=== PATIENT | female | born 1970 | race Two or more races ===

== ENCOUNTER 2019-09-18 21:30 | Inpatient (IN) | payer MEDICAID ==
[~2019-09-18] VITALS: Ht 157.5 cm; Wt 70.3 kg
[2019-09-18] MEDS ORDERED: Acetaminophen 500mg (ES) tab ORAL ONE (21:45)
[2019-09-18 22:00] VITALS: BP 106/62
--- NOTE | 2019-09-18 22:07 | Emergency Room Report ---
History of Present Illness General Chief Complaint: Dyspnea/Respdistress Source: Patient Present Illness HPI This is a 49-year-old Albanian-speaking female with no past medical history patient presents with chief complaint of shortness of breath. She had fever chills and shortness of breath has been ongoing for about a week. 3 days ago she was at [facility] and was tested positive for COVID-19. She was discharged home with symptomatic treatment. She called 911 because symptoms worsen today. She said she does not feel well. Feel very short of breath. Worse with exertion. Better with rest. Still with fever and chills. No nausea no vomiting or diarrhea. [place] weak and tired. Per EMS, oxygenation was around 85% on room air. Allergies: Coded Allergies: No Known Allergies (Unverified , 09/18/19) COVID-19 Screening Contact w/high risk pt: Yes Recent Travel to affected area: No Experienced COVID-19 symptoms?: Yes COVID-19 symptoms experienced: Shortness of Breath, Cough Patient History Past Medical History: see triage record, old chart reviewed Past Surgical History: none Pertinent Family History: none Social History: Denies: smoking Now: No Immunizations: other Reviewed Nursing Documentation: PMH: Agreed; PSxH: Agreed Nursing Documentation-PMH Past Medical History: No Stated History Review of Systems Constitutional: Reports: chills, fever, malaise, weakness Eye: Denies: eye pain, blurred vision ENT: Denies: ear pain, nose congestion, throat swelling Respiratory: Reports: cough, shortness of breath Cardiovascular: Denies: chest pain, palpitations Gastrointestinal: Denies: abdominal pain, diarrhea, nausea, vomiting Musculoskeletal: Denies: back pain, joint pain Skin: Denies: rash Neurological: Denies: headache, numbness Endocrine: Denies: increased thirst, increased urine Hematologic/Lymphatic: Denies: easy bruising All Other Systems: negative except mentioned in HPI Physical Exam Vital Signs Date Time Temp Pulse Resp B/P (MAP) Pulse Ox O2 Delivery O2 Flow Rate FiO2 09/18/19 21:32 99.5 92 22 106/62 (77) 87 Nasal Cannula 2.0 Vitals with hypoxia Sp02 EP Interpretation: reviewed, abnormal General Appearance: alert, other - Ill appearing Head: normocephalic, atraumatic Eyes: bilateral eye PERRL, bilateral eye EOMI ENT: hearing grossly normal, normal pharynx Neck: full range of motion, supple, no meningismus Respiratory: chest non-tender, lungs clear, normal breath sounds Cardiovascular #1: regular rate, rhythm, no murmur Gastrointestinal: normal bowel sounds, non tender, no mass, no organomegaly, no bruit, non-distended Musculoskeletal: back normal, normal range of motion, gait/station normal Psychiatric: mood/affect normal Procedures Critical Care Time Critical Care Time Critical care is mandated in this patient who presented with respiratory distress secondary to pneumonia from COVID. Patient require my urgent intervention to attenuate the risks of metabolic collapse which may lead to cardiovascular collapse and . Critical care time is 35 minutes excluding any reportable procedure. Critical care time included evaluation, multiple reevaluation, looking at old charts, interpreting laboratory and diagnostic data , discussing case with patient and family and consultants, and charting. Medical Decision Making Diagnostic Impression: Primary Impression: Pneumonia due to COVID-19 virus Additional Impression: Respiratory failure with hypoxia Qualified Codes: J96.01 - Acute respiratory failure with hypoxia ER Course Presents with respiratory distress and hypoxia. She is positive for COVID from [facility] 3 days ago. Antibiotic started. Because of worsening symptoms and hypoxia, will admit for monitoring and further work-up. This patient was evaluated in the context of the global COVID-19 pandemic, which necessitated consideration that the patient might be at risk for infection with the [id number] virus that causes COVID-19. Institutional protocols and algorithms that pertain to the evaluation of patients at risk for COVID-19 and the state of rapid change based on information released by multiple regulatory bodies including the CDC and federal and state organizations. These policies and algorithms were followed during the patient' s care in the ED. EKG Diagnostic Results Rate: normal Rhythm: NSR ST Segments: no acute changes ASA given to the pt in ED: No Rhythm Strip Diag. Results EP Interpretation: yes Rate: 80 Rhythm: NSR, no PVC's Chest X-Ray Diagnostic Results Chest X-Ray Diagnostic Results : Chest X-Ray Ordered: Yes # of Views/Limited/Complete: 1 View Indication: Shortness of Breath EP Interpretation: Yes Interpretation: no effusion, no pneumothorax, other - Multi lobar infiltrates Impression: Other - multi-lobar infiltrates Last Vital Signs Date Time Temp Pulse Resp B/P (MAP) Pulse Ox O2 Delivery O2 Flow Rate FiO2 09/18/19 21:32 99.5 92 22 106/62 (77) 87 Nasal Cannula 2.0 Status: improved Disposition: ADMITTED INPATIENT Condition: Serious Darrian Correa MD Sep 18, 2019 22:07
[2019-09-18] MEDS ORDERED: cefTRIAXone 1 GM in NS 55 ML IVPB ONE (22:15)
[2019-09-18] MEDS ORDERED: Enoxaparin 80mg Inj SUBQ ONE (22:15)
[2019-09-18] MEDS ORDERED: Hydroxychloroquine Fact Sheet MISC ONE (22:15)
[2019-09-18] MEDS ORDERED: Azithromycin 500 MG in NS 275 ML IV ONE (22:15)
[2019-09-18] MEDS ORDERED: Dexamethasone 4mg/ml vial IVP ONE (22:15)
[2019-09-18 22:43] LABS: HEMATOCRIT 39.2 % (37.0-47.0); HEMOGLOBIN 12.7 G/DL (12.0-16.0); MEAN CORPUSCULAR VOLUME 94 FL (80-99); PLATELET COUNT 238 K/UL (150-450); RED BLOOD COUNT 4.17 M/UL (4.20-5.40); RED CELL DISTRIBUTION WIDTH 12.2 % (11.6-14.8)
[2019-09-18 22:53] VITALS: BP 124/69
[2019-09-18 23:07] LABS: ANION GAP 13 mmol/L (5-15); BLOOD UREA NITROGEN 7 mg/dL (7-18); CALCIUM 8.7 MG/DL (8.5-10.1); CARBON DIOXIDE 24 MMOL/L (21-32); CHLORIDE 101 MMOL/L (98-107); CREATININE 0.7 MG/DL (0.55-1.30); POTASSIUM 3.7 MMOL/L (3.5-5.1); SODIUM 137 MMOL/L (136-145)
[2019-09-18] MEDS ORDERED: Miralax 17gm pkt ORAL PRN (23:15)
[2019-09-18 23:23] LABS: ALANINE AMINOTRANSFERASE 72 U/L (12-78); ALBUMIN 2.8 G/DL (3.4-5.0); ALBUMIN/GLOBULIN RATIO 0.5 (1.0-2.7); ALKALINE PHOSPHATASE 109 U/L (46-116); ASPARTATE AMINO TRANSFERASE 70 U/L (15-37); BILIRUBIN,TOTAL 0.4 MG/DL (0.2-1.0); FERRITIN 598 NG/ML (8-388)
[2019-09-19] VITALS (14 sets, daily range): BP systolic 93–114; BP diastolic 48–84
[2019-09-19] MEDS: cefTRIAXone 1 GM in D5W 50 ML IVPB SCH ×2
[2019-09-19] MEDS: Enoxaparin 40mg Inj SUBQ SCH ×2 (00:15→22:32)
[2019-09-19 05:15] LABS: ALANINE AMINOTRANSFERASE 61 U/L (12-78); ALBUMIN 2.4 G/DL (3.4-5.0); ALBUMIN/GLOBULIN RATIO 0.5 (1.0-2.7); ALKALINE PHOSPHATASE 102 U/L (46-116); ANION GAP 11 mmol/L (5-15); ASPARTATE AMINO TRANSFERASE 60 U/L (15-37); BILIRUBIN,TOTAL 0.3 MG/DL (0.2-1.0); BLOOD UREA NITROGEN 6 mg/dL (7-18); CARBON DIOXIDE 23 MMOL/L (21-32); CHLORIDE 105 MMOL/L (98-107); CREATININE 0.9 MG/DL (0.55-1.30); POTASSIUM 4.1 MMOL/L (3.5-5.1); SODIUM 139 MMOL/L (136-145)
[2019-09-19] MEDS ORDERED: ACETAMINOPHEN120 MG PO (05:51)
[2019-09-19 06:28] LABS: HEMOGLOBIN 12.5 G/DL (12.0-16.0); MEAN CORPUSCULAR VOLUME 90 FL (80-99); PLATELET COUNT 234 K/UL (150-450); RED BLOOD COUNT 4.01 M/UL (4.20-5.40); RED CELL DISTRIBUTION WIDTH 11.1 % (11.6-14.8); WHITE BLOOD COUNT 10.1 K/UL (4.8-10.8)
[2019-09-19 07:11] LABS: APPEARANCE,URINE CLEAR; BILIRUBIN, URINE NEGATIVE (NEGATIVE); COLOR,URINE PALE YELLOW; GLUCOSE, URINE (UA) NEGATIVE (NEGATIVE); KETONES,URINE NEGATIVE (NEGATIVE); LEUKOCYTE ESTERASE ,URINE NEGATIVE (NEGATIVE); NITRITE,URINE NEGATIVE (NEGATIVE); PH,URINE 6.5 (4.5-8.0); PROTEIN,URINE 1+ (NEGATIVE); UROBILINOGEN,URINE NORMAL MG/DL (0.0-1.0)
--- NOTE | 2019-09-19 08:51 | Diagnostic Imaging Report ---
Indication: Cough Technique: One view of the chest Comparison: none Findings: Groundglass infiltrates are seen in the periphery of the right lung and left mid and lower lung. Some interstitial opacities are seen in the left suprahilar region. No definite effusions. Normal heart size Impression: Bilateral right greater than left infiltrates, likely pneumonia
--- NOTE | 2019-09-19 11:42 | Infectious Diseases Prog Note ---
Assessment/Plan Assessment/Plan Full consult to follow: A) 1) pna 2) rule out covid-19 infection 3) ? CAP P) 1) ceftriaxone and doxycycline 2) hydroxychloroquine 3) will f/u 4) thank you Subjective Allergies: Coded Allergies: No Known Allergies (Unverified , 09/18/19) Objective Vital Signs Last 24 Hour Vital Signs Date Time Temp Pulse Resp B/P (MAP) Pulse Ox O2 Delivery O2 Flow Rate FiO2 09/19/19 07:31 63 20 97/53 96 Non-Rebreather 15.0 09/19/19 06:15 98.7 67 21 101/57 96 Non-Rebreather 15.0 09/19/19 04:00 98.7 68 29 99/62 97 Non-Rebreather 15.0 09/19/19 02:00 98.7 70 22 99/61 96 Non-Rebreather 15.0 09/19/19 00:00 99.5 78 25 110/71 95 Non-Rebreather 4.0 09/18/19 22:53 99.5 88 33 124/69 95 Nasal Cannula 4.0 09/18/19 22:44 99.5 09/18/19 22:00 99.5 78 22 106/62 95 Nasal Cannula 4.0 09/18/19 22:00 78 22 Nasal Cannula 4.0 09/18/19 21:32 99.5 92 22 106/62 (77) 87 Nasal Cannula 2.0 Height (Feet): 5 Height (Inches): 2.00 Weight (Pounds): 180 Laboratory Tests Test 09/18/19 22:05 09/19/19 04:30 09/19/19 10:43 White Blood Count 9.0 K/UL (4.8-10.8) 10.1 K/UL (4.8-10.8) Red Blood Count 4.17 M/UL (4.20-5.40) L 4.01 M/UL (4.20-5.40) L Hemoglobin 12.7 G/DL (12.0-16.0) 12.5 G/DL (12.0-16.0) Hematocrit 39.2 % (37.0-47.0) 36.0 % (37.0-47.0) L Mean Corpuscular Volume 94 FL (80-99) 90 FL (80-99) Mean Corpuscular Hemoglobin 30.4 PG (27.0-31.0) 31.2 PG (27.0-31.0) H Mean Corpuscular Hemoglobin Concent 32.3 G/DL (32.0-36.0) 34.8 G/DL (32.0-36.0) Red Cell Distribution Width 12.2 % (11.6-14.8) 11.1 % (11.6-14.8) L Platelet Count 238 K/UL (150-450) 234 K/UL (150-450) Mean Platelet Volume 7.2 FL (6.5-10.1) 6.7 FL (6.5-10.1) Neutrophils (%) (Auto) % (45.0-75.0) % (45.0-75.0) Lymphocytes (%) (Auto) % (20.0-45.0) % (20.0-45.0) Monocytes (%) (Auto) % (1.0-10.0) % (1.0-10.0) Eosinophils (%) (Auto) % (0.0-3.0) % (0.0-3.0) Basophils (%) (Auto) % (0.0-2.0) % (0.0-2.0) Differential Total Cells Counted 100 100 Neutrophils % (Manual) 83 % (45-75) H 95 % (45-75) H Lymphocytes % (Manual) 11 % (20-45) L 2 % (20-45) L Monocytes % (Manual) 4 % (1-10) 3 % (1-10) Eosinophils % (Manual) 0 % (0-3) 0 % (0-3) Basophils % (Manual) 0 % (0-2) 0 % (0-2) Band Neutrophils 2 % (0-8) 0 % (0-8) Platelet Estimate Adequate Adequate Platelet Morphology Normal Normal Red Blood Cell Morphology Normal Normal Erythrocyte Sedimentation Rate 80 MM/HR (0-20) H D-Dimer 0.61 mg/L FEU (0.00-0.49) H Sodium Level 137 MMOL/L (136-145) 139 MMOL/L (136-145) Potassium Level 3.7 MMOL/L (3.5-5.1) 4.1 MMOL/L (3.5-5.1) Chloride Level 101 MMOL/L (98-107) 105 MMOL/L (98-107) Carbon Dioxide Level 24 MMOL/L (21-32) 23 MMOL/L (21-32) Anion Gap 13 mmol/L (5-15) 11 mmol/L (5-15) Blood Urea Nitrogen 7 mg/dL (7-18) 6 mg/dL (7-18) L Creatinine 0.7 MG/DL (0.55-1.30) 0.9 MG/DL (0.55-1.30) Estimat Glomerular Filtration Rate > 60 mL/min (>60) > 60 mL/min (>60) Glucose Level 128 MG/DL (74-106) H 158 MG/DL (74-106) H Calcium Level 8.7 MG/DL (8.5-10.1) 8.0 MG/DL (8.5-10.1) L Ferritin 598 NG/ML (8-388) H Total Bilirubin 0.4 MG/DL (0.2-1.0) 0.3 MG/DL (0.2-1.0) Aspartate Amino Transf (AST/SGOT) 70 U/L (15-37) H 60 U/L (15-37) H Alanine Aminotransferase (ALT/SGPT) 72 U/L (12-78) 61 U/L (12-78) Alkaline Phosphatase 109 U/L (46-116) 102 U/L (46-116) Lactate Dehydrogenase 419 U/L (81-234) H C-Reactive Protein, Quantitative 26.6 mg/dL (0.00-0.90) H Total Protein 7.9 G/DL (6.4-8.2) 7.3 G/DL (6.4-8.2) Albumin 2.8 G/DL (3.4-5.0) L 2.4 G/DL (3.4-5.0) L Globulin 5.1 g/dL 4.9 g/dL Albumin/Globulin Ratio 0.5 (1.0-2.7) L 0.5 (1.0-2.7) L Thyroid Stimulating Hormone (TSH) 0.978 uiU/mL (0.358-3.740) Arterial Blood pH 7.433 (7.350-7.450) Arterial Blood Partial Pressure CO2 35.6 mmHg (35.0-45.0) Arterial Blood Partial Pressure O2 63.0 mmHg (75.0-100.0) L Arterial Blood HCO3 23.3 mmol/L (22.0-26.0) Arterial Blood Oxygen Saturation 92.8 % (95-100) L Arterial Blood Base Excess -0.5 (-2-2) Luis Test Positive Current Medications Medications (Trade) Dose Ordered Sig/Sam Route PRN Reason Start Time Stop Time Status Last Admin Dose Admin Acetaminophen (Tylenol) 650 mg Q4H PRN ORAL Mild Pain (Pain Scale 1-3) 09/18/19 23:15 10/18/19 23:14 Acetaminophen (Tylenol) 650 mg Q4H PRN ORAL Temp >100.5 09/18/19 23:15 10/18/19 23:14 Ceftriaxone Sodium 1 gm/ Dextrose 50 ml @ 100 mls/hr Q24H IVPB 09/19/19 00:00 09/26/19 00:00 Dextrose (Dextrose 50%) 25 ml Q30M PRN IV Hypoglycemia 09/18/19 23:15 12/17/19 23:14 Dextrose (Dextrose 50%) 50 ml Q30M PRN IV Hypoglycemia 09/18/19 23:15 12/17/19 23:14 Enoxaparin Sodium (Lovenox) 40 mg QHS SUBQ 09/19/19 00:15 12/18/19 00:14 Ondansetron HCl (Zofran) 4 mg Q6H PRN IVP Nausea & Vomiting 09/18/19 23:15 10/18/19 23:14 09/19/19 08:24 Polyethylene Glycol (Miralax) 17 gm HSPRN PRN ORAL Constipation 09/18/19 23:15 10/18/19 23:14 Sodium Chloride 1,000 ml @ 50 mls/hr Q20H IV 09/19/19 00:01 10/19/19 00:00 09/19/19 00:34 Enedina Ceja MD Sep 19, 2019 11:42
[2019-09-19] MEDS ORDERED: Hydroxychloroquine 400mg tab ORAL SCH (12:00)
[2019-09-19] MEDS ORDERED: Hydroxychloroquine Fact Sheet MISC SCH (12:00)
--- NOTE | 2019-09-19 15:08 | Consultation ---
Neena Lees COMMERCIAL LOAN ADMINISTRATOR 09/19/19 1508: History of Present Illness General Date patient seen: Sep 19, 2019 Time patient seen: 11:00 Chief Complaint: Dyspnea/Respdistress Referring physician: Dr Zuniga Reason for Consultation: Multilobar PNA Present Illness HPI 49 years old female with no significant past medical history, was recently tested positive for COVID-[address] [facility]. Patient was discharged home with recommendations of symptomatic treatment. Patient reported progressively worsening shortness of breath , ongoing for about a week. Patient reports predominantly a dry cough with minimal white color sputum production. She denied fever and chills. Patient reported weakness and tiredness , lack of energy. No chest pain. She called paramedics due to worsening symptoms. Per paramedics, pulse oximetry was 85% on room air. Upon presentation patient had a low-grade fever, was tachypneic and hypoxic; pulse oximetry was 87% on 2 L of oxygen via nasal cannula. Patient was placed on 100% nonrebreathing mask. Chest x-ray demonstrated bilateral, right greater than left infiltrates. Pulmonary consult was requested to assist with management of this patient. Laboratory work-up revealed no leukocytosis , stable hemoglobin ,hematocrit and lymphopenia. ESR 80. CRP 26.6. LDH 419. Ferritin 598. AST 70 ,ALT 72. Stable electrolytes and renal parameters. Urinalysis revealed no evidence of urinary tract infection. Patient was re-tested for CoVID 19 infection. Patient pancultured , started on empiric antibiotics and admitted for further management. Allergies: Coded Allergies: No Known Allergies (Unverified , 09/18/19) Medication History Scheduled Acetaminophen* (Tylenol*), 200 MG PO Q4H, (Reported) Patient History History Provided By: Patient, Medical Record Healthcare decision maker Resuscitation status Advanced Directive on File Review of Systems Constitutional: Reports: chills, malaise, weakness, other - poor appetite Eye: Reports: no symptoms ENT: Reports: no symptoms Respiratory: Reports: see HPI Cardiovascular: Reports: no symptoms Gastrointestinal: Reports: other - epigastric discomfort Genitourinary: Reports: no symptoms Musculoskeletal: Reports: no symptoms Skin: Reports: no symptoms Psychiatric: Reports: no symptoms Neurological: Reports: no symptoms Endocrine: Reports: no symptoms Hematologic/Lymphatic: Reports: no symptoms Physical Exam General Appearance: alert oriented x3 - predominantly Citizen Of [place] speaking female , other - mild resp distress Lines, tubes and drains: peripheral HEENT: normocephalic, atraumatic, anicteric, mucous membranes moist, PERRL, EOMI, supple, no JVD, other - 100 % NRM on Neck: supple Respiratory/Chest: no accessory muscle use, rhonchi - bilaterally Cardiovascular/Chest: normal rate, regular rhythm Abdomen: normal bowel sounds, non tender, soft Extremities: normal range of motion, no edema Skin Exam: warm/dry Neurologic: fashion photographer II-XII grossly normal, no motor/sensory deficits, alert, oriented x 3, responsive Musculoskeletal: normal muscle bulk, no effusion Last 24 Hour Vital Signs Date Time Temp Pulse Resp B/P (MAP) Pulse Ox O2 Delivery O2 Flow Rate FiO2 09/19/19 12:44 97.5 63 19 108/84 96 Non-Rebreather 15.0 09/19/19 07:31 63 20 97/53 96 Non-Rebreather 15.0 09/19/19 06:15 98.7 67 21 101/57 96 Non-Rebreather 15.0 09/19/19 04:00 98.7 68 29 99/62 97 Non-Rebreather 15.0 09/19/19 02:00 98.7 70 22 99/61 96 Non-Rebreather 15.0 09/19/19 00:00 99.5 78 25 110/71 95 Non-Rebreather 4.0 09/18/19 22:53 99.5 88 33 124/69 95 Nasal Cannula 4.0 09/18/19 22:44 99.5 09/18/19 22:00 99.5 78 22 106/62 95 Nasal Cannula 4.0 09/18/19 22:00 78 22 Nasal Cannula 4.0 09/18/19 21:32 99.5 92 22 106/62 (77) 87 Nasal Cannula 2.0 Intake and Output 09/18/19 09/19/19 19:00 07:00 Intake Total 1380 ml Balance 1380 ml IV Total 1380 ml Laboratory Tests Test 09/18/19 22:05 09/19/19 04:30 09/19/19 10:43 White Blood Count 9.0 K/UL (4.8-10.8) 10.1 K/UL (4.8-10.8) Red Blood Count 4.17 M/UL (4.20-5.40) L 4.01 M/UL (4.20-5.40) L Hemoglobin 12.7 G/DL (12.0-16.0) 12.5 G/DL (12.0-16.0) Hematocrit 39.2 % (37.0-47.0) 36.0 % (37.0-47.0) L Mean Corpuscular Volume 94 FL (80-99) 90 FL (80-99) Mean Corpuscular Hemoglobin 30.4 PG (27.0-31.0) 31.2 PG (27.0-31.0) H Mean Corpuscular Hemoglobin Concent 32.3 G/DL (32.0-36.0) 34.8 G/DL (32.0-36.0) Red Cell Distribution Width 12.2 % (11.6-14.8) 11.1 % (11.6-14.8) L Platelet Count 238 K/UL (150-450) 234 K/UL (150-450) Mean Platelet Volume 7.2 FL (6.5-10.1) 6.7 FL (6.5-10.1) Neutrophils (%) (Auto) % (45.0-75.0) % (45.0-75.0) Lymphocytes (%) (Auto) % (20.0-45.0) % (20.0-45.0) Monocytes (%) (Auto) % (1.0-10.0) % (1.0-10.0) Eosinophils (%) (Auto) % (0.0-3.0) % (0.0-3.0) Basophils (%) (Auto) % (0.0-2.0) % (0.0-2.0) Differential Total Cells Counted 100 100 Neutrophils % (Manual) 83 % (45-75) H 95 % (45-75) H Lymphocytes % (Manual) 11 % (20-45) L 2 % (20-45) L Monocytes % (Manual) 4 % (1-10) 3 % (1-10) Eosinophils % (Manual) 0 % (0-3) 0 % (0-3) Basophils % (Manual) 0 % (0-2) 0 % (0-2) Band Neutrophils 2 % (0-8) 0 % (0-8) Platelet Estimate Adequate Adequate Platelet Morphology Normal Normal Red Blood Cell Morphology Normal Normal Erythrocyte Sedimentation Rate 80 MM/HR (0-20) H D-Dimer 0.61 mg/L FEU (0.00-0.49) H Sodium Level 137 MMOL/L (136-145) 139 MMOL/L (136-145) Potassium Level 3.7 MMOL/L (3.5-5.1) 4.1 MMOL/L (3.5-5.1) Chloride Level 101 MMOL/L (98-107) 105 MMOL/L (98-107) Carbon Dioxide Level 24 MMOL/L (21-32) 23 MMOL/L (21-32) Anion Gap 13 mmol/L (5-15) 11 mmol/L (5-15) Blood Urea Nitrogen 7 mg/dL (7-18) 6 mg/dL (7-18) L Creatinine 0.7 MG/DL (0.55-1.30) 0.9 MG/DL (0.55-1.30) Estimat Glomerular Filtration Rate > 60 mL/min (>60) > 60 mL/min (>60) Glucose Level 128 MG/DL (74-106) H 158 MG/DL (74-106) H Calcium Level 8.7 MG/DL (8.5-10.1) 8.0 MG/DL (8.5-10.1) L Ferritin 598 NG/ML (8-388) H Total Bilirubin 0.4 MG/DL (0.2-1.0) 0.3 MG/DL (0.2-1.0) Aspartate Amino Transf (AST/SGOT) 70 U/L (15-37) H 60 U/L (15-37) H Alanine Aminotransferase (ALT/SGPT) 72 U/L (12-78) 61 U/L (12-78) Alkaline Phosphatase 109 U/L (46-116) 102 U/L (46-116) Lactate Dehydrogenase 419 U/L (81-234) H C-Reactive Protein, Quantitative 26.6 mg/dL (0.00-0.90) H Total Protein 7.9 G/DL (6.4-8.2) 7.3 G/DL (6.4-8.2) Albumin 2.8 G/DL (3.4-5.0) L 2.4 G/DL (3.4-5.0) L Globulin 5.1 g/dL 4.9 g/dL Albumin/Globulin Ratio 0.5 (1.0-2.7) L 0.5 (1.0-2.7) L Thyroid Stimulating Hormone (TSH) 0.978 uiU/mL (0.358-3.740) Arterial Blood pH 7.433 (7.350-7.450) Arterial Blood Partial Pressure CO2 35.6 mmHg (35.0-45.0) Arterial Blood Partial Pressure O2 63.0 mmHg (75.0-100.0) L Arterial Blood HCO3 23.3 mmol/L (22.0-26.0) Arterial Blood Oxygen Saturation 92.8 % (95-100) L Arterial Blood Base Excess -0.5 (-2-2) Luis Test Positive Height (Feet): 5 Height (Inches): 2.00 Weight (Pounds): 180 Medications Current Medications Medications (Trade) Dose Ordered Sig/Sam Route PRN Reason Start Time Stop Time Status Last Admin Dose Admin Acetaminophen (Tylenol) 650 mg Q4H PRN ORAL Mild Pain (Pain Scale 1-3) 09/18/19 23:15 10/18/19 23:14 09/19/19 12:36 Acetaminophen (Tylenol) 650 mg Q4H PRN ORAL Temp >100.5 09/18/19 23:15 10/18/19 23:14 Ceftriaxone Sodium 1 gm/ Dextrose 50 ml @ 100 mls/hr Q24H IVPB 09/19/19 00:00 09/26/19 00:00 Dextrose (Dextrose 50%) 25 ml Q30M PRN IV Hypoglycemia 09/18/19 23:15 12/17/19 23:14 Dextrose (Dextrose 50%) 50 ml Q30M PRN IV Hypoglycemia 09/18/19 23:15 12/17/19 23:14 Doxycycline Hyclate 100 mg/ Dextrose 100 ml @ 100 mls/hr Q12HR IVPB 09/19/19 21:00 09/26/19 20:59 UNV Enoxaparin Sodium (Lovenox) 40 mg QHS SUBQ 09/19/19 00:15 12/18/19 00:14 Hydroxychloroquine Sulfate (Plaquenil) 200 mg Q12HR ORAL 09/19/19 21:00 09/23/19 09:01 Miscellaneous Medication (Plaquenil Fact Sheet) 1 ea ONCE MISC 09/19/19 12:00 09/19/19 15:00 09/19/19 12:24 Ondansetron HCl (Zofran) 4 mg Q6H PRN IVP Nausea & Vomiting 09/18/19 23:15 10/18/19 23:14 09/19/19 08:24 Polyethylene Glycol (Miralax) 17 gm HSPRN PRN ORAL Constipation 09/18/19 23:15 10/18/19 23:14 Sodium Chloride 1,000 ml @ 50 mls/hr Q20H IV 09/19/19 00:01 10/19/19 00:00 09/19/19 00:34 Assessment/Plan Assessment/Plan: ASSESSMENT Acute hypoxemic respiratory failure ( requiring NRM in admission) Multilobar PNA due to COVID 19 infection ( confirmed prior) Transaminitis PLAN OF CARE ALBERTO O2 titrate to keep sat above 90% MDI with spacer prn fup with CoVID result ( swabbed ub ED 09/18) start Solumedrol 40 mg IV bid with fast tapering daily CRP, LDH, ferritin fup with ABG in am fup with CXR abx as per ID-ceftriaxone and Doxycycline ID also started on Plaquenil, monitor QT interval - no clearly documented benefits, will monitor closely isolation DVT prophylaxis with Lovenox gentle IV hydration trend LFT Time Spent (Minutes): 45 Notes Reviewed: ED physician, ID Discussed with: nurse case discussed and evaluated by supervising physician Raghav De MD 09/20/19 1632: History of Present Illness General Chief Complaint: Dyspnea/Respdistress Present Illness Allergies: Coded Allergies: No Known Allergies (Unverified , 09/18/19) Medication History Scheduled Acetaminophen* (Tylenol*), 200 MG PO Q4H, (Reported) Assessment/Plan Assessment/Plan: Patient seen and examined with COMMERCIAL LOAN ADMINISTRATOR. Agree with plan as outlined abouve which reflects our joint formulations. Neena Lees COMMERCIAL LOAN ADMINISTRATOR Sep 19, 2019 15:08 Raghav De MD Sep 20, 2019 16:32
[2019-09-19] MEDS ORDERED: Albuterol 90mcg Inhaler 8gm INH PRN (15:15)
--- NOTE | 2019-09-19 16:45 | History and Physical Report ---
DATE OF ADMISSION: 09/18/2019 CHIEF COMPLAINT/REASON FOR HOSPITALIZATION: The patient is a 49-year-old lady admitted with pneumonia, COVID-19 positive. HISTORY OF PRESENT ILLNESS: The patient apparently had positive COVID test at [facility] and was released. She presents now with increasing shortness of breath and hypoxemia. The patient is unable to give a good history but apparently she has been in good health prior to this. PAST SURGICAL HISTORY: None. HABITS: She is a nonsmoker and nondrinker. MEDICATIONS: At home, she has not been taking regular medicines except for Tylenol. SYSTEM REVIEW: Completely negative except for shortness of breath. PHYSICAL EXAMINATION: GENERAL: The patient is wearing oxygen mask, appears moderately dyspneic. VITAL SIGNS: Temperature 98.7, pulse 67, respirations 20, blood pressure 101/57. HEAD, EYES, EARS, NOSE, AND THROAT: Sclerae are nonicteric. Ocular motions intact in all directions. Oral mucosa moist. NECK: No adenopathy. LUNGS: She is tachypneic. I hear no rales or rhonchi. HEART: Regular rhythm. No murmur. ABDOMEN: Soft. EXTREMITIES: No edema. NEUROLOGIC: She is alert. No focal findings. LABORATORY DATA: Laboratories are reviewed. IMPRESSION: 1. Pneumonia with COVID-19 positive reported. 2. Hypoxemic acute respiratory failure. PLAN: The patient will be watched closely. We will get appropriate consultation. She has moderate rapid decline and will be watched closely. Hung Zuniga M.D. DR: Isaac JOB#: [id number] CC: GERARD
[2019-09-19] MEDS: Solu-MEDROL 40mg Inj IVP SCH (22:30)
[2019-09-20] VITALS (45 sets, daily range): BP systolic 58–263; BP diastolic 26–123
[2019-09-20] MEDS: cefTRIAXone 1 GM in D5W 50 ML IVPB SCH (00:02)
[2019-09-20 04:26] LABS: HEMOGLOBIN 13.1 G/DL (12.0-16.0); MEAN CORPUSCULAR VOLUME 88 FL (80-99); PLATELET COUNT 308 K/UL (150-450); RED BLOOD COUNT 4.18 M/UL (4.20-5.40); WHITE BLOOD COUNT 12.6 K/UL (4.8-10.8)
[2019-09-20 04:56] LABS: ALANINE AMINOTRANSFERASE 64 U/L (12-78); ALBUMIN 2.2 G/DL (3.4-5.0); ALBUMIN/GLOBULIN RATIO 0.4 (1.0-2.7); ALKALINE PHOSPHATASE 98 U/L (46-116); ANION GAP 12 mmol/L (5-15); ASPARTATE AMINO TRANSFERASE 58 U/L (15-37); BILIRUBIN,TOTAL 0.3 MG/DL (0.2-1.0); BLOOD UREA NITROGEN 14 mg/dL (7-18); CARBON DIOXIDE 25 MMOL/L (21-32); CHLORIDE 108 MMOL/L (98-107); CREATININE 0.8 MG/DL (0.55-1.30); FERRITIN 582 NG/ML (8-388); POTASSIUM 3.9 MMOL/L (3.5-5.1); SODIUM 145 MMOL/L (136-145)
[2019-09-20] MEDS: Solu-MEDROL 40mg Inj IVP SCH ×2 (09:41→21:00)
--- NOTE | 2019-09-20 09:54 | Pulmonology Progress Note ---
Neena Lees BATH MIXER 09/20/19 0954: Assessment/Plan Assessment/Plan ASSESSMENT Acute hypoxemic respiratory failure ( requiring NRM in admission) Multilobar PNA due to COVID 19 infection ( confirmed prior) Transaminitis PLAN OF CARE ALBERTO O2 titrate to keep sat above 90% MDI with spacer prn fup with CoVID result ( swabbed ub ED 09/18) on Solumedrol 40 mg IV bid with fast tapering mild leukocytosis this am daily CRP, LDH, ferritin: LDH 486, CRP 16.8, ferritin 582, IL 6 pending ABG this am on 100% NRM O2 sat 87.5 transfer to ICU for probable intubation CXR STAT abx as per ID-ceftriaxone and Doxycycline BCX NGTD ID also started on Plaquenil, monitor QT interval - no clearly documented benefits, will monitor closely isolation DVT prophylaxis with Lovenox gentle IV hydration trend LFT transfer to ICU case discussed and evaluated by supervising physician Time Spent (Minutes): 45 Notes Reviewed: ED physician, ID Discussed with: nurse Subjective Allergies: Coded Allergies: No Known Allergies (Unverified , 09/18/19) Subjective on tele in isolation on 100 % NRM points to chest and states its hurt with breathing RT just drawing ABG mild leuk this am, no fevers ( started on Steroids 09/18) Objective Last 24 Hour Vital Signs Date Time Temp Pulse Resp B/P (MAP) Pulse Ox O2 Delivery O2 Flow Rate FiO2 09/20/19 08:00 89 09/20/19 08:00 96.6 74 20 123/67 (85) 98 09/20/19 04:00 15.0 09/20/19 04:00 98.6 78 17 103/61 (75) 96 09/20/19 04:00 77 09/20/19 02:10 97.6 09/20/19 00:00 104 09/20/19 00:00 15.0 09/20/19 00:00 97.6 68 16 99/64 (76) 98 09/19/19 22:56 Non-Rebreather 15.0 09/19/19 22:15 99.3 65 26 99/57 98 Non-Rebreather 15.0 09/19/19 21:55 99.3 63 26 99/57 98 Non-Rebreather 15.0 09/19/19 19:16 99.1 67 27 97/55 99 Non-Rebreather 15.0 09/19/19 18:43 65 28 95/48 99 Non-Rebreather 15.0 09/19/19 17:40 99.7 67 28 103/61 96 Non-Rebreather 15.0 09/19/19 16:00 66 27 103/52 95 Non-Rebreather 15.0 09/19/19 14:30 71 27 106/77 94 Non-Rebreather 15.0 09/19/19 14:00 63 27 93/58 94 Non-Rebreather 15.0 09/19/19 12:44 97.5 63 19 108/84 96 Non-Rebreather 15.0 09/19/19 11:30 65 24 114/68 96 Non-Rebreather 15.0 Intake and Output 09/19/19 09/20/19 19:00 07:00 Intake Total 240 ml 957.4 ml Balance 240 ml 957.4 ml Intake Oral 240 ml 480 ml IV Total 477.4 ml # Voids 1 4 # Bowel Movements 1 Objective General Appearance: alert oriented x3; predominantly Turkmen speaking female , in mild resp distress Lines, tubes and drains: peripheral HEENT: normocephalic, atraumatic, anicteric, mucous membranes moist, PERRL, EOMI, supple, no JVD, on 100 % NRM on Neck: supple Respiratory/Chest: no accessory muscle use, rhonchi bilaterally Cardiovascular/Chest: normal rate, regular rhythm Abdomen: normal bowel sounds, non tender, soft Extremities: normal range of motion, no edema Skin Exam: warm/dry 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, no motor/sensory deficits, alert, oriented x 3, responsive Musculoskeletal: normal muscle bulk, no effusion HEENT: normocephalic, atraumatic, anicteric, mucous membranes moist Microbiology Date/Time Source Procedure Growth Status 09/18/19 22:05 Blood Blood Culture - Preliminary NO GROWTH AFTER 24 HOURS Resulted 09/18/19 21:40 Blood Blood Culture - Preliminary NO GROWTH AFTER 24 HOURS Resulted Laboratory Tests 09/19/19 10:43: Arterial Blood pH 7.433, Arterial Blood Partial Pressure CO2 35.6, Arterial Blood Partial Pressure O2 63.0L, Arterial Blood HCO3 23.3, Arterial Blood Oxygen Saturation 92.8L, Arterial Blood Base Excess -0.5, Luis Test Positive 09/20/19 03:45: Interleukin 6 (IL-6) [Pending] 09/20/19 04:00: White Blood Count 12.6H, Red Blood Count 4.18L, Hemoglobin 13.1, Hematocrit 37.0 , Mean Corpuscular Volume 88, Mean Corpuscular Hemoglobin 31.3H, Mean Corpuscular Hemoglobin Concent 35.4, Red Cell Distribution Width 11.0L, Platelet Count 308, Mean Platelet Volume 6.8, Neutrophils (%) (Auto) , Lymphocytes (%) (Auto) , Monocytes (%) (Auto) , Eosinophils (%) (Auto) , Basophils (%) (Auto) , Differential Total Cells Counted 100, Neutrophils % ( Manual) 94H, Lymphocytes % (Manual) 5L, Monocytes % (Manual) 1, Eosinophils % ( Manual) 0, Basophils % (Manual) 0, Band Neutrophils 0, Platelet Estimate Adequate, Platelet Morphology Normal, Red Blood Cell Morphology Normal, Sodium Level 145, Potassium Level 3.9, Chloride Level 108H, Carbon Dioxide Level 25, Anion Gap 12, Blood Urea Nitrogen 14, Creatinine 0.8, Estimat Glomerular Filtration Rate > 60, Glucose Level 134H, Calcium Level 8.0L, Ferritin 582H, Total Bilirubin 0.3, Aspartate Amino Transf (AST/SGOT) 58H, Alanine Aminotransferase (ALT/SGPT) 64, Alkaline Phosphatase 98, Lactate Dehydrogenase 486H, C-Reactive Protein, Quantitative 16.8H, Total Protein 7.3, Albumin 2.2L, Globulin 5.1, Albumin/Globulin Ratio 0.4L 09/20/19 08:25: Arterial Blood pH 7.417, Arterial Blood Partial Pressure CO2 34.5L, Arterial Blood Partial Pressure O2 53.7L, Arterial Blood HCO3 21.7L, Arterial Blood Oxygen Saturation 87.5*L, Arterial Blood Base Excess -2.1L, Luis Test Positive Current Medications Medications (Trade) Dose Ordered Sig/Sam Route PRN Reason Start Time Stop Time Status Last Admin Dose Admin Acetaminophen (Tylenol) 650 mg Q4H PRN ORAL Mild Pain (Pain Scale 1-3) 09/18/19 23:15 10/18/19 23:14 09/20/19 01:40 Acetaminophen (Tylenol) 650 mg Q4H PRN ORAL Temp >100.5 09/18/19 23:15 10/18/19 23:14 Albuterol Sulfate (Proventil MDI) 2 puff Q4H PRN INH Shortness of Breath 09/19/19 15:15 12/18/19 15:14 09/20/19 00:13 Ceftriaxone Sodium 1 gm/ Dextrose 50 ml @ 100 mls/hr Q24H IVPB 09/19/19 00:00 09/26/19 00:00 09/20/19 00:02 Dextrose (Dextrose 50%) 25 ml Q30M PRN IV Hypoglycemia 09/18/19 23:15 12/17/19 23:14 Dextrose (Dextrose 50%) 50 ml Q30M PRN IV Hypoglycemia 09/18/19 23:15 12/17/19 23:14 Doxycycline Hyclate 100 mg/ Dextrose 100 ml @ 100 mls/hr Q12HR IV 09/19/19 21:00 09/26/19 20:59 09/20/19 09:41 Enoxaparin Sodium (Lovenox) 40 mg QHS SUBQ 09/19/19 00:15 12/18/19 00:14 09/19/19 22:32 Hydroxychloroquine Sulfate (Plaquenil) 200 mg Q12HR ORAL 09/19/19 21:00 09/23/19 09:01 09/20/19 09:41 Methylprednisolone Sodium Succinate (Solu-MEDROL) 40 mg Q12HR IVP 09/19/19 21:00 12/18/19 20:59 09/20/19 09:41 Ondansetron HCl (Zofran) 4 mg Q6H PRN IVP Nausea & Vomiting 09/18/19 23:15 10/18/19 23:14 09/20/19 01:00 Polyethylene Glycol (Miralax) 17 gm HSPRN PRN ORAL Constipation 09/18/19 23:15 10/18/19 23:14 Sodium Chloride 1,000 ml @ 50 mls/hr Q20H IV 09/19/19 00:01 10/19/19 00:00 09/19/19 22:30 Raghav De MD 09/20/19 1631: Assessment/Plan Assessment/Plan Agree with above BATH MIXER A&P. Patient deteriorated throughout the day with progressive hypoxemia. I transferred her to the ICU, intubated now and stable on vent. Will start Fent gtt for sedation titrate to RASS -2 LPV Titrate O2, inc PEEP Abx per ID Plaquenil D2 F/U IL^ SM 40 IV BID and taper LMWH Place NGT Consider proning Monitor volumes and renal function mIVF CCT 60 Subjective Allergies: Coded Allergies: No Known Allergies (Unverified , 09/18/19) Neena Lees NP Sep 20, 2019 09:54 Raghav De MD Sep 20, 2019 16:31
--- NOTE | 2019-09-20 11:11 | Consultation ---
Consult Note Consult Note HISTORY OF PRESENT ILLNESS: The patient apparently had positive COVID test at [facility] and was released. She presents now with increasing shortness of breath and hypoxemia. The patient is unable to give a good history but apparently she has been in good health prior to this. Currently, it is noted that she has decompensated and will transfer to ICU PAST SURGICAL HISTORY: None. HABITS: She is a nonsmoker and nondrinker. MEDICATIONS: At home, she has not been taking regular medicines except for Tylenol. SYSTEM REVIEW: Completely negative except for shortness of breath. PHYSICAL EXAMINATION: GENERAL: The patient is wearing oxygen mask, appears moderately dyspneic. VITAL SIGNS: Temperature 98.7, pulse 67, respirations 24, blood pressure 101/57. HEAD, EYES, EARS, NOSE, AND THROAT: Sclerae are nonicteric. Ocular motions intact in all directions. Oral mucosa moist. NECK: No adenopathy. LUNGS: She is tachypneic. I hear no rales or rhonchi. HEART: Regular rhythm. No murmur. ABDOMEN: Soft. EXTREMITIES: No edema. NEUROLOGIC: She is alert. No focal findings. LABORATORY DATA: Laboratories are reviewed. IMPRESSION: 1. Pneumonia with COVID-19 positive reported. 2. Hypoxemic acute respiratory failure. PLAN: The patient will be watched closely in ICU. May require intubation. Discussed with Drs. Zuniga and Santino. Trupti Shanks Omar Syed MD Sep 20, 2019 11:10
--- NOTE | 2019-09-20 12:21 | Diagnostic Imaging Report ---
Indication: Shortness of breath Technique: One view of the chest Comparison: 09/18/2019 Findings: Interim marked increase in parenchymal consolidation bilaterally, particularly on the right, which is now diffuse throughout the lung. Disease on the left is predominantly in the mid and lower lung. The heart borders are obscured. No definite effusions. Impression: Over 2 days, interim marked worsening of bilateral infiltrates, right greater than left
[2019-09-20] MEDS ORDERED: Tubing IV Secondary IV ONE (14:46)
[2019-09-20] MEDS ORDERED: 1/2 NS 1000ml IV ONE (14:46)
--- NOTE | 2019-09-20 16:17 | General Progress Note ---
Assessment/Plan Problem List: (1) Glucose intolerance ICD Codes: E74.39 - Other disorders of intestinal carbohydrate absorption SNOMED: 35833116 (2) Respiratory failure with hypoxia ICD Codes: J96.91 - Respiratory failure, unspecified with hypoxia SNOMED: 64285528326974667, 365376212 Qualifiers: Qualified Codes: J96.01 - Acute respiratory failure with hypoxia (3) Pneumonia due to COVID-19 virus ICD Codes: U07.1 - COVID-19; J12.89 - Other viral pneumonia SNOMED: 668443014, [id number] Assessment/Plan: transferring to icu, on antibiotics, plaquenil ordered by pulm, worsening resp failure, intubating, SS insulin, steroids started Subjective ROS Limited/Unobtainable: Yes Allergies: Coded Allergies: No Known Allergies (Unverified , 09/18/19) Objective Last 24 Hour Vital Signs Date Time Temp Pulse Resp B/P (MAP) Pulse Ox O2 Delivery O2 Flow Rate FiO2 09/20/19 15:55 134 16 100 09/20/19 15:15 70 29 160/68 (98) 83 09/20/19 15:09 70 44 96 100 09/20/19 15:00 71 31 162/63 (96) 83 09/20/19 14:45 82 34 159/66 (97) 97 09/20/19 14:30 72 49 154/67 (96) 96 09/20/19 14:15 73 27 160/67 (98) 97 09/20/19 14:00 69 38 166/71 (102) 97 09/20/19 13:45 Bi-pap Bi-pap 09/20/19 13:45 73 38 158/63 (94) 95 09/20/19 13:30 98.5 77 34 172/62 (98) 83 09/20/19 12:46 88 38 98 100 09/20/19 12:00 67 09/20/19 12:00 15.0 09/20/19 12:00 97.7 74 20 129/52 (77) 97 09/20/19 09:58 90 35 97 100 09/20/19 09:00 Non-Rebreather 15.0 09/20/19 08:00 89 09/20/19 08:00 96.6 74 20 123/67 (85) 98 09/20/19 08:00 15.0 09/20/19 04:00 15.0 09/20/19 04:00 98.6 78 17 103/61 (75) 96 09/20/19 04:00 77 09/20/19 02:10 97.6 09/20/19 00:00 104 09/20/19 00:00 15.0 09/20/19 00:00 97.6 68 16 99/64 (76) 98 09/19/19 22:56 Non-Rebreather 15.0 09/19/19 22:15 99.3 65 26 99/57 98 Non-Rebreather 15.0 09/19/19 21:55 99.3 63 26 99/57 98 Non-Rebreather 15.0 09/19/19 19:16 99.1 67 27 97/55 99 Non-Rebreather 15.0 09/19/19 18:43 65 28 95/48 99 Non-Rebreather 15.0 09/19/19 17:40 99.7 67 28 103/61 96 Non-Rebreather 15.0 Intake and Output 09/19/19 09/20/19 19:00 07:00 Intake Total 240 ml 957.4 ml Balance 240 ml 957.4 ml Intake Oral 240 ml 480 ml IV Total 477.4 ml # Voids 1 4 # Bowel Movements 1 Laboratory Tests 09/20/19 03:45: Interleukin 6 (IL-6) [Pending] 09/20/19 04:00: White Blood Count 12.6H, Red Blood Count 4.18L, Hemoglobin 13.1, Hematocrit 37.0 , Mean Corpuscular Volume 88, Mean Corpuscular Hemoglobin 31.3H, Mean Corpuscular Hemoglobin Concent 35.4, Red Cell Distribution Width 11.0L, Platelet Count 308, Mean Platelet Volume 6.8, Neutrophils (%) (Auto) , Lymphocytes (%) (Auto) , Monocytes (%) (Auto) , Eosinophils (%) (Auto) , Basophils (%) (Auto) , Differential Total Cells Counted 100, Neutrophils % ( Manual) 94H, Lymphocytes % (Manual) 5L, Monocytes % (Manual) 1, Eosinophils % ( Manual) 0, Basophils % (Manual) 0, Band Neutrophils 0, Platelet Estimate Adequate, Platelet Morphology Normal, Red Blood Cell Morphology Normal, Sodium Level 145, Potassium Level 3.9, Chloride Level 108H, Carbon Dioxide Level 25, Anion Gap 12, Blood Urea Nitrogen 14, Creatinine 0.8, Estimat Glomerular Filtration Rate > 60, Glucose Level 134H, Calcium Level 8.0L, Ferritin 582H, Total Bilirubin 0.3, Aspartate Amino Transf (AST/SGOT) 58H, Alanine Aminotransferase (ALT/SGPT) 64, Alkaline Phosphatase 98, Lactate Dehydrogenase 486H, C-Reactive Protein, Quantitative 16.8H, Total Protein 7.3, Albumin 2.2L, Globulin 5.1, Albumin/Globulin Ratio 0.4L 09/20/19 08:25: Arterial Blood pH 7.417, Arterial Blood Partial Pressure CO2 34.5L, Arterial Blood Partial Pressure O2 53.7L, Arterial Blood HCO3 21.7L, Arterial Blood Oxygen Saturation 87.5*L, Arterial Blood Base Excess -2.1L, Luis Test Positive Height (Feet): 5 Height (Inches): 2.00 Weight (Pounds): 155 General Appearance: moderate distress EENT: normal ENT inspection Neck: normal alignment Cardiovascular: normal rate Respiratory/Chest: rhonchi - bilaterally Abdomen: no organomegaly Edema: no edema noted Arm (L), no edema noted Arm (R), no edema noted Leg (L), no edema noted Leg (R), no edema noted Pedal (L), no edema noted Pedal (R), no edema noted Generalized Hung Zuniga MD Sep 20, 2019 16:17
[2019-09-20] MEDS ORDERED: fentaNYL Citrate 2,500 MCG in NS 200 ML IV SCH (16:20)
[2019-09-20] MEDS ORDERED: Albuterol 90mcg Inhaler 8gm INH PRN (16:28)
[2019-09-20] MEDS ORDERED: Miralax 17gm pkt ORAL PRN (16:29)
[2019-09-20] MEDS ORDERED: NovoLOG Insulin Flexpen SUBQ SCH (16:30)
--- NOTE | 2019-09-20 16:53 | Emergency Room Report ---
History of Present Illness General Chief Complaint: Dyspnea/Respdistress Source: Patient Present Illness Allergies: Coded Allergies: No Known Allergies (Unverified , 09/18/19) COVID-19 Screening Contact w/high risk pt: Yes Recent Travel to affected area: No Experienced COVID-19 symptoms?: Yes COVID-19 symptoms experienced: Shortness of Breath, Cough Patient History Now: No Nursing Documentation-[facility] Past Medical History: No Stated History Physical Exam Vital Signs Date Time Temp Pulse Resp B/P (MAP) Pulse Ox O2 Delivery O2 Flow Rate FiO2 09/18/19 21:32 99.5 92 22 106/62 (77) 87 Nasal Cannula 2.0 09/20/19 09:58 100 Procedures Critical Care Time Critical Care Time i. I feel this is a highly complex case requiring extensive working including EKG/Rhythm strip, Xray/CT/US, Blood/urine lab work, repeat exams while in ED, and administration of strong opiates/narcotics for pain control, admission to hospital or close patient follow up. Total time: 30 min bedside evaluation and treatment excludes procedures (EKG). Reason for critical care: respiratory distress Possible complications: hypotension, hypertension, HI, shock, arrhythmias, metabolic acidosis, end organ damage, respiratory failure. Interventions: intubation Course: Patient presenting with worsening respiratory distress. COVID positive. Hypoxic. I wore full PAPR. I intubated patient using glide scope. Equal breath sounds bilaterally. O2 sats improved. Consultations: nursing staff, EMS, family Performed by: Dr Olivia Tolerated well condition = critical j. because of unstable vital signs this patient had a condition that could potentially threaten life or limb. I feel this is a critical patient who required my full attention while patient was considered critical. Total Critical Care Time excluding procedures was greater than 35 minutes Intubation Intubation : Consent: Emergent Intubation Method: orotracheal Tube Size (cm): 7.0 Medications: Etomidate, Rocuronium Breath Sounds after Intubation: equal Intubation Complications: no complications Post Intubation Xray: Yes Attempts: One Patient Tolerated: Well Complications: None Medical Decision Making Diagnostic Impression: Primary Impression: Pneumonia due to COVID-19 virus Additional Impression: Respiratory failure with hypoxia Qualified Codes: J96.01 - Acute respiratory failure with hypoxia ER Course PAPRI was called to the ICU to evaluate this patient. Moved from telemetry with increasing respiratory distress. Confirmed COVID positive. Patient in isolation room. I wore full PAPR. Patient intubated using glide scope. O2 sats improved. Care resumed by admitting physician Last Vital Signs Date Time Temp Pulse Resp B/P (MAP) Pulse Ox O2 Delivery O2 Flow Rate FiO2 09/20/19 16:47 155 18 100 09/20/19 15:15 160/68 (98) 83 09/20/19 13:45 Bi-pap Bi-pap 09/20/19 13:30 98.5 09/20/19 12:00 15.0 Status: improved Disposition: ADMITTED INPATIENT Condition: Critical Referrals: NOT CHOSEN IPA/,REFERRING (PCP) Bruno Olivia MD Sep 20, 2019 16:53
[2019-09-20] MEDS: NovoLOG Insulin Flexpen SUBQ SCH ×2 (17:21→21:00)
[2019-09-20] MEDS: fentaNYL Citrate 2,500 MCG in NS 200 ML IV SCH (17:22)
--- NOTE | 2019-09-20 17:40 | Diagnostic Imaging Report ---
Indication: Status post orogastric tube placement, status post intubation Technique: One view of the chest Comparison: 7 hours earlier Findings: Interim endotracheal intubation, endotracheal tube tip projecting approximately 3 cm above the guicho. Interim orogastric tube placement, tip projecting beyond the edge of the image, presumably well within the gastric body. Bilateral diffuse dense consolidation is unchanged. Impression: Satisfactory endotracheal and nasogastric intubation
[2019-09-20] MEDS: LORazepam Inj 2mg/ml 1ml IV PRN (18:08)
[2019-09-20] MEDS ORDERED: Enoxaparin 40mg Inj SUBQ SCH (21:00)
[2019-09-20] MEDS ORDERED: Etomidate 40mg/20ml Inj IV ONE (21:28)
[2019-09-20] MEDS ORDERED: Rocuronium Bromide 50mg/5ml Inj IV ONE (21:28)
--- NOTE | 2019-09-20 21:35 | Infectious Diseases Prog Note ---
Assessment/Plan Assessment/Plan Full consult dictated: A) 1) covid-19 virus infection/pna 2) respiratory failure, vent 3) ? CAP P) 1) ceftriaxone and doxycycline 2) hydroxychloroquine 3) will f/u 4) critical Subjective Allergies: Coded Allergies: No Known Allergies (Unverified , 09/18/19) Objective Vital Signs Last 24 Hour Vital Signs Date Time Temp Pulse Resp B/P (MAP) Pulse Ox O2 Delivery O2 Flow Rate FiO2 09/20/19 19:30 97 22 90/40 (57) 93 09/20/19 19:15 95 23 94/40 (58) 93 09/20/19 19:10 95 33 100 09/20/19 19:00 94 27 111/46 (67) 96 09/20/19 18:45 94 27 160/52 (88) 97 09/20/19 18:30 101 34 123/68 (86) 95 09/20/19 18:15 120 35 112/96 (101) 95 09/20/19 18:00 123 36 112/65 (81) 93 09/20/19 17:45 133 35 124/61 (82) 94 09/20/19 17:30 149 41 150/123 (132) 94 09/20/19 17:22 16 Mechanical Ventilator 40 09/20/19 17:15 149 40 158/100 (119) 95 09/20/19 17:00 152 28 164/98 (120) 94 09/20/19 16:47 155 18 100 09/20/19 16:45 160 24 175/100 (125) 95 09/20/19 16:30 156 18 183/122 (142) 96 09/20/19 16:15 156 16 195/111 (139) 96 09/20/19 16:00 100 09/20/19 16:00 146 09/20/19 16:00 99.2 145 16 219/115 (149) 96 09/20/19 15:55 134 16 100 09/20/19 15:45 141 16 263/123 (169) 95 09/20/19 15:30 89 37 159/65 (96) 91 09/20/19 15:15 70 29 160/68 (98) 83 09/20/19 15:09 70 44 96 100 09/20/19 15:00 71 31 162/63 (96) 83 09/20/19 14:45 82 34 159/66 (97) 97 09/20/19 14:30 72 49 154/67 (96) 96 09/20/19 14:15 73 27 160/67 (98) 97 09/20/19 14:00 69 38 166/71 (102) 97 09/20/19 13:45 Bi-pap Bi-pap 09/20/19 13:45 73 38 158/63 (94) 95 09/20/19 13:30 98.5 77 34 172/62 (98) 83 09/20/19 13:30 83 09/20/19 12:46 88 38 98 100 09/20/19 12:00 67 09/20/19 12:00 15.0 09/20/19 12:00 97.7 74 20 129/52 (77) 97 09/20/19 09:58 90 35 97 100 09/20/19 09:00 Non-Rebreather 15.0 09/20/19 08:00 89 09/20/19 08:00 96.6 74 20 123/67 (85) 98 09/20/19 08:00 15.0 09/20/19 04:00 15.0 09/20/19 04:00 98.6 78 17 103/61 (75) 96 09/20/19 04:00 77 09/20/19 02:10 97.6 09/20/19 00:00 104 09/20/19 00:00 15.0 09/20/19 00:00 97.6 68 16 99/64 (76) 98 09/19/19 22:56 Non-Rebreather 15.0 09/19/19 22:15 99.3 65 26 99/57 98 Non-Rebreather 15.0 09/19/19 21:55 99.3 63 26 99/57 98 Non-Rebreather 15.0 Height (Feet): 5 Height (Inches): 2.00 Weight (Pounds): 155 Microbiology Date/Time Source Procedure Growth Status 09/18/19 22:05 Blood Blood Culture - Preliminary NO GROWTH AFTER 24 HOURS Resulted 09/18/19 21:40 Blood Blood Culture - Preliminary NO GROWTH AFTER 24 HOURS Resulted Laboratory Tests Test 09/20/19 03:45 09/20/19 04:00 4/24/20 08:25 09/20/19 16:59 Interleukin 6 (IL-6) Pending White Blood Count 12.6 K/UL (4.8-10.8) H Red Blood Count 4.18 M/UL (4.20-5.40) L Hemoglobin 13.1 G/DL (12.0-16.0) Hematocrit 37.0 % (37.0-47.0) Mean Corpuscular Volume 88 FL (80-99) Mean Corpuscular Hemoglobin 31.3 PG (27.0-31.0) H Mean Corpuscular Hemoglobin Concent 35.4 G/DL (32.0-36.0) Red Cell Distribution Width 11.0 % (11.6-14.8) L Platelet Count 308 K/UL (150-450) Mean Platelet Volume 6.8 FL (6.5-10.1) Neutrophils (%) (Auto) % (45.0-75.0) Lymphocytes (%) (Auto) % (20.0-45.0) Monocytes (%) (Auto) % (1.0-10.0) Eosinophils (%) (Auto) % (0.0-3.0) Basophils (%) (Auto) % (0.0-2.0) Differential Total Cells Counted 100 Neutrophils % (Manual) 94 % (45-75) H Lymphocytes % (Manual) 5 % (20-45) L Monocytes % (Manual) 1 % (1-10) Eosinophils % (Manual) 0 % (0-3) Basophils % (Manual) 0 % (0-2) Band Neutrophils 0 % (0-8) Platelet Estimate Adequate Platelet Morphology Normal Red Blood Cell Morphology Normal Sodium Level 145 MMOL/L (136-145) Potassium Level 3.9 MMOL/L (3.5-5.1) Chloride Level 108 MMOL/L (98-107) H Carbon Dioxide Level 25 MMOL/L (21-32) Anion Gap 12 mmol/L (5-15) Blood Urea Nitrogen 14 mg/dL (7-18) Creatinine 0.8 MG/DL (0.55-1.30) Estimat Glomerular Filtration Rate > 60 mL/min (>60) Glucose Level 134 MG/DL (74-106) H Calcium Level 8.0 MG/DL (8.5-10.1) L Ferritin 582 NG/ML (8-388) H Total Bilirubin 0.3 MG/DL (0.2-1.0) Aspartate Amino Transf (AST/SGOT) 58 U/L (15-37) H Alanine Aminotransferase (ALT/SGPT) 64 U/L (12-78) Alkaline Phosphatase 98 U/L (46-116) Lactate Dehydrogenase 486 U/L (81-234) H C-Reactive Protein, Quantitative 16.8 mg/dL (0.00-0.90) H Total Protein 7.3 G/DL (6.4-8.2) Albumin 2.2 G/DL (3.4-5.0) L Globulin 5.1 g/dL Albumin/Globulin Ratio 0.4 (1.0-2.7) L Arterial Blood pH 7.417 (7.350-7.450) 7.187 (7.350-7.450) Arterial Blood Partial Pressure CO2 34.5 mmHg (35.0-45.0) L 51.1 mmHg (35.0-45.0) H Arterial Blood Partial Pressure O2 53.7 mmHg (75.0-100.0) L 77.9 mmHg (75.0-100.0) Arterial Blood HCO3 21.7 mmol/L (22.0-26.0) L 18.9 mmol/L (22.0-26.0) L Arterial Blood Oxygen Saturation 87.5 % (95-100) *L 91.7 % (95-100) L Arterial Blood Base Excess -2.1 (-2-2) L -9.5 (-2-2) *L Luis Test Positive Positive Test 09/20/19 18:03 Arterial Blood pH 7.293 (7.350-7.450) Arterial Blood Partial Pressure CO2 46.8 mmHg (35.0-45.0) H Arterial Blood Partial Pressure O2 68.0 mmHg (75.0-100.0) L Arterial Blood HCO3 22.2 mmol/L (22.0-26.0) Arterial Blood Oxygen Saturation 91.0 % (95-100) L Arterial Blood Base Excess -4.5 (-2-2) L Luis Test Positive Current Medications Medications (Trade) Dose Ordered Sig/Sam Route PRN Reason Start Time Stop Time Status Last Admin Dose Admin Acetaminophen (Tylenol) 650 mg Q4H PRN ORAL Mild Pain (Pain Scale 1-3) 09/20/19 16:28 10/20/19 16:27 Acetaminophen (Tylenol) 650 mg Q4H PRN ORAL Temp >100.5 09/20/19 16:28 10/20/19 16:27 Albuterol Sulfate (Proventil MDI) 2 puff Q4H PRN INH Shortness of Breath 09/20/19 16:28 12/19/19 16:27 Ceftriaxone Sodium 1 gm/ Dextrose 50 ml @ 100 mls/hr Q24H IVPB 09/21/19 00:00 09/26/19 00:00 Dextrose (Dextrose 50%) 25 ml Q30M PRN IV Hypoglycemia 09/20/19 16:45 12/19/19 16:14 Dextrose (Dextrose 50%) 50 ml Q30M PRN IV Hypoglycemia 09/20/19 16:45 12/19/19 16:14 Doxycycline Hyclate 100 mg/ Dextrose 100 ml @ 100 mls/hr Q12HR IV 09/20/19 21:00 09/26/19 20:59 Enoxaparin Sodium (Lovenox) 40 mg QHS SUBQ 09/20/19 21:00 12/18/19 00:14 Fentanyl Citrate 2500 mcg/Sodium Chloride 250 ml @ 0 mls/hr Q24H IV 09/20/19 16:30 09/27/19 16:19 09/20/19 17:22 Hydroxychloroquine Sulfate (Plaquenil) 200 mg Q12HR ORAL 09/20/19 21:00 09/23/19 09:01 Insulin Aspart (NovoLOG) BEFORE MEALS AND HS SUBQ 09/20/19 16:30 12/19/19 16:29 09/20/19 17:21 Lorazepam (Ativan 2mg/ml 1ml) 2 mg Q4H PRN IV For Anxiety 09/20/19 18:00 09/27/19 17:59 09/20/19 18:08 Methylprednisolone Sodium Succinate (Solu-MEDROL) 40 mg Q12HR IVP 09/20/19 21:00 12/18/19 20:59 Ondansetron HCl (Zofran) 4 mg Q6H PRN IVP Nausea & Vomiting 09/20/19 16:29 10/20/19 16:28 Polyethylene Glycol (Miralax) 17 gm HSPRN PRN ORAL Constipation 09/20/19 16:29 10/20/19 16:28 Sodium Chloride 1,000 ml @ 50 mls/hr Q20H IV 09/20/19 16:27 10/20/19 16:26 09/20/19 17:22 Enedina Ceja MD Sep 20, 2019 21:35
[2019-09-21] VITALS (46 sets, daily range): BP systolic 81–155; BP diastolic 38–66
[2019-09-21] MEDS: cefTRIAXone 1 GM in D5W 50 ML IVPB SCH ×2 (01:07→23:50)
[2019-09-21] MEDS: fentaNYL Citrate 2,500 MCG in NS 200 ML IV SCH ×3 (03:52→23:51)
[2019-09-21 06:00] LABS: HEMOGLOBIN 12.2 G/DL (12.0-16.0); MEAN CORPUSCULAR VOLUME 90 FL (80-99); PLATELET COUNT 269 K/UL (150-450); RED CELL DISTRIBUTION WIDTH 11.1 % (11.6-14.8); WHITE BLOOD COUNT 14.3 K/UL (4.8-10.8)
[2019-09-21 06:20] LABS: ANION GAP 13 mmol/L (5-15); BLOOD UREA NITROGEN 38 mg/dL (7-18); CALCIUM 7.9 MG/DL (8.5-10.1); CARBON DIOXIDE 23 MMOL/L (21-32); CHLORIDE 110 MMOL/L (98-107); CREATININE 1.6 MG/DL (0.55-1.30); POTASSIUM 4.3 MMOL/L (3.5-5.1); SODIUM 146 MMOL/L (136-145)
--- NOTE | 2019-09-21 06:29 | Consultation ---
DATE OF CONSULTATION: 09/20/2019 INFECTIOUS DISEASE CONSULTATION CONSULTING PHYSICIAN: Enedina Ceja M.D. ATTENDING PHYSICIAN: Benjamín Dominique M.D. REFERRING PHYSICIAN: Benjamín Dominique M.D. and Hung Zuniga M.D. REASON FOR CONSULTATION: COVID-19 virus infection, pneumonia, community-acquired pneumonia, sepsis, fevers, leukocytosis. CHIEF COMPLAINT: Patient's chief complaint coming in to the hospital is COVID pneumonia. HISTORY OF PRESENT ILLNESS: This is a 49-year-old female who per the records had a positive COVID test at [facility] and was released. Patient comes in now with hypoxia and shortness of breath. Currently patient is intubated on a vent. Infectious Disease consultation is requested for antibiotic management. Patient with COVID-19 virus infection and pneumonia, possible community-acquired pneumonia, sepsis, fevers, , leukocytosis. Patient currently is on doxycycline, Rocephin, and hydroxychloroquine. She is currently on a vent. No pressors. REVIEW OF SYSTEMS: Main issue is the respiratory failure. She also had fevers. She is currently not on pressors. On a vent. No seizure or rash. No nausea, vomiting, or diarrhea. She has no Us. Review of systems is limited. Otherwise, she is sedated on a vent. PAST MEDICAL HISTORY: The patient's past medical history includes the following. Patient has a past medical history of COVID testing being positive. Otherwise, no other past medical history. ALLERGIES: No known drug allergies. SOCIAL HISTORY: Per the records, there is no mention of smoking, alcohol, or drug abuse. FAMILY HISTORY: Noncontributory. MEDICATIONS: Upon reviewing the MAR, she is on following medications. She is on Rocephin, doxycycline, hydroxychloroquine, methylprednisolone, lorazepam, fentanyl, insulin, Zofran, polyethylene glycol, Zofran, acetaminophen. Outside medications noted and reconciliated. PHYSICAL EXAMINATION: VITAL SIGNS: Currently most recent temperature is 99.2, T-max is 99.7, pulse rate 97, respiratory rate 22, blood pressure 90/40, saturation 92%, FiO2 50%. GENERAL: Sedated, lethargic. HEAD AND NECK: Orally intubated. Eye exam, no icterus. Normocephalic. HEART: Regular. No gallop or murmur. ABDOMEN: Soft. Positive bowel sounds. LUNGS: Bilateral rhonchi and rales. SKIN: No rash. MUSCULOSKELETAL: No effusion. Legs are without cellulitis. PERIPHERAL VASCULAR: No cyanosis or gangrene. GENITOURINARY: She has no Us. LINE SITES: Without phlebitis. NEUROLOGIC: Sedated. LABORATORY DATA: White count 12.6, hemoglobin 13.1. Creatinine is 0.8. LFTs were noted. Urine was negative. Chest x-ray shows diffuse consolidations bilaterally. Blood cultures are negative. UA negative. COVID-19 virus testing is pending, I believe here however was positive per the records at [facility]. ASSESSMENT AND PLAN: 1. Patient has bilateral pneumonia, likely COVID-19 virus infection with pneumonia, rule out community-acquired pneumonia. She has fevers, sepsis, leukocytosis. At this time, I agree with Rocephin and doxycycline to cover community-acquired pneumonia. Continue hydroxychloroquine to cover COVID-19 virus infection and pneumonia. Continue vent care at this time. Continue ICU care. Prognosis is guarded and critical. Continue Rocephin, doxycycline, and hydroxychloroquine for pneumonia, COVID-19 virus infection, community-acquired pneumonia, sepsis, fevers, leukocytosis. 2. No other significant past medical history. 3. No known allergies. 4. Social history negative. 5. Family history noncontributory. 6. MAR was noted. 7. Case discussed with RN. 8. Continue treatment per primary consultants. Enedina Ceja M.D. DR: YELITZA JOB#: [id number] CC:
[2019-09-21] MEDS: NovoLOG Insulin Flexpen SUBQ SCH ×4 (06:30→21:00)
--- NOTE | 2019-09-21 06:45 | Consultation ---
DATE OF CONSULTATION: 09/20/2019 ADDENDUM Patient is also on steroids per Pulmonary Medicine. Enedina Ceja M.D. DR: YELITZA JOB#: [id number] CC:
[2019-09-21] MEDS: Solu-MEDROL 40mg Inj IVP SCH ×2 (08:56→20:28)
--- NOTE | 2019-09-21 10:15 | Pulmonolgy Critical Care Note ---
Neena Lees REGISTERED NURSE NURSERY 09/21/19 1015: Critical Care - Asmt/Plan Assessment/Plan: ASSESSMENT Acute hypoxemic respiratory failure requiring intubation Multilobar PNA likely due to COVID 19 infection ( confirmed prior) Mild transaminitis PLAN OF CARE ICU s/p intubation 09/19 ABG this am with hypoxia O2 sat 82%, AC rate increased to 28 and PEEP to 10, CXR with bilateral patchy PNA f/up with ABG and CXR in am sedation with Fentanyl gtt MDI with spacer in line SARS -CoV -2 by PCR came back non detected however clinical picture and prior detection of CoVID highly suspicious of COVID 19, will keep in isolation started on abx Ceftriaxone and Doxy as per ID specialist , also Plaquenil BCX NGTD on Solumedrol 40 mg IV bid with fast tapering, start tapering in am leukocytosis may be partially reactive due to steroids as well daily CRP, LDH, ferritin: LDH 486, CRP 16.8, ferritin 582, [place] 6 pending DVT prophylaxis with Lovenox gentle IV hydration trend LFT case discussed and evaluated by supervising physician Critical Care - Objective Last 24 Hour Vital Signs Date Time Temp Pulse Resp B/P (MAP) Pulse Ox O2 Delivery O2 Flow Rate FiO2 09/21/19 07:15 71 24 100 09/21/19 07:00 64 22 113/54 (73) 99 09/21/19 06:30 68 23 107/47 (67) 95 09/21/19 06:00 69 22 105/55 (72) 95 09/21/19 05:30 79 23 106/47 (66) 93 09/21/19 05:00 76 24 103/48 (66) 92 09/21/19 04:45 74 24 106/43 (64) 92 09/21/19 04:30 82 24 104/49 (67) 88 09/21/19 04:15 65 24 98/51 (67) 100 09/21/19 04:00 72 09/21/19 04:00 100.5 66 24 99/48 (65) 99 09/21/19 04:00 100 09/21/19 03:52 24 Endotracheal Tube 15.0 100 09/21/19 03:30 67 24 96/47 (63) 99 09/21/19 03:00 70 24 90/46 (61) 98 09/21/19 02:40 76 24 100 09/21/19 02:30 75 24 93/48 (63) 98 09/21/19 02:00 71 24 89/38 (55) 100 09/21/19 01:30 77 24 92/42 (59) 97 09/21/19 01:00 76 24 89/42 (58) 99 09/21/19 00:30 77 24 81/39 (53) 99 09/21/19 00:17 100.1 09/21/19 00:00 93 09/21/19 00:00 100 09/21/19 00:00 Bi-pap Bi-pap 09/21/19 00:00 100.1 89 24 85/39 (54) 93 09/20/19 23:45 90 24 92/41 (58) 93 09/20/19 23:15 93 24 106/51 (69) 93 09/20/19 23:00 101 24 119/55 (76) 89 09/20/19 22:47 98 28 100 09/20/19 22:45 105 26 107/53 (71) 88 09/20/19 22:30 103 21 102/78 (86) 91 09/20/19 22:26 100 37 75/50 (58) 91 09/20/19 22:15 83 24 82/37 (52) 100 09/20/19 22:00 84 24 75/37 (50) 100 09/20/19 21:46 86 23 76/34 (48) 100 09/20/19 21:30 87 24 73/34 (47) 100 09/20/19 21:00 89 24 58/27 (37) 98 09/20/19 20:45 84 24 61/26 (38) 100 09/20/19 20:30 74 22 63/31 (42) 100 09/20/19 20:15 101 24 91/47 (62) 97 09/20/19 20:00 100 09/20/19 20:00 100.6 102 22 91/48 (62) 96 09/20/19 20:00 101 09/20/19 20:00 Bi-pap Bi-pap 09/20/19 19:45 97 19 91/40 (57) 93 09/20/19 19:30 97 22 90/40 (57) 93 09/20/19 19:15 95 23 94/40 (58) 93 09/20/19 19:10 95 33 100 09/20/19 19:00 94 27 111/46 (67) 96 09/20/19 18:45 94 27 160/52 (88) 97 09/20/19 18:30 101 34 123/68 (86) 95 09/20/19 18:15 120 35 112/96 (101) 95 09/20/19 18:00 123 36 112/65 (81) 93 09/20/19 17:45 133 35 124/61 (82) 94 09/20/19 17:30 149 41 150/123 (132) 94 09/20/19 17:22 16 Mechanical Ventilator 40 09/20/19 17:15 149 40 158/100 (119) 95 09/20/19 17:00 152 28 164/98 (120) 94 09/20/19 16:47 155 18 100 09/20/19 16:45 160 24 175/100 (125) 95 09/20/19 16:30 156 18 183/122 (142) 96 09/20/19 16:15 156 16 195/111 (139) 96 09/20/19 16:00 100 09/20/19 16:00 146 09/20/19 16:00 99.2 145 16 219/115 (149) 96 09/20/19 15:55 134 16 100 09/20/19 15:45 141 16 263/123 (169) 95 09/20/19 15:30 89 37 159/65 (96) 91 09/20/19 15:15 70 29 160/68 (98) 83 09/20/19 15:09 70 44 96 100 09/20/19 15:00 71 31 162/63 (96) 83 09/20/19 14:45 82 34 159/66 (97) 97 09/20/19 14:30 72 49 154/67 (96) 96 09/20/19 14:15 73 27 160/67 (98) 97 09/20/19 14:00 69 38 166/71 (102) 97 09/20/19 13:45 Bi-pap Bi-pap 09/20/19 13:45 73 38 158/63 (94) 95 09/20/19 13:30 98.5 77 34 172/62 (98) 83 09/20/19 13:30 83 09/20/19 12:46 88 38 98 100 09/20/19 12:00 67 09/20/19 12:00 15.0 09/20/19 12:00 97.7 74 20 129/52 (77) 97 Status: sedated Condition: critical HEENT: atraumatic, normocephalic, other - OP with ET in place, intact Heart: HR/BP stable Abdomen: soft, non-tender, active bowel sounds Extremities: other - no edema Micro: Microbiology Date/Time Source Procedure Growth Status 09/18/19 22:05 Blood Blood Culture - Preliminary NO GROWTH AFTER 48 HOURS Resulted 09/18/19 21:40 Blood Blood Culture - Preliminary NO GROWTH AFTER 48 HOURS Resulted 09/18/19 21:30 Nasopharynx Coronavirus COVID-19 PCR ([facility]) - Final Complete Accucheck: 132 Critical Care - Subjective ROS Limited/Unobtainable: Yes Interval Events: intubated 09/19 afternoon on 100%FiO2, PEEP 5 CXR with patchy consolidations throughout the both lungs ABG with O2 sat 82, AC increased to 28 and PEEP to 10 no fevers. leukocytosis Condition: critical FI02: 100 Vent Support Breath Rate: 24 Vent Support Mode: AC Vent Tidal Volume: 500 Sputum Amount: None PEEP: 5.0 PIP: 36 Fluids: 1/2 NS at 50 Drips: Fentanyl gtt at 230 mcg/hr I&O: Intake and Output 09/20/19 09/21/19 19:00 07:00 Intake Total 97.90555 ml 974.68265 ml Output Total 40 ml Balance 97.99475 ml 934.28202 ml IV Total 97.29660 ml 914.31791 ml Other 60 ml Output Urine Total 40 ml # Voids 1 1 CXR: CXR 09/20 1. Stable endotracheal tube. An enteric tube terminates in the region of the gastric antrum. 2. Similar patchy consolidation throughout the lungs. Possible small pleural effusions. ET-Tube: 7.0 ET Position: 24 Raghav De MD 09/22/192042: Critical Care - Asmt/Plan Assessment/Plan: Patient seen and examined with REGISTERED NURSE NURSERY. Case d/w PARI MUTUEL CLERK, RT and team. Agree with A& P as outlined above as it reflects our joint deliberations. Disposition: keep in ICU Time Spent (Minutes): 60 Lees ,Neena REGISTERED NURSE NURSERY Sep 21, 2019 10:15 Raghav De MD Sep 22, 2019 20:43
--- NOTE | 2019-09-21 11:49 | Diagnostic Imaging Report ---
EXAM: XR Chest, 1 View CLINICAL HISTORY: INFECT TECHNIQUE: Frontal view of the chest. COMPARISON: Chest radiograph on 09/20/2019 FINDINGS: Hardware: Stable endotracheal tube. An enteric tube terminates in the region of the gastric antrum. Lungs/pleura: Similar patchy consolidation throughout the lungs. Possible small pleural effusions. Heart/mediastinum: Stable enlargement of the cardiac silhouette. Soft tissues: Unremarkable. Bones: No acute fracture. Upper abdomen: Cholecystectomy clips in the right upper quadrant. IMPRESSION: 1. Stable endotracheal tube. An enteric tube terminates in the region of the gastric antrum. 2. Similar patchy consolidation throughout the lungs. Possible small pleural effusions.
[2019-09-21] MEDS ORDERED: Atropine Inj 1mg/10ml Syr IVP PRN (13:00)
[2019-09-21 15:37] LABS: APPEARANCE,URINE CLEAR; BILIRUBIN, URINE NEGATIVE (NEGATIVE); COLOR,URINE PALE YELLOW; GLUCOSE, URINE (UA) NEGATIVE (NEGATIVE); KETONES,URINE NEGATIVE (NEGATIVE); LEUKOCYTE ESTERASE ,URINE NEGATIVE (NEGATIVE); NITRITE,URINE NEGATIVE (NEGATIVE); PH,URINE 6 (4.5-8.0); PROTEIN,URINE 2+ (NEGATIVE); UROBILINOGEN,URINE NORMAL MG/DL (0.0-1.0)
[2019-09-21 15:53] LABS: ANION GAP 12 mmol/L (5-15); BLOOD UREA NITROGEN 37 mg/dL (7-18); CALCIUM 8.3 MG/DL (8.5-10.1); CARBON DIOXIDE 22 MMOL/L (21-32); CHLORIDE 109 MMOL/L (98-107); CREATINE KINASE 1042 U/L (26-308); POTASSIUM 4.1 MMOL/L (3.5-5.1); SODIUM 143 MMOL/L (136-145)
--- NOTE | 2019-09-21 17:48 | General Progress Note ---
Assessment/Plan Problem List: (1) Glucose intolerance ICD Codes: E74.39 - Other disorders of intestinal carbohydrate absorption SNOMED: 09460221 (2) Respiratory failure with hypoxia ICD Codes: J96.91 - Respiratory failure, unspecified with hypoxia SNOMED: 84665939895266896, 929521714 Qualifiers: Qualified Codes: J96.01 - Acute respiratory failure with hypoxia (3) Pneumonia due to COVID-19 virus ICD Codes: U07.1 - COVID-19; J12.89 - Other viral pneumonia SNOMED: 539316348, 703025072 (4) ARDS (adult respiratory distress syndrome) ICD Codes: J80 - Acute respiratory distress syndrome SNOMED: 30730581, 88868752 (5) Transaminitis ICD Codes: R74.0 - Nonspecific elevation of levels of transaminase and lactic acid dehydrogenase [LDH] SNOMED: 888329711, 493978993 (6) Rhabdomyolysis ICD Codes: M62.82 - Rhabdomyolysis SNOMED: 649138474 (7) JOE (acute kidney injury) ICD Codes: N17.9 - Acute kidney failure, unspecified SNOMED: 7477626, 43441285 Assessment/Plan: icu, on antibiotics, plaquenil ordered by pulm, worsening resp failure, intubating, SS insulin, steroids started grave status d/w daughter, icu orders updated, icu time 40 min Subjective ROS Limited/Unobtainable: Yes Allergies: Coded Allergies: No Known Allergies (Unverified , 09/18/19) Objective Last 24 Hour Vital Signs Date Time Temp Pulse Resp B/P (MAP) Pulse Ox O2 Delivery O2 Flow Rate FiO2 09/21/19 17:00 28 Mechanical Ventilator 100 09/21/19 17:00 100.7 59 28 138/48 (78) 100 09/21/19 16:30 60 28 134/54 (80) 100 09/21/19 16:00 62 28 128/52 (77) 100 09/21/19 16:00 55 09/21/19 16:00 28 Mechanical Ventilator 100 09/21/19 16:00 100 09/21/19 15:30 60 28 129/55 (79) 100 09/21/19 15:22 59 28 100 09/21/19 15:00 28 Mechanical Ventilator 100 09/21/19 15:00 60 28 142/51 (81) 100 09/21/19 14:46 28 Mechanical Ventilator 100 09/21/19 14:30 59 28 130/55 (80) 100 09/21/19 14:00 60 28 118/58 (78) 100 09/21/19 14:00 28 Mechanical Ventilator 100 09/21/19 13:30 91 28 107/54 (71) 100 09/21/19 13:00 28 Mechanical Ventilator 100 09/21/19 13:00 62 28 101/53 (69) 100 09/21/19 12:53 100 09/21/19 12:30 84 26 155/66 (95) 93 09/21/19 12:00 99.2 85 24 119/49 (72) 83 09/21/19 12:00 24 Mechanical Ventilator 100 09/21/19 12:00 78 09/21/19 11:30 77 24 122/50 (74) 87 09/21/19 11:28 69 25 100 09/21/19 11:00 24 Non-Rebreather 100 09/21/19 11:00 75 25 120/50 (73) 94 09/21/19 10:30 75 24 121/49 (73) 90 09/21/19 10:00 24 Non-Rebreather 100 09/21/19 10:00 76 24 114/47 (69) 90 09/21/19 09:30 71 24 120/57 (78) 92 09/21/19 09:00 24 Mechanical Ventilator 100 09/21/19 09:00 59 24 113/55 (74) 99 09/21/19 08:30 70 23 119/49 (72) 93 09/21/19 08:00 76 09/21/19 08:00 100 09/21/19 08:00 24 Mechanical Ventilator 100 09/21/19 08:00 72 24 113/51 (71) 94 09/21/19 07:30 99.6 66 24 107/47 (67) 96 09/21/19 07:15 71 24 100 09/21/19 07:00 64 22 113/54 (73) 99 09/21/19 07:00 24 Mechanical Ventilator 100 09/21/19 06:30 68 23 107/47 (67) 95 09/21/19 06:00 69 22 105/55 (72) 95 09/21/19 05:30 79 23 106/47 (66) 93 09/21/19 05:00 76 24 103/48 (66) 92 09/21/19 04:45 74 24 106/43 (64) 92 09/21/19 04:30 82 24 104/49 (67) 88 09/21/19 04:15 65 24 98/51 (67) 100 09/21/19 04:00 72 09/21/19 04:00 100.5 66 24 99/48 (65) 99 09/21/19 04:00 100 09/21/19 03:52 24 Endotracheal Tube 15.0 100 09/21/19 03:30 67 24 96/47 (63) 99 09/21/19 03:00 70 24 90/46 (61) 98 09/21/19 02:40 76 24 100 09/21/19 02:30 75 24 93/48 (63) 98 09/21/19 02:00 71 24 89/38 (55) 100 09/21/19 01:30 77 24 92/42 (59) 97 09/21/19 01:00 76 24 89/42 (58) 99 09/21/19 00:30 77 24 81/39 (53) 99 09/21/19 00:17 100.1 09/21/19 00:00 93 09/21/19 00:00 100 09/21/19 00:00 Bi-pap Bi-pap 09/21/19 00:00 100.1 89 24 85/39 (54) 93 09/20/19 23:45 90 24 92/41 (58) 93 09/20/19 23:15 93 24 106/51 (69) 93 09/20/19 23:00 101 24 119/55 (76) 89 09/20/19 22:47 98 28 100 09/20/19 22:45 105 26 107/53 (71) 88 09/20/19 22:30 103 21 102/78 (86) 91 09/20/19 22:26 100 37 75/50 (58) 91 09/20/19 22:15 83 24 82/37 (52) 100 09/20/19 22:00 84 24 75/37 (50) 100 09/20/19 21:46 86 23 76/34 (48) 100 09/20/19 21:30 87 24 73/34 (47) 100 09/20/19 21:00 89 24 58/27 (37) 98 09/20/19 20:45 84 24 61/26 (38) 100 09/20/19 20:30 74 22 63/31 (42) 100 09/20/19 20:15 101 24 91/47 (62) 97 09/20/19 20:00 100 09/20/19 20:00 100.6 102 22 91/48 (62) 96 09/20/19 20:00 101 09/20/19 20:00 Bi-pap Bi-pap 09/20/19 19:45 97 19 91/40 (57) 93 09/20/19 19:30 97 22 90/40 (57) 93 09/20/19 19:15 95 23 94/40 (58) 93 09/20/19 19:10 95 33 100 09/20/19 19:00 94 27 111/46 (67) 96 09/20/19 18:45 94 27 160/52 (88) 97 09/20/19 18:30 101 34 123/68 (86) 95 09/20/19 18:15 120 35 112/96 (101) 95 09/20/19 18:00 123 36 112/65 (81) 93 Intake and Output 09/20/19 09/21/19 19:00 07:00 Intake Total 97.24824 ml 1024.03573 ml Output Total 55 ml Balance 97.67405 ml 969.40097 ml IV Total 97.78190 ml 964.97910 ml Other 60 ml Output Urine Total 55 ml # Voids 1 1 Laboratory Tests 09/20/19 18:03: Arterial Blood pH 7.293L, Arterial Blood Partial Pressure CO2 46.8H, Arterial Blood Partial Pressure O2 68.0L, Arterial Blood HCO3 22.2, Arterial Blood Oxygen Saturation 91.0L, Arterial Blood Base Excess -4.5L, Luis Test Positive 09/21/19 05:24: White Blood Count 14.3H, Red Blood Count 3.90L, Hemoglobin 12.2, Hematocrit 35.0L, Mean Corpuscular Volume 90, Mean Corpuscular Hemoglobin 31.3H, Mean Corpuscular Hemoglobin Concent 34.9, Red Cell Distribution Width 11.1L, Platelet Count 269, Mean Platelet Volume 6.9, Neutrophils (%) (Auto) , Lymphocytes (%) (Auto) , Monocytes (%) (Auto) , Eosinophils (%) (Auto) , Basophils (%) (Auto) , Differential Total Cells Counted 100, Neutrophils % ( Manual) 94H, Lymphocytes % (Manual) 3L, Monocytes % (Manual) 3, Eosinophils % ( Manual) 0, Basophils % (Manual) 0, Band Neutrophils 0, Platelet Estimate Adequate, Platelet Morphology Normal, Red Blood Cell Morphology Normal, Sodium Level 146H, Potassium Level 4.3, Chloride Level 110H, Carbon Dioxide Level 23, Anion Gap 13, Blood Urea Nitrogen 38H, Creatinine 1.6#H, Estimat Glomerular Filtration Rate 34.6, Glucose Level 142H, Calcium Level 7.9L 09/21/19 07:58: Arterial Blood pH 7.394, Arterial Blood Partial Pressure CO2 34.2L, Arterial Blood Partial Pressure O2 112.1H, Arterial Blood HCO3 20.4L, Arterial Blood Oxygen Saturation 97.3, Arterial Blood Base Excess -3.7L, Luis Test Positive 09/21/19 12:30: Arterial Blood pH 7.344L, Arterial Blood Partial Pressure CO2 44.2, Arterial Blood Partial Pressure O2 50.6L, Arterial Blood HCO3 23.5, Arterial Blood Oxygen Saturation 82.0*L, Arterial Blood Base Excess -2.3L, Luis Test Positive 09/21/19 14:45: Sodium Level 143, Potassium Level 4.1, Chloride Level 109H, Carbon Dioxide Level 22, Anion Gap 12, Blood Urea Nitrogen 37H, Creatinine 1.0, Estimat Glomerular Filtration Rate 59.4, Glucose Level 131H, Uric Acid 5.5, Calcium Level 8.3L, Total Creatine Kinase 1042H 09/21/19 14:47: Urine Color Pale yellow, Urine Appearance Clear, Urine pH 6, Urine Specific [place] 1.020, Urine Protein 2+H, Urine Glucose (UA) Negative, Urine Ketones Negative, Urine Blood 1+H, Urine Nitrite Negative, Urine Bilirubin Negative, Urine Urobilinogen Normal, Urine Leukocyte Esterase Negative, Urine RBC 0-2, Urine WBC 0, Urine Squamous Epithelial Cells None, Urine Bacteria Occasional, Urine Random Sodium 60, Urine Creatinine 112.8 Height (Feet): 5 Height (Inches): 2.00 Weight (Pounds): 155 General Appearance: lethargic, moderate distress EENT: other - intubated Cardiovascular: regular rhythm Respiratory/Chest: respiratory distress, crackles/rales Abdomen: non tender Edema: no edema noted Arm (L), no edema noted Arm (R), no edema noted Leg (L), no edema noted Leg (R), no edema noted Pedal (L), no edema noted Pedal (R), no edema noted Generalized Neurologic: unresponsive Hung Zuniga MD Sep 21, 2019 17:47
[2019-09-21] MEDS: Enoxaparin 60mg Inj SUBQ SCH (20:30)
[2019-09-22] VITALS (26 sets, daily range): BP systolic 94–160; BP diastolic 50–80
[2019-09-22 06:09] LABS: HEMOGLOBIN 12.7 G/DL (12.0-16.0); MEAN CORPUSCULAR VOLUME 89 FL (80-99); PLATELET COUNT 266 K/UL (150-450); RED BLOOD COUNT 4.06 M/UL (4.20-5.40); RED CELL DISTRIBUTION WIDTH 10.8 % (11.6-14.8); WHITE BLOOD COUNT 15.4 K/UL (4.8-10.8)
[2019-09-22 06:27] LABS: ALANINE AMINOTRANSFERASE 62 U/L (12-78); ALBUMIN 2.4 G/DL (3.4-5.0); ALBUMIN/GLOBULIN RATIO 0.6 (1.0-2.7); ALKALINE PHOSPHATASE 101 U/L (46-116); ANION GAP 15 mmol/L (5-15); ASPARTATE AMINO TRANSFERASE 87 U/L (15-37); BILIRUBIN,TOTAL 0.5 MG/DL (0.2-1.0); BLOOD UREA NITROGEN 36 mg/dL (7-18); CARBON DIOXIDE 20 MMOL/L (21-32); CHLORIDE 108 MMOL/L (98-107); CREATININE 0.9 MG/DL (0.55-1.30); POTASSIUM 4.3 MMOL/L (3.5-5.1); SODIUM 143 MMOL/L (136-145)
[2019-09-22 06:34] LABS: CREATINE KINASE 1311 U/L (26-308); PHOSPHORUS 3.3 MG/DL (2.5-4.9)
[2019-09-22] MEDS: NovoLOG Insulin Flexpen SUBQ SCH ×4 (06:46→21:00)
--- NOTE | 2019-09-22 09:01 | Pulmonolgy Critical Care Note ---
Neena Lees SENIOR SOFTWARE QUALITY ENGINEER 09/22/19 0901: Critical Care - Asmt/Plan Assessment/Plan: ASSESSMENT Acute hypoxemic respiratory failure requiring intubation Multilobar PNA likely due to COVID 19 infection ( confirmed prior) JOE Mild transaminitis Mild hyperglycemia ? DM PLAN OF CARE ICU s/p intubation 09/19 ABG this am better will decrease AC to 24, PEEP to 8 and titrate FiO2 to keep sat above 92% CXR with bilateral patchy PNA fup with CXR and ABG in am sedation with Fentanyl gtt MDI with spacer in line SARS -CoV -2 by PCR came back non detected however clinical picture and prior detection of CoVID highly suspicious of COVID 19, will keep in isolation ordered another RAMBO-CV-2 by PCR this am 09/21 continue with abx: Ceftriaxone and Doxy as per ID specialist , also Plaquenil will speazk with pharmacy if can get Tocoluzimab for her BCX 09/17 NGTD on Solumedrol 40 mg IV bid with fast tapering soon leukocytosis may be partially reactive due to steroids as well daily CRP, LDH, ferritin: LDH 486, CRP 16.8, ferritin 582, IL 6 pending DVT prophylaxis with Lovenox IV hydration creat down to normal, avoid nephrotoxics mild hyperglycemia noted , probably due tos teoprisds? on SSI/low dose, sensitive, will check HgA1c trend LFT case discussed and evaluated by supervising physician Critical Care - Objective Last 24 Hour Vital Signs Date Time Temp Pulse Resp B/P (MAP) Pulse Ox O2 Delivery O2 Flow Rate FiO2 09/22/19 07:00 68 28 136/70 (92) 100 09/22/19 06:00 66 28 132/68 (89) 100 09/22/19 05:00 63 28 128/76 (93) 100 09/22/19 05:00 28 Mechanical Ventilator 100 09/22/19 04:59 89 30 100 09/22/19 04:00 60 09/22/19 04:00 28 Mechanical Ventilator 100 09/22/19 04:00 98.8 72 28 137/74 (95) 100 09/22/19 04:00 100 09/22/19 04:00 72 09/22/19 03:00 60 28 124/71 (88) 100 09/22/19 03:00 28 Mechanical Ventilator 100 09/22/19 02:58 86 31 100 09/22/19 02:16 99.0 09/22/19 02:00 65 28 148/67 (94) 100 09/22/19 02:00 28 Mechanical Ventilator 100 09/22/19 01:11 74 28 100 09/22/19 01:00 65 28 158/59 (92) 100 09/22/19 01:00 28 Mechanical Ventilator 100 09/22/19 00:00 99.0 72 28 160/62 (94) 100 09/21/19 23:51 28 Mechanical Ventilator 100 09/21/19 23:09 100.6 09/21/19 23:01 98 30 100 09/21/19 23:00 28 Mechanical Ventilator 100 09/21/19 23:00 62 28 146/57 (86) 100 09/21/19 22:00 59 28 145/56 (85) 100 09/21/19 22:00 28 Mechanical Ventilator 100 09/21/19 21:00 28 Mechanical Ventilator 100 09/21/19 21:00 100.6 62 28 140/57 (84) 100 09/21/19 20:31 80 28 100 09/21/19 20:00 60 28 133/56 (81) 100 09/21/19 20:00 100 09/21/19 20:00 28 Mechanical Ventilator 28 09/21/19 20:00 60 09/21/19 19:11 84 30 100 09/21/19 19:00 28 Mechanical Ventilator 100 09/21/19 19:00 62 28 141/58 (85) 100 09/21/19 18:00 28 Mechanical Ventilator 100 09/21/19 17:00 28 Mechanical Ventilator 100 09/21/19 17:00 100.7 59 28 138/48 (78) 100 09/21/19 16:30 60 28 134/54 (80) 100 09/21/19 16:00 62 28 128/52 (77) 100 09/21/19 16:00 55 09/21/19 16:00 28 Mechanical Ventilator 100 09/21/19 16:00 100 09/21/19 15:30 60 28 129/55 (79) 100 09/21/19 15:22 59 28 100 09/21/19 15:00 28 Mechanical Ventilator 100 09/21/19 15:00 60 28 142/51 (81) 100 09/21/19 14:46 28 Mechanical Ventilator 100 09/21/19 14:30 59 28 130/55 (80) 100 09/21/19 14:00 60 28 118/58 (78) 100 09/21/19 14:00 28 Mechanical Ventilator 100 09/21/19 13:30 91 28 107/54 (71) 100 09/21/19 13:00 28 Mechanical Ventilator 100 09/21/19 13:00 62 28 101/53 (69) 100 09/21/19 12:53 100 09/21/19 12:30 84 26 155/66 (95) 93 09/21/19 12:00 99.2 85 24 119/49 (72) 83 09/21/19 12:00 24 Mechanical Ventilator 100 09/21/19 12:00 78 09/21/19 11:30 77 24 122/50 (74) 87 09/21/19 11:28 69 25 100 09/21/19 11:00 24 Non-Rebreather 100 09/21/19 11:00 75 25 120/50 (73) 94 09/21/19 10:30 75 24 121/49 (73) 90 09/21/19 10:00 24 Non-Rebreather 100 09/21/19 10:00 76 24 114/47 (69) 90 09/21/19 09:30 71 24 120/57 (78) 92 09/21/19 09:00 24 Mechanical Ventilator 100 09/21/19 09:00 59 24 113/55 (74) 99 Objective: Status: awake, responsive, intubated Condition: critical HEENT: atraumatic, normocephalic, OP with ET in place, intact, NGT Heart: HR/BP stable Abdomen: soft, non-tender, active bowel sounds Extremities: no edema Accucheck: 148 Critical Care - Subjective ROS Limited/Unobtainable: Yes Interval Events: remains intubated on FiO2 100% with AC 28 and PEEP 10 ABG this am better, CXR 425 essentially without changes fever last night, currnt. afebrile, leukocytosis with trend up awake and responsive despite sedation \ denies SOB, CP, but tired COVID 19 09/17 NGT, Condition: critical EKG Rhythm: Sinus Rhythm FI02: 100 Vent Support Breath Rate: 28 Vent Support Mode: AC Vent Tidal Volume: 500 Sputum Amount: None PEEP: 10.0 PIP: 40 Fluids: 1/2 NS at 75 Drips: Fentanyl gtt at 230 mcg.hr I&O: Intake and Output 09/21/19 09/22/19 19:00 07:00 Intake Total 1089 ml 1387 ml Output Total 335 ml 590 ml Balance 754 ml 797 ml Free Water 280 ml IV Total 989 ml 1107 ml Other 100 ml Output Urine Total 335 ml 590 ml CXR: CXR 09/21 Improved aeration of the lung. Mild bilateral interstitial and hazy lung opacities are similar. ET-Tube: 7.0 ET Position: 24 Raghav De MD 09/22/192043: Critical Care - Asmt/Plan Assessment/Plan: Patient seen and examined with SENIOR SOFTWARE QUALITY ENGINEER. Case d/w CARE MANAGEMENT ASSOCIATE, RT and team. Agree with A& P as outlined above as it reflects our joint deliberations. Neena Lees NP Sep 22, 2019 09:01 Raghav De MD Sep 22, 2019 20:44
--- NOTE | 2019-09-22 09:05 | Diagnostic Imaging Report ---
EXAM: XR Chest, 1 View CLINICAL HISTORY: SOB TECHNIQUE: Frontal view of the chest. COMPARISON: Chest x-ray 09/21/19 913 FINDINGS: Lungs: Improved aeration of the lung. Mild bilateral interstitial and hazy lung opacities are similar. Pleural space: Unremarkable. No pneumothorax. Heart: Unremarkable. No cardiomegaly. Mediastinum: Unremarkable. Bones/joints: Unremarkable. Tubes, lines and devices: Endotracheal tube and NG tube are stable. IMPRESSION: Improved aeration of the lung. Mild bilateral interstitial and hazy lung opacities are similar.
[2019-09-22] MEDS: Solu-MEDROL 40mg Inj IVP SCH ×2 (09:09→20:34)
[2019-09-22] MEDS: LORazepam Inj 2mg/ml 1ml IV PRN ×2 (12:21→22:56)
[2019-09-22] MEDS: fentaNYL Citrate 2,500 MCG in NS 200 ML IV SCH ×2 (12:22→23:57)
--- NOTE | 2019-09-22 15:35 | General Progress Note ---
Assessment/Plan Problem List: (1) Glucose intolerance ICD Codes: E74.39 - Other disorders of intestinal carbohydrate absorption SNOMED: 84202078 (2) Respiratory failure with hypoxia ICD Codes: J96.91 - Respiratory failure, unspecified with hypoxia SNOMED: 68001187790438642, 616454664 Qualifiers: Qualified Codes: J96.01 - Acute respiratory failure with hypoxia (3) Pneumonia due to COVID-19 virus ICD Codes: U07.1 - COVID-19; J12.89 - Other viral pneumonia SNOMED: 921904657, 037466187 (4) ARDS (adult respiratory distress syndrome) ICD Codes: J80 - Acute respiratory distress syndrome SNOMED: 10529052, 39256474 (5) Transaminitis ICD Codes: R74.0 - Nonspecific elevation of levels of transaminase and lactic acid dehydrogenase [LDH] SNOMED: 855152855, 954877069 (6) Rhabdomyolysis ICD Codes: M62.82 - Rhabdomyolysis SNOMED: 153562526 (7) JOE (acute kidney injury) ICD Codes: N17.9 - Acute kidney failure, unspecified SNOMED: 6169934, 23192037 Assessment/Plan: icu, on antibiotics, plaquenil ordered by pulm, worsening resp failure, intubating, SS insulin, steroids started grave status d/w daughter, icu orders updated, icu time 35 min Subjective ROS Limited/Unobtainable: Yes Allergies: Coded Allergies: No Known Allergies (Unverified , 09/18/19) Objective Last 24 Hour Vital Signs Date Time Temp Pulse Resp B/P (MAP) Pulse Ox O2 Delivery O2 Flow Rate FiO2 09/22/19 14:40 64 24 90 09/22/19 14:00 62 24 94/55 (68) 99 09/22/19 13:30 58 24 99/58 (72) 100 09/22/19 13:00 66 24 98/50 (66) 100 09/22/19 12:22 24 Mechanical Ventilator 90 09/22/19 12:00 99.2 57 24 124/60 (81) 100 09/22/19 12:00 74 09/22/19 12:00 90 09/22/19 11:00 73 24 141/72 (95) 100 09/22/19 10:30 68 24 90 09/22/19 10:00 70 24 133/76 (95) 100 4/26/20 09:56 62 09/22/19 09:05 65 24 90 09/22/19 09:00 68 24 144/76 (98) 100 09/22/19 08:00 100 09/22/19 08:00 100.1 62 28 131/70 (90) 100 09/22/19 07:05 60 28 100 09/22/19 07:00 68 28 136/70 (92) 100 09/22/19 06:00 66 28 132/68 (89) 100 09/22/19 05:00 63 28 128/76 (93) 100 09/22/19 05:00 28 Mechanical Ventilator 100 09/22/19 04:59 89 30 100 09/22/19 04:00 60 09/22/19 04:00 28 Mechanical Ventilator 100 09/22/19 04:00 98.8 72 28 137/74 (95) 100 09/22/19 04:00 100 09/22/19 04:00 72 09/22/19 03:00 60 28 124/71 (88) 100 09/22/19 03:00 28 Mechanical Ventilator 100 09/22/19 02:58 86 31 100 09/22/19 02:16 99.0 09/22/19 02:00 65 28 148/67 (94) 100 09/22/19 02:00 28 Mechanical Ventilator 100 09/22/19 01:11 74 28 100 09/22/19 01:00 65 28 158/59 (92) 100 09/22/19 01:00 28 Mechanical Ventilator 100 09/22/19 00:00 99.0 72 28 160/62 (94) 100 09/21/19 23:51 28 Mechanical Ventilator 100 09/21/19 23:09 100.6 09/21/19 23:01 98 30 100 09/21/19 23:00 28 Mechanical Ventilator 100 09/21/19 23:00 62 28 146/57 (86) 100 09/21/19 22:00 59 28 145/56 (85) 100 09/21/19 22:00 28 Mechanical Ventilator 100 09/21/19 21:00 28 Mechanical Ventilator 100 09/21/19 21:00 100.6 62 28 140/57 (84) 100 09/21/19 20:31 80 28 100 09/21/19 20:00 60 28 133/56 (81) 100 09/21/19 20:00 100 09/21/19 20:00 28 Mechanical Ventilator 28 09/21/19 20:00 60 09/21/19 19:11 84 30 100 09/21/19 19:00 28 Mechanical Ventilator 100 09/21/19 19:00 62 28 141/58 (85) 100 09/21/19 18:00 28 Mechanical Ventilator 100 09/21/19 17:00 28 Mechanical Ventilator 100 09/21/19 17:00 100.7 59 28 138/48 (78) 100 09/21/19 16:30 60 28 134/54 (80) 100 09/21/19 16:00 62 28 128/52 (77) 100 09/21/19 16:00 55 09/21/19 16:00 28 Mechanical Ventilator 100 09/21/19 16:00 100 Intake and Output 09/21/19 09/22/19 19:00 07:00 Intake Total 1089 ml 1387 ml Output Total 335 ml 590 ml Balance 754 ml 797 ml Free Water 280 ml IV Total 989 ml 1107 ml Other 100 ml Output Urine Total 335 ml 590 ml Laboratory Tests 09/22/19 04:15: White Blood Count 15.4H, Red Blood Count 4.06L, Hemoglobin 12.7, Hematocrit 36.0L, Mean Corpuscular Volume 89, Mean Corpuscular Hemoglobin 31.3H, Mean Corpuscular Hemoglobin Concent 35.3, Red Cell Distribution Width 10.8L, Platelet Count 266, Mean Platelet Volume 7.0, Neutrophils (%) (Auto) , Lymphocytes (%) (Auto) , Monocytes (%) (Auto) , Eosinophils (%) (Auto) , Basophils (%) (Auto) , Differential Total Cells Counted 100, Neutrophils % ( Manual) 93H, Lymphocytes % (Manual) 5L, Monocytes % (Manual) 2, Eosinophils % ( Manual) 0, Basophils % (Manual) 0, Band Neutrophils 0, Platelet Estimate Adequate, Platelet Morphology Normal, Red Blood Cell Morphology Normal, Sodium Level 143, Potassium Level 4.3, Chloride Level 108H, Carbon Dioxide Level 20L, Anion Gap 15, Blood Urea Nitrogen 36H, Creatinine 0.9, Estimat Glomerular Filtration Rate > 60, Glucose Level 136H, Calcium Level 8.0L, Phosphorus Level 3.3, Magnesium Level 2.6H, Total Bilirubin 0.5, Aspartate Amino Transf (AST/SGOT ) 87H, Alanine Aminotransferase (ALT/SGPT) 62, Alkaline Phosphatase 101, Total Creatine Kinase 1311H, Total Protein 6.5, Albumin 2.4L, Globulin 4.1, Albumin/ Globulin Ratio 0.6L 09/22/19 04:42: Ferritin 602H, C-Reactive Protein, Quantitative 31.1H 09/22/19 07:45: Arterial Blood pH 7.498H, Arterial Blood Partial Pressure CO2 26.0L, Arterial Blood Partial Pressure O2 388.2H, Arterial Blood HCO3 19.7L, Arterial Blood Oxygen Saturation 99.1, Arterial Blood Base Excess -2.1L, Luis Test Positive Height (Feet): 5 Height (Inches): 2.00 Weight (Pounds): 155 General Appearance: lethargic, other - on vent Cardiovascular: regular rhythm Respiratory/Chest: rhonchi - bilaterally Abdomen: soft, no organomegaly Edema: no edema noted Arm (L), no edema noted Arm (R), no edema noted Leg (L), no edema noted Leg (R), no edema noted Pedal (L), no edema noted Pedal (R), no edema noted Generalized Neurologic: unresponsive Hung Zuniga MD Sep 22, 2019 15:35
[2019-09-22] MEDS: Enoxaparin 60mg Inj SUBQ SCH (20:35)
--- NOTE | 2019-09-22 20:45 | Infectious Diseases Prog Note ---
Assessment/Plan Assessment/Plan ASSESSMENT AND PLAN: 1. covid-19 virus infection, pna, ? cap, respiratory failure, sepsis, steroids, vent - hydroxychloroquine, doxycycline, ceftriaxone, steroids - chest x-ray improved - monitor labs and chest x-ray 2. No other significant past medical history. 3. No known allergies. 4. Social history negative. 5. Family history noncontributory. 6. MAR was noted. 7. Case discussed with RN. 8. Continue treatment per primary consultants. Subjective Constitutional: Reports: fever, other - on vent HEENT: Reports: other Respiratory: Reports: shortness of breath Cardiovascular: Denies: chest pain Gastrointestinal/Abdominal: Denies: nausea, vomiting, diarrhea Genitourinary: Reports: other - + zamora Neurologic: Reports: other - lethargic, weak Psychiatric: Reports: other - NA Skin: Denies: rash Hematologic: Denies: bleeding Musculoskeletal: Reports: other - NA Allergies: Coded Allergies: No Known Allergies (Unverified , 09/18/19) Objective Vital Signs Last 24 Hour Vital Signs Date Time Temp Pulse Resp B/P (MAP) Pulse Ox O2 Delivery O2 Flow Rate FiO2 09/22/19 20:00 64 09/22/19 20:00 65 24 104/56 (72) 100 09/22/19 20:00 90 09/22/19 19:16 84 26 80 09/22/19 19:00 24 Mechanical Ventilator 90 09/22/19 18:00 24 Mechanical Ventilator 90 09/22/19 17:00 55 24 111/80 (90) 100 09/22/19 17:00 24 Mechanical Ventilator 90 09/22/19 16:30 71 24 105/56 (72) 100 09/22/19 16:00 90 09/22/19 16:00 99.5 56 24 118/56 (76) 100 09/22/19 16:00 105 09/22/19 16:00 24 Mechanical Ventilator 90 09/22/19 16:00 Mechanical Ventilator Mechanical Ventilator 09/22/19 15:30 65 24 94/51 (65) 100 09/22/19 15:00 24 Mechanical Ventilator 90 09/22/19 15:00 73 24 104/54 (71) 99 09/22/19 14:40 64 24 90 09/22/19 14:30 67 24 97/53 (68) 99 09/22/19 14:00 62 24 94/55 (68) 99 09/22/19 14:00 24 Mechanical Ventilator 90 09/22/19 13:30 58 24 99/58 (72) 100 09/22/19 13:00 24 Mechanical Ventilator 90 09/22/19 13:00 66 24 98/50 (66) 100 09/22/19 12:22 24 Mechanical Ventilator 90 09/22/19 12:00 Mechanical Ventilator Mechanical Ventilator 09/22/19 12:00 24 Mechanical Ventilator 90 09/22/19 12:00 99.2 57 24 124/60 (81) 100 09/22/19 12:00 74 09/22/19 12:00 90 09/22/19 11:00 24 Mechanical Ventilator 90 09/22/19 11:00 73 24 141/72 (95) 100 09/22/19 10:30 68 24 90 09/22/19 10:00 24 Mechanical Ventilator 90 09/22/19 10:00 70 24 133/76 (95) 100 09/22/19 09:56 62 09/22/19 09:05 65 24 90 09/22/19 09:00 68 24 144/76 (98) 100 09/22/19 09:00 24 Mechanical Ventilator 90 09/22/19 08:00 100 09/22/19 08:00 100.1 62 28 131/70 (90) 100 09/22/19 08:00 28 Mechanical Ventilator 100 09/22/19 08:00 Mechanical Ventilator Mechanical Ventilator 09/22/19 07:05 60 28 100 09/22/19 07:00 68 28 136/70 (92) 100 09/22/19 06:00 66 28 132/68 (89) 100 09/22/19 05:00 63 28 128/76 (93) 100 09/22/19 05:00 28 Mechanical Ventilator 100 09/22/19 04:59 89 30 100 09/22/19 04:00 60 09/22/19 04:00 28 Mechanical Ventilator 100 09/22/19 04:00 98.8 72 28 137/74 (95) 100 09/22/19 04:00 100 09/22/19 04:00 72 09/22/19 03:00 60 28 124/71 (88) 100 09/22/19 03:00 28 Mechanical Ventilator 100 4/26/20 02:58 86 31 100 09/22/19 02:16 99.0 09/22/19 02:00 65 28 148/67 (94) 100 09/22/19 02:00 28 Mechanical Ventilator 100 09/22/19 01:11 74 28 100 09/22/19 01:00 65 28 158/59 (92) 100 09/22/19 01:00 28 Mechanical Ventilator 100 09/22/19 00:00 99.0 72 28 160/62 (94) 100 09/21/19 23:51 28 Mechanical Ventilator 100 09/21/19 23:09 100.6 09/21/19 23:01 98 30 100 09/21/19 23:00 28 Mechanical Ventilator 100 09/21/19 23:00 62 28 146/57 (86) 100 09/21/19 22:00 59 28 145/56 (85) 100 09/21/19 22:00 28 Mechanical Ventilator 100 09/21/19 21:00 28 Mechanical Ventilator 100 09/21/19 21:00 100.6 62 28 140/57 (84) 100 Height (Feet): 5 Height (Inches): 2.00 Weight (Pounds): 155 General Appearance: other - on vent HEENT: normocephalic, atraumatic, anicteric Respiratory/Chest: crackles/rales, rhonchi - bilaterally Cardiovascular: normal rate, regular rhythm, no gallop/murmur, no JVD Abdomen: normal bowel sounds, soft, non tender, no organomegaly, non distended Genitourinary: other - + zamora - urine slt cloudy Extremities: no cyanosis Skin: no rash Neurologic/Psychiatric: other - lethargic, weak Lymphatic: no neck adenopathy Musculoskeletal: no effusion Objective Chest x-ray - 09/22/19 - EXAM: XR Chest, 1 View CLINICAL HISTORY: SOB TECHNIQUE: Frontal view of the chest. COMPARISON: Chest x-ray 09/21/19 913 FINDINGS: Lungs: Improved aeration of the lung. Mild bilateral interstitial and hazy lung opacities are similar. Pleural space: Unremarkable. No pneumothorax. Heart: Unremarkable. No cardiomegaly. Mediastinum: Unremarkable. Bones/joints: Unremarkable. Tubes, lines and devices: Endotracheal tube and NG tube are stable. IMPRESSION: Improved aeration of the lung. Mild bilateral interstitial and hazy lung opacities are similar. Microbiology Date/Time Source Procedure Growth Status 09/18/19 22:05 Blood Blood Culture - Preliminary NO GROWTH AFTER 72 HOURS Resulted 09/18/19 21:30 Nasopharynx Coronavirus COVID-19 PCR ([facility]) - Final Complete Laboratory Tests Test 09/22/19 04:15 09/22/19 04:42 09/22/19 07:45 White Blood Count 15.4 K/UL (4.8-10.8) H Red Blood Count 4.06 M/UL (4.20-5.40) L Hemoglobin 12.7 G/DL (12.0-16.0) Hematocrit 36.0 % (37.0-47.0) L Mean Corpuscular Volume 89 FL (80-99) Mean Corpuscular Hemoglobin 31.3 PG (27.0-31.0) H Mean Corpuscular Hemoglobin Concent 35.3 G/DL (32.0-36.0) Red Cell Distribution Width 10.8 % (11.6-14.8) L Platelet Count 266 K/UL (150-450) Mean Platelet Volume 7.0 FL (6.5-10.1) Neutrophils (%) (Auto) % (45.0-75.0) Lymphocytes (%) (Auto) % (20.0-45.0) Monocytes (%) (Auto) % (1.0-10.0) Eosinophils (%) (Auto) % (0.0-3.0) Basophils (%) (Auto) % (0.0-2.0) Differential Total Cells Counted 100 Neutrophils % (Manual) 93 % (45-75) H Lymphocytes % (Manual) 5 % (20-45) L Monocytes % (Manual) 2 % (1-10) Eosinophils % (Manual) 0 % (0-3) Basophils % (Manual) 0 % (0-2) Band Neutrophils 0 % (0-8) Platelet Estimate Adequate Platelet Morphology Normal Red Blood Cell Morphology Normal Sodium Level 143 MMOL/L (136-145) Potassium Level 4.3 MMOL/L (3.5-5.1) Chloride Level 108 MMOL/L (98-107) H Carbon Dioxide Level 20 MMOL/L (21-32) L Anion Gap 15 mmol/L (5-15) Blood Urea Nitrogen 36 mg/dL (7-18) H Creatinine 0.9 MG/DL (0.55-1.30) Estimat Glomerular Filtration Rate > 60 mL/min (>60) Glucose Level 136 MG/DL (74-106) H Calcium Level 8.0 MG/DL (8.5-10.1) L Phosphorus Level 3.3 MG/DL (2.5-4.9) Magnesium Level 2.6 MG/DL (1.8-2.4) H Total Bilirubin 0.5 MG/DL (0.2-1.0) Aspartate Amino Transf (AST/SGOT) 87 U/L (15-37) H Alanine Aminotransferase (ALT/SGPT) 62 U/L (12-78) Alkaline Phosphatase 101 U/L (46-116) Total Creatine Kinase 1311 U/L (26-308) H Total Protein 6.5 G/DL (6.4-8.2) Albumin 2.4 G/DL (3.4-5.0) L Globulin 4.1 g/dL Albumin/Globulin Ratio 0.6 (1.0-2.7) L Ferritin 602 NG/ML (8-388) H C-Reactive Protein, Quantitative 31.1 mg/dL (0.00-0.90) H Arterial Blood pH 7.498 (7.350-7.450) Arterial Blood Partial Pressure CO2 26.0 mmHg (35.0-45.0) L Arterial Blood Partial Pressure O2 388.2 mmHg (75.0-100.0) H Arterial Blood HCO3 19.7 mmol/L (22.0-26.0) L Arterial Blood Oxygen Saturation 99.1 % (95-100) Arterial Blood Base Excess -2.1 (-2-2) L Luis Test Positive Current Medications Medications (Trade) Dose Ordered Sig/Sam Route PRN Reason Start Time Stop Time Status Last Admin Dose Admin Acetaminophen (Tylenol) 650 mg Q4H PRN ORAL Temp >100.5 09/20/19 16:28 10/20/19 16:27 09/21/19 21:52 Acetaminophen (Tylenol) 650 mg Q4H PRN ORAL Mild Pain (Pain Scale 1-3) 09/20/19 16:28 10/20/19 16:27 Albuterol Sulfate (Proventil MDI) 2 puff Q4H PRN INH Shortness of Breath 09/20/19 16:28 12/19/19 16:27 Atropine Sulfate (Atropine) 1 mg NEEDED PRN IVP HR<40 09/21/19 13:00 10/21/19 12:59 Ceftriaxone Sodium 1 gm/ Dextrose 50 ml @ 100 mls/hr Q24H IVPB 09/21/19 00:00 09/26/19 00:00 09/21/19 23:50 Dextrose (Dextrose 50%) 25 ml Q30M PRN IV Hypoglycemia 09/20/19 16:45 12/19/19 16:14 Dextrose (Dextrose 50%) 50 ml Q30M PRN IV Hypoglycemia 09/20/19 16:45 12/19/19 16:14 Doxycycline Hyclate 100 mg/ Dextrose 100 ml @ 100 mls/hr Q12HR IV 09/20/19 21:00 09/26/19 20:59 09/22/19 09:10 Enoxaparin Sodium (Lovenox) 60 mg QHS SUBQ 09/21/19 21:00 12/20/19 20:59 09/21/19 20:30 Fentanyl Citrate 2500 mcg/Sodium Chloride 250 ml @ 0 mls/hr Q24H IV 09/20/19 16:30 09/27/19 16:19 09/22/19 12:22 Hydroxychloroquine Sulfate (Plaquenil) 200 mg Q12HR ORAL 09/20/19 21:00 09/23/19 09:01 09/22/19 09:09 Insulin Aspart (NovoLOG) BEFORE MEALS AND HS SUBQ 09/20/19 16:30 12/19/19 16:29 09/22/19 06:46 Lorazepam (Ativan 2mg/ml 1ml) 2 mg Q4H PRN IV For Anxiety 09/20/19 18:00 09/27/19 17:59 09/22/19 12:21 Methylprednisolone Sodium Succinate (Solu-MEDROL) 40 mg Q12HR IVP 09/20/19 21:00 12/18/19 20:59 09/22/19 09:09 Ondansetron HCl (Zofran) 4 mg Q6H PRN IVP Nausea & Vomiting 09/20/19 16:29 10/20/19 16:28 Polyethylene Glycol (Miralax) 17 gm HSPRN PRN ORAL Constipation 09/20/19 16:29 10/20/19 16:28 Sodium Chloride 1,000 ml @ 75 mls/hr [id number] IV 09/21/19 18:00 10/21/19 17:59 09/22/19 06:16 Enedina Ceja MD Sep 22, 2019 20:45
[2019-09-22] MEDS ORDERED: Doxycycline Monohydrate 100mg ORAL SCH (21:00)
[2019-09-22] MEDS: cefTRIAXone 1 GM in D5W 50 ML IVPB SCH (21:56)
[2019-09-23] VITALS (34 sets, daily range): BP systolic 93–146; BP diastolic 49–83
[2019-09-23 05:31] LABS: HEMATOCRIT 32.3 % (37.0-47.0); HEMOGLOBIN 11.6 G/DL (12.0-16.0); MEAN CORPUSCULAR VOLUME 88 FL (80-99); PLATELET COUNT 254 K/UL (150-450); RED BLOOD COUNT 3.66 M/UL (4.20-5.40); RED CELL DISTRIBUTION WIDTH 10.6 % (11.6-14.8); WHITE BLOOD COUNT 13.9 K/UL (4.8-10.8)
[2019-09-23 05:55] LABS: ANION GAP 11 mmol/L (5-15); BLOOD UREA NITROGEN 26 mg/dL (7-18); CARBON DIOXIDE 22 MMOL/L (21-32); CHLORIDE 106 MMOL/L (98-107); CREATININE 0.7 MG/DL (0.55-1.30); POTASSIUM 4.4 MMOL/L (3.5-5.1); SODIUM 139 MMOL/L (136-145)
[2019-09-23] MEDS: NovoLOG Insulin Flexpen SUBQ SCH ×4 (06:03→21:00)
[2019-09-23] MEDS: Solu-MEDROL 40mg Inj IVP SCH ×2 (08:31→22:24)
--- NOTE | 2019-09-23 09:52 | Pulmonolgy Critical Care Note ---
Neena Lees INTERACTIVE MEDIA MARKETING SPECIALIST 09/23/19 0952: Critical Care - Asmt/Plan Assessment/Plan: ASSESSMENT Acute hypoxemic respiratory failure requiring intubation Multilobar PNA likely due to COVID 19 infection ( confirmed prior) JOE Mild transaminitis Mild hyperglycemia ? DM Borderline diabetes PLAN OF CARE ICU s/p intubation 09/19 ABG this am pending, will fup when results available 09/21 AC decreased to 24, PEEP to 8 and titrate FiO2 to keep sat above 92%, currently FiO2 60%, tolerates CXR 09/21 with Improved aeration of the lung. Mild bilateral interstitial and hazy lung opacities remains fup with CXR and ABG sedation with Fentanyl gtt MDI with spacer in line SARS -CoV -2 by PCR came back non detected however clinical picture and prior detection of CoVID highly suspicious of COVID 19, will keep in isolation ordered another RAMBO-CV-2 by PCR this am 09/21 continue with abx: Ceftriaxone and Doxy as per ID specialist , also Belinda will speak with pharmacy if can get Tocoluzimab for her BCX 09/17 NGTD on Solumedrol now 30 mg IV bid with further tapering soon leukocytosis may be partially reactive due to steroids as well daily CRP, LDH, ferritin: LDH 486, CRP 31, ferritin 582, IL 6 15.6 DVT prophylaxis with Lovenox IV hydration creat down to normal, avoid nephrotoxics nutrition via NGT, aspiration precautions mild hyperglycemia noted , probably due to steroids? on SSI/low dose, sensitive , HgA1c -6.borderline DM trend LFT , AST slightly trending up case discussed and evaluated by supervising physician Critical Care - Objective Last 24 Hour Vital Signs Date Time Temp Pulse Resp B/P (MAP) Pulse Ox O2 Delivery O2 Flow Rate FiO2 09/23/19 07:10 55 24 60 09/23/19 07:00 55 24 102/49 (66) 96 09/23/19 06:00 69 23 93/55 (68) 93 09/23/19 05:00 74 25 109/58 (75) 95 09/23/19 04:32 83 26 60 09/23/19 04:00 98.3 59 24 95/54 (68) 92 09/23/19 04:00 70 09/23/19 04:00 Mechanical Ventilator Mechanical Ventilator 09/23/19 04:00 76 09/23/19 03:00 72 22 102/83 (89) 99 09/23/19 02:48 77 24 60 09/23/19 02:35 24 Mechanical Ventilator 70 09/23/19 02:20 24 Mechanical Ventilator 70 09/23/19 02:00 24 Mechanical Ventilator 70 09/23/19 02:00 58 24 115/55 (75) 99 09/23/19 01:15 98.8 09/23/19 01:00 62 23 115/60 (78) 100 09/23/19 00:32 84 25 60 09/23/19 00:00 98.8 62 24 106/62 (77) 100 09/23/19 00:00 Mechanical Ventilator Mechanical Ventilator 09/22/19 23:57 24 Mechanical Ventilator 80 09/22/19 23:00 62 23 115/60 (78) 100 09/22/19 22:30 89 26 70 09/22/19 22:00 53 24 136/52 (80) 100 09/22/19 22:00 24 Mechanical Ventilator 80 09/22/19 21:00 24 Mechanical Ventilator 90 09/22/19 21:00 99.0 70 24 133/68 (89) 100 09/22/19 20:44 77 25 80 09/22/19 20:00 24 Mechanical Ventilator 100 09/22/19 20:00 64 09/22/19 20:00 65 24 104/56 (72) 100 09/22/19 20:00 Mechanical Ventilator Mechanical Ventilator 09/22/19 20:00 90 09/22/19 19:16 84 26 80 09/22/19 19:00 24 Mechanical Ventilator 90 09/22/19 18:00 24 Mechanical Ventilator 90 09/22/19 17:00 55 24 111/80 (90) 100 09/22/19 17:00 24 Mechanical Ventilator 90 09/22/19 16:30 71 24 105/56 (72) 100 09/22/19 16:00 90 09/22/19 16:00 99.5 56 24 118/56 (76) 100 09/22/19 16:00 105 09/22/19 16:00 24 Mechanical Ventilator 90 09/22/19 16:00 Mechanical Ventilator Mechanical Ventilator 09/22/19 15:30 65 24 94/51 (65) 100 09/22/19 15:00 24 Mechanical Ventilator 90 09/22/19 15:00 73 24 104/54 (71) 99 09/22/19 14:40 64 24 90 09/22/19 14:30 67 24 97/53 (68) 99 09/22/19 14:00 62 24 94/55 (68) 99 09/22/19 14:00 24 Mechanical Ventilator 90 09/22/19 13:30 58 24 99/58 (72) 100 09/22/19 13:00 24 Mechanical Ventilator 90 09/22/19 13:00 66 24 98/50 (66) 100 09/22/19 12:22 24 Mechanical Ventilator 90 09/22/19 12:00 Mechanical Ventilator Mechanical Ventilator 09/22/19 12:00 24 Mechanical Ventilator 90 09/22/19 12:00 99.2 57 24 124/60 (81) 100 09/22/19 12:00 74 09/22/19 12:00 90 09/22/19 11:00 24 Mechanical Ventilator 90 09/22/19 11:00 73 24 141/72 (95) 100 09/22/19 10:30 68 24 90 09/22/19 10:00 24 Mechanical Ventilator 90 09/22/19 10:00 70 24 133/76 (95) 100 09/22/19 09:56 62 Objective: Status: awake, responsive, intubated Condition: critical HEENT: atraumatic, normocephalic, OP with ET in place, intact, NGT Heart: HR/BP stable Abdomen: soft, non-tender, active bowel sounds Extremities: no edema Accucheck: 145 Critical Care - Subjective ROS Limited/Unobtainable: Yes Interval Events: leuk with trend down, no fevers since am 09/21 setting down titrated yesterday with AC down to 24 from 28, PEEP down to 8, currently on FiO2 69%, tolerates ABG pending mild sedation with Fentanyl gtt, awake Condition: critical IV Access: peripheral EKG Rhythm: Sinus Rhythm FI02: 60 Vent Support Breath Rate: 24 Vent Support Mode: AC Vent Tidal Volume: 500 Sputum Amount: Scant PEEP: 8.0 PIP: 34 Secretions: scant amount, thick consistency, yellow color Fluids: 1/2 NS at 75 Drips: Fentanyl gtt at 200 mcg/hr Tube Feeding Amount: 35 I&O: Intake and Output 09/22/19 09/23/19 19:00 07:00 Intake Total 1471 ml 1722 ml Output Total 600 ml 790 ml Balance 871 ml 932 ml Free Water 60 ml IV Total 1291 ml 807 ml Tube Feeding 30 ml 285 ml Other 150 ml 570 ml Output Urine Total 600 ml 790 ml CXR: CXR 09/21 Improved aeration of the lung. Mild bilateral interstitial and hazy lung opacities are similar. ET-Tube: 7.0 ET Position: 24 Raghav De MD 09/23/19 1948: Critical Care - Asmt/Plan Assessment/Plan: Patient seen and examined with INTERACTIVE MEDIA MARKETING SPECIALIST, agree with A&P as it reflects our joint deliberations. D/W PATIENT OMBUDSPERSON and RT. One covid neg but clinical picture highly suggestive of COVID, F/U repeat PCR LPV, settings reviewed, titrate FiO2 and PEEP S/P plaquenil, Abx per ID, taper steroids. Time Spent (Minutes): other - CCT 35 Neena Lees NP Sep 23, 2019 09:52 Raghav De MD Sep 23, 2019 19:48
[2019-09-23 10:07] LABS: CREATINE KINASE 435 U/L (26-308)
--- NOTE | 2019-09-23 10:55 | Diagnostic Imaging Report ---
Indication: Shortness of breath Technique: One view of the chest Comparison: 09/22/2019 Findings: Less optimal inspiration on current exam. Bilateral diffuse hazy airspace opacities are probably similar to the prior study allowing for differences in degree of inspiration. Stable satisfactory positions of endotracheal and orogastric tubes Impression: Unchanged, over one day, findings as above.
[2019-09-23] MEDS: fentaNYL Citrate 2,500 MCG in NS 200 ML IV SCH (12:46)
--- NOTE | 2019-09-23 18:00 | General Progress Note ---
Assessment/Plan Problem List: (1) Glucose intolerance ICD Codes: E74.39 - Other disorders of intestinal carbohydrate absorption SNOMED: 53532822 (2) Respiratory failure with hypoxia ICD Codes: J96.91 - Respiratory failure, unspecified with hypoxia SNOMED: 09050817131799823, 531495906 Qualifiers: Qualified Codes: J96.01 - Acute respiratory failure with hypoxia (3) Pneumonia due to COVID-19 virus ICD Codes: U07.1 - COVID-19; J12.89 - Other viral pneumonia SNOMED: 368460731, 920720491 (4) ARDS (adult respiratory distress syndrome) ICD Codes: J80 - Acute respiratory distress syndrome SNOMED: 26624826, 88731042 (5) Transaminitis ICD Codes: R74.0 - Nonspecific elevation of levels of transaminase and lactic acid dehydrogenase [LDH] SNOMED: 853231251, 835390080 (6) Rhabdomyolysis ICD Codes: M62.82 - Rhabdomyolysis SNOMED: 766839304 (7) JOE (acute kidney injury) ICD Codes: N17.9 - Acute kidney failure, unspecified SNOMED: 2351465, 74703436 Assessment/Plan: icu, on antibiotics, plaquenil ordered by pulm, worsening resp failure, intubating, SS insulin, steroids started grave status d/w daughter, icu orders updated, icu time 38 min Subjective ROS Limited/Unobtainable: Yes Allergies: Coded Allergies: No Known Allergies (Unverified , 09/18/19) Objective Last 24 Hour Vital Signs Date Time Temp Pulse Resp B/P (MAP) Pulse Ox O2 Delivery O2 Flow Rate FiO2 09/23/19 17:25 77 25 80 09/23/19 15:10 62 25 100 09/23/19 12:46 Mechanical Ventilator 09/23/19 11:25 83 26 100 09/23/19 11:00 Mechanical Ventilator 09/23/19 10:30 80 25 111/56 (74) 92 09/23/19 10:00 72 24 111/60 (77) 97 09/23/19 10:00 Mechanical Ventilator 09/23/19 09:30 81 24 125/72 (89) 92 09/23/19 09:00 Mechanical Ventilator 09/23/19 09:00 90 25 99/54 (69) 77 09/23/19 08:30 72 24 117/52 (73) 98 09/23/19 08:00 65 09/23/19 08:00 99.1 55 24 105/49 (67) 96 09/23/19 08:00 70 09/23/19 07:10 55 24 60 09/23/19 07:00 55 24 102/49 (66) 96 09/23/19 07:00 Mechanical Ventilator 09/23/19 06:00 69 23 93/55 (68) 93 09/23/19 05:00 74 25 109/58 (75) 95 09/23/19 04:32 83 26 60 09/23/19 04:00 98.3 59 24 95/54 (68) 92 09/23/19 04:00 70 09/23/19 04:00 Mechanical Ventilator Mechanical Ventilator 09/23/19 04:00 76 09/23/19 03:00 72 22 102/83 (89) 99 09/23/19 02:48 77 24 60 09/23/19 02:35 24 Mechanical Ventilator 70 09/23/19 02:20 24 Mechanical Ventilator 70 09/23/19 02:00 24 Mechanical Ventilator 70 09/23/19 02:00 58 24 115/55 (75) 99 09/23/19 01:15 98.8 09/23/19 01:00 62 23 115/60 (78) 100 09/23/19 00:32 84 25 60 09/23/19 00:00 98.8 62 24 106/62 (77) 100 09/23/19 00:00 Mechanical Ventilator Mechanical Ventilator 09/22/19 23:57 24 Mechanical Ventilator 80 09/22/19 23:00 62 23 115/60 (78) 100 09/22/19 22:30 89 26 70 09/22/19 22:00 53 24 136/52 (80) 100 09/22/19 22:00 24 Mechanical Ventilator 80 09/22/19 21:00 24 Mechanical Ventilator 90 09/22/19 21:00 99.0 70 24 133/68 (89) 100 09/22/19 20:44 77 25 80 09/22/19 20:00 24 Mechanical Ventilator 100 09/22/19 20:00 64 09/22/19 20:00 65 24 104/56 (72) 100 09/22/19 20:00 Mechanical Ventilator Mechanical Ventilator 09/22/19 20:00 90 09/22/19 19:16 84 26 80 09/22/19 19:00 24 Mechanical Ventilator 90 09/22/19 18:00 24 Mechanical Ventilator 90 Intake and Output 09/22/19 09/23/19 19:00 07:00 Intake Total 1471 ml 1742 ml Output Total 600 ml 790 ml Balance 871 ml 952 ml Free Water 60 ml IV Total 1291 ml 827 ml Tube Feeding 30 ml 285 ml Other 150 ml 570 ml Output Urine Total 600 ml 790 ml Laboratory Tests 09/23/19 03:05: White Blood Count 13.9H, Red Blood Count 3.66L, Hemoglobin 11.6L, Hematocrit 32.3L, Mean Corpuscular Volume 88, Mean Corpuscular Hemoglobin 31.7H, Mean Corpuscular Hemoglobin Concent 35.9, Red Cell Distribution Width 10.6L, Platelet Count 254, Mean Platelet Volume 7.4, Neutrophils (%) (Auto) , Lymphocytes (%) (Auto) , Monocytes (%) (Auto) , Eosinophils (%) (Auto) , Basophils (%) (Auto) , Differential Total Cells Counted 100, Neutrophils % ( Manual) 92H, Lymphocytes % (Manual) 7L, Monocytes % (Manual) 1, Eosinophils % ( Manual) 0, Basophils % (Manual) 0, Band Neutrophils 0, Platelet Estimate Adequate, Platelet Morphology Normal, Red Blood Cell Morphology Normal, Anisocytosis , Sodium Level 139, Potassium Level 4.4, Chloride Level 106, Carbon Dioxide Level 22, Anion Gap 11, Blood Urea Nitrogen 26H, Creatinine 0.7, Estimat Glomerular Filtration Rate > 60, Glucose Level 127H, Hemoglobin A1c 6.0 , Calcium Level 8.0L, Total Creatine Kinase 435H Height (Feet): 5 Height (Inches): 2.00 Weight (Pounds): 155 General Appearance: other - sedated on vent Cardiovascular: regular rhythm Respiratory/Chest: accessory muscle use Abdomen: non tender Edema: no edema noted Arm (L), no edema noted Arm (R), no edema noted Leg (L), no edema noted Leg (R), no edema noted Pedal (L), no edema noted Pedal (R), no edema noted Generalized Hung Zuniga MD Sep 23, 2019 18:00
[2019-09-23] MEDS: cefTRIAXone 1 GM in D5W 50 ML IVPB SCH (22:23)
[2019-09-23] MEDS: Enoxaparin 60mg Inj SUBQ SCH (22:24)
[2019-09-24] VITALS (36 sets, daily range): BP systolic 93–139; BP diastolic 39–67
[2019-09-24] MEDS: fentaNYL Citrate 2,500 MCG in NS 200 ML IV SCH ×2 (05:03→16:25)
[2019-09-24 06:06] LABS: HEMOGLOBIN 13.1 G/DL (12.0-16.0); MEAN CORPUSCULAR VOLUME 89 FL (80-99); PLATELET COUNT 223 K/UL (150-450); RED BLOOD COUNT 4.18 M/UL (4.20-5.40); RED CELL DISTRIBUTION WIDTH 10.7 % (11.6-14.8); WHITE BLOOD COUNT 16.3 K/UL (4.8-10.8)
[2019-09-24] MEDS: NovoLOG Insulin Flexpen SUBQ SCH ×4 (06:14→20:56)
[2019-09-24 06:35] LABS: ALANINE AMINOTRANSFERASE 66 U/L (12-78); ALBUMIN/GLOBULIN RATIO 0.5 (1.0-2.7); ALKALINE PHOSPHATASE 119 U/L (46-116); ANION GAP 8 mmol/L (5-15); ASPARTATE AMINO TRANSFERASE 60 U/L (15-37); BILIRUBIN,TOTAL 0.5 MG/DL (0.2-1.0); BLOOD UREA NITROGEN 17 mg/dL (7-18); CALCIUM 7.6 MG/DL (8.5-10.1); CARBON DIOXIDE 26 MMOL/L (21-32); CHLORIDE 104 MMOL/L (98-107); CREATININE 0.5 MG/DL (0.55-1.30); POTASSIUM 4.4 MMOL/L (3.5-5.1); SODIUM 138 MMOL/L (136-145)
[2019-09-24] MEDS: Solu-MEDROL 40mg Inj IVP SCH ×2 (09:03→20:57)
--- NOTE | 2019-09-24 09:44 | Pulmonolgy Critical Care Note ---
Neena Lees OPERATIONS ENGINEER 09/24/19 0944: Critical Care - Asmt/Plan Assessment/Plan: ASSESSMENT Acute hypoxemic respiratory failure requiring intubation Multilobar PNA likely due to COVID 19 infection ( confirmed prior) JOE -resolved Mild transaminitis Borderline diabetes Elevated CK/ rhabdo - CK trending down PLAN OF CARE ICU s/p intubation 09/19 ABG this am stable, FiO2 down to 60% CXR 09/22 w/out much changes, CXR for this am pending fup with CXR and ABG in am sedation with Fentanyl gtt MDI with spacer in line SARS -CoV -2 by PCR came back non detected however clinical picture and prior detection of CoVID highly suspicious of COVID 19, will keep in isolation ordered another RAMBO-CV-2 by PCR 09/21, pending results continue with abx: Ceftriaxone and Doxy as per ID specialist , also Belinda will speak with pharmacy if can get Tocoluzimab for her BCX 09/17 NGTD on Solumedrol now 30 mg IV bid with further tapering down soon leukocytosis may be partially reactive due to steroids as well daily CRP, LDH, ferritin: LDH 486, CRP 31, ferritin 582, IL 6 15.6, repeat CRP , LDH and ferritin in am DVT prophylaxis with Lovenox IV hydration creat down to normal, avoid nephrotoxics nutrition via NGT, aspiration precautions mild hyperglycemia noted , probably due to steroids? on SSI/low dose, sensitive , HgA1c -6 - borderline DM trend LFT , CK trending down, case discussed and evaluated by supervising physician Critical Care - Objective Last 24 Hour Vital Signs Date Time Temp Pulse Resp B/P (MAP) Pulse Ox O2 Delivery O2 Flow Rate FiO2 09/24/19 09:10 64 24 60 09/24/19 09:00 24 Mechanical Ventilator 60 09/24/19 09:00 60 09/24/19 09:00 98.9 61 24 99/52 (68) 99 09/24/19 08:30 59 24 93/39 (57) 100 09/24/19 08:00 70 09/24/19 08:00 66 24 115/57 (76) 99 09/24/19 08:00 24 Mechanical Ventilator 70 09/24/19 07:30 66 24 98/48 (65) 96 09/24/19 07:10 67 25 70 09/24/19 07:00 24 Mechanical Ventilator 70 09/24/19 07:00 71 24 119/56 (77) 95 09/24/19 06:14 99.8 09/24/19 06:00 24 Mechanical Ventilator 70 09/24/19 06:00 98.8 78 25 139/66 (90) 100 09/24/19 05:10 74 24 70 09/24/19 05:03 24 Mechanical Ventilator 70 09/24/19 05:00 24 Mechanical Ventilator 70 09/24/19 05:00 66 24 121/60 (80) 100 09/24/19 04:00 76 09/24/19 04:00 80 09/24/19 04:00 76 27 122/58 (79) 100 09/24/19 04:00 24 Mechanical Ventilator 70 09/24/19 03:30 77 29 80 09/24/19 03:00 24 Mechanical Ventilator 70 09/24/19 03:00 75 24 110/64 (79) 100 09/24/19 02:00 84 24 102/51 (68) 100 09/24/19 02:00 24 Mechanical Ventilator 70 09/24/19 01:10 70 24 80 09/24/19 01:00 69 24 106/49 (68) 100 09/24/19 01:00 24 Mechanical Ventilator 70 09/24/19 00:00 24 Mechanical Ventilator 70 09/24/19 00:00 65 09/24/19 00:00 80 09/24/19 00:00 99.8 70 24 114/59 (77) 100 09/24/19 00:00 70 09/23/19 23:08 74 26 80 09/23/19 23:00 78 24 111/54 (73) 100 09/23/19 23:00 24 Mechanical Ventilator 70 09/23/19 22:00 24 Mechanical Ventilator 70 09/23/19 22:00 84 24 134/62 (86) 100 09/23/19 21:00 24 Mechanical Ventilator 70 09/23/19 21:00 85 25 134/70 (91) 100 09/23/19 20:45 72 24 80 09/23/19 20:00 100.3 82 25 122/62 (82) 100 09/23/19 20:00 24 Mechanical Ventilator 70 09/23/19 19:40 82 24 80 09/23/19 19:00 66 24 100 09/23/19 19:00 24 Mechanical Ventilator 70 09/23/19 18:30 66 24 117/65 (82) 100 09/23/19 18:00 64 24 104/56 (72) 100 09/23/19 18:00 Mechanical Ventilator 09/23/19 17:30 84 20 130/62 (84) 100 09/23/19 17:25 77 25 80 09/23/19 17:00 99.0 75 23 131/70 (90) 100 09/23/19 17:00 Mechanical Ventilator 09/23/19 16:30 70 24 117/65 (82) 100 09/23/19 16:00 65 09/23/19 16:00 75 28 104/56 (72) 100 09/23/19 16:00 80 09/23/19 15:30 66 24 131/70 (90) 100 09/23/19 15:10 62 25 100 09/23/19 15:00 60 24 117/65 (82) 100 09/23/19 15:00 Mechanical Ventilator 09/23/19 14:30 61 24 105/55 (72) 100 09/23/19 14:00 59 24 110/61 (77) 100 09/23/19 13:30 74 25 121/63 (82) 95 09/23/19 13:00 82 25 146/70 (95) 95 09/23/19 13:00 Mechanical Ventilator 09/23/19 12:46 Mechanical Ventilator 09/23/19 12:30 85 26 108/57 (74) 93 09/23/19 12:00 70 09/23/19 12:00 66 09/23/19 12:00 79 24 123/53 (76) 91 09/23/19 11:30 72 24 106/52 (70) 95 09/23/19 11:25 83 26 100 09/23/19 11:00 Mechanical Ventilator 09/23/19 11:00 69 24 103/50 (67) 94 09/23/19 10:30 80 25 111/56 (74) 92 09/23/19 10:00 72 24 111/60 (77) 97 09/23/19 10:00 Mechanical Ventilator Objective: Status: sedated, responsive, intubated Condition: critical HEENT: atraumatic, normocephalic, OP with ET in place, intact, NGT Heart: HR/BP stable Abdomen: soft, non-tender, active bowel sounds : F/c Extremities: no edema Accucheck: 168 Critical Care - Subjective ROS Limited/Unobtainable: Yes Interval Events: remains intubated low grade fever last night, leuk with some trend up more sedated ABG this am w/out hypoxia, on 500-24-70%-PEEP10 second CoVID pending on isolation Condition: critical IV Access: peripheral EKG Rhythm: Sinus Rhythm FI02: 60 Vent Support Breath Rate: 24 Vent Support Mode: AC Vent Tidal Volume: 500 Sputum Amount: Scant PEEP: 10.0 PIP: 38 Secretions: scant amount, melgoza color, thick consistency Fluids: 1/2 NS at 75 Drips: Fentanyl gtt 230 mcg/hr Tube Feeding Amount: 50 I&O: Intake and Output 09/23/19 09/24/19 19:00 07:00 Intake Total 615 ml 1410 ml Output Total 375 ml 1201 ml Balance 240 ml 209 ml IV Total 190 ml 900 ml Tube Feeding 425 ml 510 ml Output Urine Total 375 ml 1200 ml Stool Total 1 ml CXR: 09/22 Bilateral diffuse hazy airspace opacities are probably similar to the prior study allowing for differences in degree of inspiration. Stable satisfactory positions of endotracheal and orogastric tubes. ET-Tube: 7.0 ET Position: 24 Raghav De MD 09/24/19 1748: Critical Care - Asmt/Plan Assessment/Plan: Patient seen and examined with PA, agree with A&P as it reflects our joint deliberations. Case d/w CC RN, ICU foam charger and RT. D/W Dr. Doyle, he will F/U with pharmacy RE: anti-IL6. Continue ventilatory support/LPV, titrate FiO2, then PEEP, PRN HFA, Abx per ID, mobilize, DVT Px. CCT 45 Time Spent (Minutes): other - 45 Notes Reviewed: acid purifier, renal, ID Discussed with: nurses, consultants Neena Lees NP Sep 24, 2019 09:44 Raghav De MD Sep 24, 2019 17:48
--- NOTE | 2019-09-24 12:21 | General Progress Note ---
Assessment/Plan Problem List: (1) Glucose intolerance ICD Codes: E74.39 - Other disorders of intestinal carbohydrate absorption SNOMED: 17768135 (2) Respiratory failure with hypoxia ICD Codes: J96.91 - Respiratory failure, unspecified with hypoxia SNOMED: 15517983472470914, 627907364 Qualifiers: Qualified Codes: J96.01 - Acute respiratory failure with hypoxia (3) Pneumonia due to COVID-19 virus ICD Codes: U07.1 - COVID-19; J12.89 - Other viral pneumonia SNOMED: 491182891, 895839109 (4) ARDS (adult respiratory distress syndrome) ICD Codes: J80 - Acute respiratory distress syndrome SNOMED: 38029246, 74382485 (5) Transaminitis ICD Codes: R74.0 - Nonspecific elevation of levels of transaminase and lactic acid dehydrogenase [LDH] SNOMED: 695212817, 243711594 (6) Rhabdomyolysis ICD Codes: M62.82 - Rhabdomyolysis SNOMED: 249192076 (7) JOE (acute kidney injury) ICD Codes: N17.9 - Acute kidney failure, unspecified SNOMED: 0671531, 96172706 Assessment/Plan: icu, on antibiotics, plaquenil ordered by pulm, worsening resp failure, intubating, SS insulin, steroids started grave status d/w daughter, icu orders updated, icu time 32 min Subjective ROS Limited/Unobtainable: Yes Constitutional: Reports: other Allergies: Coded Allergies: No Known Allergies (Unverified , 09/18/19) Objective Last 24 Hour Vital Signs Date Time Temp Pulse Resp B/P (MAP) Pulse Ox O2 Delivery O2 Flow Rate FiO2 09/24/19 12:00 65 24 106/54 (71) 97 09/24/19 12:00 24 Mechanical Ventilator 50 09/24/19 12:00 50 09/24/19 11:30 98.5 74 24 121/64 (83) 99 09/24/19 11:03 59 24 60 09/24/19 11:00 62 24 104/51 (68) 97 09/24/19 11:00 24 Mechanical Ventilator 60 09/24/19 10:30 76 23 111/54 (73) 97 09/24/19 10:00 62 24 104/54 (71) 96 09/24/19 10:00 24 Mechanical Ventilator 60 09/24/19 10:00 62 24 104/54 (71) 96 09/24/19 09:30 65 24 104/51 (68) 96 09/24/19 09:10 64 24 60 09/24/19 09:00 24 Mechanical Ventilator 60 09/24/19 09:00 60 09/24/19 09:00 98.9 61 24 99/52 (68) 99 09/24/19 08:30 59 24 93/39 (57) 100 09/24/19 08:00 70 09/24/19 08:00 60 09/24/19 08:00 66 24 115/57 (76) 99 09/24/19 08:00 24 Mechanical Ventilator 70 09/24/19 07:30 66 24 98/48 (65) 96 09/24/19 07:10 67 25 70 09/24/19 07:00 24 Mechanical Ventilator 70 09/24/19 07:00 71 24 119/56 (77) 95 09/24/19 06:14 99.8 09/24/19 06:00 24 Mechanical Ventilator 70 09/24/19 06:00 98.8 78 25 139/66 (90) 100 09/24/19 05:10 74 24 70 09/24/19 05:03 24 Mechanical Ventilator 70 09/24/19 05:00 24 Mechanical Ventilator 70 09/24/19 05:00 66 24 121/60 (80) 100 09/24/19 04:00 76 09/24/19 04:00 80 09/24/19 04:00 76 27 122/58 (79) 100 09/24/19 04:00 24 Mechanical Ventilator 70 09/24/19 03:30 77 29 80 09/24/19 03:00 24 Mechanical Ventilator 70 09/24/19 03:00 75 24 110/64 (79) 100 09/24/19 02:00 84 24 102/51 (68) 100 09/24/19 02:00 24 Mechanical Ventilator 70 09/24/19 01:10 70 24 80 09/24/19 01:00 69 24 106/49 (68) 100 09/24/19 01:00 24 Mechanical Ventilator 70 09/24/19 00:00 24 Mechanical Ventilator 70 09/24/19 00:00 65 09/24/19 00:00 80 09/24/19 00:00 99.8 70 24 114/59 (77) 100 09/24/19 00:00 70 09/23/19 23:08 74 26 80 09/23/19 23:00 78 24 111/54 (73) 100 09/23/19 23:00 24 Mechanical Ventilator 70 09/23/19 22:00 24 Mechanical Ventilator 70 09/23/19 22:00 84 24 134/62 (86) 100 09/23/19 21:00 24 Mechanical Ventilator 70 09/23/19 21:00 85 25 134/70 (91) 100 09/23/19 20:45 72 24 80 09/23/19 20:00 100.3 82 25 122/62 (82) 100 09/23/19 20:00 24 Mechanical Ventilator 70 09/23/19 19:40 82 24 80 09/23/19 19:00 66 24 100 09/23/19 19:00 24 Mechanical Ventilator 70 09/23/19 18:30 66 24 117/65 (82) 100 09/23/19 18:00 64 24 104/56 (72) 100 09/23/19 18:00 Mechanical Ventilator 09/23/19 17:30 84 20 130/62 (84) 100 09/23/19 17:25 77 25 80 09/23/19 17:00 99.0 75 23 131/70 (90) 100 09/23/19 17:00 Mechanical Ventilator 09/23/19 16:30 70 24 117/65 (82) 100 09/23/19 16:00 65 09/23/19 16:00 75 28 104/56 (72) 100 09/23/19 16:00 80 09/23/19 15:30 66 24 131/70 (90) 100 09/23/19 15:10 62 25 100 09/23/19 15:00 60 24 117/65 (82) 100 09/23/19 15:00 Mechanical Ventilator 09/23/19 14:30 61 24 105/55 (72) 100 09/23/19 14:00 59 24 110/61 (77) 100 09/23/19 13:30 74 25 121/63 (82) 95 09/23/19 13:00 82 25 146/70 (95) 95 09/23/19 13:00 Mechanical Ventilator 09/23/19 12:46 Mechanical Ventilator 09/23/19 12:30 85 26 108/57 (74) 93 Intake and Output 09/23/19 09/24/19 19:00 07:00 Intake Total 615 ml 1410 ml Output Total 375 ml 1201 ml Balance 240 ml 209 ml IV Total 190 ml 900 ml Tube Feeding 425 ml 510 ml Output Urine Total 375 ml 1200 ml Stool Total 1 ml Laboratory Tests 09/24/19 05:29: White Blood Count 16.3H, Red Blood Count 4.18L, Hemoglobin 13.1, Hematocrit 37.0 , Mean Corpuscular Volume 89, Mean Corpuscular Hemoglobin 31.4H, Mean Corpuscular Hemoglobin Concent 35.4, Red Cell Distribution Width 10.7L, Platelet Count 223, Mean Platelet Volume 6.7, Neutrophils (%) (Auto) , Lymphocytes (%) (Auto) , Monocytes (%) (Auto) , Eosinophils (%) (Auto) , Basophils (%) (Auto) , Differential Total Cells Counted 100, Neutrophils % ( Manual) 86H, Lymphocytes % (Manual) 6L, Monocytes % (Manual) 6, Eosinophils % ( Manual) 1, Basophils % (Manual) 0, Band Neutrophils 1, Platelet Estimate Adequate, Platelet Morphology Normal, Red Blood Cell Morphology Normal, Sodium Level 138, Potassium Level 4.4, Chloride Level 104, Carbon Dioxide Level 26, Anion Gap 8, Blood Urea Nitrogen 17, Creatinine 0.5L, Estimat Glomerular Filtration Rate > 60, Glucose Level 159H, Calcium Level 7.6L, Total Bilirubin 0.5, Aspartate Amino Transf (AST/SGOT) 60H, Alanine Aminotransferase (ALT/SGPT) 66, Alkaline Phosphatase 119H, Total Protein 6.3L, Albumin 2.0L, Globulin 4.3, Albumin/Globulin Ratio 0.5L 09/24/19 08:00: Arterial Blood pH 7.457H, Arterial Blood Partial Pressure CO2 35.7, Arterial Blood Partial Pressure O2 73.6L, Arterial Blood HCO3 24.6, Arterial Blood Oxygen Saturation 94.9L, Arterial Blood Base Excess 1.1, Luis Test Positive Height (Feet): 5 Height (Inches): 2.00 Weight (Pounds): 155 General Appearance: other - sedated vent mild secretions Cardiovascular: regular rhythm Respiratory/Chest: rhonchi - bilaterally Abdomen: non tender Edema: no edema noted Arm (L), no edema noted Arm (R), no edema noted Leg (L), no edema noted Leg (R), no edema noted Pedal (L), no edema noted Pedal (R), no edema noted Generalized Hung Zuniga MD Sep 24, 2019 12:21
--- NOTE | 2019-09-24 20:41 | Infectious Diseases Prog Note ---
Assessment/Plan Assessment/Plan ASSESSMENT AND PLAN: 1. covid-19 virus infection, pna, ? cap, respiratory failure, sepsis, steroids, vent - s/p hydroxychloroquine, doxycycline, ceftriaxone -day #5, steroids - chest x-ray stable - monitor labs and chest x-ray - may need tocilizumab - d/w Dr. De 2. No other significant past medical history. 3. No known allergies. 4. Social history negative. 5. Family history noncontributory. 6. MAR was noted. 7. Case discussed with RN. 8. Continue treatment per primary consultants. Subjective Constitutional: Reports: fever, fatigue, other - on vent, fio2-50%, no pressors , sedated HEENT: Reports: congestion Cardiovascular: Reports: other - no pressors Gastrointestinal/Abdominal: Denies: nausea, vomiting, diarrhea Genitourinary: Reports: other - + zamora Neurologic: Reports: weakness, other - sedated Psychiatric: Reports: other - NA Skin: Denies: rash Hematologic: Denies: bleeding Musculoskeletal: Reports: other - NA Allergies: Coded Allergies: No Known Allergies (Unverified , 09/18/19) Objective Vital Signs Last 24 Hour Vital Signs Date Time Temp Pulse Resp B/P (MAP) Pulse Ox O2 Delivery O2 Flow Rate FiO2 09/24/19 19:00 61 22 99/56 (70) 97 09/24/19 19:00 22 Mechanical Ventilator 50 09/24/19 18:00 74 23 99/50 (66) 96 09/24/19 18:00 23 Mechanical Ventilator 50 09/24/19 17:30 78 24 125/56 (79) 100 09/24/19 17:00 24 Mechanical Ventilator 45 09/24/19 17:00 50 09/24/19 17:00 82 24 110/57 (74) 84 09/24/19 16:57 98.9 09/24/19 16:52 80 25 50 09/24/19 16:30 74 24 119/58 (78) 96 09/24/19 16:25 24 Mechanical Ventilator 15.0 45 09/24/19 16:00 80 09/24/19 16:00 82 26 117/64 (81) 93 09/24/19 16:00 21 Mechanical Ventilator 50 09/24/19 15:30 69 26 119/60 (79) 95 09/24/19 15:05 76 24 45 09/24/19 15:00 21 Mechanical Ventilator 50 09/24/19 15:00 45 09/24/19 15:00 86 20 122/60 (80) 91 09/24/19 14:30 62 21 113/67 (82) 95 09/24/19 14:00 68 23 112/56 (74) 98 09/24/19 14:00 23 Mechanical Ventilator 50 09/24/19 13:30 63 24 117/60 (79) 96 09/24/19 13:00 24 Mechanical Ventilator 50 09/24/19 13:00 66 24 116/62 (80) 97 09/24/19 12:53 64 24 50 09/24/19 12:30 63 24 100/47 (64) 94 09/24/19 12:00 65 24 106/54 (71) 97 09/24/19 12:00 24 Mechanical Ventilator 50 09/24/19 12:00 50 09/24/19 12:00 63 09/24/19 11:30 98.5 74 24 121/64 (83) 99 09/24/19 11:03 59 24 60 09/24/19 11:00 62 24 104/51 (68) 97 09/24/19 11:00 24 Mechanical Ventilator 60 09/24/19 10:30 76 23 111/54 (73) 97 09/24/19 10:00 62 24 104/54 (71) 96 09/24/19 10:00 24 Mechanical Ventilator 60 09/24/19 10:00 62 24 104/54 (71) 96 09/24/19 09:30 65 24 104/51 (68) 96 09/24/19 09:10 64 24 60 09/24/19 09:00 24 Mechanical Ventilator 60 09/24/19 09:00 60 09/24/19 09:00 98.9 61 24 99/52 (68) 99 09/24/19 08:30 59 24 93/39 (57) 100 09/24/19 08:00 70 09/24/19 08:00 60 09/24/19 08:00 66 24 115/57 (76) 99 09/24/19 08:00 24 Mechanical Ventilator 70 09/24/19 07:30 66 24 98/48 (65) 96 09/24/19 07:10 67 25 70 09/24/19 07:00 24 Mechanical Ventilator 70 09/24/19 07:00 71 24 119/56 (77) 95 09/24/19 06:00 24 Mechanical Ventilator 70 09/24/19 06:00 98.8 78 25 139/66 (90) 100 09/24/19 05:10 74 24 70 09/24/19 05:03 24 Mechanical Ventilator 70 09/24/19 05:00 24 Mechanical Ventilator 70 09/24/19 05:00 66 24 121/60 (80) 100 09/24/19 04:00 76 09/24/19 04:00 80 09/24/19 04:00 76 27 122/58 (79) 100 09/24/19 04:00 24 Mechanical Ventilator 70 09/24/19 03:30 77 29 80 09/24/19 03:00 24 Mechanical Ventilator 70 09/24/19 03:00 75 24 110/64 (79) 100 09/24/19 02:00 84 24 102/51 (68) 100 09/24/19 02:00 24 Mechanical Ventilator 70 09/24/19 01:10 70 24 80 09/24/19 01:00 69 24 106/49 (68) 100 09/24/19 01:00 24 Mechanical Ventilator 70 09/24/19 00:00 24 Mechanical Ventilator 70 09/24/19 00:00 65 09/24/19 00:00 80 09/24/19 00:00 99.8 70 24 114/59 (77) 100 09/24/19 00:00 70 09/23/19 23:08 74 26 80 09/23/19 23:00 78 24 111/54 (73) 100 09/23/19 23:00 24 Mechanical Ventilator 70 09/23/19 22:00 24 Mechanical Ventilator 70 09/23/19 22:00 84 24 134/62 (86) 100 09/23/19 21:00 24 Mechanical Ventilator 70 09/23/19 21:00 85 25 134/70 (91) 100 09/23/19 20:45 72 24 80 Height (Feet): 5 Height (Inches): 2.00 Weight (Pounds): 155 General Appearance: no acute distress HEENT: normocephalic, atraumatic, anicteric, no JVD, other - oral - intbated Respiratory/Chest: crackles/rales, rhonchi - bilaterally Cardiovascular: normal rate, regular rhythm, no gallop/murmur, no JVD Abdomen: normal bowel sounds, soft, non tender, no organomegaly, non distended Genitourinary: other - + zamora - urine clear Extremities: no cyanosis Skin: no rash Neurologic/Psychiatric: other - weak, sedated Lymphatic: no neck adenopathy Musculoskeletal: no effusion Objective Chest x-ray - 09/22/19 - EXAM: XR Chest, 1 View CLINICAL HISTORY: SOB TECHNIQUE: Frontal view of the chest. COMPARISON: Chest x-ray 09/21/19 913 FINDINGS: Lungs: Improved aeration of the lung. Mild bilateral interstitial and hazy lung opacities are similar. Pleural space: Unremarkable. No pneumothorax. Heart: Unremarkable. No cardiomegaly. Mediastinum: Unremarkable. Bones/joints: Unremarkable. Tubes, lines and devices: Endotracheal tube and NG tube are stable. IMPRESSION: Improved aeration of the lung. Mild bilateral interstitial and hazy lung opacities are similar. Chest x-ray - 09/23/19 - Procedure: XRAY Chest 1v Indication: Shortness of breath Technique: One view of the chest Comparison: 09/22/2019 Findings: Less optimal inspiration on current exam. Bilateral diffuse hazy airspace opacities are probably similar to the prior study allowing for differences in degree of inspiration. Stable satisfactory positions of endotracheal and orogastric tubes Impression: Unchanged, over one day, findings as above. Microbiology Date/Time Source Procedure Growth Status 09/18/19 22:05 Blood Blood Culture - Final NO GROWTH AFTER 5 DAYS Complete 09/18/19 21:30 Nasopharynx Coronavirus COVID-19 PCR ([facility]) - Final Complete Laboratory Tests Test 09/24/19 05:29 09/24/19 08:00 White Blood Count 16.3 K/UL (4.8-10.8) H Red Blood Count 4.18 M/UL (4.20-5.40) L Hemoglobin 13.1 G/DL (12.0-16.0) Hematocrit 37.0 % (37.0-47.0) Mean Corpuscular Volume 89 FL (80-99) Mean Corpuscular Hemoglobin 31.4 PG (27.0-31.0) H Mean Corpuscular Hemoglobin Concent 35.4 G/DL (32.0-36.0) Red Cell Distribution Width 10.7 % (11.6-14.8) L Platelet Count 223 K/UL (150-450) Mean Platelet Volume 6.7 FL (6.5-10.1) Neutrophils (%) (Auto) % (45.0-75.0) Lymphocytes (%) (Auto) % (20.0-45.0) Monocytes (%) (Auto) % (1.0-10.0) Eosinophils (%) (Auto) % (0.0-3.0) Basophils (%) (Auto) % (0.0-2.0) Differential Total Cells Counted 100 Neutrophils % (Manual) 86 % (45-75) H Lymphocytes % (Manual) 6 % (20-45) L Monocytes % (Manual) 6 % (1-10) Eosinophils % (Manual) 1 % (0-3) Basophils % (Manual) 0 % (0-2) Band Neutrophils 1 % (0-8) Platelet Estimate Adequate Platelet Morphology Normal Red Blood Cell Morphology Normal Sodium Level 138 MMOL/L (136-145) Potassium Level 4.4 MMOL/L (3.5-5.1) Chloride Level 104 MMOL/L (98-107) Carbon Dioxide Level 26 MMOL/L (21-32) Anion Gap 8 mmol/L (5-15) Blood Urea Nitrogen 17 mg/dL (7-18) Creatinine 0.5 MG/DL (0.55-1.30) L Estimat Glomerular Filtration Rate > 60 mL/min (>60) Glucose Level 159 MG/DL (74-106) H Calcium Level 7.6 MG/DL (8.5-10.1) L Total Bilirubin 0.5 MG/DL (0.2-1.0) Aspartate Amino Transf (AST/SGOT) 60 U/L (15-37) H Alanine Aminotransferase (ALT/SGPT) 66 U/L (12-78) Alkaline Phosphatase 119 U/L (46-116) H Total Protein 6.3 G/DL (6.4-8.2) L Albumin 2.0 G/DL (3.4-5.0) L Globulin 4.3 g/dL Albumin/Globulin Ratio 0.5 (1.0-2.7) L Arterial Blood pH 7.457 (7.350-7.450) Arterial Blood Partial Pressure CO2 35.7 mmHg (35.0-45.0) Arterial Blood Partial Pressure O2 73.6 mmHg (75.0-100.0) L Arterial Blood HCO3 24.6 mmol/L (22.0-26.0) Arterial Blood Oxygen Saturation 94.9 % (95-100) L Arterial Blood Base Excess 1.1 (-2-2) Luis Test Positive Current Medications Medications (Trade) Dose Ordered Sig/Sam Route PRN Reason Start Time Stop Time Status Last Admin Dose Admin Acetaminophen (Tylenol) 650 mg Q4H PRN ORAL Temp >100.5 09/20/19 16:28 10/20/19 16:27 09/21/19 21:52 Acetaminophen (Tylenol) 650 mg Q4H PRN ORAL Mild Pain (Pain Scale 1-3) 09/20/19 16:28 10/20/19 16:27 Albuterol Sulfate (Proventil MDI) 2 puff Q4H PRN INH Shortness of Breath 09/20/19 16:28 12/19/19 16:27 Atropine Sulfate (Atropine) 1 mg NEEDED PRN IVP HR<40 09/21/19 13:00 10/21/19 12:59 Ceftriaxone Sodium 1 gm/ Dextrose 50 ml @ 100 mls/hr Q24H IVPB 09/22/19 21:00 09/29/19 20:59 09/23/19 22:23 Dextrose (Dextrose 50%) 25 ml Q30M PRN IV Hypoglycemia 09/20/19 16:45 12/19/19 16:14 Dextrose (Dextrose 50%) 50 ml Q30M PRN IV Hypoglycemia 09/20/19 16:45 12/19/19 16:14 Doxycycline Hyclate 100 mg/ Dextrose 100 ml @ 100 mls/hr Q12H IV 09/22/19 22:00 09/29/19 21:59 09/24/19 09:04 Enoxaparin Sodium (Lovenox) 60 mg QHS SUBQ 09/21/19 21:00 12/20/19 20:59 09/23/19 22:24 Fentanyl Citrate 2500 mcg/Sodium Chloride 250 ml @ 0 mls/hr Q24H IV 09/20/19 16:30 09/27/19 16:19 09/24/19 16:25 Insulin Aspart (NovoLOG) BEFORE MEALS AND HS SUBQ 09/20/19 16:30 12/19/19 16:29 09/24/19 16:24 Lorazepam (Ativan 2mg/ml 1ml) 2 mg Q4H PRN IV For Anxiety 09/20/19 18:00 09/27/19 17:59 09/22/19 22:56 Methylprednisolone Sodium Succinate (Solu-MEDROL) 30 mg Q12HR IVP 09/23/19 21:00 12/18/19 20:59 09/24/19 09:03 Ondansetron HCl (Zofran) 4 mg Q6H PRN IVP Nausea & Vomiting 09/20/19 16:29 10/20/19 16:28 Polyethylene Glycol (Miralax) 17 gm HSPRN PRN ORAL Constipation 09/20/19 16:29 10/20/19 16:28 Sodium Chloride 1,000 ml @ 75 mls/hr [id number] IV 09/21/19 18:00 10/21/19 17:59 09/24/19 05:03 Enedina Ceja MD Sep 24, 2019 20:41
[2019-09-24] MEDS: Enoxaparin 60mg Inj SUBQ SCH (20:56)
[2019-09-24] MEDS: cefTRIAXone 1 GM in D5W 50 ML IVPB SCH (20:56)
[2019-09-25] VITALS (34 sets, daily range): BP systolic 102–153; BP diastolic 48–77
[2019-09-25] MEDS: fentaNYL Citrate 2,500 MCG in NS 200 ML IV SCH ×2 (04:30→14:40)
[2019-09-25 05:51] LABS: HEMATOCRIT 36.4 % (37.0-47.0); HEMOGLOBIN 12.9 G/DL (12.0-16.0); MEAN CORPUSCULAR VOLUME 88 FL (80-99); PLATELET COUNT 263 K/UL (150-450); RED BLOOD COUNT 4.11 M/UL (4.20-5.40); RED CELL DISTRIBUTION WIDTH 10.6 % (11.6-14.8); WHITE BLOOD COUNT 16.9 K/UL (4.8-10.8)
[2019-09-25 06:09] LABS: ANION GAP 8 mmol/L (5-15); BLOOD UREA NITROGEN 20 mg/dL (7-18); CALCIUM 8.3 MG/DL (8.5-10.1); CARBON DIOXIDE 27 MMOL/L (21-32); CHLORIDE 101 MMOL/L (98-107); CREATININE 0.6 MG/DL (0.55-1.30); FERRITIN 549 NG/ML (8-388); LACTATE DEHYDROGENASE 644 U/L (81-234); POTASSIUM 4.6 MMOL/L (3.5-5.1); SODIUM 136 MMOL/L (136-145)
[2019-09-25] MEDS: NovoLOG Insulin Flexpen SUBQ SCH ×4 (06:31→21:00)
[2019-09-25] MEDS: Solu-MEDROL 40mg Inj IVP SCH ×2 (08:18→20:59)
--- NOTE | 2019-09-25 10:01 | Diagnostic Imaging Report ---
Indication: Shortness of breath Technique: XRAY Chest 1v Comparison: 09/23/2019 Findings: Endotracheal tube is been retracted slightly with the tip now approximately 2 cm above the guicho. Enteric tube tip remains in the stomach. Heart size and mediastinal contours are stable. Interstitial and patchy perihilar airspace disease persists, slightly increased compared to one day prior. No evidence of pneumothorax. Osseous structures are stable. Impression: Interstitial and patchy perihilar airspace disease, slightly increased compared to the prior exam. Endotracheal and enteric tubes remain in place.
--- NOTE | 2019-09-25 13:54 | Pulmonolgy Critical Care Note ---
LeesNeena zhao PROCUREMENT AGENT 09/25/19 1354: Critical Care - Asmt/Plan Assessment/Plan: ASSESSMENT Acute hypoxemic respiratory failure requiring intubation Multilobar PNA likely due to COVID 19 infection ( confirmed prior) JOE -resolved Mild transaminitis Borderline diabetes Elevated CK/ rhabdo - CK trending down PLAN OF CARE ICU s/p intubation 09/19 ABG this am stable, FiO2 down to 50% CXR 09/24 w/out much changes, fup with CXR and ABG in am sedation with Fentanyl gtt MDI with spacer in line SARS -CoV -2 by PCR 09/17 came back non detected repeated SARS-CoV-2 by PCR 09/20 positive, continue isolation continue with Ceftriaxone s/p Doxy and Plaquenil x5 days will speak with pharmacy if can get Tocoluzimab for her BCX 09/17 NGTD on Solumedrol now 30 mg IV bid with further tapering down soon leukocytosis may be partially reactive due to steroids as well trend CRP, LDH, ferritin: LDH 486, CRP 31, ferritin 582, IL 6 15.6, this am ferritin 549 and CRP 20, both trending down, LDH 644 - with trend up , IL-6 15.6 DVT prophylaxis with Lovenox IV hydration creat down to normal, avoid nephrotoxics nutrition via NGT, aspiration precautions mild hyperglycemia noted , probably due to steroids? on SSI/low dose, sensitive , HgA1c -6 - borderline DM trend LFT , CK trending down, case discussed and evaluated by supervising physician Critical Care - Objective Last 24 Hour Vital Signs Date Time Temp Pulse Resp B/P (MAP) Pulse Ox O2 Delivery O2 Flow Rate FiO2 09/25/19 13:00 60 24 131/71 (91) 100 09/25/19 13:00 24 Mechanical Ventilator 50 09/25/19 12:30 56 24 116/70 (85) 100 09/25/19 12:00 24 Mechanical Ventilator 50 09/25/19 12:00 55 09/25/19 12:00 50 09/25/19 12:00 98.5 54 23 106/48 (67) 100 09/25/19 11:30 56 24 115/63 (80) 100 09/25/19 11:16 57 24 50 09/25/19 11:00 55 24 103/55 (71) 100 09/25/19 11:00 24 Mechanical Ventilator 50 09/25/19 10:30 57 24 119/65 (83) 100 09/25/19 10:00 24 Mechanical Ventilator 50 09/25/19 10:00 63 24 125/56 (79) 100 09/25/19 09:30 56 24 107/55 (72) 100 09/25/19 09:00 24 Mechanical Ventilator 50 09/25/19 09:00 62 24 121/64 (83) 100 09/25/19 08:30 61 24 126/58 (80) 100 09/25/19 08:00 98.1 55 24 102/50 (67) 100 09/25/19 08:00 24 Mechanical Ventilator 50 09/25/19 08:00 56 09/25/19 08:00 50 09/25/19 07:30 56 24 106/51 (69) 100 09/25/19 07:16 55 24 50 09/25/19 07:00 58 24 113/54 (73) 100 09/25/19 07:00 24 Mechanical Ventilator 50 09/25/19 06:00 71 25 128/56 (80) 100 09/25/19 06:00 24 Mechanical Ventilator 50 09/25/19 05:30 72 22 50 09/25/19 05:00 24 Mechanical Ventilator 50 09/25/19 05:00 82 25 153/77 (102) 100 09/25/19 04:30 28 Mechanical Ventilator 50 09/25/19 04:00 Mechanical Ventilator Mechanical Ventilator 09/25/19 04:00 65 09/25/19 04:00 24 Mechanical Ventilator 50 09/25/19 04:00 50 09/25/19 04:00 98.2 69 26 127/57 (80) 98 09/25/19 03:30 70 25 50 09/25/19 03:00 64 23 111/60 (77) 98 09/25/19 03:00 24 Mechanical Ventilator 50 09/25/19 02:00 69 24 127/71 (89) 98 09/25/19 02:00 24 Mechanical Ventilator 50 09/25/19 01:30 60 21 50 09/25/19 01:00 24 Mechanical Ventilator 50 09/25/19 01:00 70 24 135/69 (91) 100 09/25/19 00:00 50 09/25/19 00:00 Mechanical Ventilator Mechanical Ventilator 09/25/19 00:00 24 Mechanical Ventilator 50 09/25/19 00:00 98.6 64 23 137/60 (85) 100 09/24/19 23:30 57 24 50 09/24/19 23:00 24 Mechanical Ventilator 50 09/24/19 23:00 61 24 108/59 (75) 99 09/24/19 22:00 23 Mechanical Ventilator 50 09/24/19 22:00 62 24 113/62 (79) 99 09/24/19 21:13 62 22 50 09/24/19 21:00 24 Mechanical Ventilator 50 09/24/19 21:00 64 24 125/62 (83) 99 09/24/19 20:00 98.5 68 24 119/64 (82) 100 09/24/19 20:00 Mechanical Ventilator Mechanical Ventilator 09/24/19 20:00 23 Mechanical Ventilator 50 09/24/19 20:00 62 09/24/19 19:30 64 24 50 09/24/19 19:30 64 22 119/62 (81) 100 09/24/19 19:00 61 22 99/56 (70) 97 09/24/19 19:00 22 Mechanical Ventilator 50 09/24/19 18:00 74 23 99/50 (66) 96 09/24/19 18:00 23 Mechanical Ventilator 50 09/24/19 17:30 78 24 125/56 (79) 100 09/24/19 17:00 24 Mechanical Ventilator 45 09/24/19 17:00 50 09/24/19 17:00 82 24 110/57 (74) 84 09/24/19 16:57 98.9 09/24/19 16:52 80 25 50 09/24/19 16:30 74 24 119/58 (78) 96 09/24/19 16:25 24 Mechanical Ventilator 15.0 45 09/24/19 16:00 80 09/24/19 16:00 82 26 117/64 (81) 93 09/24/19 16:00 21 Mechanical Ventilator 50 09/24/19 15:30 69 26 119/60 (79) 95 09/24/19 15:05 76 24 45 09/24/19 15:00 21 Mechanical Ventilator 50 09/24/19 15:00 45 09/24/19 15:00 86 20 122/60 (80) 91 09/24/19 14:30 62 21 113/67 (82) 95 4/28/20 14:00 68 23 112/56 (74) 98 09/24/19 14:00 23 Mechanical Ventilator 50 Objective: Status: sedated, responsive, intubated Condition: critical HEENT: atraumatic, normocephalic, OP with ET in place, intact, NGT Lungs: few scattered rhonchi Heart: HR/BP stable Abdomen: soft, non-tender, active bowel sounds : F/c Extremities: no edema Micro: Microbiology Date/Time Source Procedure Growth Status 09/22/19 19:00 Nasopharynx Coronavirus COVID-19 PCR ([facility]) - Final Complete Accucheck: 150 Critical Care - Subjective ROS Limited/Unobtainable: Yes Interval Events: remains intubated ABG stable this am , FiO2 down to 50% still with leukocytosis, no fevers since 09/22 RAMBO -CoV2 by PCR 09/21 detected CXR about the same, Condition: critical IV Access: peripheral EKG Rhythm: Sinus Rhythm FI02: 50 Vent Support Breath Rate: 24 Vent Support Mode: AC Vent Tidal Volume: 500 Sputum Amount: Scant PEEP: 10.0 PIP: 43 Secretions: secretions thin consistency, scant amount, pink color Fluids: 1/2 NS at 75 Drips: Fentanyl gtt at 200 mcg/hr Tube Feeding Amount: 25 I&O: Intake and Output 09/24/19 09/25/19 19:00 07:00 Intake Total 1798 ml 1365 ml Output Total 570 ml 450 ml Balance 1228 ml 915 ml IV Total 1198 ml 765 ml Tube Feeding 600 ml 600 ml Output Urine Total 570 ml 450 ml # Bowel Movements 1 1 CXR: CXR 09/24 Interstitial and patchy perihilar airspace disease, slightly increased compared to the prior exam. ET-Tube: 7.0 ET Position: 24 Raghav De MD 09/25/19 1734: Critical Care - Asmt/Plan Assessment/Plan: Patient seen and examined with PROCUREMENT AGENT, agree with A&P above as it reflects our joint deliberations. D/W CC RN, RT and battery charger as well. Weaning O2 and PEEP, stable off pressors, on Fent gtt, CXR slightly worse. Abx per ID. Discussed anti-IL6 with Dr. Doyle, will assess need and F/U repeat IL-6 levels CCT 50 Lees ,Neena PROCUREMENT AGENT Sep 25, 2019 13:54 Raghav De MD Sep 25, 2019 17:34
--- NOTE | 2019-09-25 19:59 | General Progress Note ---
Assessment/Plan Problem List: (1) Glucose intolerance ICD Codes: E74.39 - Other disorders of intestinal carbohydrate absorption SNOMED: 83741033 (2) Respiratory failure with hypoxia ICD Codes: J96.91 - Respiratory failure, unspecified with hypoxia SNOMED: 26034270534604132, 621880527 Qualifiers: Qualified Codes: J96.01 - Acute respiratory failure with hypoxia (3) Pneumonia due to COVID-19 virus ICD Codes: U07.1 - COVID-19; J12.89 - Other viral pneumonia SNOMED: 530357587, 566112359 (4) ARDS (adult respiratory distress syndrome) ICD Codes: J80 - Acute respiratory distress syndrome SNOMED: 79930144, 21803877 (5) Transaminitis ICD Codes: R74.0 - Nonspecific elevation of levels of transaminase and lactic acid dehydrogenase [LDH] SNOMED: 286872744, 565365384 (6) Rhabdomyolysis ICD Codes: M62.82 - Rhabdomyolysis SNOMED: 012663238 (7) JOE (acute kidney injury) ICD Codes: N17.9 - Acute kidney failure, unspecified SNOMED: 4050272, 25028473 Assessment/Plan: icu, on antibiotics, plaquenil ordered by pulm, worsening resp failure, intubating, SS insulin, steroids started grave status d/w daughter,lytes ok, comfort measures,cxr slightly worse but O2 reduced 60 to 50% FIO2 icu orders updated, icu time 32 min Subjective ROS Limited/Unobtainable: Yes Allergies: Coded Allergies: No Known Allergies (Unverified , 09/18/19) Objective Last 24 Hour Vital Signs Date Time Temp Pulse Resp B/P (MAP) Pulse Ox O2 Delivery O2 Flow Rate FiO2 09/25/19 19:00 24 Mechanical Ventilator 50 09/25/19 18:00 80 25 119/64 (82) 89 09/25/19 18:00 25 Mechanical Ventilator 50 09/25/19 17:00 24 Mechanical Ventilator 50 09/25/19 17:00 82 24 138/70 (92) 92 09/25/19 16:30 78 27 120/58 (78) 92 09/25/19 16:16 98.9 09/25/19 16:00 87 09/25/19 16:00 50 09/25/19 16:00 27 Mechanical Ventilator 50 09/25/19 16:00 98.9 86 27 146/53 (84) 98 09/25/19 15:30 90 30 141/62 (88) 86 09/25/19 15:00 69 25 132/70 (90) 99 09/25/19 15:00 24 Mechanical Ventilator 50 09/25/19 14:47 87 40 50 09/25/19 14:40 24 Mechanical Ventilator 50 09/25/19 14:30 64 24 140/71 (94) 100 09/25/19 14:00 60 24 131/66 (87) 100 09/25/19 14:00 24 Mechanical Ventilator 50 09/25/19 13:30 56 23 120/62 (81) 100 09/25/19 13:00 60 24 131/71 (91) 100 09/25/19 13:00 24 Mechanical Ventilator 50 09/25/19 12:30 56 24 116/70 (85) 100 09/25/19 12:00 24 Mechanical Ventilator 50 09/25/19 12:00 55 09/25/19 12:00 50 09/25/19 12:00 98.5 54 23 106/48 (67) 100 09/25/19 11:30 56 24 115/63 (80) 100 09/25/19 11:16 57 24 50 09/25/19 11:00 55 24 103/55 (71) 100 09/25/19 11:00 24 Mechanical Ventilator 50 09/25/19 10:30 57 24 119/65 (83) 100 09/25/19 10:00 24 Mechanical Ventilator 50 09/25/19 10:00 63 24 125/56 (79) 100 09/25/19 09:30 56 24 107/55 (72) 100 09/25/19 09:00 24 Mechanical Ventilator 50 09/25/19 09:00 62 24 121/64 (83) 100 09/25/19 08:30 61 24 126/58 (80) 100 09/25/19 08:00 98.1 55 24 102/50 (67) 100 09/25/19 08:00 24 Mechanical Ventilator 50 09/25/19 08:00 56 09/25/19 08:00 50 09/25/19 07:30 56 24 106/51 (69) 100 09/25/19 07:16 55 24 50 09/25/19 07:00 58 24 113/54 (73) 100 09/25/19 07:00 24 Mechanical Ventilator 50 09/25/19 06:00 71 25 128/56 (80) 100 09/25/19 06:00 24 Mechanical Ventilator 50 09/25/19 05:30 72 22 50 09/25/19 05:00 24 Mechanical Ventilator 50 09/25/19 05:00 82 25 153/77 (102) 100 09/25/19 04:30 28 Mechanical Ventilator 50 09/25/19 04:00 Mechanical Ventilator Mechanical Ventilator 09/25/19 04:00 65 09/25/19 04:00 24 Mechanical Ventilator 50 09/25/19 04:00 50 09/25/19 04:00 98.2 69 26 127/57 (80) 98 09/25/19 03:30 70 25 50 09/25/19 03:00 64 23 111/60 (77) 98 09/25/19 03:00 24 Mechanical Ventilator 50 09/25/19 02:00 69 24 127/71 (89) 98 09/25/19 02:00 24 Mechanical Ventilator 50 09/25/19 01:30 60 21 50 09/25/19 01:00 24 Mechanical Ventilator 50 09/25/19 01:00 70 24 135/69 (91) 100 09/25/19 00:00 50 09/25/19 00:00 Mechanical Ventilator Mechanical Ventilator 09/25/19 00:00 24 Mechanical Ventilator 50 09/25/19 00:00 98.6 64 23 137/60 (85) 100 09/24/19 23:30 57 24 50 09/24/19 23:00 24 Mechanical Ventilator 50 09/24/19 23:00 61 24 108/59 (75) 99 09/24/19 22:00 23 Mechanical Ventilator 50 09/24/19 22:00 62 24 113/62 (79) 99 09/24/19 21:13 62 22 50 09/24/19 21:00 24 Mechanical Ventilator 50 09/24/19 21:00 64 24 125/62 (83) 99 09/24/19 20:00 98.5 68 24 119/64 (82) 100 09/24/19 20:00 Mechanical Ventilator Mechanical Ventilator 09/24/19 20:00 23 Mechanical Ventilator 50 09/24/19 20:00 62 Intake and Output 09/24/19 09/25/19 19:00 07:00 Intake Total 1798 ml 1365 ml Output Total 570 ml 450 ml Balance 1228 ml 915 ml IV Total 1198 ml 765 ml Tube Feeding 600 ml 600 ml Output Urine Total 570 ml 450 ml # Bowel Movements 1 1 Laboratory Tests 09/25/19 04:00: White Blood Count 16.9H, Red Blood Count 4.11L, Hemoglobin 12.9, Hematocrit 36.4L, Mean Corpuscular Volume 88, Mean Corpuscular Hemoglobin 31.4H, Mean Corpuscular Hemoglobin Concent 35.5, Red Cell Distribution Width 10.6L, Platelet Count 263, Mean Platelet Volume 8.0, Neutrophils (%) (Auto) , Lymphocytes (%) (Auto) , Monocytes (%) (Auto) , Eosinophils (%) (Auto) , Basophils (%) (Auto) , Differential Total Cells Counted 100, Neutrophils % ( Manual) 92H, Lymphocytes % (Manual) 6L, Monocytes % (Manual) 2, Eosinophils % ( Manual) 0, Basophils % (Manual) 0, Band Neutrophils 0, Platelet Estimate Adequate, Platelet Morphology Normal, Red Blood Cell Morphology Normal, Sodium Level 136, Potassium Level 4.6, Chloride Level 101, Carbon Dioxide Level 27, Anion Gap 8, Blood Urea Nitrogen 20H, Creatinine 0.6, Estimat Glomerular Filtration Rate > 60, Glucose Level 156H, Calcium Level 8.3L, Ferritin 549H, Lactate Dehydrogenase 644H, C-Reactive Protein, Quantitative 20.3H, Interleukin 6 (IL-6) [Pending] 09/25/19 09:45: Arterial Blood pH 7.455H, Arterial Blood Partial Pressure CO2 36.2, Arterial Blood Partial Pressure O2 84.3, Arterial Blood HCO3 24.9, Arterial Blood Oxygen Saturation 96.3, Arterial Blood Base Excess 1.2, Luis Test Positive 09/25/19 17:54: Ferritin [Pending], C-Reactive Protein, Quantitative [Pending] Height (Feet): 5 Height (Inches): 2.00 Weight (Pounds): 155 General Appearance: other - sedated vent EENT: normal ENT inspection Neck: normal alignment Cardiovascular: regular rhythm Respiratory/Chest: rhonchi - bilaterally Abdomen: non tender Hung Zuniga MD Sep 25, 2019 19:59
[2019-09-25] MEDS: cefTRIAXone 1 GM in D5W 50 ML IVPB SCH (20:59)
[2019-09-25] MEDS: Enoxaparin 60mg Inj SUBQ SCH (21:00)
[2019-09-26] VITALS (41 sets, daily range): BP systolic 111–161; BP diastolic 24–106
[2019-09-26] MEDS: fentaNYL Citrate 2,500 MCG in NS 200 ML IV SCH ×3 (01:25→22:43)
[2019-09-26 05:56] LABS: HEMATOCRIT 35.9 % (37.0-47.0); HEMOGLOBIN 12.8 G/DL (12.0-16.0); MEAN CORPUSCULAR VOLUME 88 FL (80-99); PLATELET COUNT 258 K/UL (150-450); RED BLOOD COUNT 4.07 M/UL (4.20-5.40); RED CELL DISTRIBUTION WIDTH 10.9 % (11.6-14.8); WHITE BLOOD COUNT 18.9 K/UL (4.8-10.8)
[2019-09-26] MEDS: NovoLOG Insulin Flexpen SUBQ SCH ×3 (06:44→16:30)
--- NOTE | 2019-09-26 08:46 | Pulmonolgy Critical Care Note ---
NabeelNeena ANIMAL CRUELTY INVESTIGATION SUPERVISOR 09/26/19 0846: Critical Care - Asmt/Plan Assessment/Plan: ASSESSMENT Acute hypoxemic respiratory failure requiring intubation Multilobar PNA likely due to COVID 19 infection ( confirmed prior) JOE -resolved Mild transaminitis Borderline diabetes Elevated CK/ rhabdo - CK trending down PLAN OF CARE ICU s/p intubation 09/19 ABG this am stable, titrate FiO2 to keep sat above 90 when FiO2 down to 40, will start wean PEEP CXR 09/24 w/out much changes, fup with CXR and ABG in am sedation with Fentanyl gtt MDI with spacer in line SARS -CoV -2 by PCR 09/17 came back non detected repeated SARS-CoV-2 by PCR 09/20 positive, continue isolation continue with Ceftriaxone and Doxy s/p Plaquenil x5 days will speak with pharmacy if can get Tocoluzimab for her BCX 09/17 NGTD on Solumedrol now 30 mg IV bid with further tapering down soon leukocytosis may be partially reactive due to steroids as well trend CRP, LDH, ferritin: LDH 486, CRP 31, ferritin 582, IL 6 15.6, 09/24 ferritin 549 and CRP 20, both trending down, LDH 644 - with trend up , prior IL-6 15.6 DVT prophylaxis with Lovenox IV hydration creat down to normal, avoid nephrotoxics nutrition via NGT, aspiration precautions mild hyperglycemia noted , probably due to steroids? on SSI/low dose, sensitive , HgA1c -6 - borderline DM trend LFT , CK trending down, case discussed and evaluated by supervising physician Critical Care - Objective Last 24 Hour Vital Signs Date Time Temp Pulse Resp B/P (MAP) Pulse Ox O2 Delivery O2 Flow Rate FiO2 09/26/19 07:10 64 25 50 09/26/19 07:00 70 24 131/82 (98) 95 09/26/19 07:00 24 Mechanical Ventilator 50 09/26/19 06:00 24 Mechanical Ventilator 50 09/26/19 06:00 69 21 126/69 (88) 94 09/26/19 05:00 24 Mechanical Ventilator 50 09/26/19 05:00 76 21 139/64 (89) 92 09/26/19 04:54 68 23 50 09/26/19 04:00 72 09/26/19 04:00 98.6 68 24 147/62 (90) 100 4/30/20 04:00 24 Mechanical Ventilator 50 09/26/19 04:00 50 09/26/19 04:00 68 09/26/19 04:00 50 09/26/19 04:00 Mechanical Ventilator Mechanical Ventilator 09/26/19 03:25 71 25 50 09/26/19 03:00 24 Mechanical Ventilator 50 09/26/19 03:00 70 25 153/69 (97) 98 09/26/19 02:00 56 24 129/65 (86) 100 09/26/19 02:00 24 Mechanical Ventilator 50 09/26/19 01:55 98.4 09/26/19 01:25 24 Mechanical Ventilator 50 09/26/19 01:22 59 24 50 09/26/19 01:00 56 24 113/57 (75) 100 09/26/19 01:00 24 Mechanical Ventilator 50 09/26/19 00:00 24 Mechanical Ventilator 50 09/26/19 00:00 98.4 64 24 142/57 (85) 99 09/26/19 00:00 Mechanical Ventilator Mechanical Ventilator 09/25/19 23:14 66 24 50 09/25/19 23:00 24 Mechanical Ventilator 50 09/25/19 23:00 69 25 137/77 (97) 97 09/25/19 22:00 66 24 131/68 (89) 98 09/25/19 22:00 24 Mechanical Ventilator 50 09/25/19 21:45 70 24 50 09/25/19 21:00 98.3 71 24 134/59 (84) 97 09/25/19 21:00 24 Mechanical Ventilator 50 09/25/19 20:00 50 09/25/19 20:00 Mechanical Ventilator Mechanical Ventilator 09/25/19 20:00 72 09/25/19 20:00 99.1 72 24 140/67 (91) 97 09/25/19 20:00 24 Mechanical Ventilator 70 09/25/19 19:52 85 26 50 09/25/19 19:00 24 Mechanical Ventilator 50 09/25/19 19:00 68 24 135/69 (91) 98 09/25/19 18:00 80 25 119/64 (82) 89 09/25/19 18:00 25 Mechanical Ventilator 50 09/25/19 17:00 24 Mechanical Ventilator 50 09/25/19 17:00 82 24 138/70 (92) 92 4/29/20 16:30 78 27 120/58 (78) 92 09/25/19 16:00 87 09/25/19 16:00 50 09/25/19 16:00 27 Mechanical Ventilator 50 09/25/19 16:00 98.9 86 27 146/53 (84) 98 09/25/19 15:30 90 30 141/62 (88) 86 09/25/19 15:00 69 25 132/70 (90) 99 09/25/19 15:00 24 Mechanical Ventilator 50 09/25/19 14:47 87 40 50 09/25/19 14:40 24 Mechanical Ventilator 50 09/25/19 14:30 64 24 140/71 (94) 100 09/25/19 14:00 60 24 131/66 (87) 100 09/25/19 14:00 24 Mechanical Ventilator 50 09/25/19 13:30 56 23 120/62 (81) 100 09/25/19 13:00 60 24 131/71 (91) 100 09/25/19 13:00 24 Mechanical Ventilator 50 09/25/19 12:30 56 24 116/70 (85) 100 09/25/19 12:00 24 Mechanical Ventilator 50 09/25/19 12:00 55 09/25/19 12:00 50 09/25/19 12:00 98.5 54 23 106/48 (67) 100 09/25/19 11:30 56 24 115/63 (80) 100 09/25/19 11:16 57 24 50 09/25/19 11:00 55 24 103/55 (71) 100 09/25/19 11:00 24 Mechanical Ventilator 50 09/25/19 10:30 57 24 119/65 (83) 100 09/25/19 10:00 24 Mechanical Ventilator 50 09/25/19 10:00 63 24 125/56 (79) 100 09/25/19 09:30 56 24 107/55 (72) 100 09/25/19 09:00 24 Mechanical Ventilator 50 09/25/19 09:00 62 24 121/64 (83) 100 Objective: Status: sedated, responsive, intubated Condition: critical HEENT: atraumatic, normocephalic, OP with ET in place, intact, NGT Lungs: few scattered rhonchi Heart: HR/BP stable Abdomen: soft, non-tender, active bowel sounds : F/c Extremities: no edema Accucheck: 157 Critical Care - Subjective ROS Limited/Unobtainable: Yes Interval Events: remains intubated FiO2 down to 50% , PEEP still 10 and AC 24 ABG stable on current settings no fevers since 09/22 evening, leuk with small trend up on Fentanyl gtt Condition: critical IV Access: peripheral EKG Rhythm: Sinus Rhythm FI02: 50 Vent Support Breath Rate: 24 Vent Support Mode: AC Vent Tidal Volume: 500 Sputum Amount: Scant PEEP: 10.0 PIP: 43 Secretions: thin consistency, scant amount, pinkish color Fluids: 1/2 NS at 75 Drips: Fentanyl gtt 230 mcg/hr Tube Feeding Amount: 30 I&O: Intake and Output 09/25/19 09/26/19 19:00 07:00 Intake Total 1356.666 ml 1530 ml Output Total 570 ml 1220 ml Balance 786.666 ml 310 ml Free Water 120 ml IV Total 1041.666 ml 1050 ml Tube Feeding 315 ml 360 ml Output Urine Total 570 ml 1220 ml # Bowel Movements 1 3 CXR: CXR 09/24 Interstitial and patchy perihilar airspace disease, slightly increased compared to the prior exam. ET-Tube: 7.0 ET Position: 24 Raghav De MD 09/28/19 1156: Critical Care - Asmt/Plan Assessment/Plan: Patient seen and examined with ANIMAL [employer]UELTY INVESTIGATION SUPERVISOR, agree with above A&P as it reflects our joint deliberations. D/W CC RN and RT. CCT 40 Neena Lees NP Sep 26, 2019 08:46 Raghav De MD September 28, 2019 11:56
[2019-09-26] MEDS: Solu-MEDROL 40mg Inj IVP SCH ×2 (09:38→21:09)
--- NOTE | 2019-09-26 09:57 | Diagnostic Imaging Report ---
Indication: Shortness of breath Technique: One view of the chest Comparison: 09/25/2019 Findings: Bilateral interstitial and hazy airspace disease is unchanged. Stable satisfactory endotracheal and nasogastric tube positions. Impression: Unchanged, over one day, findings as above.
[2019-09-26] MEDS ORDERED: LORazepam Inj 2mg/ml 1ml IV PRN (10:00)
--- NOTE | 2019-09-26 10:42 | General Progress Note ---
Assessment/Plan Problem List: (1) Glucose intolerance ICD Codes: E74.39 - Other disorders of intestinal carbohydrate absorption SNOMED: 62433538 (2) Respiratory failure with hypoxia ICD Codes: J96.91 - Respiratory failure, unspecified with hypoxia SNOMED: 18171640686108421, 045740620 Qualifiers: Qualified Codes: J96.01 - Acute respiratory failure with hypoxia (3) Pneumonia due to COVID-19 virus ICD Codes: U07.1 - COVID-19; J12.89 - Other viral pneumonia SNOMED: 492873556, 414591672 (4) ARDS (adult respiratory distress syndrome) ICD Codes: J80 - Acute respiratory distress syndrome SNOMED: 29790655, 59675034 (5) Transaminitis ICD Codes: R74.0 - Nonspecific elevation of levels of transaminase and lactic acid dehydrogenase [LDH] SNOMED: 748044270, 175341984 (6) Rhabdomyolysis ICD Codes: M62.82 - Rhabdomyolysis SNOMED: 457353941 (7) JOE (acute kidney injury) ICD Codes: N17.9 - Acute kidney failure, unspecified SNOMED: 5393567, 92794703 Assessment/Plan: icu, on antibiotics, plaquenil ordered by pulm, worsening resp failure, intubating, SS insulin, steroids started grave status d/w daughter,lytes ok, comfort measures,cxr slightly worse but O2 reduced 60 to 50% FIO2 iv rate reduced icu orders updated, icu time 35 min Subjective ROS Limited/Unobtainable: Yes Allergies: Coded Allergies: No Known Allergies (Unverified , 09/18/19) Objective Last 24 Hour Vital Signs Date Time Temp Pulse Resp B/P (MAP) Pulse Ox O2 Delivery O2 Flow Rate FiO2 09/26/19 08:00 50 09/26/19 08:00 66 09/26/19 07:10 64 25 50 09/26/19 07:00 70 24 131/82 (98) 95 09/26/19 07:00 24 Mechanical Ventilator 50 09/26/19 06:00 24 Mechanical Ventilator 50 09/26/19 06:00 69 21 126/69 (88) 94 09/26/19 05:00 24 Mechanical Ventilator 50 09/26/19 05:00 76 21 139/64 (89) 92 09/26/19 04:54 68 23 50 09/26/19 04:00 72 09/26/19 04:00 98.6 68 24 147/62 (90) 100 09/26/19 04:00 24 Mechanical Ventilator 50 09/26/19 04:00 50 09/26/19 04:00 68 09/26/19 04:00 50 09/26/19 04:00 Mechanical Ventilator Mechanical Ventilator 09/26/19 03:25 71 25 50 09/26/19 03:00 24 Mechanical Ventilator 50 09/26/19 03:00 70 25 153/69 (97) 98 09/26/19 02:00 56 24 129/65 (86) 100 09/26/19 02:00 24 Mechanical Ventilator 50 09/26/19 01:55 98.4 09/26/19 01:25 24 Mechanical Ventilator 50 09/26/19 01:22 59 24 50 09/26/19 01:00 56 24 113/57 (75) 100 09/26/19 01:00 24 Mechanical Ventilator 50 09/26/19 00:00 24 Mechanical Ventilator 50 09/26/19 00:00 98.4 64 24 142/57 (85) 99 09/26/19 00:00 Mechanical Ventilator Mechanical Ventilator 09/25/19 23:14 66 24 50 09/25/19 23:00 24 Mechanical Ventilator 50 09/25/19 23:00 69 25 137/77 (97) 97 09/25/19 22:00 66 24 131/68 (89) 98 09/25/19 22:00 24 Mechanical Ventilator 50 09/25/19 21:45 70 24 50 09/25/19 21:00 98.3 71 24 134/59 (84) 97 09/25/19 21:00 24 Mechanical Ventilator 50 09/25/19 20:00 50 09/25/19 20:00 Mechanical Ventilator Mechanical Ventilator 09/25/19 20:00 72 09/25/19 20:00 99.1 72 24 140/67 (91) 97 09/25/19 20:00 24 Mechanical Ventilator 70 09/25/19 19:52 85 26 50 09/25/19 19:00 24 Mechanical Ventilator 50 09/25/19 19:00 68 24 135/69 (91) 98 09/25/19 18:00 80 25 119/64 (82) 89 09/25/19 18:00 25 Mechanical Ventilator 50 09/25/19 17:00 24 Mechanical Ventilator 50 09/25/19 17:00 82 24 138/70 (92) 92 09/25/19 16:30 78 27 120/58 (78) 92 09/25/19 16:00 87 09/25/19 16:00 50 09/25/19 16:00 27 Mechanical Ventilator 50 09/25/19 16:00 98.9 86 27 146/53 (84) 98 09/25/19 15:30 90 30 141/62 (88) 86 09/25/19 15:00 69 25 132/70 (90) 99 09/25/19 15:00 24 Mechanical Ventilator 50 09/25/19 14:47 87 40 50 09/25/19 14:40 24 Mechanical Ventilator 50 09/25/19 14:30 64 24 140/71 (94) 100 09/25/19 14:00 60 24 131/66 (87) 100 09/25/19 14:00 24 Mechanical Ventilator 50 09/25/19 13:30 56 23 120/62 (81) 100 09/25/19 13:00 60 24 131/71 (91) 100 09/25/19 13:00 24 Mechanical Ventilator 50 09/25/19 12:30 56 24 116/70 (85) 100 09/25/19 12:00 24 Mechanical Ventilator 50 09/25/19 12:00 55 09/25/19 12:00 50 09/25/19 12:00 98.5 54 23 106/48 (67) 100 09/25/19 11:30 56 24 115/63 (80) 100 09/25/19 11:16 57 24 50 09/25/19 11:00 55 24 103/55 (71) 100 09/25/19 11:00 24 Mechanical Ventilator 50 Intake and Output 09/25/19 09/26/19 19:00 07:00 Intake Total 1356.666 ml 1530 ml Output Total 570 ml 1220 ml Balance 786.666 ml 310 ml Free Water 120 ml IV Total 1041.666 ml 1050 ml Tube Feeding 315 ml 360 ml Output Urine Total 570 ml 1220 ml # Bowel Movements 1 3 Laboratory Tests 09/26/19 04:40: White Blood Count 18.9H, Red Blood Count 4.07L, Hemoglobin 12.8, Hematocrit 35.9L, Mean Corpuscular Volume 88, Mean Corpuscular Hemoglobin 31.5H, Mean Corpuscular Hemoglobin Concent 35.7, Red Cell Distribution Width 10.9L, Platelet Count 258, Mean Platelet Volume 7.5, Neutrophils (%) (Auto) , Lymphocytes (%) (Auto) , Monocytes (%) (Auto) , Eosinophils (%) (Auto) , Basophils (%) (Auto) , Differential Total Cells Counted 100, Neutrophils % ( Manual) 92H, Lymphocytes % (Manual) 2L, Monocytes % (Manual) 5, Eosinophils % ( Manual) 0, Basophils % (Manual) 0, Band Neutrophils 1, Platelet Estimate Adequate, Platelet Morphology Normal, Red Blood Cell Morphology Normal 09/26/19 07:22: Arterial Blood pH 7.451H, Arterial Blood Partial Pressure CO2 37.1, Arterial Blood Partial Pressure O2 80.4, Arterial Blood HCO3 25.3, Arterial Blood Oxygen Saturation 95.7, Arterial Blood Base Excess 1.5, Luis Test Positive Height (Feet): 5 Height (Inches): 2.00 Weight (Pounds): 155 General Appearance: other - sedated vent EENT: normal ENT inspection Cardiovascular: regular rhythm Respiratory/Chest: lungs clear Abdomen: non tender, soft Edema: no edema noted Arm (L), no edema noted Arm (R), no edema noted Leg (L), no edema noted Leg (R), no edema noted Pedal (L), no edema noted Pedal (R), no edema noted Generalized Hung Zuniga MD Sep 26, 2019 10:42
[2019-09-26] MEDS: cefTRIAXone 1 GM in D5W 50 ML IVPB SCH (21:10)
[2019-09-26] MEDS: Enoxaparin 60mg Inj SUBQ SCH (21:11)
--- NOTE | 2019-09-26 21:46 | Infectious Diseases Prog Note ---
Assessment/Plan Assessment/Plan ASSESSMENT AND PLAN: 1. covid-19 virus infection, pna, ? cap, respiratory failure, sepsis, steroids, vent, leukocytosis - s/p hydroxychloroquine - doxycycline, ceftriaxone -day #7, steroids - chest x-ray stable - monitor labs and chest x-ray - may need tocilizumab 2. No other significant past medical history. 3. No known allergies. 4. Social history negative. 5. Family history noncontributory. 6. MAR was noted. 7. Case discussed with RN. 8. Continue treatment per primary consultants. Subjective Constitutional: Reports: other - on vent, no pressors, sedated ; Denies: fever HEENT: Reports: congestion Respiratory: Reports: shortness of breath Cardiovascular: Reports: other - no pressors Gastrointestinal/Abdominal: Denies: nausea, vomiting, diarrhea Genitourinary: Reports: other - + zaomra Neurologic: Reports: weakness, other - sedated Psychiatric: Reports: other - NA Skin: Denies: rash Hematologic: Denies: bleeding Musculoskeletal: Reports: other - NA Allergies: Coded Allergies: No Known Allergies (Unverified , 09/18/19) Objective Vital Signs Last 24 Hour Vital Signs Date Time Temp Pulse Resp B/P (MAP) Pulse Ox O2 Delivery O2 Flow Rate FiO2 09/26/19 19:30 68 25 130/67 (88) 95 09/26/19 19:00 79 25 130/67 (88) 94 09/26/19 18:30 72 24 131/70 (90) 93 09/26/19 18:00 73 24 125/67 (86) 93 09/26/19 17:55 65 24 40 09/26/19 17:30 65 24 137/70 (92) 100 09/26/19 17:00 63 24 129/61 (83) 98 09/26/19 16:30 60 24 133/62 (85) 99 09/26/19 16:00 40 09/26/19 16:00 98.0 60 24 145/60 (88) 98 09/26/19 16:00 59 09/26/19 15:30 62 24 145/60 (88) 99 09/26/19 15:00 64 24 135/60 (85) 99 09/26/19 14:30 62 24 131/68 (89) 99 09/26/19 14:00 62 24 145/63 (90) 98 09/26/19 13:30 64 24 140/75 (96) 98 09/26/19 13:17 24 Mechanical Ventilator 40 09/26/19 13:00 66 24 140/61 (87) 98 09/26/19 13:00 62 25 40 09/26/19 12:30 66 24 155/106 (122) 97 09/26/19 12:00 54 09/26/19 12:00 97.5 60 23 111/58 (75) 100 09/26/19 12:00 40 09/26/19 11:30 66 24 151/77 (101) 100 09/26/19 11:00 56 23 117/62 (80) 100 09/26/19 11:00 62 25 50 09/26/19 10:30 58 24 128/69 (88) 99 09/26/19 10:00 60 24 120/62 (81) 98 09/26/19 09:30 67 24 118/57 (77) 97 09/26/19 09:00 63 24 114/57 (76) 98 09/26/19 08:30 99.5 65 24 126/58 (80) 96 09/26/19 08:00 50 09/26/19 08:00 63 24 131/24 (59) 98 09/26/19 08:00 66 09/26/19 07:30 65 24 130/66 (87) 97 09/26/19 07:10 64 25 50 09/26/19 07:00 70 24 131/82 (98) 95 09/26/19 07:00 24 Mechanical Ventilator 50 09/26/19 06:00 24 Mechanical Ventilator 50 09/26/19 06:00 69 21 126/69 (88) 94 09/26/19 05:00 24 Mechanical Ventilator 50 09/26/19 05:00 76 21 139/64 (89) 92 09/26/19 04:54 68 23 50 09/26/19 04:00 72 09/26/19 04:00 98.6 68 24 147/62 (90) 100 09/26/19 04:00 24 Mechanical Ventilator 50 09/26/19 04:00 50 09/26/19 04:00 68 09/26/19 04:00 50 09/26/19 04:00 Mechanical Ventilator Mechanical Ventilator 09/26/19 03:25 71 25 50 09/26/19 03:00 24 Mechanical Ventilator 50 09/26/19 03:00 70 25 153/69 (97) 98 09/26/19 02:00 56 24 129/65 (86) 100 09/26/19 02:00 24 Mechanical Ventilator 50 09/26/19 01:55 98.4 09/26/19 01:25 24 Mechanical Ventilator 50 09/26/19 01:22 59 24 50 09/26/19 01:00 56 24 113/57 (75) 100 09/26/19 01:00 24 Mechanical Ventilator 50 09/26/19 00:00 24 Mechanical Ventilator 50 09/26/19 00:00 98.4 64 24 142/57 (85) 99 09/26/19 00:00 Mechanical Ventilator Mechanical Ventilator 09/25/19 23:14 66 24 50 09/25/19 23:00 24 Mechanical Ventilator 50 09/25/19 23:00 69 25 137/77 (97) 97 09/25/19 22:00 66 24 131/68 (89) 98 09/25/19 22:00 24 Mechanical Ventilator 50 09/25/19 21:45 70 24 50 Height (Feet): 5 Height (Inches): 2.00 Weight (Pounds): 155 General Appearance: other - on vent, no pressors HEENT: normocephalic, atraumatic, anicteric, no JVD, other - oral - intubated Respiratory/Chest: crackles/rales, rhonchi - bilaterally Cardiovascular: normal rate, regular rhythm, no gallop/murmur, no JVD Abdomen: normal bowel sounds, non distended Genitourinary: other - + zamora - urine slt cloudy Extremities: no cyanosis Skin: no rash Neurologic/Psychiatric: model [employer] firearms II-XII grossly normal, other - weak and sedated Lymphatic: no neck adenopathy Musculoskeletal: no effusion Objective Chest x-ray - 09/22/19 - EXAM: XR Chest, 1 View CLINICAL HISTORY: SOB TECHNIQUE: Frontal view of the chest. COMPARISON: Chest x-ray 09/21/19 913 FINDINGS: Lungs: Improved aeration of the lung. Mild bilateral interstitial and hazy lung opacities are similar. Pleural space: Unremarkable. No pneumothorax. Heart: Unremarkable. No cardiomegaly. Mediastinum: Unremarkable. Bones/joints: Unremarkable. Tubes, lines and devices: Endotracheal tube and NG tube are stable. IMPRESSION: Improved aeration of the lung. Mild bilateral interstitial and hazy lung opacities are similar. Chest x-ray - 09/23/19 - Procedure: XRAY Chest 1v Indication: Shortness of breath Technique: One view of the chest Comparison: 09/22/2019 Findings: Less optimal inspiration on current exam. Bilateral diffuse hazy airspace opacities are probably similar to the prior study allowing for differences in degree of inspiration. Stable satisfactory positions of endotracheal and orogastric tubes Impression: Unchanged, over one day, findings as above. Chest x-ray - 09/26/19 - Procedure: XRAY Chest 1v Indication: Shortness of breath Technique: One view of the chest Comparison: 09/25/2019 Findings: Bilateral interstitial and hazy airspace disease is unchanged. Stable satisfactory endotracheal and nasogastric tube positions. Impression: Unchanged, over one day, findings as above. Microbiology Date/Time Source Procedure Growth Status 09/18/19 22:05 Blood Blood Culture - Final NO GROWTH AFTER 5 DAYS Complete 09/22/19 19:00 Nasopharynx Coronavirus COVID-19 PCR ([facility]) - Final Complete Laboratory Tests Test 09/26/19 04:40 09/26/19 07:22 White Blood Count 18.9 K/UL (4.8-10.8) H Red Blood Count 4.07 M/UL (4.20-5.40) L Hemoglobin 12.8 G/DL (12.0-16.0) Hematocrit 35.9 % (37.0-47.0) L Mean Corpuscular Volume 88 FL (80-99) Mean Corpuscular Hemoglobin 31.5 PG (27.0-31.0) H Mean Corpuscular Hemoglobin Concent 35.7 G/DL (32.0-36.0) Red Cell Distribution Width 10.9 % (11.6-14.8) L Platelet Count 258 K/UL (150-450) Mean Platelet Volume 7.5 FL (6.5-10.1) Neutrophils (%) (Auto) % (45.0-75.0) Lymphocytes (%) (Auto) % (20.0-45.0) Monocytes (%) (Auto) % (1.0-10.0) Eosinophils (%) (Auto) % (0.0-3.0) Basophils (%) (Auto) % (0.0-2.0) Differential Total Cells Counted 100 Neutrophils % (Manual) 92 % (45-75) H Lymphocytes % (Manual) 2 % (20-45) L Monocytes % (Manual) 5 % (1-10) Eosinophils % (Manual) 0 % (0-3) Basophils % (Manual) 0 % (0-2) Band Neutrophils 1 % (0-8) Platelet Estimate Adequate Platelet Morphology Normal Red Blood Cell Morphology Normal Arterial Blood pH 7.451 (7.350-7.450) Arterial Blood Partial Pressure CO2 37.1 mmHg (35.0-45.0) Arterial Blood Partial Pressure O2 80.4 mmHg (75.0-100.0) Arterial Blood HCO3 25.3 mmol/L (22.0-26.0) Arterial Blood Oxygen Saturation 95.7 % (95-100) Arterial Blood Base Excess 1.5 (-2-2) Luis Test Positive Current Medications Medications (Trade) Dose Ordered Sig/Sam Route PRN Reason Start Time Stop Time Status Last Admin Dose Admin Acetaminophen (Tylenol) 650 mg Q4H PRN ORAL Temp >100.5 09/20/19 16:28 10/20/19 16:27 09/21/19 21:52 Acetaminophen (Tylenol) 650 mg Q4H PRN ORAL Mild Pain (Pain Scale 1-3) 09/20/19 16:28 10/20/19 16:27 Albuterol Sulfate (Proventil MDI) 2 puff Q4H PRN INH Shortness of Breath 09/20/19 16:28 12/19/19 16:27 Atropine Sulfate (Atropine) 1 mg NEEDED PRN IVP HR<40 09/21/19 13:00 10/21/19 12:59 Ceftriaxone Sodium 1 gm/ Dextrose 50 ml @ 100 mls/hr Q24H IVPB 09/22/19 21:00 09/29/19 20:59 09/26/19 21:10 Dextrose (Dextrose 50%) 25 ml Q30M PRN IV Hypoglycemia 09/20/19 16:45 12/19/19 16:14 Dextrose (Dextrose 50%) 50 ml Q30M PRN IV Hypoglycemia 09/20/19 16:45 12/19/19 16:14 Doxycycline Hyclate 100 mg/ Dextrose 100 ml @ 100 mls/hr Q12H IV 09/22/19 22:00 09/29/19 21:59 09/26/19 21:10 Enoxaparin Sodium (Lovenox) 60 mg QHS SUBQ 09/21/19 21:00 12/20/19 20:59 09/26/19 21:11 Fentanyl Citrate 2500 mcg/Sodium Chloride 250 ml @ 0 mls/hr Q24H IV 09/20/19 16:30 09/27/19 16:19 09/26/19 13:17 Insulin Aspart (NovoLOG) Q6HR SUBQ 09/27/19 00:00 12/26/19 00:00 Lorazepam (Ativan 2mg/ml 1ml) 2 mg Q4H PRN IV For Anxiety 09/26/19 10:00 10/03/19 09:59 Methylprednisolone Sodium Succinate (Solu-MEDROL) 30 mg Q12HR IVP 09/23/19 21:00 12/18/19 20:59 09/26/19 21:09 Ondansetron HCl (Zofran) 4 mg Q6H PRN IVP Nausea & Vomiting 09/20/19 16:29 10/20/19 16:28 Polyethylene Glycol (Miralax) 17 gm HSPRN PRN ORAL Constipation 09/20/19 16:29 10/20/19 16:28 Sodium Chloride 1,000 ml @ 35 mls/hr Q24H IV 09/26/19 11:00 10/26/19 10:59 09/26/19 11:21 Enedina Ceja MD Sep 26, 2019 21:46
[2019-09-27] VITALS (49 sets, daily range): BP systolic 111–197; BP diastolic 54–85
[2019-09-27] MEDS: NovoLOG Insulin Flexpen SUBQ SCH ×5 (00:16→23:50)
[2019-09-27 05:38] LABS: HEMATOCRIT 36.6 % (37.0-47.0); HEMOGLOBIN 13.2 G/DL (12.0-16.0); MEAN CORPUSCULAR VOLUME 88 FL (80-99); PLATELET COUNT 288 K/UL (150-450); RED BLOOD COUNT 4.16 M/UL (4.20-5.40); RED CELL DISTRIBUTION WIDTH 10.7 % (11.6-14.8); WHITE BLOOD COUNT 18.5 K/UL (4.8-10.8)
[2019-09-27] MEDS: fentaNYL Citrate 2,500 MCG in NS 200 ML IV SCH ×2 (06:01→17:00)
[2019-09-27 06:15] LABS: ANION GAP 10 mmol/L (5-15); BLOOD UREA NITROGEN 18 mg/dL (7-18); CALCIUM 8.1 MG/DL (8.5-10.1); CARBON DIOXIDE 28 MMOL/L (21-32); CHLORIDE 98 MMOL/L (98-107); CREATININE 0.5 MG/DL (0.55-1.30); POTASSIUM 4.6 MMOL/L (3.5-5.1); SODIUM 136 MMOL/L (136-145)
--- NOTE | 2019-09-27 08:28 | Pulmonolgy Critical Care Note ---
Neena Lees FUR CUTTING MACHINE OPERATOR 09/27/19 0828: Critical Care - Asmt/Plan Assessment/Plan: ASSESSMENT Acute hypoxemic respiratory failure requiring intubation Multilobar PNA likely due to COVID 19 infection ( confirmed prior) JOE -resolved Mild transaminitis Borderline diabetes Elevated CK/ rhabdo - CK trending down PLAN OF CARE ICU s/p intubation 09/19 settings down titrated 09/25 to FiO2 40% and PEEP 5 ABG this am stable on current settings CXR 09/25 w/out much changes, fup with CXR and ABG in am light sedation with Fentanyl gtt MDI with spacer in line SARS -CoV -2 by PCR 09/17 came back non detected repeated SARS-CoV-2 by PCR 09/20 positive, continue isolation continue with Ceftriaxone and Doxy s/p Plaquenil x5 days will speak with pharmacy if can get Tocoluzimab for her if clinically worse, however appears to be clinically imprvoing BCX 09/17 NGTD on Solumedrol now 20 mg IV bid with further tapering down soon leukocytosis may be partially reactive due to steroids as well trend CRP, LDH, ferritin: LDH 486, CRP 31, ferritin 582, IL 6 15.6, 09/24 ferritin 549 and CRP 20, both trending down, LDH 644 - with trend up , IL -6 pending , prior IL-6 15.6 DVT prophylaxis with Lovenox IV hydration creat down to normal, avoid nephrotoxics nutrition via NGT, aspiration precautions mild hyperglycemia noted , probably due to steroids? on SSI/low dose, sensitive , HgA1c -6 - borderline DM trend LFT , CK trending down, case discussed and evaluated by supervising physician Critical Care - Objective Last 24 Hour Vital Signs Date Time Temp Pulse Resp B/P (MAP) Pulse Ox O2 Delivery O2 Flow Rate FiO2 09/27/19 08:00 40 09/27/19 08:00 Mechanical Ventilator Mechanical Ventilator 09/27/19 08:00 98.6 74 24 118/67 (84) 97 09/27/19 07:30 72 25 120/67 (84) 95 09/27/19 07:00 69 24 140/67 (91) 96 09/27/19 07:00 24 Mechanical Ventilator 40 09/27/19 06:50 72 24 40 09/27/19 06:30 69 24 147/77 (100) 97 09/27/19 06:01 24 Mechanical Ventilator 40 09/27/19 06:00 24 Mechanical Ventilator 40 09/27/19 06:00 71 24 136/61 (86) 95 09/27/19 05:30 73 24 137/64 (88) 09/27/19 05:00 77 24 141/69 (93) 09/27/19 05:00 24 Mechanical Ventilator 40 09/27/19 04:30 66 24 116/54 (74) 97 09/27/19 04:00 99.0 83 21 138/70 (92) 93 09/27/19 04:00 Mechanical Ventilator Mechanical Ventilator 09/27/19 04:00 75 09/27/19 04:00 24 Mechanical Ventilator 40 09/27/19 04:00 40 09/27/19 03:30 67 24 131/72 (91) 96 09/27/19 03:00 24 Mechanical Ventilator 40 09/27/19 03:00 67 24 147/85 (105) 97 09/27/19 02:41 67 23 40 09/27/19 02:30 69 24 141/73 (95) 100 09/27/19 02:00 69 24 136/69 (91) 98 09/27/19 02:00 24 Room Air 40 09/27/19 01:30 72 24 141/66 (91) 99 09/27/19 01:00 63 24 111/58 (75) 100 09/27/19 01:00 24 Mechanical Ventilator 40 09/27/19 00:30 69 24 124/68 (86) 99 09/27/19 00:00 40 09/27/19 00:00 74 09/27/19 00:00 Mechanical Ventilator Mechanical Ventilator 09/27/19 00:00 24 Mechanical Ventilator 40 09/27/19 00:00 98.9 84 24 151/63 (92) 94 09/26/19 23:30 75 28 152/77 (102) 93 09/26/19 23:00 24 Mechanical Ventilator 40 09/26/19 23:00 76 25 152/72 (98) 92 09/26/19 22:43 24 Mechanical Ventilator 40 09/26/19 22:43 24 Mechanical Ventilator 40 09/26/19 22:41 63 24 40 09/26/19 22:30 67 24 138/64 (88) 93 09/26/19 22:00 69 24 161/80 (107) 96 4/30/20 22:00 24 Mechanical Ventilator 40 09/26/19 21:30 70 24 152/67 (95) 96 09/26/19 21:00 25 Mechanical Ventilator 40 09/26/19 21:00 72 24 156/71 (99) 95 09/26/19 20:30 73 27 156/67 (96) 96 09/26/19 20:00 Mechanical Ventilator Mechanical Ventilator 09/26/19 20:00 98.6 73 25 158/75 (102) 96 09/26/19 20:00 40 09/26/19 20:00 25 Mechanical Ventilator 40 09/26/19 20:00 70 09/26/19 19:30 68 25 130/67 (88) 95 09/26/19 19:00 79 25 130/67 (88) 94 09/26/19 18:54 67 23 40 09/26/19 18:30 72 24 131/70 (90) 93 09/26/19 18:00 73 24 125/67 (86) 93 09/26/19 17:55 65 24 40 09/26/19 17:30 65 24 137/70 (92) 100 09/26/19 17:00 63 24 129/61 (83) 98 09/26/19 16:30 60 24 133/62 (85) 99 09/26/19 16:00 40 09/26/19 16:00 98.0 60 24 145/60 (88) 98 09/26/19 16:00 59 09/26/19 15:30 62 24 145/60 (88) 99 09/26/19 15:00 64 24 135/60 (85) 99 09/26/19 14:30 62 24 131/68 (89) 99 09/26/19 14:00 62 24 145/63 (90) 98 09/26/19 13:30 64 24 140/75 (96) 98 09/26/19 13:17 24 Mechanical Ventilator 40 09/26/19 13:00 66 24 140/61 (87) 98 09/26/19 13:00 62 25 40 09/26/19 12:30 66 24 155/106 (122) 97 09/26/19 12:00 54 09/26/19 12:00 97.5 60 23 111/58 (75) 100 4/30/20 12:00 40 09/26/19 11:30 66 24 151/77 (101) 100 09/26/19 11:00 56 23 117/62 (80) 100 09/26/19 11:00 62 25 50 09/26/19 10:30 58 24 128/69 (88) 99 09/26/19 10:00 60 24 120/62 (81) 98 09/26/19 09:30 67 24 118/57 (77) 97 09/26/19 09:00 63 24 114/57 (76) 98 09/26/19 08:30 99.5 65 24 126/58 (80) 96 Objective: Status: lightly sedated, responsive, intubated Condition: critical HEENT: atraumatic, normocephalic, OP with ET in place, intact, NGT Lungs: few isolated rhonchi Heart: HR/BP stable Abdomen: soft, non-tender, active bowel sounds : F/c Extremities: no edema Accucheck: 131 Critical Care - Subjective ROS Limited/Unobtainable: Yes Interval Events: Settings down: FiO2 40% and PEEP 5 since last night ABG this am stable on this settings syill leukocytosis, no fevers CXR unchanged, but clinically with some improvement IV Access: peripheral EKG Rhythm: Sinus Rhythm FI02: 40 Vent Support Breath Rate: 24 Vent Support Mode: AC Vent Tidal Volume: 500 Sputum Amount: Scant PEEP: 5.0 PIP: 37 Fluids: 1/2 NS at 35 Drips: Fentanyl gtt at 250 mcg/hr Tube Feeding Amount: 45 I&O: Intake and Output 09/26/19 09/27/19 19:00 07:00 Intake Total 1429.66736 ml 1528 ml Output Total 800 ml 720 ml Balance 629.34269 ml 808 ml Free Water 120 ml IV Total 994.71472 ml 868 ml Tube Feeding 405 ml 540 ml Other 30 ml Output Urine Total 800 ml 720 ml # Bowel Movements 1 CXR: CXR 09/25 Bilateral interstitial and hazy airspace disease is unchanged. Stable satisfactory endotracheal and nasogastric tube positions. ET-Tube: 7.0 ET Position: 24 Raghav De MD 09/28/19 1156: Critical Care - Asmt/Plan Assessment/Plan: Patient seen and examined with FUR CUTTING MACHINE OPERATOR, agree with above A&P as it reflects our joint deliberations. D/W CC RN and RT. CCT 40 Neena Lees NP September 27, 2019 08:28 Raghav De MD September 28, 2019 11:56
[2019-09-27] MEDS: Solu-MEDROL 40mg Inj IVP SCH ×2 (09:45→20:51)
--- NOTE | 2019-09-27 10:02 | Diagnostic Imaging Report ---
Indication: Reason For Exam: SOB Technique: One view of the chest Comparison: 09/26/2019 Findings: Hazy bilateral parenchymal disease appears somewhat improved since the prior exam. Endotracheal tube remains in stable satisfactory position. Orogastric tube remains in stable satisfactory position. Impression: Slightly improved bilateral hazy parenchymal disease, over one day Stable tube positions as described
--- NOTE | 2019-09-27 11:39 | General Progress Note ---
Assessment/Plan Problem List: (1) Glucose intolerance ICD Codes: E74.39 - Other disorders of intestinal carbohydrate absorption SNOMED: 87698463 (2) Respiratory failure with hypoxia ICD Codes: J96.91 - Respiratory failure, unspecified with hypoxia SNOMED: 28007153113779536, 156488200 Qualifiers: Qualified Codes: J96.01 - Acute respiratory failure with hypoxia (3) Pneumonia due to COVID-19 virus ICD Codes: U07.1 - COVID-19; J12.89 - Other viral pneumonia SNOMED: 135539241, 393373637 (4) ARDS (adult respiratory distress syndrome) ICD Codes: J80 - Acute respiratory distress syndrome SNOMED: 19739755, 38222513 (5) Transaminitis ICD Codes: R74.0 - Nonspecific elevation of levels of transaminase and lactic acid dehydrogenase [LDH] SNOMED: 327622929, 309604850 (6) Rhabdomyolysis ICD Codes: M62.82 - Rhabdomyolysis SNOMED: 007837775 (7) JOE (acute kidney injury) ICD Codes: N17.9 - Acute kidney failure, unspecified SNOMED: 0392560, 94571304 Assessment/Plan: icu, on antibiotics, plaquenil ordered by pulm, worsening resp failure, intubating, SS insulin, steroids tapering, started grave status d/w daughter, lytes ok, comfort measures,cxr slightly worse but O2 reduced 60 to 50% now 40% FIO2 iv rate reduced icu orders updated, icu time 32 min Subjective ROS Limited/Unobtainable: Yes Allergies: Coded Allergies: No Known Allergies (Unverified , 09/18/19) Objective Last 24 Hour Vital Signs Date Time Temp Pulse Resp B/P (MAP) Pulse Ox O2 Delivery O2 Flow Rate FiO2 09/27/19 10:30 73 24 140/66 (90) 97 09/27/19 10:00 79 22 133/59 (83) 96 09/27/19 10:00 23 Mechanical Ventilator 09/27/19 09:30 73 25 137/63 (87) 100 09/27/19 09:00 69 24 115/57 (76) 100 09/27/19 09:00 24 Mechanical Ventilator 09/27/19 08:45 72 24 40 09/27/19 08:30 72 24 149/82 (104) 95 09/27/19 08:00 40 09/27/19 08:00 24 Mechanical Ventilator 09/27/19 08:00 Mechanical Ventilator Mechanical Ventilator 09/27/19 08:00 74 09/27/19 08:00 98.6 74 24 118/67 (84) 97 09/27/19 07:30 72 25 120/67 (84) 95 09/27/19 07:00 69 24 140/67 (91) 96 09/27/19 07:00 24 Mechanical Ventilator 40 09/27/19 06:50 72 24 40 09/27/19 06:30 69 24 147/77 (100) 97 09/27/19 06:01 24 Mechanical Ventilator 40 09/27/19 06:00 24 Mechanical Ventilator 40 09/27/19 06:00 71 24 136/61 (86) 95 09/27/19 05:30 73 24 137/64 (88) 09/27/19 05:00 77 24 141/69 (93) 09/27/19 05:00 24 Mechanical Ventilator 40 09/27/19 04:30 66 24 116/54 (74) 97 09/27/19 04:00 99.0 83 21 138/70 (92) 93 09/27/19 04:00 Mechanical Ventilator Mechanical Ventilator 09/27/19 04:00 75 09/27/19 04:00 24 Mechanical Ventilator 40 09/27/19 04:00 40 09/27/19 03:30 67 24 131/72 (91) 96 09/27/19 03:00 24 Mechanical Ventilator 40 09/27/19 03:00 67 24 147/85 (105) 97 09/27/19 02:41 67 23 40 09/27/19 02:30 69 24 141/73 (95) 100 09/27/19 02:00 69 24 136/69 (91) 98 09/27/19 02:00 24 Room Air 40 09/27/19 01:30 72 24 141/66 (91) 99 09/27/19 01:00 63 24 111/58 (75) 100 09/27/19 01:00 24 Mechanical Ventilator 40 09/27/19 00:30 69 24 124/68 (86) 99 09/27/19 00:00 40 09/27/19 00:00 74 09/27/19 00:00 Mechanical Ventilator Mechanical Ventilator 09/27/19 00:00 24 Mechanical Ventilator 40 09/27/19 00:00 98.9 84 24 151/63 (92) 94 09/26/19 23:30 75 28 152/77 (102) 93 09/26/19 23:00 24 Mechanical Ventilator 40 09/26/19 23:00 76 25 152/72 (98) 92 09/26/19 22:43 24 Mechanical Ventilator 40 09/26/19 22:43 24 Mechanical Ventilator 40 09/26/19 22:41 63 24 40 09/26/19 22:30 67 24 138/64 (88) 93 09/26/19 22:00 69 24 161/80 (107) 96 09/26/19 22:00 24 Mechanical Ventilator 40 09/26/19 21:30 70 24 152/67 (95) 96 09/26/19 21:00 25 Mechanical Ventilator 40 09/26/19 21:00 72 24 156/71 (99) 95 09/26/19 20:30 73 27 156/67 (96) 96 09/26/19 20:00 Mechanical Ventilator Mechanical Ventilator 09/26/19 20:00 98.6 73 25 158/75 (102) 96 09/26/19 20:00 40 09/26/19 20:00 25 Mechanical Ventilator 40 09/26/19 20:00 70 09/26/19 19:30 68 25 130/67 (88) 95 09/26/19 19:00 79 25 130/67 (88) 94 09/26/19 18:54 67 23 40 09/26/19 18:30 72 24 131/70 (90) 93 09/26/19 18:00 73 24 125/67 (86) 93 09/26/19 17:55 65 24 40 09/26/19 17:30 65 24 137/70 (92) 100 09/26/19 17:00 63 24 129/61 (83) 98 09/26/19 16:30 60 24 133/62 (85) 99 09/26/19 16:00 40 09/26/19 16:00 98.0 60 24 145/60 (88) 98 09/26/19 16:00 59 09/26/19 15:30 62 24 145/60 (88) 99 09/26/19 15:00 64 24 135/60 (85) 99 09/26/19 14:30 62 24 131/68 (89) 99 09/26/19 14:00 62 24 145/63 (90) 98 09/26/19 13:30 64 24 140/75 (96) 98 09/26/19 13:17 24 Mechanical Ventilator 40 09/26/19 13:00 66 24 140/61 (87) 98 09/26/19 13:00 62 25 40 09/26/19 12:30 66 24 155/106 (122) 97 09/26/19 12:00 54 09/26/19 12:00 97.5 60 23 111/58 (75) 100 09/26/19 12:00 40 Intake and Output 09/26/19 09/27/19 19:00 07:00 Intake Total 1429.58128 ml 1528 ml Output Total 800 ml 720 ml Balance 629.33193 ml 808 ml Free Water 120 ml IV Total 994.33492 ml 868 ml Tube Feeding 405 ml 540 ml Other 30 ml Output Urine Total 800 ml 720 ml # Bowel Movements 1 Laboratory Tests 09/27/19 03:25: White Blood Count 18.5H, Red Blood Count 4.16L, Hemoglobin 13.2, Hematocrit 36.6L, Mean Corpuscular Volume 88, Mean Corpuscular Hemoglobin 31.7H, Mean Corpuscular Hemoglobin Concent 36.0, Red Cell Distribution Width 10.7L, Platelet Count 288, Mean Platelet Volume 7.0, Neutrophils (%) (Auto) , Lymphocytes (%) (Auto) , Monocytes (%) (Auto) , Eosinophils (%) (Auto) , Basophils (%) (Auto) , Differential Total Cells Counted 100, Neutrophils % ( Manual) 95H, Lymphocytes % (Manual) 1L, Monocytes % (Manual) 4, Eosinophils % ( Manual) 0, Basophils % (Manual) 0, Band Neutrophils 0, Platelet Estimate Adequate, Platelet Morphology Normal, Sodium Level 136, Potassium Level 4.6, Chloride Level 98, Carbon Dioxide Level 28, Anion Gap 10, Blood Urea Nitrogen 18 , Creatinine 0.5L, Estimat Glomerular Filtration Rate > 60, Glucose Level 133H, Calcium Level 8.1L 09/27/19 07:14: Arterial Blood pH 7.437, Arterial Blood Partial Pressure CO2 40.4, Arterial Blood Partial Pressure O2 77.1, Arterial Blood HCO3 26.6H, Arterial Blood Oxygen Saturation 94.6L, Arterial Blood Base Excess 2.3H, Luis Test Positive Height (Feet): 5 Height (Inches): 2.00 Weight (Pounds): 155 General Appearance: no apparent distress, other - intubated EENT: normal ENT inspection Cardiovascular: regular rhythm Respiratory/Chest: lungs clear Edema: no edema noted Arm (L), no edema noted Arm (R), no edema noted Leg (L), no edema noted Leg (R), no edema noted Pedal (L), no edema noted Pedal (R), no edema noted Generalized Neurologic: other - awakens intermittently , on sedation Hung Zuniga MD September 27, 2019 11:39
[2019-09-27] MEDS: cefTRIAXone 1 GM in D5W 50 ML IVPB SCH (20:51)
[2019-09-27] MEDS: Enoxaparin 60mg Inj SUBQ SCH (20:52)
[2019-09-28] VITALS (36 sets, daily range): BP systolic 97–185; BP diastolic 48–79
[2019-09-28] MEDS: fentaNYL Citrate 2,500 MCG in NS 200 ML IV SCH (02:57)
[2019-09-28] MEDS: NovoLOG Insulin Flexpen SUBQ SCH ×4 (06:42→23:36)
[2019-09-28 07:28] LABS: HEMOGLOBIN 13.3 G/DL (12.0-16.0); MEAN CORPUSCULAR VOLUME 88 FL (80-99); PLATELET COUNT 322 K/UL (150-450); RED BLOOD COUNT 4.21 M/UL (4.20-5.40); RED CELL DISTRIBUTION WIDTH 10.9 % (11.6-14.8)
[2019-09-28 07:42] LABS: ANION GAP 6 mmol/L (5-15); BLOOD UREA NITROGEN 21 mg/dL (7-18); CALCIUM 8.3 MG/DL (8.5-10.1); CARBON DIOXIDE 30 MMOL/L (21-32); CHLORIDE 96 MMOL/L (98-107); CREATININE 0.5 MG/DL (0.55-1.30); POTASSIUM 4.6 MMOL/L (3.5-5.1); SODIUM 131 MMOL/L (136-145)
[2019-09-28 08:04] LABS: WHITE BLOOD COUNT 24.8 K/UL (4.8-10.8)
--- NOTE | 2019-09-28 08:50 | Diagnostic Imaging Report ---
EXAM: XR Chest, 1 View CLINICAL HISTORY: SOB TECHNIQUE: Frontal view of the chest. COMPARISON: Chest x-ray 09/27/19 834 FINDINGS: Lungs: Worsening hazy bilateral diffuse airspace opacities. Hypoventilatory lungs. Pleural space: Unremarkable. No pneumothorax. Heart: Unremarkable. No cardiomegaly. Mediastinum: Unremarkable. Bones/joints: Unremarkable. Tubes, lines and devices: ET tube and NG tube are stable. IMPRESSION: Worsening hazy bilateral diffuse airspace opacities.
--- NOTE | 2019-09-28 09:14 | Pulmonolgy Critical Care Note ---
Neena Lees CHARGE PREPARATION TECHNICIAN 09/28/19 0914: Critical Care - Asmt/Plan Assessment/Plan: ASSESSMENT Acute hypoxemic respiratory failure requiring intubation Multilobar PNA likely due to COVID 19 infection ( confirmed prior) JOE -resolved Mild transaminitis Borderline diabetes Elevated CK/ rhabdo - CK trending down PLAN OF CARE ICU s/p intubation 09/19 settings down titrated 09/25 to FiO2 40% and PEEP 5 ABG 09/26 stable on current settings started on weaning protocol this am so far tolerates PS 8, mild tachypnea 24 however worsening leukocytosis and CXR this am fup with CXR and ABG in am light sedation with Fentanyl gtt MDI with spacer in line SARS -CoV -2 by PCR 09/17 came back non detected repeated SARS-CoV-2 by PCR 09/20 positive, continue isolation now on Doxy s/p Plaquenil x5 days, completed ceftriaxone abx per ID recs given worsening leuk and worsening CXR will speak with pharmacy if can get Tocoluzimab for her if clinically worse, however appears to be clinically improving BCX 09/17 NGTD on Solumedrol now 20 mg IV bid with further tapering down soon leukocytosis may be partially reactive due to steroids as well trend CRP, LDH, ferritin: LDH 486, CRP 31, ferritin 582, IL 6 15.6, 09/24 ferritin 549 and CRP 20, both trending down, LDH 644 - with trend up , IL -6 18.6 , prior IL-6 15.6 DVT prophylaxis with Lovenox IV hydration creat down to normal, avoid nephrotoxics nutrition via NGT, aspiration precautions mild hyperglycemia noted , probably due to steroids? on SSI/low dose, sensitive , HgA1c -6 - borderline DM trend LFT , CK trending down, case discussed and evaluated by supervising physician Critical Care - Objective Last 24 Hour Vital Signs Date Time Temp Pulse Resp B/P (MAP) Pulse Ox O2 Delivery O2 Flow Rate FiO2 09/28/19 09:00 24 Mechanical Ventilator 09/28/19 08:30 91 27 139/69 (92) 90 09/28/19 08:00 90 29 143/65 (91) 94 09/28/19 08:00 26 Mechanical Ventilator 09/28/19 08:00 Mechanical Ventilator Mechanical Ventilator 09/28/19 07:30 98.7 94 29 153/67 (95) 92 09/28/19 07:30 29 Mechanical Ventilator 09/28/19 07:15 84 20 40 09/28/19 07:00 84 23 121/71 (88) 96 09/28/19 07:00 22 Mechanical Ventilator 09/28/19 06:48 80 24 40 09/28/19 06:30 94 24 113/59 (77) 91 09/28/19 06:20 98.5 09/28/19 06:00 92 23 100/60 (73) 95 09/28/19 05:30 99 138/66 (90) 09/28/19 05:07 84 24 40 09/28/19 05:00 98.6 97 21 142/63 (89) 100 09/28/19 04:30 110 23 156/68 (97) 92 09/28/19 04:00 40 09/28/19 04:00 Mechanical Ventilator Mechanical Ventilator 09/28/19 04:00 90 22 136/69 (91) 95 09/28/19 04:00 110 09/28/19 03:30 102 26 130/60 (83) 89 09/28/19 03:05 93 27 40 09/28/19 03:00 93 24 185/69 (107) 100 09/28/19 02:57 22 Mechanical Ventilator 40 09/28/19 02:30 79 23 143/79 (100) 100 09/28/19 02:00 98.5 89 23 139/67 (91) 89 09/28/19 01:30 91 21 136/71 (92) 90 09/28/19 01:00 71 22 142/71 (94) 97 09/28/19 01:00 24 Mechanical Ventilator 40 09/28/19 00:30 69 24 121/58 (79) 97 09/28/19 00:00 76 09/28/19 00:00 40 09/28/19 00:00 24 Mechanical Ventilator 40 09/28/19 00:00 70 24 134/59 (84) 97 09/28/19 00:00 Mechanical Ventilator Mechanical Ventilator 09/27/19 23:30 74 24 137/64 (88) 96 09/27/19 23:00 98.4 77 24 139/64 (89) 94 09/27/19 23:00 24 Mechanical Ventilator 40 09/27/19 22:45 78 24 40 09/27/19 22:30 78 24 135/63 (87) 96 09/27/19 22:00 24 Mechanical Ventilator 40 09/27/19 22:00 77 24 142/68 (92) 96 09/27/19 21:30 81 24 145/56 (85) 96 09/27/19 21:00 24 Mechanical Ventilator 40 09/27/19 21:00 84 24 148/59 (88) 95 09/27/19 20:30 84 23 137/69 (91) 96 09/27/19 20:00 78 25 132/62 (85) 96 09/27/19 20:00 78 09/27/19 20:00 24 Mechanical Ventilator 40 09/27/19 20:00 Mechanical Ventilator Mechanical Ventilator 09/27/19 20:00 40 09/27/19 19:30 98.6 73 24 131/64 (86) 97 09/27/19 19:05 82 24 40 09/27/19 19:00 24 Mechanical Ventilator 09/27/19 19:00 83 23 142/68 (92) 96 09/27/19 18:30 74 22 145/61 (89) 97 09/27/19 18:00 79 24 140/64 (89) 96 09/27/19 18:00 24 Mechanical Ventilator 09/27/19 17:30 80 24 145/67 (93) 96 09/27/19 17:00 82 0 143/68 (93) 96 09/27/19 17:00 21 Mechanical Ventilator 09/27/19 16:30 98.4 82 24 143/64 (90) 97 09/27/19 16:00 22 Mechanical Ventilator 09/27/19 16:00 77 09/27/19 16:00 40 09/27/19 16:00 78 18 143/68 (93) 97 09/27/19 16:00 Mechanical Ventilator Mechanical Ventilator 09/27/19 15:30 81 17 133/66 (88) 95 09/27/19 15:15 78 25 40 09/27/19 15:00 82 22 137/65 (89) 94 09/27/19 15:00 18 Mechanical Ventilator 09/27/19 14:30 22 Mechanical Ventilator 09/27/19 14:30 93 27 142/71 (94) 94 09/27/19 14:15 63 26 40 09/27/19 14:09 93 23 174/71 (105) 100 09/27/19 14:00 117 24 197/76 (116) 87 09/27/19 13:30 80 25 163/76 (105) 97 09/27/19 13:30 79 25 09/27/19 13:00 72 22 153/69 (97) 97 09/27/19 13:00 22 Mechanical Ventilator 09/27/19 12:50 72 25 40 09/27/19 12:30 74 21 151/63 (92) 96 09/27/19 12:00 95 14 155/75 (101) 95 09/27/19 12:00 40 09/27/19 12:00 83 09/27/19 12:00 Mechanical Ventilator Mechanical Ventilator 09/27/19 12:00 23 Mechanical Ventilator 09/27/19 11:30 98.4 72 20 148/68 (94) 97 09/27/19 11:00 24 Mechanical Ventilator 09/27/19 11:00 76 24 136/65 (88) 97 09/27/19 10:30 73 24 140/66 (90) 97 09/27/19 10:00 79 22 133/59 (83) 96 09/27/19 10:00 23 Mechanical Ventilator 09/27/19 09:30 73 25 137/63 (87) 100 Objective: Status: lightly sedated, responsive, intubated , weaning currently Condition: critical HEENT: atraumatic, normocephalic, OP with ET in place, intact, NGT Lungs: few isolated rhonchi, mild tachypnea Heart: HR/BP stable Abdomen: soft, non-tender, active bowel sounds : F/c Extremities: no edema Accucheck: 151 Critical Care - Subjective ROS Limited/Unobtainable: Yes Interval Events: start on weaning protocol currently on CPAP with PS 8 from 7:30 tolerates so far Fentanyl gtt down to 50mcg/hr no fevers, however, leukocytosis trending up, CXR this am with worsening opacities Condition: critical IV Access: peripheral EKG Rhythm: Sinus Rhythm Vent Support Breath Rate: 24 Vent Support Mode: CPAP Vent Tidal Volume: 500 Sputum Amount: Scant PEEP: 5.0 PIP: 50 Secretions: scant amount, white color, thick consistenncy Fluids: 1/2 NS at 35 Drips: Fentanyl gtt 50 mcg/hr Tube Feeding Amount: 0 I&O: Intake and Output 09/27/19 09/28/19 19:00 07:00 Intake Total 1316.25 ml 1585 ml Output Total 460 ml 1400 ml Balance 856.25 ml 185 ml Free Water 300 ml IV Total 731.25 ml 565 ml Tube Feeding 585 ml 720 ml Output Urine Total 460 ml 1400 ml # Bowel Movements 3 2 CXR: CXR 09/27 Worsening hazy bilateral diffuse airspace opacities. ET-Tube: 7.0 ET Position: 24 Raghav De MD 09/28/19 1158: Critical Care - Asmt/Plan Assessment/Plan: Patient seen and examined with CHARGE PREPARATION TECHNICIAN, agree with above A&P as it reflects our joint deliberations. D/W CC RN and RT. LOUISE SBT, PS *, RSBI < 105, ABG adequate, WCT inc, CXR b inf. Awake and alert, follows commands, no sig secretions, O2 needs minimal, meets other SBT criteria. Will extubated. Monitor WCT CCT 40 Neena Lees NP September 28, 2019 09:14 Raghav De MD September 28, 2019 11:58
[2019-09-28] MEDS: Solu-MEDROL 40mg Inj IVP SCH ×2 (09:20→20:58)
--- NOTE | 2019-09-28 10:26 | General Progress Note ---
Assessment/Plan Problem List: (1) Glucose intolerance ICD Codes: E74.39 - Other disorders of intestinal carbohydrate absorption SNOMED: 26738139 (2) Respiratory failure with hypoxia ICD Codes: J96.91 - Respiratory failure, unspecified with hypoxia SNOMED: 44432325408042915, 397097118 Qualifiers: Qualified Codes: J96.01 - Acute respiratory failure with hypoxia (3) Pneumonia due to COVID-19 virus ICD Codes: U07.1 - COVID-19; J12.89 - Other viral pneumonia SNOMED: 625006225, 938093293 (4) ARDS (adult respiratory distress syndrome) ICD Codes: J80 - Acute respiratory distress syndrome SNOMED: 55731075, 29363610 (5) Transaminitis ICD Codes: R74.0 - Nonspecific elevation of levels of transaminase and lactic acid dehydrogenase [LDH] SNOMED: 170105498, 004488612 (6) Rhabdomyolysis ICD Codes: M62.82 - Rhabdomyolysis SNOMED: 362358376 (7) JOE (acute kidney injury) ICD Codes: N17.9 - Acute kidney failure, unspecified SNOMED: 7003537, 39732146 Assessment/Plan: icu, on antibiotics, plaquenil ordered by pulm, worsening resp failure, intubated, SS insulin, steroids tapering, started grave status d/w daughter, lytes ok, comfort measures,cxr slightly worse but O2 reduced 60 to 50% now 40% FIO2 , cpap trial 2 hr 09/27 stopped when RR to 35, sat to 84% iv adjusted icu orders updated, icu time 32 min Subjective ROS Limited/Unobtainable: Yes Allergies: Coded Allergies: No Known Allergies (Unverified , 09/18/19) Objective Last 24 Hour Vital Signs Date Time Temp Pulse Resp B/P (MAP) Pulse Ox O2 Delivery O2 Flow Rate FiO2 09/28/19 09:32 90 21 110/73 (85) 90 09/28/19 09:15 84 27 40 09/28/19 09:00 91 24 147/74 (98) 90 09/28/19 09:00 24 Mechanical Ventilator 09/28/19 08:30 91 27 139/69 (92) 90 09/28/19 08:00 90 29 143/65 (91) 94 09/28/19 08:00 26 Mechanical Ventilator 09/28/19 08:00 88 09/28/19 08:00 Mechanical Ventilator Mechanical Ventilator 09/28/19 07:30 98.7 94 29 153/67 (95) 92 09/28/19 07:30 29 Mechanical Ventilator 09/28/19 07:15 84 20 40 09/28/19 07:00 84 23 121/71 (88) 96 09/28/19 07:00 22 Mechanical Ventilator 09/28/19 06:48 80 24 40 09/28/19 06:30 94 24 113/59 (77) 91 09/28/19 06:20 98.5 09/28/19 06:00 92 23 100/60 (73) 95 09/28/19 05:30 99 138/66 (90) 09/28/19 05:07 84 24 40 09/28/19 05:00 98.6 97 21 142/63 (89) 100 09/28/19 04:30 110 23 156/68 (97) 92 09/28/19 04:00 40 09/28/19 04:00 Mechanical Ventilator Mechanical Ventilator 09/28/19 04:00 90 22 136/69 (91) 95 09/28/19 04:00 110 09/28/19 03:30 102 26 130/60 (83) 89 09/28/19 03:05 93 27 40 09/28/19 03:00 93 24 185/69 (107) 100 09/28/19 02:57 22 Mechanical Ventilator 40 09/28/19 02:30 79 23 143/79 (100) 100 09/28/19 02:00 98.5 89 23 139/67 (91) 89 09/28/19 01:30 91 21 136/71 (92) 90 09/28/19 01:00 71 22 142/71 (94) 97 09/28/19 01:00 24 Mechanical Ventilator 40 09/28/19 00:30 69 24 121/58 (79) 97 09/28/19 00:00 76 09/28/19 00:00 40 09/28/19 00:00 24 Mechanical Ventilator 40 09/28/19 00:00 70 24 134/59 (84) 97 09/28/19 00:00 Mechanical Ventilator Mechanical Ventilator 09/27/19 23:30 74 24 137/64 (88) 96 09/27/19 23:00 98.4 77 24 139/64 (89) 94 09/27/19 23:00 24 Mechanical Ventilator 40 09/27/19 22:45 78 24 40 09/27/19 22:30 78 24 135/63 (87) 96 09/27/19 22:00 24 Mechanical Ventilator 40 09/27/19 22:00 77 24 142/68 (92) 96 09/27/19 21:30 81 24 145/56 (85) 96 09/27/19 21:00 24 Mechanical Ventilator 40 09/27/19 21:00 84 24 148/59 (88) 95 09/27/19 20:30 84 23 137/69 (91) 96 09/27/19 20:00 78 25 132/62 (85) 96 09/27/19 20:00 78 09/27/19 20:00 24 Mechanical Ventilator 40 09/27/19 20:00 Mechanical Ventilator Mechanical Ventilator 09/27/19 20:00 40 09/27/19 19:30 98.6 73 24 131/64 (86) 97 09/27/19 19:05 82 24 40 09/27/19 19:00 24 Mechanical Ventilator 09/27/19 19:00 83 23 142/68 (92) 96 09/27/19 18:30 74 22 145/61 (89) 97 09/27/19 18:00 79 24 140/64 (89) 96 09/27/19 18:00 24 Mechanical Ventilator 09/27/19 17:30 80 24 145/67 (93) 96 09/27/19 17:00 82 0 143/68 (93) 96 09/27/19 17:00 21 Mechanical Ventilator 09/27/19 16:30 98.4 82 24 143/64 (90) 97 09/27/19 16:00 22 Mechanical Ventilator 09/27/19 16:00 77 09/27/19 16:00 40 09/27/19 16:00 78 18 143/68 (93) 97 09/27/19 16:00 Mechanical Ventilator Mechanical Ventilator 09/27/19 15:30 81 17 133/66 (88) 95 09/27/19 15:15 78 25 40 09/27/19 15:00 82 22 137/65 (89) 94 09/27/19 15:00 18 Mechanical Ventilator 09/27/19 14:30 22 Mechanical Ventilator 09/27/19 14:30 93 27 142/71 (94) 94 09/27/19 14:15 63 26 40 09/27/19 14:09 93 23 174/71 (105) 100 09/27/19 14:00 117 24 197/76 (116) 87 09/27/19 13:30 80 25 163/76 (105) 97 09/27/19 13:30 79 25 09/27/19 13:00 72 22 153/69 (97) 97 09/27/19 13:00 22 Mechanical Ventilator 09/27/19 12:50 72 25 40 09/27/19 12:30 74 21 151/63 (92) 96 09/27/19 12:00 95 14 155/75 (101) 95 09/27/19 12:00 40 09/27/19 12:00 83 09/27/19 12:00 Mechanical Ventilator Mechanical Ventilator 09/27/19 12:00 23 Mechanical Ventilator 09/27/19 11:30 98.4 72 20 148/68 (94) 97 09/27/19 11:00 24 Mechanical Ventilator 09/27/19 11:00 76 24 136/65 (88) 97 09/27/19 10:30 73 24 140/66 (90) 97 Intake and Output 09/27/19 09/28/19 19:00 07:00 Intake Total 1316.25 ml 1585 ml Output Total 460 ml 1400 ml Balance 856.25 ml 185 ml Free Water 300 ml IV Total 731.25 ml 565 ml Tube Feeding 585 ml 720 ml Output Urine Total 460 ml 1400 ml # Bowel Movements 3 2 Laboratory Tests 09/27/19 14:03: Arterial Blood pH 7.373, Arterial Blood Partial Pressure CO2 48.2H, Arterial Blood Partial Pressure O2 60.7L, Arterial Blood HCO3 27.4H, Arterial Blood Oxygen Saturation 90.2L, Arterial Blood Base Excess 1.5, Luis Test Positive 09/28/19 06:30: White Blood Count 24.8*H, Red Blood Count 4.21, Hemoglobin 13.3, Hematocrit 37.0 , Mean Corpuscular Volume 88, Mean Corpuscular Hemoglobin 31.6H, Mean Corpuscular Hemoglobin Concent 36.0, Red Cell Distribution Width 10.9L, Platelet Count 322, Mean Platelet Volume 6.9, Neutrophils (%) (Auto) , Lymphocytes (%) (Auto) , Monocytes (%) (Auto) , Eosinophils (%) (Auto) , Basophils (%) (Auto) , Neutrophils % (Manual) [Pending], Lymphocytes % (Manual) [Pending], Platelet Estimate [Pending], Platelet Morphology [Pending], Sodium Level 131L, Potassium Level 4.6, Chloride Level 96L, Carbon Dioxide Level 30, Anion Gap 6, Blood Urea Nitrogen 21H, Creatinine 0.5L, Estimat Glomerular Filtration Rate > 60, Glucose Level 121H, Calcium Level 8.3L Height (Feet): 5 Height (Inches): 2.00 Weight (Pounds): 155 General Appearance: other - sedated vent Neck: normal alignment Cardiovascular: regular rhythm Respiratory/Chest: accessory muscle use Abdomen: non tender, soft Edema: no edema noted Arm (L), no edema noted Arm (R), no edema noted Leg (L), no edema noted Leg (R), no edema noted Pedal (L), no edema noted Pedal (R), no edema noted Generalized Hung Zuniga MD September 28, 2019 10:26
[2019-09-28] MEDS ORDERED: Vancomycin 1.5gm/NS Premix IVPB ONE (12:00)
[2019-09-28 12:38] LABS: APPEARANCE,URINE CLEAR; BILIRUBIN, URINE NEGATIVE (NEGATIVE); COLOR,URINE PALE YELLOW; GLUCOSE, URINE (UA) NEGATIVE (NEGATIVE); KETONES,URINE NEGATIVE (NEGATIVE); LEUKOCYTE ESTERASE ,URINE NEGATIVE (NEGATIVE); NITRITE,URINE NEGATIVE (NEGATIVE); PH,URINE 7 (4.5-8.0); PROTEIN,URINE 1+ (NEGATIVE); UROBILINOGEN,URINE NORMAL MG/DL (0.0-1.0)
[2019-09-28] MEDS: Piperacillin/Tazobactam 3.375 GM in NS 110 ML IVPB SCH ×2 (13:44→21:00)
[2019-09-28] MEDS ORDERED: Vancomycin 1 GM in D5W 275 ML IVPB SCH (14:00)
[2019-09-28] MEDS ORDERED: 1/2 NS 1000ml IV ONE (15:54)
[2019-09-28] MEDS ORDERED: Tubing IV Secondary IV ONE ×2 (15:54)
[2019-09-28] MEDS ORDERED: NS 275ml ONE (15:54)
--- NOTE | 2019-09-28 19:22 | Diagnostic Imaging Report ---
EXAM: XR Abdomen, 2 Views CLINICAL HISTORY: NGT TECHNIQUE: Frontal view of the abdomen/pelvis with upright view of the abdomen. COMPARISON: Same-day chest radiograph FINDINGS: Lower thorax: Bilateral lung consolidations better evaluated on chest radiography. Intraperitoneal space: No free air. Gastrointestinal tract: Nonobstructive bowel gas pattern. Bones/joints: Unremarkable. Tubes, lines and devices: Enteric tube with tip and proximal sideport below the gastroesophageal junction. IMPRESSION: 1. Enteric tube with tip and proximal sideport below the gastroesophageal junction. 2. Nonobstructive bowel gas pattern. 3. Bilateral lung consolidations better evaluated on chest radiography.
--- NOTE | 2019-09-28 20:16 | Infectious Diseases Prog Note ---
Assessment/Plan Assessment/Plan ASSESSMENT AND PLAN: 1. covid-19 virus infection, pna, ? cap, respiratory failure, sepsis, steroids, vent, leukocytosis, fevers leukocytosis significantly worse, chest x-ray worse extubated - s/p hydroxychloroquine - abx changed to zosyn and vancomycin for worsening leukocytosis and chest x- ray - monitor labs and chest x-ray, patient re-cultured - may need tocilizumab 2. No other significant past medical history. 3. No known allergies. 4. Social history negative. 5. Family history noncontributory. 6. MAR was noted. 7. Case discussed with RN. 8. Continue treatment per primary consultants. Subjective Constitutional: Reports: fatigue, other - extubated, no pressors, alert ; Denies: fever HEENT: Reports: congestion Respiratory: Reports: shortness of breath Cardiovascular: Reports: other - no pressors Gastrointestinal/Abdominal: Denies: nausea, vomiting, diarrhea Genitourinary: Reports: other - + zamora Neurologic: Denies: headache Psychiatric: Denies: depression Skin: Denies: rash Hematologic: Denies: bleeding Musculoskeletal: Denies: pain Allergies: Coded Allergies: No Known Allergies (Unverified , 09/18/19) Objective Vital Signs Last 24 Hour Vital Signs Date Time Temp Pulse Resp B/P (MAP) Pulse Ox O2 Delivery O2 Flow Rate FiO2 09/28/19 19:00 90 23 120/64 (82) 91 09/28/19 18:00 89 21 113/64 (80) 90 09/28/19 17:00 85 28 97/48 (64) 91 09/28/19 16:00 73 09/28/19 16:00 99.0 75 37 99/57 (71) 92 09/28/19 16:00 14.0 50 09/28/19 16:00 Venturi Mask 12.0 Venturi Mask 12.0 09/28/19 15:00 77 28 109/65 (80) 91 09/28/19 14:00 26 Mechanical Ventilator 09/28/19 14:00 82 31 117/59 (78) 89 09/28/19 13:00 84 32 121/58 (79) 93 09/28/19 13:00 26 Mechanical Ventilator 09/28/19 12:35 92 Cool Aerosol 14.0 50 09/28/19 12:30 87 28 125/66 (85) 95 09/28/19 12:20 Simple Mask 15.0 40 09/28/19 12:15 14.0 50 09/28/19 12:00 40 09/28/19 12:00 94 09/28/19 12:00 98.9 82 24 112/65 (81) 95 09/28/19 12:00 22 Mechanical Ventilator 09/28/19 12:00 Mechanical Ventilator Mechanical Ventilator 09/28/19 11:30 87 26 118/56 (76) 94 09/28/19 11:00 80 20 40 09/28/19 11:00 24 Mechanical Ventilator 09/28/19 11:00 93 26 126/58 (80) 93 09/28/19 10:30 87 24 123/60 (81) 94 09/28/19 10:00 25 Mechanical Ventilator 09/28/19 09:32 90 21 110/73 (85) 90 09/28/19 09:15 84 27 40 09/28/19 09:00 91 24 147/74 (98) 90 09/28/19 09:00 24 Mechanical Ventilator 09/28/19 08:30 91 27 139/69 (92) 90 09/28/19 08:00 90 29 143/65 (91) 94 09/28/19 08:00 26 Mechanical Ventilator 09/28/19 08:00 88 09/28/19 08:00 Mechanical Ventilator Mechanical Ventilator 09/28/19 07:30 98.7 94 29 153/67 (95) 92 09/28/19 07:30 29 Mechanical Ventilator 09/28/19 07:15 100 09/28/19 07:15 84 20 40 40 09/28/19 07:00 84 23 121/71 (88) 96 09/28/19 07:00 22 Mechanical Ventilator 09/28/19 06:48 80 24 40 09/28/19 06:30 94 24 113/59 (77) 91 09/28/19 06:20 98.5 09/28/19 06:00 92 23 100/60 (73) 95 09/28/19 05:30 99 138/66 (90) 09/28/19 05:07 84 24 40 09/28/19 05:00 98.6 97 21 142/63 (89) 100 09/28/19 04:30 110 23 156/68 (97) 92 09/28/19 04:00 40 09/28/19 04:00 Mechanical Ventilator Mechanical Ventilator 09/28/19 04:00 90 22 136/69 (91) 95 09/28/19 04:00 110 09/28/19 03:30 102 26 130/60 (83) 89 09/28/19 03:05 93 27 40 09/28/19 03:00 93 24 185/69 (107) 100 09/28/19 02:57 22 Mechanical Ventilator 40 09/28/19 02:30 79 23 143/79 (100) 100 09/28/19 02:00 98.5 89 23 139/67 (91) 89 09/28/19 01:30 91 21 136/71 (92) 90 09/28/19 01:00 71 22 142/71 (94) 97 09/28/19 01:00 24 Mechanical Ventilator 40 09/28/19 00:30 69 24 121/58 (79) 97 09/28/19 00:00 76 09/28/19 00:00 40 09/28/19 00:00 24 Mechanical Ventilator 40 09/28/19 00:00 70 24 134/59 (84) 97 09/28/19 00:00 Mechanical Ventilator Mechanical Ventilator 09/27/19 23:30 74 24 137/64 (88) 96 09/27/19 23:00 98.4 77 24 139/64 (89) 94 09/27/19 23:00 24 Mechanical Ventilator 40 09/27/19 22:45 78 24 40 09/27/19 22:30 78 24 135/63 (87) 96 09/27/19 22:00 24 Mechanical Ventilator 40 09/27/19 22:00 77 24 142/68 (92) 96 09/27/19 21:30 81 24 145/56 (85) 96 09/27/19 21:00 24 Mechanical Ventilator 40 09/27/19 21:00 84 24 148/59 (88) 95 09/27/19 20:30 84 23 137/69 (91) 96 Height (Feet): 5 Height (Inches): 2.00 Weight (Pounds): 155 General Appearance: no acute distress HEENT: normocephalic, atraumatic, anicteric, mucous membranes moist Respiratory/Chest: crackles/rales, rhonchi - bilaterally Cardiovascular: normal rate, regular rhythm Abdomen: normal bowel sounds, soft, non tender, no organomegaly, non distended Genitourinary: other - + zamora - urine clear Extremities: no cyanosis Skin: no rash 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 COMPARISON: Chest x-ray 09/21/19 913 FINDINGS: Lungs: Improved aeration of the lung. Mild bilateral interstitial and hazy lung opacities are similar. Pleural space: Unremarkable. No pneumothorax. Heart: Unremarkable. No cardiomegaly. Mediastinum: Unremarkable. Bones/joints: Unremarkable. Tubes, lines and devices: Endotracheal tube and NG tube are stable. IMPRESSION: Improved aeration of the lung. Mild bilateral interstitial and hazy lung opacities are similar. Chest x-ray - 09/23/19 - Procedure: XRAY Chest 1v Indication: Shortness of breath Technique: One view of the chest Comparison: 09/22/2019 Findings: Less optimal inspiration on current exam. Bilateral diffuse hazy airspace opacities are probably similar to the prior study allowing for differences in degree of inspiration. Stable satisfactory positions of endotracheal and orogastric tubes Impression: Unchanged, over one day, findings as above. Chest x-ray - 09/26/19 - Procedure: XRAY Chest 1v Indication: Shortness of breath Technique: One view of the chest Comparison: 09/25/2019 Findings: Bilateral interstitial and hazy airspace disease is unchanged. Stable satisfactory endotracheal and nasogastric tube positions. Impression: Unchanged, over one day, findings as above. Chest x-ray - 09/28/19 - TECHNIQUE: Frontal view of the chest. COMPARISON: Chest x-ray 09/27/19 834 FINDINGS: Lungs: Worsening hazy bilateral diffuse airspace opacities. Hypoventilatory lungs. Pleural space: Unremarkable. No pneumothorax. Heart: Unremarkable. No cardiomegaly. Mediastinum: Unremarkable. Bones/joints: Unremarkable. Tubes, lines and devices: ET tube and NG tube are stable. IMPRESSION: Worsening hazy bilateral diffuse airspace opacities. Microbiology Date/Time Source Procedure Growth Status 09/18/19 22:05 Blood Blood Culture - Final NO GROWTH AFTER 5 DAYS Complete 09/22/19 19:00 Nasopharynx Coronavirus COVID-19 PCR ([facility]) - Final Complete Laboratory Tests Test 09/28/19 06:30 09/28/19 11:16 09/28/19 12:00 09/28/19 13:25 White Blood Count 24.8 K/UL (4.8-10.8) *H Red Blood Count 4.21 M/UL (4.20-5.40) Hemoglobin 13.3 G/DL (12.0-16.0) Hematocrit 37.0 % (37.0-47.0) Mean Corpuscular Volume 88 FL (80-99) Mean Corpuscular Hemoglobin 31.6 PG (27.0-31.0) H Mean Corpuscular Hemoglobin Concent 36.0 G/DL (32.0-36.0) Red Cell Distribution Width 10.9 % (11.6-14.8) L Platelet Count 322 K/UL (150-450) Mean Platelet Volume 6.9 FL (6.5-10.1) Neutrophils (%) (Auto) % (45.0-75.0) Lymphocytes (%) (Auto) % (20.0-45.0) Monocytes (%) (Auto) % (1.0-10.0) Eosinophils (%) (Auto) % (0.0-3.0) Basophils (%) (Auto) % (0.0-2.0) Differential Total Cells Counted 100 Neutrophils % (Manual) 93 % (45-75) H Lymphocytes % (Manual) 4 % (20-45) L Monocytes % (Manual) 3 % (1-10) Eosinophils % (Manual) 0 % (0-3) Basophils % (Manual) 0 % (0-2) Band Neutrophils 0 % (0-8) Platelet Estimate Adequate Platelet Morphology Normal Sodium Level 131 MMOL/L (136-145) L Potassium Level 4.6 MMOL/L (3.5-5.1) Chloride Level 96 MMOL/L (98-107) L Carbon Dioxide Level 30 MMOL/L (21-32) Anion Gap 6 mmol/L (5-15) Blood Urea Nitrogen 21 mg/dL (7-18) H Creatinine 0.5 MG/DL (0.55-1.30) L Estimat Glomerular Filtration Rate > 60 mL/min (>60) Glucose Level 121 MG/DL (74-106) H Calcium Level 8.3 MG/DL (8.5-10.1) L Arterial Blood pH 7.504 (7.350-7.450) 7.515 (7.350-7.450) Arterial Blood Partial Pressure CO2 28.8 mmHg (35.0-45.0) L 31.5 mmHg (35.0-45.0) L Arterial Blood Partial Pressure O2 64.0 mmHg (75.0-100.0) L 65.3 mmHg (75.0-100.0) L Arterial Blood HCO3 22.2 mmol/L (22.0-26.0) 24.9 mmol/L (22.0-26.0) Arterial Blood Oxygen Saturation 92.5 % (95-100) L 93.3 % (95-100) L Arterial Blood Base Excess 0.1 (-2-2) 2.6 (-2-2) H Luis Test Positive Positive Urine Color Pale yellow Urine Appearance Clear Urine pH 7 (4.5-8.0) Urine Specific [place] 1.010 (1.005-1.035) Urine Protein 1+ (NEGATIVE) H Urine Glucose (UA) Negative (NEGATIVE) Urine Ketones Negative (NEGATIVE) Urine Blood 1+ (NEGATIVE) H Urine Nitrite Negative (NEGATIVE) Urine Bilirubin Negative (NEGATIVE) Urine Urobilinogen Normal MG/DL (0.0-1.0) Urine Leukocyte Esterase Negative (NEGATIVE) Urine RBC 0-2 /HPF (0 - 2) Urine WBC 2-4 /HPF (0 - 2) Urine Squamous Epithelial Cells Few /LPF (NONE/OCC) Urine Bacteria Few /HPF (NONE) Current Medications Medications (Trade) Dose Ordered Sig/Sam Route PRN Reason Start Time Stop Time Status Last Admin Dose Admin Acetaminophen (Tylenol) 650 mg Q4H PRN ORAL Temp >100.5 09/20/19 16:28 10/20/19 16:27 09/21/19 21:52 Acetaminophen (Tylenol) 650 mg Q4H PRN ORAL Mild Pain (Pain Scale 1-3) 09/20/19 16:28 10/20/19 16:27 Albuterol Sulfate (Proventil MDI) 2 puff Q4H PRN INH Shortness of Breath 09/20/19 16:28 12/19/19 16:27 Atropine Sulfate (Atropine) 1 mg NEEDED PRN IVP HR<40 09/21/19 13:00 10/21/19 12:59 Dextrose (Dextrose 50%) 25 ml Q30M PRN IV Hypoglycemia 09/20/19 16:45 12/19/19 16:14 Dextrose (Dextrose 50%) 50 ml Q30M PRN IV Hypoglycemia 09/20/19 16:45 12/19/19 16:14 Enoxaparin Sodium (Lovenox) 60 mg QHS SUBQ 09/21/19 21:00 12/20/19 20:59 09/27/19 20:52 Fentanyl Citrate 2500 mcg/Sodium Chloride 250 ml @ 0 mls/hr Q24H IV 09/27/19 16:29 10/04/19 16:28 09/28/19 02:57 Insulin Aspart (NovoLOG) Q6HR SUBQ 09/27/19 00:00 12/26/19 00:00 09/28/19 06:42 Lorazepam (Ativan 2mg/ml 1ml) 2 mg Q4H PRN IV For Anxiety 09/26/19 10:00 10/03/19 09:59 Methylprednisolone Sodium Succinate (Solu-MEDROL) 20 mg Q12HR IVP 09/27/19 09:00 12/18/19 20:59 09/28/19 09:20 Ondansetron HCl (Zofran) 4 mg Q6H PRN IVP Nausea & Vomiting 09/20/19 16:29 10/20/19 16:28 Piperacillin Sod/ Tazobactam Sod 3.375 gm/Sodium Chloride 110 ml @ 27.5 mls/hr EVERY 8 HOURS IVPB 09/28/19 14:00 10/03/19 13:59 09/28/19 13:44 Polyethylene Glycol (Miralax) 17 gm HSPRN PRN ORAL Constipation 09/20/19 16:29 10/20/19 16:28 Sodium Chloride 1,000 ml @ 30 mls/hr Q24H IV 09/28/19 10:30 10/28/19 10:29 09/28/19 11:30 Vancomycin HCl (Vanco rx to dose) 1 ea DAILY PRN MISC Per rx protocol 09/28/19 10:00 10/28/19 09:59 Vancomycin/Sodium Chloride 275 ml @ 183.333 mls/hr Q12H IVPB 09/28/19 23:00 10/03/19 22:59 Enedina Ceja MD September 28, 2019 20:16
[2019-09-28] MEDS: Enoxaparin 60mg Inj SUBQ SCH (21:01)
[2019-09-28] MEDS: Vancomycin 1.25gm/NS Premix IVPB SCH (23:18)
[2019-09-29] VITALS (22 sets, daily range): BP systolic 100–132; BP diastolic 51–69
[2019-09-29] MEDS: Piperacillin/Tazobactam 3.375 GM in NS 110 ML IVPB SCH ×3 (05:46→21:41)
[2019-09-29] MEDS: NovoLOG Insulin Flexpen SUBQ SCH ×3 (06:00→17:21)
[2019-09-29 08:28] LABS: HEMATOCRIT 36.8 % (37.0-47.0); MEAN CORPUSCULAR VOLUME 88 FL (80-99); PLATELET COUNT 329 K/UL (150-450); RED BLOOD COUNT 4.18 M/UL (4.20-5.40); RED CELL DISTRIBUTION WIDTH 11.2 % (11.6-14.8)
[2019-09-29 08:41] LABS: ANION GAP 8 mmol/L (5-15); BLOOD UREA NITROGEN 16 mg/dL (7-18); CALCIUM 8.4 MG/DL (8.5-10.1); CARBON DIOXIDE 28 MMOL/L (21-32); CHLORIDE 101 MMOL/L (98-107); CREATINE KINASE 65 U/L (26-308); CREATININE 0.5 MG/DL (0.55-1.30); PHOSPHORUS 4.8 MG/DL (2.5-4.9); POTASSIUM 4.3 MMOL/L (3.5-5.1); SODIUM 137 MMOL/L (136-145)
--- NOTE | 2019-09-29 09:06 | Pulmonolgy Critical Care Note ---
Neena Lees HOME HEALTH AIDE 09/29/19 0906: Critical Care - Asmt/Plan Assessment/Plan: ASSESSMENT Acute hypoxemic respiratory failure requiring intubation, s/p extubation 09/27 Multilobar PNA likely due to COVID 19 infection ( confirmed prior) JOE -resolved Mild transaminitis Borderline diabetes Elevated CK/ rhabdo - CK trending down PLAN OF CARE ICU s/p intubation 09/19 s/p extubation 09/27 currently on 80% cool aerosol ABG with sat 92%, tachypnea keep in ICU for now CXR 09/27 worse, and pending for this am fup with CXR and ABG in am MDI with spacer in line SARS -CoV -2 by PCR 09/17 came back non detected repeated SARS-CoV-2 by PCR 09/20 positive, continue isolation s/p Plaquenil x5 days, completed ceftriaxone Doxy dc started on Zosyn 09/27 per ID SCX pending leuk trending down this am, remains afebrile will speak with pharmacy if can get Tocoluzimab for her if clinically worse, however appears to be clinically improving BCX 09/17 NGTD on Solumedrol now 20 mg IV bid with further tapering down soon leukocytosis may be partially reactive due to steroids as well trend CRP, LDH, ferritin: LDH 486, CRP 31, ferritin 582, IL 6 15.6, 09/24 ferritin 549 and CRP 20, both trending down, LDH 644 - with trend up , IL -6 18.6 , prior IL-6 15.6 DVT prophylaxis with Lovenox IV hydration creat down to normal, avoid nephrotoxics nutrition via NGT, aspiration precautions mild hyperglycemia noted , probably due to steroids? on SSI/low dose, sensitive , HgA1c -6 - borderline DM trend LFT , CK trending down, case discussed and evaluated by supervising physician Critical Care - Objective Last 24 Hour Vital Signs Date Time Temp Pulse Resp B/P (MAP) Pulse Ox O2 Delivery O2 Flow Rate FiO2 09/29/19 08:09 98.6 88 31 124/61 (82) 91 09/29/19 08:00 15.0 80 09/29/19 07:12 92 Cool Aerosol 15.0 80 09/29/19 07:00 76 34 95 09/29/19 06:00 82 37 88 09/29/19 05:00 81 32 110/59 (76) 90 09/29/19 04:00 16.0 80 09/29/19 04:00 98.7 75 34 103/60 (74) 94 09/29/19 04:00 79 09/29/19 04:00 Venturi Mask 12.0 Venturi Mask 12.0 09/29/19 03:00 79 37 111/60 (77) 95 09/29/19 02:00 77 37 117/60 (79) 94 09/29/19 01:00 74 32 112/64 (80) 98 09/29/19 00:27 92 Cool Aerosol 12.0 50 09/29/19 00:00 14.0 100 09/29/19 00:00 Venturi Mask 12.0 Venturi Mask 12.0 09/29/19 00:00 98.7 95 31 129/61 (83) 90 09/29/19 00:00 90 09/28/19 23:00 87 30 127/67 (87) 95 09/28/19 22:00 86 30 129/67 (87) 94 09/28/19 21:00 95 33 137/65 (89) 90 09/28/19 20:00 Venturi Mask 12.0 Venturi Mask 12.0 09/28/19 20:00 98.8 87 26 129/66 (87) 91 09/28/19 20:00 92 Cool Aerosol 12.0 50 09/28/19 20:00 14.0 50 09/28/19 20:00 88 09/28/19 19:00 90 23 120/64 (82) 91 09/28/19 18:00 89 21 113/64 (80) 90 09/28/19 17:00 85 28 97/48 (64) 91 09/28/19 16:00 73 09/28/19 16:00 99.0 75 37 99/57 (71) 92 09/28/19 16:00 14.0 50 09/28/19 16:00 Venturi Mask 12.0 Venturi Mask 12.0 09/28/19 15:00 77 28 109/65 (80) 91 09/28/19 14:00 26 Mechanical Ventilator 09/28/19 14:00 82 31 117/59 (78) 89 09/28/19 13:00 84 32 121/58 (79) 93 09/28/19 13:00 26 Mechanical Ventilator 09/28/19 12:35 92 Cool Aerosol 14.0 50 09/28/19 12:30 87 28 125/66 (85) 95 09/28/19 12:20 Simple Mask 15.0 40 09/28/19 12:15 14.0 50 09/28/19 12:00 40 09/28/19 12:00 94 09/28/19 12:00 98.9 82 24 112/65 (81) 95 09/28/19 12:00 22 Mechanical Ventilator 09/28/19 12:00 Mechanical Ventilator Mechanical Ventilator 09/28/19 11:30 87 26 118/56 (76) 94 09/28/19 11:00 80 20 40 09/28/19 11:00 24 Mechanical Ventilator 09/28/19 11:00 93 26 126/58 (80) 93 09/28/19 10:30 87 24 123/60 (81) 94 09/28/19 10:00 25 Mechanical Ventilator 09/28/19 09:32 90 21 110/73 (85) 90 09/28/19 09:15 84 27 40 09/28/19 09:00 91 24 147/74 (98) 90 09/28/19 09:00 24 Mechanical Ventilator Objective: Status: sleeping, arousable , responsive, s/p extubation 09/27 Condition: critical with some improvement HEENT: atraumatic, normocephalic, NGT, 80% cool aerosol Lungs: few isolated rhonchi, tachypnea Heart: HR/BP stable Abdomen: soft, non-tender, active bowel sounds : F/c Extremities: no edema Micro: Microbiology Date/Time Source Procedure Growth Status 09/28/19 12:00 Sputum Induced Gram Stain - Final Resulted 09/28/19 12:00 Sputum Induced Sputum Culture Pending Resulted Accucheck: 109 Critical Care - Subjective ROS Limited/Unobtainable: Yes Interval Events: extubated 09/27 on 80% cool aerosol tachypnea, takes fast shallow breath ABG this am with 92% sat, no acidosis leukocytosis trending down, afebrile Condition: critical IV Access: peripheral EKG Rhythm: Sinus Rhythm FI02: 80 Vent Support Breath Rate: 24 Vent Support Mode: AC Vent Tidal Volume: 500 Sputum Amount: Small PEEP: 5.0 PIP: 28 Tube Feeding Amount: 0 I&O: Intake and Output 09/28/19 09/29/19 19:00 07:00 Intake Total 848.875 ml 1265 ml Output Total 470 ml 2200 ml Balance 378.875 ml -935 ml Free Water 150 ml IV Total 728.875 ml 855 ml Tube Feeding 120 ml 260 ml Output Urine Total 470 ml 2200 ml # Bowel Movements 1 4 CXR: CXR 09/27 Worsening hazy bilateral diffuse airspace opacities. ET-Tube: 7.0 ET Position: 24 Raghav De MD 09/29/19 1820: Critical Care - Asmt/Plan Assessment/Plan: Patient seen with HOME HEALTH AIDE, agree with above A&P as it reflects our joint deliberations. D/W CC RN, ICU battery recharger, RT and team, Still hypoxemic on FM, WCt better, gas exchange adequate. CCT 35 Neena Lees HOME HEALTH AIDE September 29, 2019 09:06 Raghav De MD September 29, 2019 18:20
[2019-09-29] MEDS: Solu-MEDROL 40mg Inj IVP SCH ×2 (10:36→20:38)
[2019-09-29] MEDS: Vancomycin 1.25gm/NS Premix IVPB SCH ×2 (10:38→22:44)
[2019-09-29] MEDS ORDERED: Lomotil 2.5mg tab ORAL PRN (12:30)
[2019-09-29] MEDS ORDERED: NS 275ml ONE ×2 (14:17→16:00)
[2019-09-29] MEDS ORDERED: 1/2 NS 1000ml IV ONE ×2 (14:17→14:21)
[2019-09-29] MEDS ORDERED: Tubing IV Secondary IV ONE ×2 (14:17→14:21)
[2019-09-29] MEDS: fentaNYL Citrate 2,500 MCG in NS 200 ML IV SCH (15:06)
--- NOTE | 2019-09-29 17:58 | General Progress Note ---
Assessment/Plan Problem List: (1) Glucose intolerance ICD Codes: E74.39 - Other disorders of intestinal carbohydrate absorption SNOMED: 99965357 (2) Respiratory failure with hypoxia ICD Codes: J96.91 - Respiratory failure, unspecified with hypoxia SNOMED: 08005675925052965, 338584640 Qualifiers: Qualified Codes: J96.01 - Acute respiratory failure with hypoxia (3) Pneumonia due to COVID-19 virus ICD Codes: U07.1 - COVID-19; J12.89 - Other viral pneumonia SNOMED: 359579363, 191561746 (4) ARDS (adult respiratory distress syndrome) ICD Codes: J80 - Acute respiratory distress syndrome SNOMED: 14136980, 74484794 (5) Transaminitis ICD Codes: R74.0 - Nonspecific elevation of levels of transaminase and lactic acid dehydrogenase [LDH] SNOMED: 918214878, 904885799 (6) Rhabdomyolysis ICD Codes: M62.82 - Rhabdomyolysis SNOMED: 209203519 (7) JOE (acute kidney injury) ICD Codes: N17.9 - Acute kidney failure, unspecified SNOMED: 7055576, 51256699 Assessment/Plan: icu, on antibiotics, plaquenil ordered by pulm, worsening resp failure, intubated, SS insulin, steroids tapering, started grave status d/w daughter, lytes ok, comfort measures,cxr slightly worse stopped when RR to 35, sat to 84% iv adjusted now extubated but tachypneic, continue close monitoring, icu orders updated, icu time 32 min Subjective ROS Limited/Unobtainable: Yes Allergies: Coded Allergies: No Known Allergies (Unverified , 09/18/19) Objective Last 24 Hour Vital Signs Date Time Temp Pulse Resp B/P (MAP) Pulse Ox O2 Delivery O2 Flow Rate FiO2 09/29/19 16:00 Venturi Mask 15.0 Venturi Mask 15.0 09/29/19 16:00 15.0 80 09/29/19 16:00 99.0 75 43 129/69 (89) 98 09/29/19 15:30 87 23 129/58 (81) 95 09/29/19 15:00 80 40 97 09/29/19 14:00 94 31 127/66 (86) 95 09/29/19 13:00 81 38 114/56 (75) 90 09/29/19 12:00 98.9 90 42 114/56 (75) 90 09/29/19 12:00 Venturi Mask 12.0 Venturi Mask 12.0 09/29/19 12:00 15.0 80 09/29/19 12:00 81 09/29/19 11:00 90 41 121/61 (81) 91 09/29/19 10:00 84 40 128/57 (80) 89 09/29/19 09:00 82 36 106/62 (77) 90 09/29/19 08:09 98.6 88 31 124/61 (82) 91 09/29/19 08:00 15.0 80 09/29/19 08:00 80 09/29/19 08:00 Venturi Mask 12.0 Venturi Mask 12.0 09/29/19 07:12 92 Cool Aerosol 15.0 80 09/29/19 07:00 76 34 95 09/29/19 06:00 82 37 88 09/29/19 05:00 81 32 110/59 (76) 90 09/29/19 04:00 16.0 80 09/29/19 04:00 98.7 75 34 103/60 (74) 94 09/29/19 04:00 79 09/29/19 04:00 Venturi Mask 12.0 Venturi Mask 12.0 09/29/19 03:00 79 37 111/60 (77) 95 09/29/19 02:00 77 37 117/60 (79) 94 09/29/19 01:00 74 32 112/64 (80) 98 09/29/19 00:27 92 Cool Aerosol 12.0 50 09/29/19 00:00 14.0 100 09/29/19 00:00 Venturi Mask 12.0 Venturi Mask 12.0 09/29/19 00:00 98.7 95 31 129/61 (83) 90 09/29/19 00:00 90 09/28/19 23:00 87 30 127/67 (87) 95 09/28/19 22:00 86 30 129/67 (87) 94 09/28/19 21:00 95 33 137/65 (89) 90 09/28/19 20:00 Venturi Mask 12.0 Venturi Mask 12.0 09/28/19 20:00 98.8 87 26 129/66 (87) 91 09/28/19 20:00 92 Cool Aerosol 12.0 50 09/28/19 20:00 14.0 50 09/28/19 20:00 88 09/28/19 19:00 90 23 120/64 (82) 91 09/28/19 18:00 89 21 113/64 (80) 90 Intake and Output 09/28/19 09/29/19 19:00 07:00 Intake Total 848.875 ml 1265 ml Output Total 470 ml 2200 ml Balance 378.875 ml -935 ml Free Water 150 ml IV Total 728.875 ml 855 ml Tube Feeding 120 ml 260 ml Output Urine Total 470 ml 2200 ml # Bowel Movements 1 4 Laboratory Tests 09/29/19 06:20: White Blood Count 17.0H, Red Blood Count 4.18L, Hemoglobin 13.0, Hematocrit 36.8L, Mean Corpuscular Volume 88, Mean Corpuscular Hemoglobin 31.2H, Mean Corpuscular Hemoglobin Concent 35.4, Red Cell Distribution Width 11.2L, Platelet Count 329, Mean Platelet Volume 6.6, Neutrophils (%) (Auto) , Lymphocytes (%) (Auto) , Monocytes (%) (Auto) , Eosinophils (%) (Auto) , Basophils (%) (Auto) , Differential Total Cells Counted 100, Neutrophils % ( Manual) 93H, Lymphocytes % (Manual) 4L, Monocytes % (Manual) 3, Eosinophils % ( Manual) 0, Basophils % (Manual) 0, Band Neutrophils 0, Platelet Estimate Adequate, Platelet Morphology Normal, Red Blood Cell Morphology Normal, Sodium Level 137, Potassium Level 4.3, Chloride Level 101, Carbon Dioxide Level 28, Anion Gap 8, Blood Urea Nitrogen 16, Creatinine 0.5L, Estimat Glomerular Filtration Rate > 60, Glucose Level 102, Calcium Level 8.4L, Phosphorus Level 4.8, Magnesium Level 2.1, Total Creatine Kinase 65 09/29/19 07:12: Arterial Blood pH 7.520H, Arterial Blood Partial Pressure CO2 34.0L, Arterial Blood Partial Pressure O2 60.6L, Arterial Blood HCO3 27.1H, Arterial Blood Oxygen Saturation 92.0L, Arterial Blood Base Excess 4.5H, Luis Test Positive Height (Feet): 5 Height (Inches): 2.00 Weight (Pounds): 155 General Appearance: moderate distress EENT: normal ENT inspection Neck: normal alignment Cardiovascular: regular rhythm Respiratory/Chest: accessory muscle use Abdomen: non tender Edema: no edema noted Arm (L), no edema noted Arm (R), no edema noted Leg (L), no edema noted Leg (R), no edema noted Pedal (L), no edema noted Pedal (R), no edema noted Generalized Neurologic: prop attendant II-XII grossly normal Hung Zuniga MD September 29, 2019 17:58
[2019-09-29] MEDS: Enoxaparin 60mg Inj SUBQ SCH (20:40)
[2019-09-30] VITALS (24 sets, daily range): BP systolic 100–156; BP diastolic 34–76
[2019-09-30] MEDS: Piperacillin/Tazobactam 3.375 GM in NS 110 ML IVPB SCH ×3 (05:55→20:33)
[2019-09-30] MEDS: NovoLOG Insulin Flexpen SUBQ SCH ×4 (06:00→18:00)
[2019-09-30 07:35] LABS: HEMATOCRIT 38.7 % (37.0-47.0); HEMOGLOBIN 13.5 G/DL (12.0-16.0); MEAN CORPUSCULAR VOLUME 90 FL (80-99); PLATELET COUNT 206 K/UL (150-450); RED BLOOD COUNT 4.29 M/UL (4.20-5.40); RED CELL DISTRIBUTION WIDTH 11.8 % (11.6-14.8); WHITE BLOOD COUNT 14.8 K/UL (4.8-10.8)
[2019-09-30 07:41] LABS: ANION GAP 13 mmol/L (5-15); BLOOD UREA NITROGEN 20 mg/dL (7-18); CALCIUM 8.4 MG/DL (8.5-10.1); CARBON DIOXIDE 22 MMOL/L (21-32); CHLORIDE 102 MMOL/L (98-107); CREATININE 0.5 MG/DL (0.55-1.30); POTASSIUM 5.4 MMOL/L (3.5-5.1); SODIUM 137 MMOL/L (136-145)
[2019-09-30 08:03] LABS: CREATINE KINASE 61 U/L (26-308)
--- NOTE | 2019-09-30 09:02 | Pulmonolgy Critical Care Note ---
Neena Lees MACHINING TECHNICIAN 09/30/19 0902: Critical Care - Asmt/Plan Assessment/Plan: ASSESSMENT Acute hypoxemic respiratory failure requiring intubation, s/p extubation 09/27 Multilobar PNA, likely due to COVID 19 infection ( confirmed prior) JOE -resolved Mild transaminitis Borderline diabetes Elevated CK/ rhabdo - CK trending down PLAN OF CARE ICU s/p intubation 09/19 s/p extubation 09/27 currently on 40 % FiO2 tachypneic ABG this am on 40% with hypoxia CXR pending for this am titrate Fio2 to keep sat above 90% CXR and ABG in am MDI with spacer in line SARS -CoV -2 by PCR 09/17 came back non detected repeated SARS-CoV-2 by PCR 09/20 positive, continue isolation s/p Plaquenil x5 days, completed ceftriaxone Doxy dc started on Zosyn 09/27 per ID SCX + GNR, stool C dif -NGT, UCX -NGT leuk trending down , remains afebrile will speak with pharmacy if can get Tocoluzimab for her if clinically worse, however appears to be clinically improving BCX 09/17 NGTD on Solumedrol now 20 mg IV bid with further tapering down soon leukocytosis may be partially reactive due to steroids as well trend CRP, LDH, ferritin: LDH 486, CRP 31, ferritin 582, IL 6 15.6, 09/24 ferritin 549 and CRP 20, both trending down, LDH 644 - with trend up , IL -6 18.6 , prior IL-6 15.6 DVT prophylaxis with Lovenox IV hydration creat down to normal, avoid nephrotoxics nutrition via NGT, aspiration precautions mild hyperglycemia noted , probably due to steroids? on SSI/low dose, sensitive , HgA1c -6 - borderline DM trend LFT , CK trended down, case discussed and evaluated by supervising physician Critical Care - Objective Last 24 Hour Vital Signs Date Time Temp Pulse Resp B/P (MAP) Pulse Ox O2 Delivery O2 Flow Rate FiO2 09/30/19 08:00 12.0 60 09/30/19 07:50 91 Cool Aerosol 10.0 40 09/30/19 07:00 86 40 108/57 (74) 91 09/30/19 06:00 80 34 104/56 (72) 94 09/30/19 05:00 78 37 102/58 (73) 93 09/30/19 04:00 Venturi Mask 15.0 Venturi Mask 15.0 09/30/19 04:00 98.9 81 25 103/64 (77) 87 09/30/19 04:00 81 09/30/19 04:00 10.0 60 09/30/19 03:00 74 36 100/54 (69) 95 09/30/19 02:00 78 32 100/53 (69) 99 09/30/19 01:32 98 Cool Aerosol 12.0 60 09/30/19 01:00 84 37 119/76 (90) 92 09/30/19 00:00 99.0 76 28 101/53 (69) 97 09/30/19 00:00 76 09/30/19 00:00 Venturi Mask 15.0 Venturi Mask 15.0 09/30/19 00:00 15.0 60 09/29/19 23:00 76 102/60 (74) 09/29/19 22:00 83 38 100/51 (67) 95 09/29/19 21:00 76 38 121/67 (85) 96 09/29/19 20:16 98 Cool Aerosol 15.0 80 09/29/19 20:00 Venturi Mask 15.0 Venturi Mask 15.0 09/29/19 20:00 15.0 80 09/29/19 20:00 99.1 69 37 122/64 (83) 98 09/29/19 20:00 96 09/29/19 19:00 77 38 132/63 (86) 99 09/29/19 18:00 81 36 131/63 (85) 95 09/29/19 17:00 78 35 117/61 (79) 95 09/29/19 16:00 80 09/29/19 16:00 Venturi Mask 15.0 Venturi Mask 15.0 09/29/19 16:00 15.0 80 09/29/19 16:00 99.0 75 43 129/69 (89) 98 09/29/19 15:30 87 23 129/58 (81) 95 09/29/19 15:00 80 40 97 09/29/19 14:00 94 31 127/66 (86) 95 09/29/19 13:00 81 38 114/56 (75) 90 09/29/19 12:00 98.9 90 42 114/56 (75) 90 09/29/19 12:00 Venturi Mask 12.0 Venturi Mask 12.0 09/29/19 12:00 15.0 80 09/29/19 12:00 81 09/29/19 11:00 90 41 121/61 (81) 91 09/29/19 10:00 84 40 128/57 (80) 89 09/29/19 09:00 82 36 106/62 (77) 90 Objective: Status: awake, responsive, s/p extubation 09/27 Condition: with some improvement HEENT: atraumatic, normocephalic, NGT, 40 % FiO2 on VM Lungs: few isolated rhonchi, tachypnea Heart: HR/BP stable Abdomen: soft, non-tender, active bowel sounds : F/c Extremities: no edema Micro: Microbiology Date/Time Source Procedure Growth Status 09/28/19 11:52 Blood Blood Culture - Preliminary NO GROWTH AFTER 24 HOURS Resulted 09/28/19 11:43 Blood Blood Culture - Preliminary NO GROWTH AFTER 24 HOURS Resulted 09/28/19 12:00 Sputum Induced Gram Stain - Final Resulted 09/28/19 12:00 Sputum Culture - Preliminary Gram Negative Bacillus 1 Usual Respiratory Deana Resulted 09/29/19 04:40 Stool Clostridium difficile Toxin Assay - Final Complete 09/28/19 12:00 Urine,Clean Catch Urine Culture - Preliminary NO GROWTH Resulted Accucheck: 128 Critical Care - Subjective ROS Limited/Unobtainable: Yes Interval Events: still hypoxic and tachypneic, on VM FiO2 from 60% down to 40 % , this am ABG on this setting with hypoxia leuk trending down no fevers CXR pending for this am Condition: improving IV Access: peripheral EKG Rhythm: Sinus Rhythm FI02: 60 Vent Support Breath Rate: 24 Vent Support Mode: AC Vent Tidal Volume: 500 Sputum Amount: Small PEEP: 5.0 PIP: 28 Secretions: moderate white thick Tube Feeding Amount: 0 I&O: Intake and Output 09/29/19 09/30/19 19:00 07:00 Intake Total 1006.5000 ml 1405 ml Output Total 1500 ml 1600 ml Balance -493.5000 ml -195 ml Free Water 150 ml IV Total 726.5000 ml 855 ml Tube Feeding 280 ml 400 ml Output Urine Total 1500 ml 1600 ml CXR: 09/27 Worsening hazy bilateral diffuse airspace opacities. ET-Tube: 7.0 ET Position: 24 Raghav De MD 09/30/19 1350: Critical Care - Asmt/Plan Assessment/Plan: Patient seen and examined with MACHINING TECHNICIAN, agree with A&P as it reflects our joint deliberations. D/W CCRN, charge master analyst, RT. Titrate HF, OOB as able, mobilize, check repeat COVID, check D-dimer and duplex. CCT 40 Neena Lees NP September 30, 2019 09:02 Raghav De MD September 30, 2019 13:50
[2019-09-30] MEDS: Solu-MEDROL 40mg Inj IVP SCH ×2 (10:29→20:31)
[2019-09-30] MEDS: Vancomycin 1.25gm/NS Premix IVPB SCH ×3 (10:29→22:19)
--- NOTE | 2019-09-30 10:36 | Diagnostic Imaging Report ---
Indication: Shortness of breath Technique: One view of the chest Comparison: 09/28/2019 Findings: Stable satisfactory position of nasogastric tube. Bilateral mostly peripheral and basilar infiltrates are again demonstrated, appears similar on the left, slightly worse on the right. The endotracheal tube is no longer evident. Impression: Interim of endotracheal extubation Stable left and slightly increased right-sided infiltrates, likely pneumonia
--- NOTE | 2019-09-30 16:25 | General Progress Note ---
Assessment/Plan Problem List: (1) Glucose intolerance ICD Codes: E74.39 - Other disorders of intestinal carbohydrate absorption SNOMED: 72380023 (2) Respiratory failure with hypoxia ICD Codes: J96.91 - Respiratory failure, unspecified with hypoxia SNOMED: 12190414093704987, 054781700 Qualifiers: Qualified Codes: J96.01 - Acute respiratory failure with hypoxia (3) Pneumonia due to COVID-19 virus ICD Codes: U07.1 - COVID-19; J12.89 - Other viral pneumonia SNOMED: 899116533, 380746057 (4) ARDS (adult respiratory distress syndrome) ICD Codes: J80 - Acute respiratory distress syndrome SNOMED: 05795049, 97487189 (5) Transaminitis ICD Codes: R74.0 - Nonspecific elevation of levels of transaminase and lactic acid dehydrogenase [LDH] SNOMED: 507180753, 482640962 (6) Rhabdomyolysis ICD Codes: M62.82 - Rhabdomyolysis SNOMED: 088674167 (7) JOE (acute kidney injury) ICD Codes: N17.9 - Acute kidney failure, unspecified SNOMED: 3241096, 82043489 Assessment/Plan: icu, on antibiotics, plaquenil ordered by pulm, worsening resp failure, intubated, SS insulin, steroids tapering, started grave status d/w daughter, lytes ok, comfort measures,cxr slightly worse now extubated but tachypneic, continue close monitoring, icu orders updated, icu time 35 min Subjective Constitutional: Reports: weakness HEENT: Reports: no symptoms Cardiovascular: Reports: no symptoms Respiratory: Reports: shortness of breath Gastrointestinal/Abdominal: Reports: no symptoms Genitourinary: Reports: no symptoms Neurologic/Psychiatric: Reports: no symptoms Endocrine: Reports: no symptoms Allergies: Coded Allergies: No Known Allergies (Unverified , 09/18/19) Objective Last 24 Hour Vital Signs Date Time Temp Pulse Resp B/P (MAP) Pulse Ox O2 Delivery O2 Flow Rate FiO2 09/30/19 12:27 97.4 09/30/19 12:00 Venturi Mask 10.0 Venturi Mask 10.0 09/30/19 12:00 10.0 60 09/30/19 12:00 97.4 71 39 122/57 (78) 100 09/30/19 12:00 89 09/30/19 11:00 80 39 125/61 (82) 95 09/30/19 10:00 79 40 105/61 (76) 99 09/30/19 09:00 79 40 110/54 (72) 97 09/30/19 09:00 10.0 60 09/30/19 08:00 12.0 60 09/30/19 08:00 98.1 81 41 110/61 (77) 97 09/30/19 08:00 Venturi Mask 10.0 Venturi Mask 10.0 09/30/19 08:00 79 09/30/19 07:50 91 Cool Aerosol 10.0 40 09/30/19 07:00 86 40 108/57 (74) 91 09/30/19 06:00 80 34 104/56 (72) 94 09/30/19 05:00 78 37 102/58 (73) 93 09/30/19 04:00 Venturi Mask 15.0 Venturi Mask 15.0 09/30/19 04:00 98.9 81 25 103/64 (77) 87 09/30/19 04:00 81 09/30/19 04:00 10.0 60 09/30/19 03:00 74 36 100/54 (69) 95 09/30/19 02:00 78 32 100/53 (69) 99 09/30/19 01:32 98 Cool Aerosol 12.0 60 09/30/19 01:00 84 37 119/76 (90) 92 09/30/19 00:00 99.0 76 28 101/53 (69) 97 09/30/19 00:00 76 09/30/19 00:00 Venturi Mask 15.0 Venturi Mask 15.0 09/30/19 00:00 15.0 60 09/29/19 23:00 76 102/60 (74) 09/29/19 22:00 83 38 100/51 (67) 95 09/29/19 21:00 76 38 121/67 (85) 96 09/29/19 20:16 98 Cool Aerosol 15.0 80 09/29/19 20:00 Venturi Mask 15.0 Venturi Mask 15.0 09/29/19 20:00 15.0 80 09/29/19 20:00 99.1 69 37 122/64 (83) 98 09/29/19 20:00 96 09/29/19 19:00 77 38 132/63 (86) 99 09/29/19 18:00 81 36 131/63 (85) 95 09/29/19 17:00 78 35 117/61 (79) 95 Intake and Output 09/29/19 09/30/19 19:00 07:00 Intake Total 1006.5000 ml 1405 ml Output Total 1500 ml 1600 ml Balance -493.5000 ml -195 ml Free Water 150 ml IV Total 726.5000 ml 855 ml Tube Feeding 280 ml 400 ml Output Urine Total 1500 ml 1600 ml Laboratory Tests 09/29/19 21:20: Vancomycin Level Trough 3.8L 09/30/19 04:15: White Blood Count 14.8H, Red Blood Count 4.29, Hemoglobin 13.5, Hematocrit 38.7 , Mean Corpuscular Volume 90, Mean Corpuscular Hemoglobin 31.4H, Mean Corpuscular Hemoglobin Concent 34.8, Red Cell Distribution Width 11.8, Platelet Count 206, Mean Platelet Volume 6.5, Neutrophils (%) (Auto) , Lymphocytes (%) ( Auto) , Monocytes (%) (Auto) , Eosinophils (%) (Auto) , Basophils (%) (Auto) , Differential Total Cells Counted 100, Neutrophils % (Manual) 96H, Lymphocytes % (Manual) 3L, Monocytes % (Manual) 1, Eosinophils % (Manual) 0, Basophils % ( Manual) 0, Band Neutrophils 0, Platelet Estimate Adequate, Platelet Morphology Normal, Red Blood Cell Morphology Normal, Sodium Level 137, Potassium Level 5.4H , Chloride Level 102, Carbon Dioxide Level 22, Anion Gap 13, Blood Urea Nitrogen 20H, Creatinine 0.5L, Estimat Glomerular Filtration Rate > 60, Glucose Level 115H, Calcium Level 8.4L, Total Creatine Kinase 61 09/30/19 07:55: Arterial Blood pH 7.510H, Arterial Blood Partial Pressure CO2 33.5L, Arterial Blood Partial Pressure O2 49.2*L, Arterial Blood HCO3 26.1H, Arterial Blood Oxygen Saturation 85.7*L, Arterial Blood Base Excess 3.5H, Luis Test Positive Height (Feet): 5 Height (Inches): 2.00 Weight (Pounds): 155 General Appearance: mild distress EENT: normal ENT inspection Neck: supple Cardiovascular: normal rate, regular rhythm Respiratory/Chest: accessory muscle use Abdomen: soft Edema: no edema noted Arm (L), no edema noted Arm (R), no edema noted Leg (L), no edema noted Leg (R), no edema noted Pedal (L), no edema noted Pedal (R), no edema noted Generalized Neurologic: aircraft engineer II-XII grossly normal Hung Zuniga MD September 30, 2019 16:25
--- NOTE | 2019-09-30 20:15 | Infectious Diseases Prog Note ---
Assessment/Plan Assessment/Plan ASSESSMENT AND PLAN: 1. covid-19 virus infection, pna, ? cap, respiratory failure, sepsis, steroids, vent, leukocytosis, fevers leukocytosis significantly worse, chest x-ray worse extubated, sob, BM, no pressors gram neg pna - sputum culture with gram neg - s/p hydroxychloroquine - zosyn and vancomycin - day #3 - monitor labs and chest x-ray - may need tocilizumab - f/u on sputum culture - leukocytosis improved 2. No other significant past medical history. 3. No known allergies. 4. Social history negative. 5. Family history noncontributory. 6. MAR was noted. 7. Case discussed with RN. 8. Continue treatment per primary consultants. Subjective Constitutional: Reports: fatigue, other - extubated, no pressors, + BM; Denies : fever HEENT: Reports: congestion Respiratory: Reports: shortness of breath Cardiovascular: Reports: chest pain - no pressors , other - no prerssors Gastrointestinal/Abdominal: Denies: nausea, vomiting, diarrhea Genitourinary: Reports: other - + zamora Psychiatric: Reports: other - NA; Denies: depression Skin: Denies: rash Hematologic: Denies: bleeding Musculoskeletal: Denies: pain Allergies: Coded Allergies: No Known Allergies (Unverified , 09/18/19) Objective Vital Signs Last 24 Hour Vital Signs Date Time Temp Pulse Resp B/P (MAP) Pulse Ox O2 Delivery O2 Flow Rate FiO2 09/30/19 19:00 67 37 144/52 (82) 100 09/30/19 18:00 67 38 143/34 (70) 100 09/30/19 17:00 68 27 156/47 (83) 98 09/30/19 16:00 100 09/30/19 16:00 74 09/30/19 16:00 97.2 66 37 135/47 (76) 99 09/30/19 16:00 Venturi Mask 10.0 Venturi Mask 10.0 09/30/19 15:00 67 34 137/70 (92) 99 09/30/19 14:00 66 36 149/71 (97) 100 09/30/19 13:32 91 Non-Rebreather 15.0 100 09/30/19 13:00 68 37 146/71 (96) 100 09/30/19 12:27 97.4 09/30/19 12:00 Venturi Mask 10.0 Venturi Mask 10.0 09/30/19 12:00 10.0 60 09/30/19 12:00 97.4 71 39 122/57 (78) 100 09/30/19 12:00 89 09/30/19 11:00 80 39 125/61 (82) 95 09/30/19 10:00 79 40 105/61 (76) 99 09/30/19 09:00 79 40 110/54 (72) 97 09/30/19 09:00 10.0 60 09/30/19 08:00 12.0 60 09/30/19 08:00 98.1 81 41 110/61 (77) 97 09/30/19 08:00 Venturi Mask 10.0 Venturi Mask 10.0 09/30/19 08:00 79 09/30/19 07:50 91 Cool Aerosol 10.0 40 09/30/19 07:00 86 40 108/57 (74) 91 09/30/19 06:00 80 34 104/56 (72) 94 09/30/19 05:00 78 37 102/58 (73) 93 09/30/19 04:00 Venturi Mask 15.0 Venturi Mask 15.0 09/30/19 04:00 98.9 81 25 103/64 (77) 87 09/30/19 04:00 81 09/30/19 04:00 10.0 60 09/30/19 03:00 74 36 100/54 (69) 95 09/30/19 02:00 78 32 100/53 (69) 99 09/30/19 01:32 98 Cool Aerosol 12.0 60 09/30/19 01:00 84 37 119/76 (90) 92 09/30/19 00:00 99.0 76 28 101/53 (69) 97 09/30/19 00:00 76 09/30/19 00:00 Venturi Mask 15.0 Venturi Mask 15.0 09/30/19 00:00 15.0 60 09/29/19 23:00 76 102/60 (74) 09/29/19 22:00 83 38 100/51 (67) 95 09/29/19 21:00 76 38 121/67 (85) 96 09/29/19 20:16 98 Cool Aerosol 15.0 80 Height (Feet): 5 Height (Inches): 2.00 Weight (Pounds): 155 General Appearance: other - + BM and sob, no pressors, extubated HEENT: normocephalic, atraumatic, anicteric Respiratory/Chest: crackles/rales, rhonchi - bilaterally Cardiovascular: normal rate, regular rhythm, no gallop/murmur, no JVD Abdomen: normal bowel sounds, soft, non tender, no organomegaly, non distended Genitourinary: other - + zamora Extremities: no cyanosis Skin: no rash Neurologic/Psychiatric: outside b2b sales II-XII grossly normal, alert, oriented x 3, responsive Lymphatic: no neck adenopathy Musculoskeletal: no effusion Objective Chest x-ray - 09/22/19 - EXAM: XR Chest, 1 View CLINICAL HISTORY: SOB TECHNIQUE: Frontal view of the chest. COMPARISON: Chest x-ray 09/21/19 913 FINDINGS: Lungs: Improved aeration of the lung. Mild bilateral interstitial and hazy lung opacities are similar. Pleural space: Unremarkable. No pneumothorax. Heart: Unremarkable. No cardiomegaly. Mediastinum: Unremarkable. Bones/joints: Unremarkable. Tubes, lines and devices: Endotracheal tube and NG tube are stable. IMPRESSION: Improved aeration of the lung. Mild bilateral interstitial and hazy lung opacities are similar. Chest x-ray - 09/23/19 - Procedure: XRAY Chest 1v Indication: Shortness of breath Technique: One view of the chest Comparison: 09/22/2019 Findings: Less optimal inspiration on current exam. Bilateral diffuse hazy airspace opacities are probably similar to the prior study allowing for differences in degree of inspiration. Stable satisfactory positions of endotracheal and orogastric tubes Impression: Unchanged, over one day, findings as above. Chest x-ray - 09/26/19 - Procedure: XRAY Chest 1v Indication: Shortness of breath Technique: One view of the chest Comparison: 09/25/2019 Findings: Bilateral interstitial and hazy airspace disease is unchanged. Stable satisfactory endotracheal and nasogastric tube positions. Impression: Unchanged, over one day, findings as above. Chest x-ray - 09/28/19 - TECHNIQUE: Frontal view of the chest. COMPARISON: Chest x-ray 09/27/19 834 FINDINGS: Lungs: Worsening hazy bilateral diffuse airspace opacities. Hypoventilatory lungs. Pleural space: Unremarkable. No pneumothorax. Heart: Unremarkable. No cardiomegaly. Mediastinum: Unremarkable. Bones/joints: Unremarkable. Tubes, lines and devices: ET tube and NG tube are stable. IMPRESSION: Worsening hazy bilateral diffuse airspace opacities. Chest x-ray - 09/30/19 - Procedure: XRAY Chest 1v Indication: Shortness of breath Technique: One view of the chest Comparison: 09/28/2019 Findings: Stable satisfactory position of nasogastric tube. Bilateral mostly peripheral and basilar infiltrates are again demonstrated, appears similar on the left, slightly worse on the right. The endotracheal tube is no longer evident. Impression: Interim of endotracheal extubation Stable left and slightly increased right-sided infiltrates, likely pneumonia Microbiology Date/Time Source Procedure Growth Status 09/28/19 11:52 Blood Blood Culture - Preliminary NO GROWTH AFTER 24 HOURS Resulted 09/28/19 11:43 Blood Blood Culture - Preliminary NO GROWTH AFTER 24 HOURS Resulted 09/28/19 12:00 Sputum Induced Gram Stain - Final Resulted 09/28/19 12:00 Sputum Culture - Preliminary Gram Negative Bacillus 1 Usual Respiratory Deana Resulted 09/29/19 04:40 Stool Clostridium difficile Toxin Assay - Final Complete 09/28/19 12:00 Urine,Clean Catch Urine Culture - Preliminary NO GROWTH Resulted Laboratory Tests Test 09/29/19 21:20 09/30/19 04:15 09/30/19 07:55 09/30/19 19:20 Vancomycin Level Trough 3.8 ug/mL (5.0-12.0) L White Blood Count 14.8 K/UL (4.8-10.8) H Red Blood Count 4.29 M/UL (4.20-5.40) Hemoglobin 13.5 G/DL (12.0-16.0) Hematocrit 38.7 % (37.0-47.0) Mean Corpuscular Volume 90 FL (80-99) Mean Corpuscular Hemoglobin 31.4 PG (27.0-31.0) H Mean Corpuscular Hemoglobin Concent 34.8 G/DL (32.0-36.0) Red Cell Distribution Width 11.8 % (11.6-14.8) Platelet Count 206 K/UL (150-450) Mean Platelet Volume 6.5 FL (6.5-10.1) Neutrophils (%) (Auto) % (45.0-75.0) Lymphocytes (%) (Auto) % (20.0-45.0) Monocytes (%) (Auto) % (1.0-10.0) Eosinophils (%) (Auto) % (0.0-3.0) Basophils (%) (Auto) % (0.0-2.0) Differential Total Cells Counted 100 Neutrophils % (Manual) 96 % (45-75) H Lymphocytes % (Manual) 3 % (20-45) L Monocytes % (Manual) 1 % (1-10) Eosinophils % (Manual) 0 % (0-3) Basophils % (Manual) 0 % (0-2) Band Neutrophils 0 % (0-8) Platelet Estimate Adequate Platelet Morphology Normal Red Blood Cell Morphology Normal Sodium Level 137 MMOL/L (136-145) Potassium Level 5.4 MMOL/L (3.5-5.1) H Chloride Level 102 MMOL/L (98-107) Carbon Dioxide Level 22 MMOL/L (21-32) Anion Gap 13 mmol/L (5-15) Blood Urea Nitrogen 20 mg/dL (7-18) H Creatinine 0.5 MG/DL (0.55-1.30) L Estimat Glomerular Filtration Rate > 60 mL/min (>60) Glucose Level 115 MG/DL (74-106) H Calcium Level 8.4 MG/DL (8.5-10.1) L Total Creatine Kinase 61 U/L (26-308) Arterial Blood pH 7.510 (7.350-7.450) Arterial Blood Partial Pressure CO2 33.5 mmHg (35.0-45.0) L Arterial Blood Partial Pressure O2 49.2 mmHg (75.0-100.0) Arterial Blood HCO3 26.1 mmol/L (22.0-26.0) H Arterial Blood Oxygen Saturation 85.7 % (95-100) *L Arterial Blood Base Excess 3.5 (-2-2) H Luis Test Positive D-Dimer Pending Current Medications Medications (Trade) Dose Ordered Sig/Sam Route PRN Reason Start Time Stop Time Status Last Admin Dose Admin Acetaminophen (Tylenol) 650 mg Q4H PRN ORAL Temp >100.5 09/20/19 16:28 10/20/19 16:27 09/21/19 21:52 Acetaminophen (Tylenol) 650 mg Q4H PRN ORAL Mild Pain (Pain Scale 1-3) 09/20/19 16:28 10/20/19 16:27 09/30/19 10:31 Albuterol Sulfate (Proventil MDI) 2 puff Q4H PRN INH Shortness of Breath 09/20/19 16:28 12/19/19 16:27 Atropine Sulfate (Atropine) 1 mg NEEDED PRN IVP HR<40 09/21/19 13:00 10/21/19 12:59 Dextrose (Dextrose 50%) 25 ml Q30M PRN IV Hypoglycemia 09/20/19 16:45 12/19/19 16:14 Dextrose (Dextrose 50%) 50 ml Q30M PRN IV Hypoglycemia 09/20/19 16:45 12/19/19 16:14 Diphenoxylate HCl/ Atropine (Lomotil) 2.5 mg Q4H PRN ORAL Diarrhea 09/29/19 12:30 10/29/19 12:29 09/29/19 15:05 Enoxaparin Sodium (Lovenox) 60 mg QHS SUBQ 09/21/19 21:00 12/20/19 20:59 09/29/19 20:40 Insulin Aspart (NovoLOG) Q6HR SUBQ 09/27/19 00:00 12/26/19 00:00 09/28/19 06:42 Lorazepam (Ativan 2mg/ml 1ml) 2 mg Q4H PRN IV For Anxiety 09/26/19 10:00 10/03/19 09:59 09/29/19 20:39 Methylprednisolone Sodium Succinate (Solu-MEDROL) 20 mg Q12HR IVP 09/27/19 09:00 12/18/19 20:59 09/30/19 10:29 Ondansetron HCl (Zofran) 4 mg Q6H PRN IVP Nausea & Vomiting 09/20/19 16:29 10/20/19 16:28 Piperacillin Sod/ Tazobactam Sod 3.375 gm/Sodium Chloride 110 ml @ 27.5 mls/hr EVERY 8 HOURS IVPB 09/28/19 14:00 10/03/19 13:59 09/30/19 14:59 Polyethylene Glycol (Miralax) 17 gm HSPRN PRN ORAL Constipation 09/20/19 16:29 10/20/19 16:28 Sodium Chloride 1,000 ml @ 30 mls/hr Q24H IV 09/28/19 10:30 10/28/19 10:29 09/30/19 10:30 Vancomycin HCl (Vanco rx to dose) 1 ea DAILY PRN MISC Per rx protocol 09/28/19 10:00 10/28/19 09:59 Vancomycin/Sodium Chloride 275 ml @ 184 mls/hr Q8H IVPB 09/29/19 23:00 10/04/19 22:59 09/30/19 14:59 Enedina Ceja MD September 30, 2019 20:15
[2019-09-30] MEDS: Enoxaparin 60mg Inj SUBQ SCH (20:33)
[2019-10-01] VITALS (27 sets, daily range): BP systolic 117–167; BP diastolic 42–67
[2019-10-01] MEDS: Piperacillin/Tazobactam 3.375 GM in NS 110 ML IVPB SCH (06:00)
[2019-10-01] MEDS: NovoLOG Insulin Flexpen SUBQ SCH ×4 (06:00→17:31)
[2019-10-01 06:52] LABS: HEMOGLOBIN 13.6 G/DL (12.0-16.0); MEAN CORPUSCULAR VOLUME 89 FL (80-99); PLATELET COUNT 392 K/UL (150-450); RED BLOOD COUNT 4.39 M/UL (4.20-5.40); RED CELL DISTRIBUTION WIDTH 11.5 % (11.6-14.8); WHITE BLOOD COUNT 14.5 K/UL (4.8-10.8)
[2019-10-01 07:30] LABS: ALANINE AMINOTRANSFERASE 57 U/L (12-78); ALBUMIN 2.8 G/DL (3.4-5.0); ALBUMIN/GLOBULIN RATIO 0.7 (1.0-2.7); ALKALINE PHOSPHATASE 102 U/L (46-116); ANION GAP 10 mmol/L (5-15); ASPARTATE AMINO TRANSFERASE 32 U/L (15-37); BILIRUBIN,TOTAL 0.8 MG/DL (0.2-1.0); BLOOD UREA NITROGEN 21 mg/dL (7-18); CALCIUM 9.2 MG/DL (8.5-10.1); CARBON DIOXIDE 26 MMOL/L (21-32); CHLORIDE 103 MMOL/L (98-107); CREATININE 0.6 MG/DL (0.55-1.30); POTASSIUM 4.2 MMOL/L (3.5-5.1); SODIUM 139 MMOL/L (136-145)
--- NOTE | 2019-10-01 08:07 | Pulmonolgy Critical Care Note ---
Neena Lees EMPLOYMENT EVALUATOR/CASE MANAGER 10/01/19 0807: Critical Care - Asmt/Plan Assessment/Plan: ASSESSMENT Acute hypoxemic respiratory failure requiring intubation, s/p extubation 09/27 Multilobar PNA, likely due to COVID 19 infection ( confirmed prior) JOE -resolved Mild transaminitis Borderline diabetes Elevated CK/ rhabdo - CK trending down PLAN OF CARE ICU s/p intubation 09/19 s/p extubation 09/27 last night required 100% NRM currently on 10L O2 VM still tachypneic titrate Fio2 to keep sat above 90% CXR 09/29 with findings of PNA Venous Duplex BLE pending CXR 10/01 and ABG in am MDI with spacer in line SARS -CoV -2 by PCR 09/17 came back non detected repeated SARS-CoV-2 by PCR 09/20 positive, continue isolation s/p Plaquenil x5 days, completed ceftriaxone Doxy dc now on Zosyn since 09/27 as per ID , SCX + GNR, stool C dif -NGT, UCX -NGT leuk trending down , remains afebrile will speak with pharmacy if can get Tocoluzimab for her if clinically worse, however appears to be with some improvement though still significantly hypoxic BCX 09/17 NGTD on Solumedrol now 20 mg IV bid with further tapering down soon leukocytosis may be partially reactive due to steroids as well trend CRP, LDH, ferritin: LDH 486, CRP 31, ferritin 582, IL 6 15.6, 09/24 ferritin 549 and CRP 20, both trending down, LDH 644 - with trend up , IL -6 18.6 , prior IL-6 15.6 DVT prophylaxis with Lovenox IV hydration creat down to normal, avoid nephrotoxics nutrition via NGT, aspiration precautions mild hyperglycemia noted , probably due to steroids? on SSI/low dose, sensitive , HgA1c -6 - borderline DM trend LFT , CK trended down, case discussed and evaluated by supervising physician Critical Care - Objective Last 24 Hour Vital Signs Date Time Temp Pulse Resp B/P (MAP) Pulse Ox O2 Delivery O2 Flow Rate FiO2 10/01/19 07:00 73 36 153/56 (88) 93 10/01/19 06:00 68 36 148/59 (88) 94 10/01/19 05:00 80 29 149/56 (87) 98 10/01/19 04:00 60 10/01/19 04:00 Venturi Mask 10.0 Venturi Mask 10.0 10/01/19 04:00 100 10/01/19 04:00 98.3 60 37 136/42 (73) 100 10/01/19 03:00 56 37 130/50 (76) 100 10/01/19 02:00 66 36 117/49 (71) 100 10/01/19 01:00 61 31 122/43 (69) 100 10/01/19 00:55 99 Non-Rebreather 15.0 100 10/01/19 00:00 Venturi Mask 10.0 Venturi Mask 10.0 10/01/19 00:00 100 10/01/19 00:00 98.4 69 38 148/54 (85) 98 10/01/19 00:00 59 09/30/19 23:00 65 32 125/49 (74) 100 09/30/19 22:00 58 17 131/43 (72) 100 09/30/19 21:00 67 32 152/58 (89) 100 09/30/19 20:00 100 09/30/19 20:00 67 09/30/19 20:00 Venturi Mask 10.0 Venturi Mask 10.0 09/30/19 20:00 98.8 68 19 153/51 (85) 97 09/30/19 19:12 100 Non-Rebreather 15.0 100 09/30/19 19:00 67 37 144/52 (82) 100 09/30/19 18:00 67 38 143/34 (70) 100 09/30/19 17:00 68 27 156/47 (83) 98 09/30/19 16:00 100 09/30/19 16:00 74 09/30/19 16:00 97.2 66 37 135/47 (76) 99 09/30/19 16:00 Venturi Mask 10.0 Venturi Mask 10.0 09/30/19 15:00 67 34 137/70 (92) 99 09/30/19 14:00 66 36 149/71 (97) 100 09/30/19 13:32 91 Non-Rebreather 15.0 100 09/30/19 13:00 68 37 146/71 (96) 100 09/30/19 12:27 97.4 09/30/19 12:00 Venturi Mask 10.0 Venturi Mask 10.0 09/30/19 12:00 10.0 60 09/30/19 12:00 97.4 71 39 122/57 (78) 100 09/30/19 12:00 89 09/30/19 11:00 80 39 125/61 (82) 95 09/30/19 10:00 79 40 105/61 (76) 99 09/30/19 09:00 79 40 110/54 (72) 97 09/30/19 09:00 10.0 60 Objective: Status: awake, responsive, s/p extubation 09/27 Condition: with some improvement , still hypoxic and tachypneic HEENT: atraumatic, normocephalic, NGT, 10 L on VM Lungs: few isolated rhonchi, tachypnea Heart: HR/BP stable Abdomen: soft, non-tender, active bowel sounds : F/c Extremities: no edema Micro: Microbiology Date/Time Source Procedure Growth Status 09/28/19 11:52 Blood Blood Culture - Preliminary NO GROWTH AFTER 48 HOURS Resulted 09/28/19 11:43 Blood Blood Culture - Preliminary NO GROWTH AFTER 48 HOURS Resulted 09/28/19 12:00 Sputum Induced Gram Stain - Final Complete 09/28/19 12:00 Sputum Culture - Final Enterobacter Aerogenes Usual Respiratory Deana Complete 09/29/19 04:40 Stool Clostridium difficile Toxin Assay - Final Complete 09/28/19 12:00 Urine,Clean Catch Urine Culture - Preliminary NO GROWTH AFTER 24 HOURS Resulted Accucheck: 114 Critical Care - Subjective ROS Limited/Unobtainable: Yes Interval Events: 09/29 hypoxic on VM 40%, changed to 100% NRM with repeated ABG/stable sat this am om VM 10L ABG pending tachypneic afebrile, leuk trending down CXR 09/29 with evidence of PNA Condition: critical IV Access: peripheral EKG Rhythm: Sinus Rhythm FI02: 100 Vent Support Breath Rate: 24 Vent Support Mode: AC Vent Tidal Volume: 500 Sputum Amount: Small PEEP: 5.0 PIP: 28 Fluids: NS at 30 Tube Feeding Amount: 40 I&O: Intake and Output 09/30/19 10/01/19 19:00 07:00 Intake Total 1325.0 ml 1599.41195 ml Output Total 1100 ml 1735 ml Balance 225.0 ml -135.24966 ml Free Water 300 ml IV Total 1005.0 ml 819.73389 ml Tube Feeding 320 ml 480 ml Output Urine Total 1100 ml 1735 ml CXR: CXR 09/29 Stable left and slightly increased right-sided infiltrates, likely pneumonia ET-Tube: 7.0 ET Position: 24 Raghav De MD 10/01/19 1158: Critical Care - Asmt/Plan Assessment/Plan: Patient seen and examined with EMPLOYMENT EVALUATOR/CASE MANAGER, agree with above A&P as it reflects our joint deliberations. AFVSS on VM, better, jennifer NGTF's, O2 needs stable. Transfer to [facility] TEACH[facility] eval Titrate O2, attempt regular NC Abx (Vanco/Zosyn) per ID Monitor volumes and renal function F/U repeat COVID DVT Px: LMWH CCT 35 D/W CCRN, ICU credit charge authorizer, RT and Dr. Zuniga @ bedside Neena Lees NP October 01, 2019 08:07 Raghav De MD October 01, 2019 11:58
[2019-10-01] MEDS: Solu-MEDROL 40mg Inj IVP SCH ×2 (09:15→20:19)
--- NOTE | 2019-10-01 12:06 | General Progress Note ---
Assessment/Plan Problem List: (1) Glucose intolerance ICD Codes: E74.39 - Other disorders of intestinal carbohydrate absorption SNOMED: 49826723 (2) Respiratory failure with hypoxia ICD Codes: J96.91 - Respiratory failure, unspecified with hypoxia SNOMED: 86624153488225180, 308617088 Qualifiers: Qualified Codes: J96.01 - Acute respiratory failure with hypoxia (3) Pneumonia due to COVID-19 virus ICD Codes: U07.1 - COVID-19; J12.89 - Other viral pneumonia SNOMED: 906503988, 031390917 (4) ARDS (adult respiratory distress syndrome) ICD Codes: J80 - Acute respiratory distress syndrome SNOMED: 33423193, 89567710 (5) Transaminitis ICD Codes: R74.0 - Nonspecific elevation of levels of transaminase and lactic acid dehydrogenase [LDH] SNOMED: 373689782, 909817288 (6) Rhabdomyolysis ICD Codes: M62.82 - Rhabdomyolysis SNOMED: 649576054 (7) JOE (acute kidney injury) ICD Codes: N17.9 - Acute kidney failure, unspecified SNOMED: 3849660, 40589466 Assessment/Plan: icu, on antibiotics, plaquenil ordered by pulm, worsening resp failure, intubated, SS insulin, steroids tapering, started,lytes ok, less dyspnea, improving st swallow eval edison zamora icu order updated,; 34 min Subjective ROS Limited/Unobtainable: Yes Allergies: Coded Allergies: No Known Allergies (Unverified , 09/18/19) Objective Last 24 Hour Vital Signs Date Time Temp Pulse Resp B/P (MAP) Pulse Ox O2 Delivery O2 Flow Rate FiO2 10/01/19 11:00 76 37 153/47 (82) 95 10/01/19 10:00 73 30 146/45 (78) 96 10/01/19 09:00 98.5 69 35 142/50 (80) 95 10/01/19 08:00 14.0 55 10/01/19 08:00 Venturi Mask 10.0 Venturi Mask 10.0 10/01/19 08:00 64 31 128/66 (86) 97 10/01/19 08:00 78 10/01/19 07:00 73 36 153/56 (88) 93 10/01/19 06:00 68 36 148/59 (88) 94 10/01/19 05:00 80 29 149/56 (87) 98 10/01/19 04:00 60 10/01/19 04:00 Venturi Mask 10.0 Venturi Mask 10.0 10/01/19 04:00 100 10/01/19 04:00 98.3 60 37 136/42 (73) 100 10/01/19 03:00 56 37 130/50 (76) 100 10/01/19 02:00 66 36 117/49 (71) 100 10/01/19 01:00 61 31 122/43 (69) 100 10/01/19 00:55 99 Non-Rebreather 15.0 100 10/01/19 00:00 Venturi Mask 10.0 Venturi Mask 10.0 10/01/19 00:00 100 10/01/19 00:00 98.4 69 38 148/54 (85) 98 10/01/19 00:00 59 09/30/19 23:00 65 32 125/49 (74) 100 09/30/19 22:00 58 17 131/43 (72) 100 09/30/19 21:00 67 32 152/58 (89) 100 09/30/19 20:00 100 09/30/19 20:00 67 09/30/19 20:00 Venturi Mask 10.0 Venturi Mask 10.0 09/30/19 20:00 98.8 68 19 153/51 (85) 97 09/30/19 19:12 100 Non-Rebreather 15.0 100 09/30/19 19:00 67 37 144/52 (82) 100 09/30/19 18:00 67 38 143/34 (70) 100 09/30/19 17:00 68 27 156/47 (83) 98 09/30/19 16:00 100 09/30/19 16:00 74 09/30/19 16:00 97.2 66 37 135/47 (76) 99 09/30/19 16:00 Venturi Mask 10.0 Venturi Mask 10.0 09/30/19 15:00 67 34 137/70 (92) 99 09/30/19 14:00 66 36 149/71 (97) 100 09/30/19 13:32 91 Non-Rebreather 15.0 100 09/30/19 13:00 68 37 146/71 (96) 100 09/30/19 12:27 97.4 Intake and Output 09/30/19 10/01/19 19:00 07:00 Intake Total 1325.0 ml 1599.92199 ml Output Total 1100 ml 1735 ml Balance 225.0 ml -135.80319 ml Free Water 300 ml IV Total 1005.0 ml 819.89319 ml Tube Feeding 320 ml 480 ml Output Urine Total 1100 ml 1735 ml Laboratory Tests 09/30/19 19:20: D-Dimer 9.46H 09/30/19 23:25: Arterial Blood pH 7.452H, Arterial Blood Partial Pressure CO2 37.0, Arterial Blood Partial Pressure O2 114.2H, Arterial Blood HCO3 25.3, Arterial Blood Oxygen Saturation 98.0, Arterial Blood Base Excess 1.5, Luis Test Positive 10/01/19 04:00: Arterial Blood pH 7.486H, Arterial Blood Partial Pressure CO2 35.2, Arterial Blood Partial Pressure O2 63.0L, Arterial Blood HCO3 26.0, Arterial Blood Oxygen Saturation 92.4L, Arterial Blood Base Excess 2.9H, Luis Test Positive 10/01/19 06:04: White Blood Count 14.5H, Red Blood Count 4.39, Hemoglobin 13.6, Hematocrit 39.0 , Mean Corpuscular Volume 89, Mean Corpuscular Hemoglobin 31.1H, Mean Corpuscular Hemoglobin Concent 34.9, Red Cell Distribution Width 11.5L, Platelet Count 392#, Mean Platelet Volume 6.3L, Neutrophils (%) (Auto) , Lymphocytes (%) (Auto) , Monocytes (%) (Auto) , Eosinophils (%) (Auto) , Basophils (%) (Auto) , Differential Total Cells Counted 100, Neutrophils % ( Manual) 87H, Lymphocytes % (Manual) 6L, Monocytes % (Manual) 7, Eosinophils % ( Manual) 0, Basophils % (Manual) 0, Band Neutrophils 0, Platelet Estimate Adequate, Platelet Morphology Normal, Red Blood Cell Morphology Normal, Sodium Level 139, Potassium Level 4.2, Chloride Level 103, Carbon Dioxide Level 26, Anion Gap 10, Blood Urea Nitrogen 21H, Creatinine 0.6, Estimat Glomerular Filtration Rate > 60, Glucose Level 103, Calcium Level 9.2, Total Bilirubin 0.8 , Aspartate Amino Transf (AST/SGOT) 32, Alanine Aminotransferase (ALT/SGPT) 57, Alkaline Phosphatase 102, Total Protein 7.1, Albumin 2.8L, Globulin 4.3, Albumin /Globulin Ratio 0.7L, Vancomycin Level Trough 25.8H Height (Feet): 5 Height (Inches): 2.00 Weight (Pounds): 155 General Appearance: alert, mild distress, other - O2 by mask EENT: normal ENT inspection Neck: normal alignment Cardiovascular: regular rhythm Respiratory/Chest: lungs clear Abdomen: soft Edema: no edema noted Arm (L), no edema noted Arm (R), no edema noted Leg (L), no edema noted Leg (R), no edema noted Pedal (L), no edema noted Pedal (R), no edema noted Generalized Neurologic: employee counselor II-XII grossly normal Hung Zuniga MD October 01, 2019 12:06
[2019-10-01] MEDS: Vancomycin 750 MG in NS 275 ML IVPB SCH ×2 (13:42→21:23)
[2019-10-01] MEDS: Enoxaparin 60mg Inj SUBQ SCH (20:19)
[2019-10-02] VITALS (20 sets, daily range): BP systolic 121–185; BP diastolic 51–80
[2019-10-02] MEDS: Vancomycin 750 MG in NS 275 ML IVPB SCH (05:18)
[2019-10-02] MEDS: NovoLOG Insulin Flexpen SUBQ SCH ×5 (06:00→23:33)
[2019-10-02 06:31] LABS: HEMATOCRIT 39.8 % (37.0-47.0); HEMOGLOBIN 13.9 G/DL (12.0-16.0); MEAN CORPUSCULAR VOLUME 90 FL (80-99); PLATELET COUNT 417 K/UL (150-450); RED BLOOD COUNT 4.43 M/UL (4.20-5.40); RED CELL DISTRIBUTION WIDTH 11.8 % (11.6-14.8); WHITE BLOOD COUNT 17.1 K/UL (4.8-10.8)
[2019-10-02 07:06] LABS: ANION GAP 9 mmol/L (5-15); BLOOD UREA NITROGEN 25 mg/dL (7-18); CARBON DIOXIDE 26 MMOL/L (21-32); CHLORIDE 103 MMOL/L (98-107); CREATININE 0.6 MG/DL (0.55-1.30); POTASSIUM 4.6 MMOL/L (3.5-5.1); SODIUM 138 MMOL/L (136-145)
[2019-10-02] MEDS: Solu-MEDROL 40mg Inj IVP SCH (08:43)
--- NOTE | 2019-10-02 10:18 | Diagnostic Imaging Report ---
Indication: Shortness of breath Technique: One view of the chest Comparison: 09/30/2019 Findings: Stable satisfactory position of nasogastric tube. Bilateral diffuse infiltrates appear slightly improved but remain extensive. No definite effusions. The heart size is normal Impression: Slightly improved but still extensive bilateral infiltrates, since prior exam of 2 days earlier
[2019-10-02] MEDS ORDERED: Miralax 17gm pkt ORAL PRN (11:45)
[2019-10-02] MEDS ORDERED: LORazepam Inj 2mg/ml 1ml IV PRN (11:45)
[2019-10-02] MEDS ORDERED: Albuterol 90mcg Inhaler 8gm INH PRN (11:45)
[2019-10-02] MEDS ORDERED: Atropine Inj 1mg/10ml Syr IVP PRN (12:20)
--- NOTE | 2019-10-02 13:50 | Pulmonology Progress Note ---
Neena Lees [employer] 10/02/19 1350: Assessment/Plan Assessment/Plan ASSESSMENT Acute hypoxemic respiratory failure requiring intubation, s/p extubation 09/27 Multilobar PNA, likely due to COVID 19 infection ( confirmed ) JOE -resolved Mild transaminitis Borderline diabetes Elevated CK/ rhabdo - CK trending down PLAN OF CARE [facility] s/p intubation 09/19 s/p extubation 09/27 currently on 5L O2 via NC still tachypneic titrate FiO2 to keep sat above 90% CXR 09/29 with findings of PNA Venous Duplex BLE pending CXR 10/01 - Slightly improved but still extensive bilateral infiltrates, MDI with spacer in line using IS SARS -CoV -2 by PCR 09/17 came back non detected repeated SARS-CoV-2 by PCR 09/20 positive, continue isolation remains in isolation repeat RAMBO-CoV-2 by PCR 09/29 -pending s/p Plaquenil x5 days, completed ceftriaxone Doxy dc was on Zosyn since 09/27 as per ID , SCX + Enterobacter, stool C dif -NGT, UCX -NGT Zosyn stopped and changed to cefepime and Flagyl leuk with small trend up this am ; remains afebrile will speak with pharmacy if can get Tocoluzimab for her if clinically worse, however appears to be with some improvement BCX 09/17 NGTD on Solumedrol now 20 mg IV bid with further tapering down soon leukocytosis may be partially reactive due to steroids as well trend CRP, LDH, ferritin: LDH 486, CRP 31, ferritin 582, IL 6 15.6, 09/24 ferritin 549 and CRP 20, both trending down, LDH 644 - with trend up , IL -6 18.6 , prior IL-6 15.6 DVT prophylaxis with Lovenox IV hydration creat down to normal, avoid nephrotoxics nutrition via NGT, aspiration precautions mild hyperglycemia noted , probably due to steroids? on SSI/low dose, sensitive , HgA1c -6 - borderline DM trend LFT , CK trended down, case discussed and evaluated by supervising physician Subjective ROS Limited/Unobtainable: Yes Constitutional: Reports: fatigue, other - extubated, no pressors, + BM; Denies : fever Gastrointestinal/Abdominal: Denies: nausea, vomiting, diarrhea Psychiatric: Reports: other - NA; Denies: depression Skin: Denies: rash Musculoskeletal: Denies: pain Allergies: Coded Allergies: No Known Allergies (Unverified , 09/18/19) Subjective transferred to [facility] still hypoxic and tachypneic but O2 down to 5L via NC afebrile, leuk with small trend up this am CXR with small improvement, but still extensive alvarado infiltrates clinically better Objective Last 24 Hour Vital Signs Date Time Temp Pulse Resp B/P (MAP) Pulse Ox O2 Delivery O2 Flow Rate FiO2 10/02/19 12:00 Nasal Cannula 6.0 Nasal Cannula 6.0 10/02/19 12:00 5.0 10/02/19 11:00 89 30 123/72 (89) 94 10/02/19 10:00 87 29 138/64 (88) 98 10/02/19 09:00 83 36 125/60 (81) 97 10/02/19 08:43 96 Nasal Cannula 5.0 40 10/02/19 08:00 6.0 10/02/19 08:00 98.5 86 33 182/66 (104) 97 10/02/19 08:00 82 10/02/19 08:00 Nasal Cannula 6.0 Nasal Cannula 6.0 10/02/19 07:00 79 38 183/60 (101) 97 10/02/19 06:00 82 34 185/66 (105) 95 10/02/19 05:30 80 33 181/71 (107) 95 10/02/19 05:00 79 33 183/66 (105) 96 10/02/19 04:30 78 33 154/62 (92) 99 10/02/19 04:00 6.0 10/02/19 04:00 98.4 72 35 154/58 (90) 99 10/02/19 04:00 Nasal Cannula 6.0 Nasal Cannula 6.0 10/02/19 03:18 76 10/02/19 03:00 73 35 160/57 (91) 98 10/02/19 02:30 77 32 172/62 (98) 98 10/02/19 02:00 70 35 168/63 (98) 98 10/02/19 01:30 86 26 176/51 (92) 93 10/02/19 01:00 78 29 154/55 (88) 98 10/02/19 00:30 75 35 152/57 (88) 97 10/02/19 00:00 6.0 10/02/19 00:00 98.4 74 33 152/55 (87) 98 10/02/19 00:00 Nasal Cannula 6.0 Nasal Cannula 6.0 10/01/19 23:25 69 10/01/19 23:00 74 34 147/56 (86) 96 10/01/19 22:30 79 27 150/64 (92) 87 10/01/19 22:00 71 35 156/58 (90) 95 10/01/19 21:30 72 36 157/54 (88) 95 10/01/19 21:00 72 34 153/49 (83) 98 10/01/19 20:30 77 34 155/52 (86) 94 10/01/19 20:00 98.0 70 33 152/48 (82) 98 10/01/19 20:00 Nasal Cannula 6.0 Nasal Cannula 6.0 10/01/19 20:00 6.0 10/01/19 19:23 69 10/01/19 19:00 73 33 162/56 (91) 98 10/01/19 18:55 98 Nasal Cannula 6.0 44 10/01/19 18:00 84 34 167/45 (85) 91 10/01/19 17:00 67 33 147/66 (93) 99 10/01/19 16:00 68 10/01/19 16:00 98.3 70 35 147/66 (93) 98 10/01/19 16:00 6.0 10/01/19 16:00 Nasal Cannula 6.0 Nasal Cannula 6.0 10/01/19 15:00 73 36 155/52 (86) 99 10/01/19 14:00 78 36 162/67 (98) 98 Intake and Output 10/01/19 10/02/19 19:00 07:00 Intake Total 1490.000 ml 1750.0000 ml Output Total 1030 ml Balance 460.000 ml 1750.0000 ml IV Total 1010.000 ml 1310.0000 ml Tube Feeding 480 ml 440 ml Output Urine Total 1030 ml # Voids 2 # Bowel Movements 2 3 Objective Status: awake, responsive, HEENT: atraumatic, normocephalic, NGT, 5 L O2 via NC Lungs: few isolated rhonchi, tachypnea Heart: HR/BP stable Abdomen: soft, non-tender, active bowel sounds : F/c Extremities: no edema General Appearance: other - + BM and sob, no pressors, extubated Microbiology Date/Time Source Procedure Growth Status 10/01/19 17:30 Indwelling Cath Urine Culture - Preliminary NO GROWTH Resulted Laboratory Tests 10/02/19 04:58: White Blood Count 17.1H, Red Blood Count 4.43, Hemoglobin 13.9, Hematocrit 39.8 , Mean Corpuscular Volume 90, Mean Corpuscular Hemoglobin 31.4H, Mean Corpuscular Hemoglobin Concent 34.9, Red Cell Distribution Width 11.8, Platelet Count 417, Mean Platelet Volume 6.3L, Neutrophils (%) (Auto) , Lymphocytes (%) ( Auto) , Monocytes (%) (Auto) , Eosinophils (%) (Auto) , Basophils (%) (Auto) , Differential Total Cells Counted 100, Neutrophils % (Manual) 89H, Lymphocytes % (Manual) 6L, Monocytes % (Manual) 5, Eosinophils % (Manual) 0, Basophils % ( Manual) 0, Band Neutrophils 0, Platelet Estimate Adequate, Platelet Morphology Normal, Red Blood Cell Morphology Normal, Sodium Level 138, Potassium Level 4.6 , Chloride Level 103, Carbon Dioxide Level 26, Anion Gap 9, Blood Urea Nitrogen 25H, Creatinine 0.6, Estimat Glomerular Filtration Rate > 60, Glucose Level 103 , Calcium Level 9.0 Current Medications Medications (Trade) Dose Ordered Sig/Sam Route PRN Reason Start Time Stop Time Status Last Admin Dose Admin Acetaminophen (Tylenol) 650 mg Q4H PRN ORAL Mild Pain (Pain Scale 1-3) 10/02/19 11:44 11/01/19 11:43 Acetaminophen (Tylenol) 650 mg Q4H PRN ORAL Temp >100.5 10/02/19 11:44 11/01/19 11:43 Albuterol Sulfate (Proventil MDI) 2 puff Q4H PRN INH Shortness of Breath 10/02/19 11:45 12/31/19 11:44 Atropine Sulfate (Atropine) 1 mg DAILYPRN PRN IVP HR<40 10/02/19 12:20 11/01/19 12:19 Cefepime HCl 2 gm/ Dextrose 100 ml @ 200 mls/hr EVERY 8 HOURS IVPB 10/02/19 14:00 10/08/19 13:59 10/02/19 13:36 Dextrose (Dextrose 50%) 25 ml Q30M PRN IV Hypoglycemia 10/02/19 11:45 12/19/19 16:14 Dextrose (Dextrose 50%) 50 ml Q30M PRN IV Hypoglycemia 10/02/19 11:45 12/19/19 16:14 Diphenoxylate HCl/ Atropine (Lomotil) 2.5 mg Q4H PRN ORAL Diarrhea 10/02/19 11:45 11/01/19 11:44 Enoxaparin Sodium (Lovenox) 60 mg QHS SUBQ 10/02/19 21:00 12/20/19 20:59 Insulin Aspart (NovoLOG) Q6HR SUBQ 10/02/19 12:00 12/26/19 00:00 Lorazepam (Ativan 2mg/ml 1ml) 2 mg Q4H PRN IV For Anxiety 10/02/19 11:45 10/09/19 11:44 Methylprednisolone Sodium Succinate (Solu-MEDROL) 20 mg Q12HR IVP 10/02/19 21:00 12/18/19 20:59 Metronidazole 100 ml @ 100 mls/hr Q8HR IVPB 10/02/19 14:00 10/08/19 13:59 10/02/19 13:30 Ondansetron HCl (Zofran) 4 mg Q6H PRN IVP Nausea & Vomiting 10/02/19 11:45 11/01/19 11:44 Polyethylene Glycol (Miralax) 17 gm HSPRN PRN ORAL Constipation 10/02/19 11:45 11/01/19 11:44 Sodium Chloride 1,000 ml @ 30 mls/hr Q24H IV 10/02/19 11:45 11/01/19 11:44 10/02/19 11:55 Vancomycin HCl (Vanco rx to dose) 1 ea DAILY PRN MISC Per rx protocol 10/03/19 09:00 10/28/19 09:59 Vancomycin HCl 750 mg/Sodium Chloride 275 ml @ 183.333 mls/hr Q8HR IVPB 10/02/19 14:00 10/06/19 13:59 Raghav eD MD 10/02/19 6586: Assessment/Plan Assessment/Plan PATIENT SEEN AND EXAMINED WITH [employer], AGREE WITH ABOVE A&P IT REFLECTS OUR JOINT DELIBERATIONS. OK TO TTF Subjective Allergies: Coded Allergies: No Known Allergies (Unverified , 09/18/19) Neena Lees NP October 02, 2019 13:50 Raghav De MD October 02, 2019 18:29
[2019-10-02] MEDS ORDERED: Vancomycin 750 MG in NS 275 ML IVPB SCH (14:00)
[2019-10-02] MEDS: Vancomycin 1 GM in NS 275 ML IVPB SCH ×2 (17:05→23:33)
--- NOTE | 2019-10-02 18:49 | Infectious Diseases Prog Note ---
Assessment/Plan Assessment/Plan ASSESSMENT AND PLAN: 1. covid-19 virus infection, pna, ? cap, respiratory failure, sepsis, steroids, vent, leukocytosis, fevers enterobacter pna - s/p hydroxychloroquine - vancomycin, cefepime, flagyl - day # 5 abx - monitor labs and chest x-ray - clinically improved, extubated 2. No other significant past medical history. 3. No known allergies. 4. Social history negative. 5. Family history noncontributory. 6. MAR was noted. 7. Case discussed with RN. 8. Continue treatment per primary consultants. Subjective Constitutional: Denies: fever HEENT: Reports: congestion - less Respiratory: Reports: shortness of breath - less Cardiovascular: Denies: chest pain Gastrointestinal/Abdominal: Denies: nausea, vomiting, diarrhea Genitourinary: Reports: other - + zamora Neurologic: Denies: headache Psychiatric: Denies: depression Skin: Denies: rash Hematologic: Denies: bleeding Musculoskeletal: Denies: pain Allergies: Coded Allergies: No Known Allergies (Unverified , 09/18/19) Objective Vital Signs Last 24 Hour Vital Signs Date Time Temp Pulse Resp B/P (MAP) Pulse Ox O2 Delivery O2 Flow Rate FiO2 10/02/19 16:00 5.0 10/02/19 16:00 98.0 81 29 159/80 (106) 96 10/02/19 16:00 75 10/02/19 12:00 Nasal Cannula 6.0 Nasal Cannula 6.0 10/02/19 12:00 5.0 10/02/19 12:00 98.4 91 30 121/75 (90) 96 10/02/19 11:50 78 10/02/19 11:00 89 30 123/72 (89) 94 10/02/19 10:00 87 29 138/64 (88) 98 10/02/19 09:00 83 36 125/60 (81) 97 10/02/19 08:43 96 Nasal Cannula 5.0 40 10/02/19 08:00 6.0 10/02/19 08:00 98.5 86 33 182/66 (104) 97 10/02/19 08:00 82 10/02/19 08:00 Nasal Cannula 6.0 Nasal Cannula 6.0 10/02/19 07:00 79 38 183/60 (101) 97 10/02/19 06:00 82 34 185/66 (105) 95 10/02/19 05:30 80 33 181/71 (107) 95 10/02/19 05:00 79 33 183/66 (105) 96 10/02/19 04:30 78 33 154/62 (92) 99 10/02/19 04:00 6.0 10/02/19 04:00 98.4 72 35 154/58 (90) 99 10/02/19 04:00 Nasal Cannula 6.0 Nasal Cannula 6.0 10/02/19 03:18 76 10/02/19 03:00 73 35 160/57 (91) 98 10/02/19 02:30 77 32 172/62 (98) 98 10/02/19 02:00 70 35 168/63 (98) 98 10/02/19 01:30 86 26 176/51 (92) 93 10/02/19 01:00 78 29 154/55 (88) 98 10/02/19 00:30 75 35 152/57 (88) 97 10/02/19 00:00 6.0 10/02/19 00:00 98.4 74 33 152/55 (87) 98 10/02/19 00:00 Nasal Cannula 6.0 Nasal Cannula 6.0 10/01/19 23:25 69 10/01/19 23:00 74 34 147/56 (86) 96 10/01/19 22:30 79 27 150/64 (92) 87 10/01/19 22:00 71 35 156/58 (90) 95 10/01/19 21:30 72 36 157/54 (88) 95 10/01/19 21:00 72 34 153/49 (83) 98 10/01/19 20:30 77 34 155/52 (86) 94 10/01/19 20:00 98.0 70 33 152/48 (82) 98 10/01/19 20:00 Nasal Cannula 6.0 Nasal Cannula 6.0 10/01/19 20:00 6.0 10/01/19 19:23 69 10/01/19 19:00 73 33 162/56 (91) 98 10/01/19 18:55 98 Nasal Cannula 6.0 44 Height (Feet): 5 Height (Inches): 2.00 Weight (Pounds): 155 General Appearance: no acute distress HEENT: normocephalic, atraumatic, anicteric Respiratory/Chest: crackles/rales, rhonchi - bilaterally Cardiovascular: normal rate, regular rhythm, no gallop/murmur, no JVD Abdomen: normal bowel sounds, soft, non tender, no organomegaly, non distended Genitourinary: other - + zamora - urine slt cloudy Extremities: no cyanosis Skin: no rash Neurologic/Psychiatric: granulating blender II-XII grossly normal, alert, responsive Lymphatic: no neck adenopathy Musculoskeletal: no effusion Objective Chest x-ray - 09/22/19 - EXAM: XR Chest, 1 View CLINICAL HISTORY: SOB TECHNIQUE: Frontal view of the chest. COMPARISON: Chest x-ray 09/21/19 913 FINDINGS: Lungs: Improved aeration of the lung. Mild bilateral interstitial and hazy lung opacities are similar. Pleural space: Unremarkable. No pneumothorax. Heart: Unremarkable. No cardiomegaly. Mediastinum: Unremarkable. Bones/joints: Unremarkable. Tubes, lines and devices: Endotracheal tube and NG tube are stable. IMPRESSION: Improved aeration of the lung. Mild bilateral interstitial and hazy lung opacities are similar. Chest x-ray - 09/23/19 - Procedure: XRAY Chest 1v Indication: Shortness of breath Technique: One view of the chest Comparison: 09/22/2019 Findings: Less optimal inspiration on current exam. Bilateral diffuse hazy airspace opacities are probably similar to the prior study allowing for differences in degree of inspiration. Stable satisfactory positions of endotracheal and orogastric tubes Impression: Unchanged, over one day, findings as above. Chest x-ray - 09/26/19 - Procedure: XRAY Chest 1v Indication: Shortness of breath Technique: One view of the chest Comparison: 09/25/2019 Findings: Bilateral interstitial and hazy airspace disease is unchanged. Stable satisfactory endotracheal and nasogastric tube positions. Impression: Unchanged, over one day, findings as above. Chest x-ray - 09/28/19 - TECHNIQUE: Frontal view of the chest. COMPARISON: Chest x-ray 09/27/19 834 FINDINGS: Lungs: Worsening hazy bilateral diffuse airspace opacities. Hypoventilatory lungs. Pleural space: Unremarkable. No pneumothorax. Heart: Unremarkable. No cardiomegaly. Mediastinum: Unremarkable. Bones/joints: Unremarkable. Tubes, lines and devices: ET tube and NG tube are stable. IMPRESSION: Worsening hazy bilateral diffuse airspace opacities. Chest x-ray - 09/30/19 - Procedure: XRAY Chest 1v Indication: Shortness of breath Technique: One view of the chest Comparison: 09/28/2019 Findings: Stable satisfactory position of nasogastric tube. Bilateral mostly peripheral and basilar infiltrates are again demonstrated, appears similar on the left, slightly worse on the right. The endotracheal tube is no longer evident. Impression: Interim of endotracheal extubation Stable left and slightly increased right-sided infiltrates, likely pneumonia Chest x-ray - 10/02/19 - Procedure: XRAY Chest 1v Indication: Shortness of breath Technique: One view of the chest Comparison: 09/30/2019 Findings: Stable satisfactory position of nasogastric tube. Bilateral diffuse infiltrates appear slightly improved but remain extensive. No definite effusions. The heart size is normal Impression: Slightly improved but still extensive bilateral infiltrates, since prior exam of 2 days earlier Microbiology Date/Time Source Procedure Growth Status 10/01/19 17:30 Indwelling Cath Urine Culture - Preliminary NO GROWTH Resulted Microbiology Date/Time Source Procedure Growth Status 09/28/19 11:52 Blood Blood Culture - Preliminary NO GROWTH AFTER 72 HOURS Resulted 09/28/19 12:00 Sputum Induced Gram Stain - Final Complete 09/28/19 12:00 Sputum Culture - Final Enterobacter Aerogenes Usual Respiratory Deana Complete 09/29/19 04:40 Stool Clostridium difficile Toxin Assay - Final Complete 10/01/19 17:30 Indwelling Cath Urine Culture - Preliminary NO GROWTH Resulted Laboratory Tests Test 10/02/19 04:58 10/02/19 13:55 White Blood Count 17.1 K/UL (4.8-10.8) H Red Blood Count 4.43 M/UL (4.20-5.40) Hemoglobin 13.9 G/DL (12.0-16.0) Hematocrit 39.8 % (37.0-47.0) Mean Corpuscular Volume 90 FL (80-99) Mean Corpuscular Hemoglobin 31.4 PG (27.0-31.0) H Mean Corpuscular Hemoglobin Concent 34.9 G/DL (32.0-36.0) Red Cell Distribution Width 11.8 % (11.6-14.8) Platelet Count 417 K/UL (150-450) Mean Platelet Volume 6.3 FL (6.5-10.1) L Neutrophils (%) (Auto) % (45.0-75.0) Lymphocytes (%) (Auto) % (20.0-45.0) Monocytes (%) (Auto) % (1.0-10.0) Eosinophils (%) (Auto) % (0.0-3.0) Basophils (%) (Auto) % (0.0-2.0) Differential Total Cells Counted 100 Neutrophils % (Manual) 89 % (45-75) H Lymphocytes % (Manual) 6 % (20-45) L Monocytes % (Manual) 5 % (1-10) Eosinophils % (Manual) 0 % (0-3) Basophils % (Manual) 0 % (0-2) Band Neutrophils 0 % (0-8) Platelet Estimate Adequate Platelet Morphology Normal Red Blood Cell Morphology Normal Sodium Level 138 MMOL/L (136-145) Potassium Level 4.6 MMOL/L (3.5-5.1) Chloride Level 103 MMOL/L (98-107) Carbon Dioxide Level 26 MMOL/L (21-32) Anion Gap 9 mmol/L (5-15) Blood Urea Nitrogen 25 mg/dL (7-18) H Creatinine 0.6 MG/DL (0.55-1.30) Estimat Glomerular Filtration Rate > 60 mL/min (>60) Glucose Level 103 MG/DL (74-106) Calcium Level 9.0 MG/DL (8.5-10.1) Lactate Dehydrogenase 426 U/L (81-234) H C-Reactive Protein, Quantitative 1.7 mg/dL (0.00-0.90) H Vancomycin Level Trough 13.9 ug/mL (5.0-12.0) H Current Medications Medications (Trade) Dose Ordered Sig/Sam Route PRN Reason Start Time Stop Time Status Last Admin Dose Admin Acetaminophen (Tylenol) 650 mg Q4H PRN ORAL Mild Pain (Pain Scale 1-3) 10/02/19 11:44 11/01/19 11:43 Acetaminophen (Tylenol) 650 mg Q4H PRN ORAL Temp >100.5 10/02/19 11:44 11/01/19 11:43 Albuterol Sulfate (Proventil MDI) 2 puff Q4H PRN INH Shortness of Breath 10/02/19 11:45 8/4/20 11:44 Atropine Sulfate (Atropine) 1 mg DAILYPRN PRN IVP HR<40 10/02/19 12:20 11/01/19 12:19 Cefepime HCl 2 gm/ Dextrose 100 ml @ 200 mls/hr EVERY 8 HOURS IVPB 10/02/19 14:00 10/08/19 13:59 10/02/19 13:36 Dextrose (Dextrose 50%) 25 ml Q30M PRN IV Hypoglycemia 10/02/19 11:45 12/19/19 16:14 Dextrose (Dextrose 50%) 50 ml Q30M PRN IV Hypoglycemia 10/02/19 11:45 12/19/19 16:14 Diphenoxylate HCl/ Atropine (Lomotil) 2.5 mg Q4H PRN ORAL Diarrhea 10/02/19 11:45 11/01/19 11:44 Enoxaparin Sodium (Lovenox) 60 mg QHS SUBQ 10/02/19 21:00 12/20/19 20:59 Insulin Aspart (NovoLOG) Q6HR SUBQ 10/02/19 12:00 12/26/19 00:00 Lorazepam (Ativan 2mg/ml 1ml) 2 mg Q4H PRN IV For Anxiety 10/02/19 11:45 10/09/19 11:44 Methylprednisolone Sodium Succinate (Solu-MEDROL) 20 mg Q12HR IVP 10/02/19 21:00 12/18/19 20:59 Metronidazole 100 ml @ 100 mls/hr Q8HR IVPB 10/02/19 14:00 10/08/19 13:59 10/02/19 13:30 Ondansetron HCl (Zofran) 4 mg Q6H PRN IVP Nausea & Vomiting 10/02/19 11:45 11/01/19 11:44 Polyethylene Glycol (Miralax) 17 gm HSPRN PRN ORAL Constipation 10/02/19 11:45 11/01/19 11:44 Sodium Chloride 1,000 ml @ 30 mls/hr Q24H IV 10/02/19 11:45 11/01/19 11:44 10/02/19 11:55 Vancomycin HCl (Vanco rx to dose) 1 ea DAILY PRN MISC Per rx protocol 10/03/19 09:00 10/28/19 09:59 Vancomycin HCl 1 gm/Sodium Chloride 275 ml @ 183.708 mls/hr Q8H IVPB 10/02/19 16:00 10/07/19 15:59 10/02/19 17:05 Enedina Ceja MD October 02, 2019 18:49
--- NOTE | 2019-10-02 20:18 | General Progress Note ---
Assessment/Plan Problem List: (1) Glucose intolerance ICD Codes: E74.39 - Other disorders of intestinal carbohydrate absorption SNOMED: 79899989 (2) Respiratory failure with hypoxia ICD Codes: J96.91 - Respiratory failure, unspecified with hypoxia SNOMED: 96445017423946781, 739331538 Qualifiers: Qualified Codes: J96.01 - Acute respiratory failure with hypoxia (3) Pneumonia due to COVID-19 virus ICD Codes: U07.1 - COVID-19; J12.89 - Other viral pneumonia SNOMED: 296613141, 877366388 (4) ARDS (adult respiratory distress syndrome) ICD Codes: J80 - Acute respiratory distress syndrome SNOMED: 28275430, 59305187 (5) Transaminitis ICD Codes: R74.0 - Nonspecific elevation of levels of transaminase and lactic acid dehydrogenase [LDH] SNOMED: 728410156, 349561197 (6) Rhabdomyolysis ICD Codes: M62.82 - Rhabdomyolysis SNOMED: 190662295 (7) JOE (acute kidney injury) ICD Codes: N17.9 - Acute kidney failure, unspecified SNOMED: 5232613, 51984204 (8) Dysphagia ICD Codes: R13.10 - Dysphagia, unspecified SNOMED: 21409510, 545094616 Assessment/Plan: out of icu, on antibiotics, plaquenil ordered by pulm, worsening resp failure, intubated, SS insulin, steroids tapering, started,lytes ok, less dyspnea, improving st swallow eval dc zamora ST swallow eval, ng feeding ongoing Subjective Constitutional: Reports: weakness HEENT: Reports: no symptoms Cardiovascular: Reports: no symptoms Respiratory: Reports: shortness of breath Gastrointestinal/Abdominal: Reports: no symptoms Neurologic/Psychiatric: Reports: no symptoms Endocrine: Reports: no symptoms Hematologic/Lymphatic: Reports: no symptoms Allergies: Coded Allergies: No Known Allergies (Unverified , 09/18/19) Objective Last 24 Hour Vital Signs Date Time Temp Pulse Resp B/P (MAP) Pulse Ox O2 Delivery O2 Flow Rate FiO2 10/02/19 16:00 Nasal Cannula 5.0 Nasal Cannula 5.0 10/02/19 16:00 5.0 10/02/19 16:00 98.0 81 29 159/80 (106) 96 10/02/19 16:00 75 10/02/19 12:00 Nasal Cannula 6.0 Nasal Cannula 6.0 10/02/19 12:00 5.0 10/02/19 12:00 98.4 91 30 121/75 (90) 96 10/02/19 11:50 78 10/02/19 11:00 89 30 123/72 (89) 94 10/02/19 10:00 87 29 138/64 (88) 98 10/02/19 09:00 83 36 125/60 (81) 97 10/02/19 08:43 96 Nasal Cannula 5.0 40 10/02/19 08:00 6.0 10/02/19 08:00 98.5 86 33 182/66 (104) 97 10/02/19 08:00 82 10/02/19 08:00 Nasal Cannula 6.0 Nasal Cannula 6.0 10/02/19 07:00 79 38 183/60 (101) 97 10/02/19 06:00 82 34 185/66 (105) 95 10/02/19 05:30 80 33 181/71 (107) 95 10/02/19 05:00 79 33 183/66 (105) 96 10/02/19 04:30 78 33 154/62 (92) 99 10/02/19 04:00 6.0 10/02/19 04:00 98.4 72 35 154/58 (90) 99 10/02/19 04:00 Nasal Cannula 6.0 Nasal Cannula 6.0 10/02/19 03:18 76 10/02/19 03:00 73 35 160/57 (91) 98 10/02/19 02:30 77 32 172/62 (98) 98 10/02/19 02:00 70 35 168/63 (98) 98 10/02/19 01:30 86 26 176/51 (92) 93 10/02/19 01:00 78 29 154/55 (88) 98 10/02/19 00:30 75 35 152/57 (88) 97 10/02/19 00:00 6.0 10/02/19 00:00 98.4 74 33 152/55 (87) 98 10/02/19 00:00 Nasal Cannula 6.0 Nasal Cannula 6.0 10/01/19 23:25 69 10/01/19 23:00 74 34 147/56 (86) 96 10/01/19 22:30 79 27 150/64 (92) 87 10/01/19 22:00 71 35 156/58 (90) 95 10/01/19 21:30 72 36 157/54 (88) 95 10/01/19 21:00 72 34 153/49 (83) 98 10/01/19 20:30 77 34 155/52 (86) 94 Intake and Output 10/01/19 10/02/19 19:00 07:00 Intake Total 1490.000 ml 1750.0000 ml Output Total 1030 ml Balance 460.000 ml 1750.0000 ml IV Total 1010.000 ml 1310.0000 ml Tube Feeding 480 ml 440 ml Output Urine Total 1030 ml # Voids 2 # Bowel Movements 2 3 Laboratory Tests 10/02/19 04:58: White Blood Count 17.1H, Red Blood Count 4.43, Hemoglobin 13.9, Hematocrit 39.8 , Mean Corpuscular Volume 90, Mean Corpuscular Hemoglobin 31.4H, Mean Corpuscular Hemoglobin Concent 34.9, Red Cell Distribution Width 11.8, Platelet Count 417, Mean Platelet Volume 6.3L, Neutrophils (%) (Auto) , Lymphocytes (%) ( Auto) , Monocytes (%) (Auto) , Eosinophils (%) (Auto) , Basophils (%) (Auto) , Differential Total Cells Counted 100, Neutrophils % (Manual) 89H, Lymphocytes % (Manual) 6L, Monocytes % (Manual) 5, Eosinophils % (Manual) 0, Basophils % ( Manual) 0, Band Neutrophils 0, Platelet Estimate Adequate, Platelet Morphology Normal, Red Blood Cell Morphology Normal, Sodium Level 138, Potassium Level 4.6 , Chloride Level 103, Carbon Dioxide Level 26, Anion Gap 9, Blood Urea Nitrogen 25H, Creatinine 0.6, Estimat Glomerular Filtration Rate > 60, Glucose Level 103 , Calcium Level 9.0 10/02/19 13:55: Lactate Dehydrogenase 426H, C-Reactive Protein, Quantitative 1.7H, Vancomycin Level Trough 13.9H Height (Feet): 5 Height (Inches): 2.00 Weight (Pounds): 155 General Appearance: alert, mild distress Neck: non-tender Cardiovascular: normal rate Respiratory/Chest: lungs clear Edema: no edema noted Arm (L), no edema noted Arm (R), no edema noted Leg (L), no edema noted Leg (R), no edema noted Pedal (L), no edema noted Pedal (R), no edema noted Generalized Hung Zuniga MD October 02, 2019 20:18
[2019-10-02] MEDS: Enoxaparin 60mg Inj SUBQ SCH (20:43)
[2019-10-02] MEDS ORDERED: Solu-MEDROL 40mg Inj IVP SCH (21:00)
[2019-10-03] VITALS: BP 151/77
[2019-10-03 04:00] VITALS: BP 130/76
[2019-10-03] MEDS: NovoLOG Insulin Flexpen SUBQ SCH ×3 (05:52→18:00)
[2019-10-03 07:05] LABS: BASOPHILS % (AUTO) 2.6 % (0.0-2.0); HEMATOCRIT 40.6 % (37.0-47.0); LYMPHOCYTES % (AUTO) 15.2 % (20.0-45.0); MEAN CORPUSCULAR VOLUME 92 FL (80-99); MONOCYTES % (AUTO) 5.9 % (1.0-10.0); NEUTROPHILS % (AUTO) 76.3 % (45.0-75.0); PLATELET COUNT 430 K/UL (150-450); RED BLOOD COUNT 4.39 M/UL (4.20-5.40); RED CELL DISTRIBUTION WIDTH 13.1 % (11.6-14.8); WHITE BLOOD COUNT 16.2 K/UL (4.8-10.8)
[2019-10-03 07:37] LABS: ALANINE AMINOTRANSFERASE 53 U/L (12-78); ALBUMIN 3.2 G/DL (3.4-5.0); ALBUMIN/GLOBULIN RATIO 0.8 (1.0-2.7); ALKALINE PHOSPHATASE 119 U/L (46-116); ANION GAP 11 mmol/L (5-15); ASPARTATE AMINO TRANSFERASE 33 U/L (15-37); BILIRUBIN,TOTAL 0.5 MG/DL (0.2-1.0); BLOOD UREA NITROGEN 24 mg/dL (7-18); CALCIUM 9.1 MG/DL (8.5-10.1); CARBON DIOXIDE 24 MMOL/L (21-32); CHLORIDE 104 MMOL/L (98-107); CREATININE 0.6 MG/DL (0.55-1.30); POTASSIUM 5.4 MMOL/L (3.5-5.1); SODIUM 139 MMOL/L (136-145)
[2019-10-03 08:00] VITALS: BP 136/69
--- NOTE | 2019-10-03 08:17 | Pulmonology Progress Note ---
Neena Lees PHYS ASSISTANT 10/03/19 0817: Subjective ROS Limited/Unobtainable: Yes Constitutional: Denies: fever Gastrointestinal/Abdominal: Denies: nausea, vomiting, diarrhea Psychiatric: Denies: depression Skin: Denies: rash Musculoskeletal: Denies: pain Allergies: Coded Allergies: No Known Allergies (Unverified , 09/18/19) Subjective in [place] still hypoxic and tachypneic on O2 via NC 5L via NC afebrile, still leuk COVID 19 on 09/29 still detected clinically better Objective Last 24 Hour Vital Signs Date Time Temp Pulse Resp B/P (MAP) Pulse Ox O2 Delivery O2 Flow Rate FiO2 10/03/19 04:00 98.0 75 29 130/76 (94) 96 10/03/19 04:00 5.0 10/03/19 03:34 68 10/03/19 00:00 5.0 10/03/19 00:00 98.1 75 29 151/77 (101) 96 10/02/19 23:29 70 10/02/19 20:00 93 Nasal Cannula 5.0 40 10/02/19 20:00 96.5 74 29 153/78 (103) 96 10/02/19 20:00 5.0 10/02/19 20:00 72 10/02/19 16:00 Nasal Cannula 5.0 Nasal Cannula 5.0 10/02/19 16:00 5.0 10/02/19 16:00 98.0 81 29 159/80 (106) 96 10/02/19 16:00 75 10/02/19 12:00 Nasal Cannula 6.0 Nasal Cannula 6.0 10/02/19 12:00 5.0 10/02/19 12:00 98.4 91 30 121/75 (90) 96 10/02/19 11:50 78 10/02/19 11:00 89 30 123/72 (89) 94 10/02/19 10:00 87 29 138/64 (88) 98 10/02/19 09:00 83 36 125/60 (81) 97 10/02/19 08:43 96 Nasal Cannula 5.0 40 Intake and Output 10/02/19 10/03/19 19:00 07:00 Intake Total 1226.208 ml 2148.708 ml Output Total 1050 ml 500 ml Balance 176.208 ml 1648.708 ml Free Water 80 ml 450 ml IV Total 676.208 ml 1218.708 ml Tube Feeding 440 ml 480 ml Other 30 ml Output Urine Total 1050 ml 500 ml # Voids 1 # Bowel Movements 1 Objective Status: awake, responsive, HEENT: atraumatic, normocephalic, NGT, 5 L O2 via NC Lungs: few isolated rhonchi, tachypnea Heart: HR/BP stable Abdomen: soft, non-tender, active bowel sounds Extremities: no edema Microbiology Date/Time Source Procedure Growth Status 09/30/19 21:00 Nasopharynx Coronavirus COVID-19 PCR ([facility]) - Final Complete 10/01/19 17:30 Indwelling Cath Urine Culture - Preliminary NO GROWTH Resulted Laboratory Tests 10/02/19 13:55: Lactate Dehydrogenase 426H, C-Reactive Protein, Quantitative 1.7H, Vancomycin Level Trough 13.9H 10/03/19 06:10: White Blood Count 16.2H, Red Blood Count 4.39, Hemoglobin 14.0, Hematocrit 40.6 , Mean Corpuscular Volume 92, Mean Corpuscular Hemoglobin 31.9H, Mean Corpuscular Hemoglobin Concent 34.5, Red Cell Distribution Width 13.1, Platelet Count 430, Mean Platelet Volume 5.5L, Neutrophils (%) (Auto) 76.3H, Lymphocytes (%) (Auto) 15.2L, Monocytes (%) (Auto) 5.9, Eosinophils (%) (Auto) 0.0, Basophils (%) (Auto) 2.6H, Sodium Level 139, Potassium Level 5.4H, Chloride Level 104, Carbon Dioxide Level 24, Anion Gap 11, Blood Urea Nitrogen 24H, Creatinine 0.6, Estimat Glomerular Filtration Rate > 60, Glucose Level 132H, Calcium Level 9.1, Total Bilirubin 0.5, Aspartate Amino Transf (AST/SGOT) 33, Alanine Aminotransferase (ALT/SGPT) 53, Alkaline Phosphatase 119H, Total Protein 7.1, Albumin 3.2L, Globulin 3.9, Albumin/Globulin Ratio 0.8L Current Medications Medications (Trade) Dose Ordered Sig/Sam Route PRN Reason Start Time Stop Time Status Last Admin Dose Admin Acetaminophen (Tylenol) 650 mg Q4H PRN ORAL Mild Pain (Pain Scale 1-3) 10/02/19 11:44 11/01/19 11:43 Acetaminophen (Tylenol) 650 mg Q4H PRN ORAL Temp >100.5 10/02/19 11:44 11/01/19 11:43 Albuterol Sulfate (Proventil MDI) 2 puff Q4H PRN INH Shortness of Breath 10/02/19 11:45 12/31/19 11:44 Atropine Sulfate (Atropine) 1 mg DAILYPRN PRN IVP HR<40 10/02/19 12:20 11/01/19 12:19 Cefepime HCl 2 gm/ Dextrose 100 ml @ 200 mls/hr EVERY 8 HOURS IVPB 10/02/19 14:00 10/08/19 13:59 10/03/19 05:22 Dextrose (Dextrose 50%) 25 ml Q30M PRN IV Hypoglycemia 10/02/19 11:45 12/19/19 16:14 Dextrose (Dextrose 50%) 50 ml Q30M PRN IV Hypoglycemia 10/02/19 11:45 12/19/19 16:14 Diphenoxylate HCl/ Atropine (Lomotil) 2.5 mg Q4H PRN ORAL Diarrhea 10/02/19 11:45 11/01/19 11:44 Enoxaparin Sodium (Lovenox) 60 mg QHS SUBQ 10/02/19 21:00 12/20/19 20:59 10/02/19 20:43 Insulin Aspart (NovoLOG) Q6HR SUBQ 10/02/19 12:00 12/26/19 00:00 Lorazepam (Ativan 2mg/ml 1ml) 2 mg Q4H PRN IV For Anxiety 10/02/19 11:45 10/09/19 11:44 Methylprednisolone Sodium Succinate (Solu-MEDROL) 10 mg Q12HR IVP 10/03/19 09:00 12/18/19 20:59 UNV Metronidazole 100 ml @ 100 mls/hr Q8HR IVPB 10/02/19 14:00 10/08/19 13:59 10/03/19 05:22 Ondansetron HCl (Zofran) 4 mg Q6H PRN IVP Nausea & Vomiting 10/02/19 11:45 11/01/19 11:44 Polyethylene Glycol (Miralax) 17 gm HSPRN PRN ORAL Constipation 10/02/19 11:45 11/01/19 11:44 Sodium Chloride 1,000 ml @ 30 mls/hr Q24H IV 10/02/19 11:45 11/01/19 11:44 10/02/19 11:55 Vancomycin HCl (Vanco rx to dose) 1 ea DAILY PRN MISC Per rx protocol 10/03/19 09:00 10/28/19 09:59 Vancomycin HCl 1 gm/Sodium Chloride 275 ml @ 183.708 mls/hr Q8H IVPB 10/02/19 16:00 10/07/19 15:59 10/02/19 23:33 Assessment/Plan Assessment/Plan ASSESSMENT Acute hypoxemic respiratory failure requiring intubation, s/p extubation 09/27 Multilobar PNA, likely due to COVID 19 infection ( confirmed ) JOE -resolved Mild transaminitis Borderline diabetes Elevated CK/ rhabdo - CK trending down Odynophagia PLAN OF CARE [place]BERTO s/p intubation 09/19 s/p extubation 09/27 currently on 5L O2 via NC still tachypneic titrate FiO2 to keep sat above 90% CXR 09/29 with findings of PNA Venous Duplex BLE results pending CXR 10/01 - Slightly improved but still extensive bilateral infiltrates, MDI with spacer in line using IS SARS -CoV -2 by PCR 09/17 came back non detected repeated SARS-CoV-2 by PCR 09/20 positive, continue isolation repeated SARAS-CoV-2 by PCR 09/29 still detected remains in isolation s/p Plaquenil x5 days, completed ceftriaxone Doxy was dc was on Zosyn since 09/27 as per ID , SCX + Enterobacter, stool C dif -NGT, UCX -NGT Zosyn stopped and changed to cefepime and Flagyl, cont Vanco leuk persists, remains afebrile will speak with pharmacy if can get Tocoluzimab for her if clinically worse, however appears to be with clincial improvement BCX 09/17 NGTD on Solumedrol now 10 mg IV bid with further tapering down soon leukocytosis may be partially reactive due to steroids as well trend CRP, LDH, ferritin: LDH 486, CRP 31, ferritin 582, IL 6 15.6, 09/24 ferritin 549 and CRP 20, both trending down, LDH 644 - with trend up , IL -6 18.6 , prior IL-6 15.6 last CRP 1.7 ( down from 20) and LDH 426 ( down from 644) DVT prophylaxis with Lovenox gentle IV hydration creat down to normal, avoid nephrotoxics nutrition via NGT, aspiration precautions swallow eval done, recommended NPO and NGT for now, due to severe odynophagia , possibly due to intuabtion reassess later mild hyperglycemia noted , probably due to steroids? on SSI/low dose, sensitive , HgA1c -6 - borderline DM trend LFT , CK trended down, case discussed and evaluated by supervising physician Raghav De MD 10/04/19 1450: Subjective Allergies: Coded Allergies: No Known Allergies (Unverified , 09/18/19) Assessment/Plan Assessment/Plan Patient seen and examined with PHYS ASSISTANT. Agree with A&P above as it reflects our joint deliberations. Neena Lees PHYS ASSISTANT October 03, 2019 08:17 Raghav De MD October 04, 2019 14:50
[2019-10-03] MEDS: Vancomycin 1 GM in NS 275 ML IVPB SCH (10:22)
[2019-10-03] MEDS: Solu-MEDROL 40mg Inj IVP SCH ×2 (10:23→20:12)
--- NOTE | 2019-10-03 12:33 | General Progress Note ---
Assessment/Plan Problem List: (1) Glucose intolerance ICD Codes: E74.39 - Other disorders of intestinal carbohydrate absorption SNOMED: 63973829 (2) Respiratory failure with hypoxia ICD Codes: J96.91 - Respiratory failure, unspecified with hypoxia SNOMED: 85133197506833511, 138285363 Qualifiers: Qualified Codes: J96.01 - Acute respiratory failure with hypoxia (3) Pneumonia due to COVID-19 virus ICD Codes: U07.1 - COVID-19; J12.89 - Other viral pneumonia SNOMED: 916903481, 622824967 (4) ARDS (adult respiratory distress syndrome) ICD Codes: J80 - Acute respiratory distress syndrome SNOMED: 22125431, 21551876 (5) Transaminitis ICD Codes: R74.0 - Nonspecific elevation of levels of transaminase and lactic acid dehydrogenase [LDH] SNOMED: 289600233, 581274362 (6) Rhabdomyolysis ICD Codes: M62.82 - Rhabdomyolysis SNOMED: 769146733 (7) JOE (acute kidney injury) ICD Codes: N17.9 - Acute kidney failure, unspecified SNOMED: 4147621, 67123764 (8) Dysphagia ICD Codes: R13.10 - Dysphagia, unspecified SNOMED: 09987396, 626142572 Assessment/Plan: out of icu, on antibiotics, plaquenil ordered by pulm, worsening resp failure, intubated, now extubated SS insulin, steroids tapering, started,lytes ok, less dyspnea, improving st swallow eval dc zamora ST swallow eval, ng feeding ongoing Subjective Constitutional: Reports: weakness HEENT: Reports: no symptoms Cardiovascular: Reports: no symptoms Respiratory: Reports: cough Gastrointestinal/Abdominal: Reports: no symptoms Genitourinary: Reports: no symptoms Neurologic/Psychiatric: Reports: no symptoms Endocrine: Reports: no symptoms Allergies: Coded Allergies: No Known Allergies (Unverified , 09/18/19) Objective Last 24 Hour Vital Signs Date Time Temp Pulse Resp B/P (MAP) Pulse Ox O2 Delivery O2 Flow Rate FiO2 10/03/19 08:00 98.2 71 29 136/69 (91) 95 10/03/19 04:00 98.0 75 29 130/76 (94) 96 10/03/19 04:00 5.0 10/03/19 03:34 68 10/03/19 00:00 5.0 10/03/19 00:00 98.1 75 29 151/77 (101) 96 10/02/19 23:29 70 10/02/19 20:00 93 Nasal Cannula 5.0 40 10/02/19 20:00 96.5 74 29 153/78 (103) 96 10/02/19 20:00 5.0 10/02/19 20:00 72 10/02/19 16:00 Nasal Cannula 5.0 Nasal Cannula 5.0 10/02/19 16:00 5.0 10/02/19 16:00 98.0 81 29 159/80 (106) 96 10/02/19 16:00 75 Intake and Output 10/02/19 10/03/19 19:00 07:00 Intake Total 1226.208 ml 2148.708 ml Output Total 1050 ml 500 ml Balance 176.208 ml 1648.708 ml Free Water 80 ml 450 ml IV Total 676.208 ml 1218.708 ml Tube Feeding 440 ml 480 ml Other 30 ml Output Urine Total 1050 ml 500 ml # Voids 1 # Bowel Movements 1 Laboratory Tests 10/02/19 13:55: Lactate Dehydrogenase 426H, C-Reactive Protein, Quantitative 1.7H, Vancomycin Level Trough 13.9H 10/03/19 06:10: White Blood Count 16.2H, Red Blood Count 4.39, Hemoglobin 14.0, Hematocrit 40.6 , Mean Corpuscular Volume 92, Mean Corpuscular Hemoglobin 31.9H, Mean Corpuscular Hemoglobin Concent 34.5, Red Cell Distribution Width 13.1, Platelet Count 430, Mean Platelet Volume 5.5L, Neutrophils (%) (Auto) 76.3H, Lymphocytes (%) (Auto) 15.2L, Monocytes (%) (Auto) 5.9, Eosinophils (%) (Auto) 0.0, Basophils (%) (Auto) 2.6H, Sodium Level 139, Potassium Level 5.4H, Chloride Level 104, Carbon Dioxide Level 24, Anion Gap 11, Blood Urea Nitrogen 24H, Creatinine 0.6, Estimat Glomerular Filtration Rate > 60, Glucose Level 132H, Calcium Level 9.1, Total Bilirubin 0.5, Aspartate Amino Transf (AST/SGOT) 33, Alanine Aminotransferase (ALT/SGPT) 53, Alkaline Phosphatase 119H, Total Protein 7.1, Albumin 3.2L, Globulin 3.9, Albumin/Globulin Ratio 0.8L Height (Feet): 5 Height (Inches): 2.00 Weight (Pounds): 155 General Appearance: no apparent distress, alert EENT: normal ENT inspection Neck: normal alignment Cardiovascular: normal rate Respiratory/Chest: lungs clear Abdomen: non tender Edema: no edema noted Arm (L), no edema noted Arm (R), no edema noted Leg (L), no edema noted Leg (R), no edema noted Pedal (L), no edema noted Pedal (R), no edema noted 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
[2019-10-03 20:00] VITALS: BP 144/75
[2019-10-03] MEDS: Enoxaparin 60mg Inj SUBQ SCH (20:11)
[2019-10-03] MEDS: Vancomycin 750mg/NS 275ml IVPB SCH ×2 (21:31)
[2019-10-04] VITALS: BP 139/71
[2019-10-04 04:00] VITALS: BP 135/76
[2019-10-04] MEDS: Vancomycin 750mg/NS 275ml IVPB SCH ×6 (05:04→22:45)
[2019-10-04 05:37] LABS: HEMATOCRIT 40.1 % (37.0-47.0); HEMOGLOBIN 14.1 G/DL (12.0-16.0); MEAN CORPUSCULAR VOLUME 90 FL (80-99); PLATELET COUNT 379 K/UL (150-450); RED BLOOD COUNT 4.46 M/UL (4.20-5.40); RED CELL DISTRIBUTION WIDTH 11.8 % (11.6-14.8); WHITE BLOOD COUNT 14.1 K/UL (4.8-10.8)
[2019-10-04] MEDS: NovoLOG Insulin Flexpen SUBQ SCH ×2 (05:51)
[2019-10-04 06:00] LABS: ANION GAP 9 mmol/L (5-15); BLOOD UREA NITROGEN 19 mg/dL (7-18); CALCIUM 8.9 MG/DL (8.5-10.1); CARBON DIOXIDE 26 MMOL/L (21-32); CHLORIDE 104 MMOL/L (98-107); CREATININE 0.6 MG/DL (0.55-1.30); POTASSIUM 4.4 MMOL/L (3.5-5.1); SODIUM 139 MMOL/L (136-145)
[2019-10-04 07:59] VITALS: BP 130/76
--- NOTE | 2019-10-04 09:16 | Pulmonology Progress Note ---
Neena Lees USED [employer] WORKER 10/04/19 0916: Subjective ROS Limited/Unobtainable: Yes Constitutional: Denies: fever Gastrointestinal/Abdominal: Denies: nausea, vomiting, diarrhea Psychiatric: Denies: depression Skin: Denies: rash Musculoskeletal: Denies: pain Allergies: Coded Allergies: No Known Allergies (Unverified , 09/18/19) Subjective in [place] still hypoxic , tachypnea resolving on O2 via NC 5L via NC afebrile, still leuk with small trdnd down this am COVID 19 on 09/29 still detected clinically better Objective Last 24 Hour Vital Signs Date Time Temp Pulse Resp B/P (MAP) Pulse Ox O2 Delivery O2 Flow Rate FiO2 10/04/19 07:59 97.6 81 20 130/76 (94) 97 10/04/19 07:46 91 10/04/19 04:00 98.5 75 20 135/76 (95) 100 10/04/19 04:00 78 10/04/19 04:00 Nasal Cannula 5.0 Nasal Cannula 5.0 10/04/19 00:00 98.2 71 24 139/71 (93) 100 10/04/19 00:00 90 10/04/19 00:00 Nasal Cannula 5.0 Nasal Cannula 5.0 10/03/19 20:00 Nasal Cannula 5.0 Nasal Cannula 5.0 10/03/19 20:00 98.2 80 28 144/75 (98) 95 10/03/19 19:33 94 Nasal Cannula 5.0 40 10/03/19 19:17 73 10/03/19 19:05 90 10/03/19 16:00 79 10/03/19 12:00 88 Intake and Output 10/03/19 10/04/19 19:00 07:00 Intake Total 1200 ml 1220 ml Output Total 500 ml Balance 1200 ml 720 ml Free Water 450 ml 200 ml IV Total 30 ml 360 ml Tube Feeding 720 ml 660 ml Output Urine Total 500 ml # Bowel Movements 2 Objective Status: awake, responsive, HEENT: atraumatic, normocephalic, NGT, 5 L O2 via NC Lungs: overall clear, Heart: HR/BP stable Abdomen: soft, non-tender, active bowel sounds Extremities: no edema Microbiology Date/Time Source Procedure Growth Status 10/01/19 17:30 Indwelling Cath Urine Culture - Final NO GROWTH AFTER 48 HOURS Complete Laboratory Tests 10/03/19 14:50: Vancomycin Level Trough 25.5H 10/04/19 03:40: White Blood Count 14.1H, Red Blood Count 4.46, Hemoglobin 14.1, Hematocrit 40.1 , Mean Corpuscular Volume 90, Mean Corpuscular Hemoglobin 31.7H, Mean Corpuscular Hemoglobin Concent 35.2, Red Cell Distribution Width 11.8, Platelet Count 379, Mean Platelet Volume 6.2L, Neutrophils (%) (Auto) , Lymphocytes (%) ( Auto) , Monocytes (%) (Auto) , Eosinophils (%) (Auto) , Basophils (%) (Auto) , Differential Total Cells Counted 100, Neutrophils % (Manual) 91H, Lymphocytes % (Manual) 3L, Monocytes % (Manual) 4, Eosinophils % (Manual) 1, Basophils % ( Manual) 0, Metamyelocytes % 1H, Band Neutrophils 0, Platelet Estimate Adequate, Platelet Morphology Normal, Red Blood Cell Morphology Normal, Sodium Level 139, Potassium Level 4.4, Chloride Level 104, Carbon Dioxide Level 26, Anion Gap 9, Blood Urea Nitrogen 19H, Creatinine 0.6, Estimat Glomerular Filtration Rate > 60 , Glucose Level 98, Calcium Level 8.9 Current Medications Medications (Trade) Dose Ordered Sig/Sam Route PRN Reason Start Time Stop Time Status Last Admin Dose Admin Acetaminophen (Tylenol) 650 mg Q4H PRN ORAL Mild Pain (Pain Scale 1-3) 10/02/19 11:44 11/01/19 11:43 Acetaminophen (Tylenol) 650 mg Q4H PRN ORAL Temp >100.5 10/02/19 11:44 11/01/19 11:43 Albuterol Sulfate (Proventil MDI) 2 puff Q4H PRN INH Shortness of Breath 10/02/19 11:45 12/31/19 11:44 Atropine Sulfate (Atropine) 1 mg DAILYPRN PRN IVP HR<40 10/02/19 12:20 11/01/19 12:19 Cefepime HCl 2 gm/ Dextrose 100 ml @ 200 mls/hr EVERY 8 HOURS IVPB 10/02/19 14:00 10/08/19 13:59 10/04/19 05:04 Dextrose (Dextrose 50%) 25 ml Q30M PRN IV Hypoglycemia 10/02/19 11:45 12/19/19 16:14 Dextrose (Dextrose 50%) 50 ml Q30M PRN IV Hypoglycemia 10/02/19 11:45 12/19/19 16:14 Diphenoxylate HCl/ Atropine (Lomotil) 2.5 mg Q4H PRN ORAL Diarrhea 10/02/19 11:45 11/01/19 11:44 Enoxaparin Sodium (Lovenox) 60 mg QHS SUBQ 10/02/19 21:00 12/20/19 20:59 10/03/19 20:11 Insulin Aspart (NovoLOG) Q6HR SUBQ 10/02/19 12:00 12/26/19 00:00 Lorazepam (Ativan 2mg/ml 1ml) 2 mg Q4H PRN IV For Anxiety 10/02/19 11:45 10/09/19 11:44 Methylprednisolone Sodium Succinate (Solu-MEDROL) 10 mg Q12HR IVP 10/03/19 09:00 12/18/19 20:59 10/03/19 20:12 Metronidazole 100 ml @ 100 mls/hr Q8HR IVPB 10/02/19 14:00 10/08/19 13:59 10/04/19 05:03 Ondansetron HCl (Zofran) 4 mg Q6H PRN IVP Nausea & Vomiting 10/02/19 11:45 11/01/19 11:44 Polyethylene Glycol (Miralax) 17 gm HSPRN PRN ORAL Constipation 10/02/19 11:45 11/01/19 11:44 Sodium Chloride 1,000 ml @ 30 mls/hr Q24H IV 10/02/19 11:45 11/01/19 11:44 10/03/19 10:23 Vancomycin HCl (Vanco rx to dose) 1 ea DAILY PRN MISC Per rx protocol 10/03/19 09:00 10/28/19 09:59 Vancomycin HCl 750 mg/Sodium Chloride 275 ml @ 183.333 mls/hr Q8HR IVPB 10/03/19 22:00 10/08/19 21:59 10/04/19 05:04 Assessment/Plan Assessment/Plan ASSESSMENT Acute hypoxemic respiratory failure requiring intubation, s/p extubation 5/2 Multilobar PNA, likely due to COVID 19 infection ( confirmed ) JOE -resolved Mild transaminitis Borderline diabetes Elevated CK/ rhabdo - CK trending down Odynophagia PLAN OF CARE ALBERTO s/p intubation 09/19 s/p extubation 09/27 currently on 5L O2 via NC tachypnea resolved titrate FiO2 to keep sat above 90% CXR 09/29 with findings of PNA Venous Duplex BLE results pending CXR 10/01 - Slightly improved but still extensive bilateral infiltrates, MDI with spacer in line using IS CXR for this am SARS -CoV -2 by PCR 09/17 came back non detected repeated SARS-CoV-2 by PCR 09/20 positive, continue isolation repeated SARAS-CoV-2 by PCR 09/29 still detected remains in isolation s/p Plaquenil x5 days, completed ceftriaxone Doxy was dc was on Zosyn since 09/27 as per ID , SCX + Enterobacter, stool C dif -NGT, UCX -NGT Zosyn stopped and changed to cefepime and Flagyl, cont Vanco leuk persists, remains afebrile will speak with pharmacy if can get Tocoluzimab for her if clinically worse, however appears to be with clincial improvement BCX 09/17 NGTD on Solumedrol now 10 mg IV bid with further tapering down soon, plan to stop in am leukocytosis may be partially reactive due to steroids as well trend CRP, LDH, ferritin: LDH 486, CRP 31, ferritin 582, IL 6 15.6, 09/24 ferritin 549 and CRP 20, both trending down, LDH 644 - with trend up , IL -6 18.6 , prior IL-6 15.6 last CRP 1.7 ( down from 26.6 initial) and LDH 426 ( down from 644) DVT prophylaxis with Lovenox gentle IV hydration creat down to normal, avoid nephrotoxics nutrition via NGT, aspiration precautions had severe odynophagia , possibly due to intubation , improving sore throat unable to do BSSE while in isolation try soft diet if tolerates, will dc NGT Cepacol lozenges prn mild hyperglycemia noted , probably due to steroids? on SSI/low dose, sensitive , HgA1c -6 - borderline DM trend LFT , CK trended down, case discussed and evaluated by supervising physician Raghav De MD 10/04/19 1452: Subjective Allergies: Coded Allergies: No Known Allergies (Unverified , 09/18/19) Assessment/Plan Assessment/Plan Patient seen and examined with USED [employer]ARD WORKER. Agree with A&P above as it reflects our joint deliberations. Still on 5L, NGT out, jennifer soft diet. Abx per ID, titrate O2, HFA, repeat COVID, OOB, LMWH Neena Lees NP October 04, 2019 09:16 Raghav De MD October 04, 2019 14:52
[2019-10-04] MEDS: Solu-MEDROL 40mg Inj IVP SCH (09:24)
--- NOTE | 2019-10-04 10:22 | Diagnostic Imaging Report ---
Indication: Shortness of breath Technique: One view of the chest Comparison: 10/02/2019 Findings: Stable satisfactory position of nasogastric tube. Slightly improved inspiration currently. Given differences in degree of inspiration, probably unchanged bilateral extensive airspace consolidation. The pleural spaces are clear. The heart size is upper limits normal. Impression: Unchanged, over 2 days, findings as above.
[2019-10-04] MEDS ORDERED: NovoLOG Insulin Flexpen SUBQ SCH (11:30)
--- NOTE | 2019-10-04 11:49 | General Progress Note ---
Assessment/Plan Problem List: (1) Glucose intolerance ICD Codes: E74.39 - Other disorders of intestinal carbohydrate absorption SNOMED: 64365425 (2) Respiratory failure with hypoxia ICD Codes: J96.91 - Respiratory failure, unspecified with hypoxia SNOMED: 75811924406605671, 106262613 Qualifiers: Qualified Codes: J96.01 - Acute respiratory failure with hypoxia (3) Pneumonia due to COVID-19 virus ICD Codes: U07.1 - COVID-19; J12.89 - Other viral pneumonia SNOMED: 437104011, 098093161 (4) ARDS (adult respiratory distress syndrome) ICD Codes: J80 - Acute respiratory distress syndrome SNOMED: 79847099, 34721127 (5) Transaminitis ICD Codes: R74.0 - Nonspecific elevation of levels of transaminase and lactic acid dehydrogenase [LDH] SNOMED: 497025861, 134429182 (6) Rhabdomyolysis ICD Codes: M62.82 - Rhabdomyolysis SNOMED: 674641851 (7) JOE (acute kidney injury) ICD Codes: N17.9 - Acute kidney failure, unspecified SNOMED: 9210406, 14160772 (8) Dysphagia ICD Codes: R13.10 - Dysphagia, unspecified SNOMED: 75706986, 781098178 (9) Diarrhea ICD Codes: R19.7 - Diarrhea, unspecified SNOMED: 17850484 Assessment/Plan: out of icu, on antibiotics, plaquenil ordered by pulm, worsening resp failure, intubated, now extubated SS insulin, steroids tapering, started,lytes ok, less dyspnea, improving st swallow eval dc zamora dc ng ST swallow eval, symptomatic care diarrhea Subjective Constitutional: Reports: weakness HEENT: Reports: no symptoms Cardiovascular: Reports: no symptoms Gastrointestinal/Abdominal: Reports: diarrhea Genitourinary: Reports: no symptoms Neurologic/Psychiatric: Reports: no symptoms Endocrine: Reports: no symptoms Allergies: Coded Allergies: No Known Allergies (Unverified , 09/18/19) Objective Last 24 Hour Vital Signs Date Time Temp Pulse Resp B/P (MAP) Pulse Ox O2 Delivery O2 Flow Rate FiO2 10/04/19 08:00 Nasal Cannula 6.0 Nasal Cannula 6.0 10/04/19 07:59 97.6 81 20 130/76 (94) 94 10/04/19 07:46 91 10/04/19 04:00 98.5 75 20 135/76 (95) 100 10/04/19 04:00 78 10/04/19 04:00 Nasal Cannula 5.0 Nasal Cannula 5.0 10/04/19 00:00 98.2 71 24 139/71 (93) 100 10/04/19 00:00 90 10/04/19 00:00 Nasal Cannula 5.0 Nasal Cannula 5.0 10/03/19 20:00 Nasal Cannula 5.0 Nasal Cannula 5.0 10/03/19 20:00 98.2 80 28 144/75 (98) 95 10/03/19 19:33 94 Nasal Cannula 5.0 40 10/03/19 19:17 73 10/03/19 19:05 90 10/03/19 16:00 79 10/03/19 12:00 88 Intake and Output 10/03/19 10/04/19 19:00 07:00 Intake Total 1200 ml 1220 ml Output Total 500 ml Balance 1200 ml 720 ml Free Water 450 ml 200 ml IV Total 30 ml 360 ml Tube Feeding 720 ml 660 ml Output Urine Total 500 ml # Bowel Movements 2 Laboratory Tests 10/03/19 14:50: Vancomycin Level Trough 25.5H 10/04/19 03:40: White Blood Count 14.1H, Red Blood Count 4.46, Hemoglobin 14.1, Hematocrit 40.1 , Mean Corpuscular Volume 90, Mean Corpuscular Hemoglobin 31.7H, Mean Corpuscular Hemoglobin Concent 35.2, Red Cell Distribution Width 11.8, Platelet Count 379, Mean Platelet Volume 6.2L, Neutrophils (%) (Auto) , Lymphocytes (%) ( Auto) , Monocytes (%) (Auto) , Eosinophils (%) (Auto) , Basophils (%) (Auto) , Differential Total Cells Counted 100, Neutrophils % (Manual) 91H, Lymphocytes % (Manual) 3L, Monocytes % (Manual) 4, Eosinophils % (Manual) 1, Basophils % ( Manual) 0, Metamyelocytes % 1H, Band Neutrophils 0, Platelet Estimate Adequate, Platelet Morphology Normal, Red Blood Cell Morphology Normal, Sodium Level 139, Potassium Level 4.4, Chloride Level 104, Carbon Dioxide Level 26, Anion Gap 9, Blood Urea Nitrogen 19H, Creatinine 0.6, Estimat Glomerular Filtration Rate > 60 , Glucose Level 98, Calcium Level 8.9 Height (Feet): 5 Height (Inches): 2.00 Weight (Pounds): 155 General Appearance: no apparent distress, alert EENT: normal ENT inspection Neck: normal alignment Cardiovascular: normal rate Respiratory/Chest: lungs clear Abdomen: non tender Edema: no edema noted Arm (L), no edema noted Arm (R), no edema noted Leg (L), no edema noted Leg (R), no edema noted Pedal (L), no edema noted Pedal (R), no edema noted Generalized Hung Zuniga MD October 04, 2019 11:49
[2019-10-04 12:00] VITALS: BP 129/77
[2019-10-04] MEDS: Lomotil 2.5mg tab ORAL PRN (15:15)
[2019-10-04 15:29] VITALS: BP 124/76
--- NOTE | 2019-10-04 18:12 | Infectious Diseases Prog Note ---
Assessment/Plan Assessment/Plan ASSESSMENT AND PLAN: 1. covid-19 virus infection, pna, ? cap, respiratory failure, sepsis, steroids, vent, leukocytosis, fevers enterobacter pna - s/p hydroxychloroquine - vancomycin, cefepime, flagyl - day # 7/10 abx - monitor labs and chest x-ray - clinically improved, extubated - chest x-ray stable 2. No other significant past medical history. 3. No known allergies. 4. Social history negative. 5. Family history noncontributory. 6. MAR was noted. 7. Case discussed with RN. 8. Continue treatment per primary consultants. Subjective Constitutional: Denies: fever HEENT: Denies: congestion Respiratory: Denies: shortness of breath Cardiovascular: Denies: chest pain Gastrointestinal/Abdominal: Denies: nausea, vomiting, diarrhea Genitourinary: Reports: other - no zamora Neurologic: Denies: headache Psychiatric: Denies: depression Skin: Denies: rash Hematologic: Denies: bleeding Musculoskeletal: Denies: pain Allergies: Coded Allergies: No Known Allergies (Unverified , 09/18/19) Objective Vital Signs Last 24 Hour Vital Signs Date Time Temp Pulse Resp B/P (MAP) Pulse Ox O2 Delivery O2 Flow Rate FiO2 10/04/19 16:00 Nasal Cannula 4.0 10/04/19 16:00 86 10/04/19 15:29 98.1 89 20 124/76 (92) 95 10/04/19 12:00 91 10/04/19 12:00 98.0 93 20 129/77 (94) 96 10/04/19 12:00 Nasal Cannula 5.0 Nasal Cannula 5.0 10/04/19 08:00 Nasal Cannula 6.0 Nasal Cannula 6.0 10/04/19 07:59 97.6 81 20 130/76 (94) 94 10/04/19 07:46 91 10/04/19 04:00 98.5 75 20 135/76 (95) 100 10/04/19 04:00 78 10/04/19 04:00 Nasal Cannula 5.0 Nasal Cannula 5.0 10/04/19 00:00 98.2 71 24 139/71 (93) 100 10/04/19 00:00 90 10/04/19 00:00 Nasal Cannula 5.0 Nasal Cannula 5.0 10/03/19 20:00 Nasal Cannula 5.0 Nasal Cannula 5.0 10/03/19 20:00 98.2 80 28 144/75 (98) 95 10/03/19 19:33 94 Nasal Cannula 5.0 40 10/03/19 19:17 73 10/03/19 19:05 90 Height (Feet): 5 Height (Inches): 2.00 Weight (Pounds): 155 General Appearance: no acute distress HEENT: normocephalic, atraumatic, anicteric, mucous membranes moist Respiratory/Chest: crackles/rales, rhonchi - bilaterally Cardiovascular: normal rate, regular rhythm Abdomen: soft, non tender, no organomegaly, non distended Genitourinary: other - no zamora Extremities: no cyanosis Skin: no rash 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 COMPARISON: Chest x-ray 09/21/19 913 FINDINGS: Lungs: Improved aeration of the lung. Mild bilateral interstitial and hazy lung opacities are similar. Pleural space: Unremarkable. No pneumothorax. Heart: Unremarkable. No cardiomegaly. Mediastinum: Unremarkable. Bones/joints: Unremarkable. Tubes, lines and devices: Endotracheal tube and NG tube are stable. IMPRESSION: Improved aeration of the lung. Mild bilateral interstitial and hazy lung opacities are similar. Chest x-ray - 09/23/19 - Procedure: XRAY Chest 1v Indication: Shortness of breath Technique: One view of the chest Comparison: 09/22/2019 Findings: Less optimal inspiration on current exam. Bilateral diffuse hazy airspace opacities are probably similar to the prior study allowing for differences in degree of inspiration. Stable satisfactory positions of endotracheal and orogastric tubes Impression: Unchanged, over one day, findings as above. Chest x-ray - 09/26/19 - Procedure: XRAY Chest 1v Indication: Shortness of breath Technique: One view of the chest Comparison: 09/25/2019 Findings: Bilateral interstitial and hazy airspace disease is unchanged. Stable satisfactory endotracheal and nasogastric tube positions. Impression: Unchanged, over one day, findings as above. Chest x-ray - 09/28/19 - TECHNIQUE: Frontal view of the chest. COMPARISON: Chest x-ray 09/27/19 834 FINDINGS: Lungs: Worsening hazy bilateral diffuse airspace opacities. Hypoventilatory lungs. Pleural space: Unremarkable. No pneumothorax. Heart: Unremarkable. No cardiomegaly. Mediastinum: Unremarkable. Bones/joints: Unremarkable. Tubes, lines and devices: ET tube and NG tube are stable. IMPRESSION: Worsening hazy bilateral diffuse airspace opacities. Chest x-ray - 09/30/19 - Procedure: XRAY Chest 1v Indication: Shortness of breath Technique: One view of the chest Comparison: 09/28/2019 Findings: Stable satisfactory position of nasogastric tube. Bilateral mostly peripheral and basilar infiltrates are again demonstrated, appears similar on the left, slightly worse on the right. The endotracheal tube is no longer evident. Impression: Interim of endotracheal extubation Stable left and slightly increased right-sided infiltrates, likely pneumonia Chest x-ray - 10/02/19 - Procedure: XRAY Chest 1v Indication: Shortness of breath Technique: One view of the chest Comparison: 09/30/2019 Findings: Stable satisfactory position of nasogastric tube. Bilateral diffuse infiltrates appear slightly improved but remain extensive. No definite effusions. The heart size is normal Impression: Slightly improved but still extensive bilateral infiltrates, since prior exam of 2 days earlier Chest x-ray - 10/04/19 - Procedure: XRAY Chest 1v Indication: Shortness of breath Technique: One view of the chest Comparison: 10/02/2019 Findings: Stable satisfactory position of nasogastric tube. Slightly improved inspiration currently. Given differences in degree of inspiration, probably unchanged bilateral extensive airspace consolidation. The pleural spaces are clear. The heart size is upper limits normal. Impression: Unchanged, over 2 days, findings as above. Chest x-ray - 10/04/19 - Procedure: XRAY Chest 1v Indication: Shortness of breath Technique: One view of the chest Comparison: 10/02/2019 Findings: Stable satisfactory position of nasogastric tube. Slightly improved inspiration currently. Given differences in degree of inspiration, probably unchanged bilateral extensive airspace consolidation. The pleural spaces are clear. The heart size is upper limits normal. Impression: Unchanged, over 2 days, findings as above. Microbiology Date/Time Source Procedure Growth Status 09/28/19 11:52 Blood Blood Culture - Final NO GROWTH AFTER 5 DAYS Complete 09/30/19 21:00 Nasopharynx Coronavirus COVID-19 PCR ([facility]) - Final Complete 09/29/19 04:40 Stool Clostridium difficile Toxin Assay - Final Complete 10/01/19 17:30 Indwelling Cath Urine Culture - Final NO GROWTH AFTER 48 HOURS Complete Laboratory Tests Test 10/04/19 03:40 White Blood Count 14.1 K/UL (4.8-10.8) H Red Blood Count 4.46 M/UL (4.20-5.40) Hemoglobin 14.1 G/DL (12.0-16.0) Hematocrit 40.1 % (37.0-47.0) Mean Corpuscular Volume 90 FL (80-99) Mean Corpuscular Hemoglobin 31.7 PG (27.0-31.0) H Mean Corpuscular Hemoglobin Concent 35.2 G/DL (32.0-36.0) Red Cell Distribution Width 11.8 % (11.6-14.8) Platelet Count 379 K/UL (150-450) Mean Platelet Volume 6.2 FL (6.5-10.1) L Neutrophils (%) (Auto) % (45.0-75.0) Lymphocytes (%) (Auto) % (20.0-45.0) Monocytes (%) (Auto) % (1.0-10.0) Eosinophils (%) (Auto) % (0.0-3.0) Basophils (%) (Auto) % (0.0-2.0) Differential Total Cells Counted 100 Neutrophils % (Manual) 91 % (45-75) H Lymphocytes % (Manual) 3 % (20-45) L Monocytes % (Manual) 4 % (1-10) Eosinophils % (Manual) 1 % (0-3) Basophils % (Manual) 0 % (0-2) Metamyelocytes % 1 % (0-0) H Band Neutrophils 0 % (0-8) Platelet Estimate Adequate Platelet Morphology Normal Red Blood Cell Morphology Normal Sodium Level 139 MMOL/L (136-145) Potassium Level 4.4 MMOL/L (3.5-5.1) Chloride Level 104 MMOL/L (98-107) Carbon Dioxide Level 26 MMOL/L (21-32) Anion Gap 9 mmol/L (5-15) Blood Urea Nitrogen 19 mg/dL (7-18) H Creatinine 0.6 MG/DL (0.55-1.30) Estimat Glomerular Filtration Rate > 60 mL/min (>60) Glucose Level 98 MG/DL (74-106) Calcium Level 8.9 MG/DL (8.5-10.1) Current Medications Medications (Trade) Dose Ordered Sig/Sam Route PRN Reason Start Time Stop Time Status Last Admin Dose Admin Acetaminophen (Tylenol) 650 mg Q4H PRN ORAL Mild Pain (Pain Scale 1-3) 10/02/19 11:44 11/01/19 11:43 Acetaminophen (Tylenol) 650 mg Q4H PRN ORAL Temp >100.5 10/02/19 11:44 11/01/19 11:43 Albuterol Sulfate (Proventil MDI) 2 puff Q4H PRN INH Shortness of Breath 10/02/19 11:45 12/31/19 11:44 Atropine Sulfate (Atropine) 1 mg DAILYPRN PRN IVP HR<40 10/02/19 12:20 11/01/19 12:19 Cefepime HCl 2 gm/ Dextrose 100 ml @ 200 mls/hr EVERY 8 HOURS IVPB 10/02/19 14:00 10/08/19 13:59 10/04/19 14:27 Cetylpyridinium Chloride (Cepacol) 1 lozg Q2H PRN MARLIN sore throat 10/04/19 09:30 01/02/20 09:29 Dextrose (Dextrose 50%) 25 ml Q30M PRN IV Hypoglycemia 10/02/19 11:45 12/19/19 16:14 Dextrose (Dextrose 50%) 50 ml Q30M PRN IV Hypoglycemia 10/02/19 11:45 12/19/19 16:14 Diphenoxylate HCl/ Atropine (Lomotil) 2.5 mg Q4H PRN ORAL Diarrhea 10/02/19 11:45 11/01/19 11:44 10/04/19 15:15 Enoxaparin Sodium (Lovenox) 60 mg QHS SUBQ 10/02/19 21:00 12/20/19 20:59 10/03/19 20:11 Lorazepam (Ativan 2mg/ml 1ml) 2 mg Q4H PRN IV For Anxiety 10/02/19 11:45 10/09/19 11:44 Metronidazole 100 ml @ 100 mls/hr Q8HR IVPB 10/02/19 14:00 10/08/19 13:59 10/04/19 13:04 Ondansetron HCl (Zofran) 4 mg Q6H PRN IVP Nausea & Vomiting 10/02/19 11:45 11/01/19 11:44 Polyethylene Glycol (Miralax) 17 gm HSPRN PRN ORAL Constipation 10/02/19 11:45 11/01/19 11:44 Sodium Chloride 1,000 ml @ 30 mls/hr Q24H IV 10/02/19 11:45 11/01/19 11:44 10/03/19 10:23 Vancomycin HCl (Vanco rx to dose) 1 ea DAILY PRN MISC Per rx protocol 10/03/19 09:00 10/28/19 09:59 Vancomycin HCl 750 mg/Sodium Chloride 275 ml @ 183.333 mls/hr Q8HR IVPB 10/03/19 22:00 10/08/19 21:59 10/04/19 14:28 Enedina Ceja MD October 04, 2019 18:12
[2019-10-04 20:00] VITALS: BP 123/75
[2019-10-04] MEDS: Enoxaparin 60mg Inj SUBQ SCH (21:19)
[2019-10-05] VITALS: BP 120/72
[2019-10-05 04:00] VITALS: BP 117/69
[2019-10-05] MEDS: Vancomycin 750mg/NS 275ml IVPB SCH ×6 (05:16→21:06)
[2019-10-05 06:24] LABS: BASOPHILS % (AUTO) 1.5 % (0.0-2.0); EOSINOPHILS % (AUTO) 1.3 % (0.0-3.0); HEMATOCRIT 36.2 % (37.0-47.0); HEMOGLOBIN 12.6 G/DL (12.0-16.0); LYMPHOCYTES % (AUTO) 9.9 % (20.0-45.0); MEAN CORPUSCULAR VOLUME 91 FL (80-99); NEUTROPHILS % (AUTO) 81.4 % (45.0-75.0); PLATELET COUNT 364 K/UL (150-450); RED BLOOD COUNT 3.99 M/UL (4.20-5.40); RED CELL DISTRIBUTION WIDTH 12.2 % (11.6-14.8); WHITE BLOOD COUNT 14.9 K/UL (4.8-10.8)
[2019-10-05 06:39] LABS: ANION GAP 8 mmol/L (5-15); BLOOD UREA NITROGEN 16 mg/dL (7-18); CARBON DIOXIDE 27 MMOL/L (21-32); CHLORIDE 106 MMOL/L (98-107); CREATININE 0.6 MG/DL (0.55-1.30); POTASSIUM 4.3 MMOL/L (3.5-5.1); SODIUM 140 MMOL/L (136-145)
[2019-10-05 07:39] VITALS: BP 130/79
[2019-10-05] MEDS: Lomotil 2.5mg tab ORAL PRN ×2 (07:41→16:32)
--- NOTE | 2019-10-05 09:06 | Pulmonology Progress Note ---
Neena Lees CLINICAL TECHNOLOGIST 10/05/19 0906: Subjective ROS Limited/Unobtainable: Yes Constitutional: Denies: fever Gastrointestinal/Abdominal: Denies: nausea, vomiting, diarrhea Psychiatric: Denies: depression Skin: Denies: rash Musculoskeletal: Denies: pain Allergies: Coded Allergies: No Known Allergies (Unverified , 09/18/19) Subjective in [place] still hypoxic , tachypnea resolved on O2 via NC 5L via NC afebrile, still leuk with small trend COVID 19 on 09/29 still detected started on oral diet tolerates, NGT out clinically better but still hypoxic , desaturates with small movement Objective Last 24 Hour Vital Signs Date Time Temp Pulse Resp B/P (MAP) Pulse Ox O2 Delivery O2 Flow Rate FiO2 10/05/19 07:39 98.7 86 20 130/79 (96) 98 10/05/19 04:00 Nasal Cannula 5.0 10/05/19 04:00 97.4 75 20 117/69 (85) 100 10/05/19 04:00 84 10/05/19 00:00 98.1 78 20 120/72 (88) 97 10/05/19 00:00 70 10/05/19 00:00 Nasal Cannula 5.0 10/04/19 20:00 Nasal Cannula 5.0 10/04/19 20:00 98.1 86 20 123/75 (91) 95 10/04/19 20:00 87 10/04/19 19:34 97 Nasal Cannula 5.0 40 10/04/19 16:00 Nasal Cannula 4.0 10/04/19 16:00 86 10/04/19 15:29 98.1 89 20 124/76 (92) 95 10/04/19 12:00 91 10/04/19 12:00 98.0 93 20 129/77 (94) 96 10/04/19 12:00 Nasal Cannula 5.0 Nasal Cannula 5.0 Intake and Output 10/04/19 10/05/19 19:00 07:00 Intake Total 1435.000 ml 430 ml Output Total 1500 ml 600 ml Balance -65.000 ml -170 ml Intake Oral 600 ml 100 ml IV Total 655.000 ml 330 ml Tube Feeding 180 ml Output Urine Total 1500 ml 600 ml # Bowel Movements 8 Objective Status: awake, responsive, HEENT: atraumatic, normocephalic, NGT, 5 L O2 via NC Lungs: few isolated rhonchi, tachypnea Heart: HR/BP stable Abdomen: soft, non-tender, active bowel sounds Extremities: no edema Genitourinary: other - no zamora Laboratory Tests 10/04/19 21:06: Vancomycin Level Trough 18.3H 10/05/19 05:45: White Blood Count 14.9H, Red Blood Count 3.99L, Hemoglobin 12.6, Hematocrit 36.2L, Mean Corpuscular Volume 91, Mean Corpuscular Hemoglobin 31.6H, Mean Corpuscular Hemoglobin Concent 35.0, Red Cell Distribution Width 12.2, Platelet Count 364, Mean Platelet Volume 6.0L, Neutrophils (%) (Auto) 81.4H, Lymphocytes (%) (Auto) 9.9L, Monocytes (%) (Auto) 6.0, Eosinophils (%) (Auto) 1.3, Basophils (%) (Auto) 1.5, Sodium Level 140, Potassium Level 4.3, Chloride Level 106, Carbon Dioxide Level 27, Anion Gap 8, Blood Urea Nitrogen 16, Creatinine 0.6, Estimat Glomerular Filtration Rate > 60, Glucose Level 95, Calcium Level 8.0L Current Medications Medications (Trade) Dose Ordered Sig/Sam Route PRN Reason Start Time Stop Time Status Last Admin Dose Admin Acetaminophen (Tylenol) 650 mg Q4H PRN ORAL Mild Pain (Pain Scale 1-3) 10/02/19 11:44 11/01/19 11:43 Acetaminophen (Tylenol) 650 mg Q4H PRN ORAL Temp >100.5 10/02/19 11:44 11/01/19 11:43 Albuterol Sulfate (Proventil MDI) 2 puff Q4H PRN INH Shortness of Breath 10/02/19 11:45 12/31/19 11:44 Atropine Sulfate (Atropine) 1 mg DAILYPRN PRN IVP HR<40 10/02/19 12:20 11/01/19 12:19 Cefepime HCl 2 gm/ Dextrose 100 ml @ 200 mls/hr EVERY 8 HOURS IVPB 10/02/19 14:00 10/08/19 13:59 10/05/19 05:16 Cetylpyridinium Chloride (Cepacol) 1 lozg Q2H PRN MARLIN sore throat 10/04/19 09:30 01/02/20 09:29 Dextrose (Dextrose 50%) 25 ml Q30M PRN IV Hypoglycemia 10/02/19 11:45 12/19/19 16:14 Dextrose (Dextrose 50%) 50 ml Q30M PRN IV Hypoglycemia 10/02/19 11:45 12/19/19 16:14 Diphenoxylate HCl/ Atropine (Lomotil) 2.5 mg Q4H PRN ORAL Diarrhea 10/02/19 11:45 11/01/19 11:44 10/05/19 07:41 Enoxaparin Sodium (Lovenox) 60 mg QHS SUBQ 10/02/19 21:00 12/20/19 20:59 10/04/19 21:19 Lorazepam (Ativan 2mg/ml 1ml) 2 mg Q4H PRN IV For Anxiety 10/02/19 11:45 10/09/19 11:44 Metronidazole 100 ml @ 100 mls/hr Q8HR IVPB 10/02/19 14:00 10/08/19 13:59 10/05/19 05:16 Ondansetron HCl (Zofran) 4 mg Q6H PRN IVP Nausea & Vomiting 10/02/19 11:45 11/01/19 11:44 Polyethylene Glycol (Miralax) 17 gm HSPRN PRN ORAL Constipation 10/02/19 11:45 11/01/19 11:44 Sodium Chloride 1,000 ml @ 30 mls/hr Q24H IV 10/02/19 11:45 11/01/19 11:44 10/03/19 10:23 Vancomycin HCl (Vanco rx to dose) 1 ea DAILY PRN MISC Per rx protocol 10/03/19 09:00 10/28/19 09:59 Vancomycin HCl 750 mg/Sodium Chloride 275 ml @ 183.333 mls/hr Q8HR IVPB 10/03/19 22:00 10/08/19 21:59 10/05/19 05:16 Assessment/Plan Assessment/Plan ASSESSMENT Acute hypoxemic respiratory failure requiring intubation, s/p extubation 09/27 Confirmed CoVID 19 multilobar PNA JOE -resolved Mild transaminitis Borderline diabetes Elevated CK/ rhabdo - CK trending down Odynophagia PLAN OF CARE s/p intubation 09/19 s/p extubation 09/27 currently on 5L O2 via NC tachypnea resolved , still hypoxic even with small movements and easily desaturates titrate FiO2 to keep sat above 90% CXR 09/29 with findings of PNA Venous Duplex BLE results pending CXR 10/01 - Slightly improved but still extensive bilateral infiltrates, MDI with spacer in line using IS CXR 10/03 unchanged : bilateral extensive airspace consolidation. The pleural spaces are clear. SARS -CoV -2 by PCR 09/17 came back non detected repeated SARS-CoV-2 by PCR 09/20 positive, continue isolation repeated SARS-CoV-2 by PCR 09/29 still detected repeat SARS-CoV-2 by PCR today , 10/04 remains in isolation s/p Plaquenil x5 days, completed ceftriaxone Doxy was dc was on Zosyn since 09/27 as per ID , SCX + Enterobacter, stool C dif -NGT, UCX -NGT Zosyn stopped and changed to cefepime and Flagyl, cont Vanco leuk persists, trending down, remains afebrile plan was to speak with pharmacy if can get Tocoluzimab for her if clinically worse, however appears to be with clinical improvement BCX 09/17 NGTD Solumedrol now 10 mg IV bid with further tapering down soon, plan to stop in am leukocytosis may be partially reactive due to steroids as well Solmedrol was tapered and dc this am 10/04 trend CRP, LDH, ferritin: 09/24 ferritin 549 a, CRP 20, both trending down, LDH 644 - with trend up , IL -6 18.6 , prior IL-6 15.6 last CRP 1.7 ( down from 26.6 initial) and LDH 426 ( down from 644) DVT prophylaxis with Lovenox gentle IV hydration creat down to normal, avoid nephrotoxics nutrition via NGT, aspiration precautions had severe odynophagia , possibly due to intubation , improving sore throat unable to do BSSE while in isolation tolerated soft diet , NGT was dc Cepacol lozenges prn mild hyperglycemia noted , probably due to steroids? on SSI/low dose, sensitive , HgA1c -6 - borderline DM, dc SS ( stable insulin), no concentrated sweets diet - prediabetic trend LFT , CK trended down, transfer to tele if ok with attending Dr Zuniga case discussed and evaluated by supervising physician Raghav De MD 10/07/19 1253: Subjective Allergies: Coded Allergies: No Known Allergies (Unverified , 09/18/19) Assessment/Plan Assessment/Plan Patient seen and examined with CLINICAL TECHNOLOGIST. Agree with above A&P as it reflects our joint deliberations. Neena Lees NP October 05, 2019 09:06 Raghav De MD October 07, 2019 12:53
[2019-10-05 12:00] VITALS: BP 112/71
[2019-10-05 16:00] VITALS: BP 118/72
[2019-10-05] MEDS ORDERED: NS 275ml ONE ×2 (17:42→17:46)
[2019-10-05] MEDS ORDERED: Tubing IV Secondary IV ONE ×2 (17:42→17:46)
--- NOTE | 2019-10-05 19:14 | General Progress Note ---
Assessment/Plan Problem List: (1) Glucose intolerance ICD Codes: E74.39 - Other disorders of intestinal carbohydrate absorption SNOMED: 58602540 (2) Respiratory failure with hypoxia ICD Codes: J96.91 - Respiratory failure, unspecified with hypoxia SNOMED: 75053693964232759, 144098552 Qualifiers: Qualified Codes: J96.01 - Acute respiratory failure with hypoxia (3) Pneumonia due to COVID-19 virus ICD Codes: U07.1 - COVID-19; J12.89 - Other viral pneumonia SNOMED: 158465807, 849573537 (4) ARDS (adult respiratory distress syndrome) ICD Codes: J80 - Acute respiratory distress syndrome SNOMED: 82897928, 59047175 (5) Transaminitis ICD Codes: R74.0 - Nonspecific elevation of levels of transaminase and lactic acid dehydrogenase [LDH] SNOMED: 989942219, 795086886 (6) Rhabdomyolysis ICD Codes: M62.82 - Rhabdomyolysis SNOMED: 533750572 (7) JOE (acute kidney injury) ICD Codes: N17.9 - Acute kidney failure, unspecified SNOMED: 8936762, 13975410 (8) Dysphagia ICD Codes: R13.10 - Dysphagia, unspecified SNOMED: 80030271, 665834671 (9) Diarrhea ICD Codes: R19.7 - Diarrhea, unspecified SNOMED: 36899463 Assessment/Plan: out of icu, on antibiotics, plaquenil ordered by pulm, worsening resp failure, intubated, now extubated SS insulin, steroids tapering, started,lytes ok, less dyspnea, improving st swallow eval dc zamora dc ng ST swallow eval, symptomatic care diarrhea Subjective Constitutional: Reports: weakness HEENT: Reports: no symptoms Cardiovascular: Reports: no symptoms Respiratory: Reports: SOB with excertion Gastrointestinal/Abdominal: Reports: diarrhea Genitourinary: Reports: no symptoms Neurologic/Psychiatric: Reports: no symptoms Endocrine: Reports: no symptoms Hematologic/Lymphatic: Reports: no symptoms Allergies: Coded Allergies: No Known Allergies (Unverified , 09/18/19) Objective Last 24 Hour Vital Signs Date Time Temp Pulse Resp B/P (MAP) Pulse Ox O2 Delivery O2 Flow Rate FiO2 10/05/19 16:10 72 10/05/19 16:00 Nasal Cannula 3.0 10/05/19 16:00 98.4 88 20 118/72 (87) 96 10/05/19 12:00 98.8 90 20 112/71 (85) 96 10/05/19 12:00 70 10/05/19 12:00 Nasal Cannula 3.0 10/05/19 08:00 Nasal Cannula 3.0 10/05/19 08:00 77 10/05/19 07:39 98.7 86 20 130/79 (96) 98 10/05/19 04:00 Nasal Cannula 5.0 10/05/19 04:00 97.4 75 20 117/69 (85) 100 10/05/19 04:00 84 10/05/19 00:00 98.1 78 20 120/72 (88) 97 10/05/19 00:00 70 10/05/19 00:00 Nasal Cannula 5.0 10/04/19 20:00 Nasal Cannula 5.0 10/04/19 20:00 98.1 86 20 123/75 (91) 95 10/04/19 20:00 87 10/04/19 19:34 97 Nasal Cannula 5.0 40 Intake and Output 10/04/19 10/05/19 19:00 07:00 Intake Total 1435.000 ml 560 ml Output Total 1500 ml 600 ml Balance -65.000 ml -40 ml Intake Oral 600 ml 100 ml IV Total 655.000 ml 460 ml Tube Feeding 180 ml Output Urine Total 1500 ml 600 ml # Bowel Movements 8 Laboratory Tests 10/04/19 21:06: Vancomycin Level Trough 18.3H 10/05/19 05:45: White Blood Count 14.9H, Red Blood Count 3.99L, Hemoglobin 12.6, Hematocrit 36.2L, Mean Corpuscular Volume 91, Mean Corpuscular Hemoglobin 31.6H, Mean Corpuscular Hemoglobin Concent 35.0, Red Cell Distribution Width 12.2, Platelet Count 364, Mean Platelet Volume 6.0L, Neutrophils (%) (Auto) 81.4H, Lymphocytes (%) (Auto) 9.9L, Monocytes (%) (Auto) 6.0, Eosinophils (%) (Auto) 1.3, Basophils (%) (Auto) 1.5, Sodium Level 140, Potassium Level 4.3, Chloride Level 106, Carbon Dioxide Level 27, Anion Gap 8, Blood Urea Nitrogen 16, Creatinine 0.6, Estimat Glomerular Filtration Rate > 60, Glucose Level 95, Calcium Level 8.0L Height (Feet): 5 Height (Inches): 2.00 Weight (Pounds): 155 General Appearance: no apparent distress, alert EENT: normal ENT inspection Neck: normal alignment Cardiovascular: normal rate Respiratory/Chest: lungs clear Abdomen: soft Edema: no edema noted Arm (L), no edema noted Arm (R), no edema noted Leg (L), no edema noted Leg (R), no edema noted Pedal (L), no edema noted Pedal (R), no edema noted 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
[2019-10-05 20:00] VITALS: BP 123/86
[2019-10-05] MEDS ORDERED: Lomotil 2.5mg tab ORAL PRN (20:30)
[2019-10-05] MEDS: Enoxaparin 60mg Inj SUBQ SCH (21:08)
[2019-10-06] VITALS: BP 119/76
[2019-10-06 04:00] VITALS: BP 123/78
[2019-10-06] MEDS: Vancomycin 750mg/NS 275ml IVPB SCH ×2 (05:30)
[2019-10-06 06:22] LABS: BASOPHILS % (AUTO) 1.4 % (0.0-2.0); EOSINOPHILS % (AUTO) 2.3 % (0.0-3.0); HEMATOCRIT 36.1 % (37.0-47.0); HEMOGLOBIN 12.4 G/DL (12.0-16.0); LYMPHOCYTES % (AUTO) 10.1 % (20.0-45.0); MEAN CORPUSCULAR VOLUME 90 FL (80-99); MONOCYTES % (AUTO) 7.1 % (1.0-10.0); NEUTROPHILS % (AUTO) 79.2 % (45.0-75.0); PLATELET COUNT 302 K/UL (150-450); RED CELL DISTRIBUTION WIDTH 11.8 % (11.6-14.8); WHITE BLOOD COUNT 11.1 K/UL (4.8-10.8)
[2019-10-06 06:40] LABS: ANION GAP 7 mmol/L (5-15); BLOOD UREA NITROGEN 7 mg/dL (7-18); CALCIUM 8.3 MG/DL (8.5-10.1); CARBON DIOXIDE 27 MMOL/L (21-32); CHLORIDE 105 MMOL/L (98-107); CREATININE 0.6 MG/DL (0.55-1.30); POTASSIUM 3.6 MMOL/L (3.5-5.1); SODIUM 139 MMOL/L (136-145)
[2019-10-06 08:00] VITALS: BP 126/82
--- NOTE | 2019-10-06 09:03 | Pulmonology Progress Note ---
Neena Lees BURNER TECHNICIAN 10/06/19 0903: Subjective ROS Limited/Unobtainable: Yes Constitutional: Denies: fever Gastrointestinal/Abdominal: Denies: nausea, vomiting, diarrhea Psychiatric: Denies: depression Skin: Denies: rash Musculoskeletal: Denies: pain Allergies: Coded Allergies: No Known Allergies (Unverified , 09/18/19) Subjective in ALBERTO weaned to 3 L O2 via NC afebrile, leuk with trend down COVID 19 on 09/29 still detected started on oral diet tolerates, NGT was dc clinically better but very deconditioned Objective Last 24 Hour Vital Signs Date Time Temp Pulse Resp B/P (MAP) Pulse Ox O2 Delivery O2 Flow Rate FiO2 10/06/19 04:00 72 10/06/19 04:00 Nasal Cannula 3.0 10/06/19 04:00 99.1 76 20 123/78 (93) 96 10/06/19 00:00 89 10/06/19 00:00 Nasal Cannula 3.0 10/06/19 00:00 97.5 76 18 119/76 (90) 96 10/05/19 20:00 Nasal Cannula 3.0 10/05/19 20:00 97.2 77 20 123/86 (98) 96 10/05/19 19:34 71 10/05/19 16:10 72 10/05/19 16:00 Nasal Cannula 3.0 10/05/19 16:00 98.4 88 20 118/72 (87) 96 10/05/19 12:00 98.8 90 20 112/71 (85) 96 10/05/19 12:00 70 10/05/19 12:00 Nasal Cannula 3.0 Intake and Output 10/05/19 10/06/19 19:00 07:00 Intake Total 1545.010 ml 2030 ml Output Total 1400 ml 1100 ml Balance 145.010 ml 930 ml Intake Oral 800 ml 720 ml IV Total 745.010 ml 1310 ml Output Urine Total 1400 ml 1100 ml # Voids 2 # Bowel Movements 8 4 Objective Status: awake, responsive, HEENT: atraumatic, normocephalic, NGT, 3 L O2 via NC Lungs: few isolated rhonchi, Heart: HR/BP stable Abdomen: soft, non-tender, active bowel sounds Extremities: no edema Laboratory Tests 10/06/19 04:00: White Blood Count 11.1H, Red Blood Count 4.00L, Hemoglobin 12.4, Hematocrit 36.1L, Mean Corpuscular Volume 90, Mean Corpuscular Hemoglobin 31.0, Mean Corpuscular Hemoglobin Concent 34.3, Red Cell Distribution Width 11.8, Platelet Count 302, Mean Platelet Volume 5.8L, Neutrophils (%) (Auto) 79.2H, Lymphocytes (%) (Auto) 10.1L, Monocytes (%) (Auto) 7.1, Eosinophils (%) (Auto) 2.3, Basophils (%) (Auto) 1.4, Sodium Level 139, Potassium Level 3.6, Chloride Level 105, Carbon Dioxide Level 27, Anion Gap 7, Blood Urea Nitrogen 7, Creatinine 0.6 , Estimat Glomerular Filtration Rate > 60, Glucose Level 76, Calcium Level 8.3L Current Medications Medications (Trade) Dose Ordered Sig/Sam Route PRN Reason Start Time Stop Time Status Last Admin Dose Admin Acetaminophen (Tylenol) 650 mg Q4H PRN ORAL Mild Pain (Pain Scale 1-3) 10/02/19 11:44 11/01/19 11:43 10/06/19 03:52 Acetaminophen (Tylenol) 650 mg Q4H PRN ORAL Temp >100.5 10/02/19 11:44 11/01/19 11:43 Albuterol Sulfate (Proventil MDI) 2 puff Q4H PRN INH Shortness of Breath 10/02/19 11:45 12/31/19 11:44 Atropine Sulfate (Atropine) 1 mg DAILYPRN PRN IVP HR<40 10/02/19 12:20 11/01/19 12:19 Cefepime HCl 2 gm/ Dextrose 100 ml @ 200 mls/hr EVERY 8 HOURS IVPB 10/02/19 14:00 10/08/19 13:59 10/06/19 05:30 Cetylpyridinium Chloride (Cepacol) 1 lozg Q2H PRN MARLIN sore throat 10/04/19 09:30 01/02/20 09:29 Dextrose (Dextrose 50%) 25 ml Q30M PRN IV Hypoglycemia 10/02/19 11:45 12/19/19 16:14 Dextrose (Dextrose 50%) 50 ml Q30M PRN IV Hypoglycemia 10/02/19 11:45 12/19/19 16:14 Diphenoxylate HCl/ Atropine (Lomotil) 2.5 mg Q4H PRN ORAL Diarrhea 10/05/19 20:30 11/04/19 20:29 Enoxaparin Sodium (Lovenox) 60 mg QHS SUBQ 10/02/19 21:00 12/20/19 20:59 10/05/19 21:08 Lorazepam (Ativan 2mg/ml 1ml) 2 mg Q4H PRN IV For Anxiety 10/02/19 11:45 10/09/19 11:44 Metronidazole 100 ml @ 100 mls/hr Q8HR IVPB 10/02/19 14:00 10/08/19 13:59 10/06/19 05:30 Ondansetron HCl (Zofran) 4 mg Q6H PRN IVP Nausea & Vomiting 10/02/19 11:45 11/01/19 11:44 10/05/19 16:32 Polyethylene Glycol (Miralax) 17 gm HSPRN PRN ORAL Constipation 10/02/19 11:45 11/01/19 11:44 Sodium Chloride 1,000 ml @ 30 mls/hr Q24H IV 10/02/19 11:45 11/01/19 11:44 10/05/19 12:15 Vancomycin HCl (Vanco rx to dose) 1 ea DAILY PRN MISC Per rx protocol 10/03/19 09:00 10/28/19 09:59 Vancomycin HCl 750 mg/Sodium Chloride 275 ml @ 183.333 mls/hr Q8HR IVPB 10/03/19 22:00 10/08/19 21:59 10/06/19 05:30 Assessment/Plan Assessment/Plan ASSESSMENT Acute hypoxemic respiratory failure requiring intubation, s/p extubation 09/27 Confirmed CoVID 19 multilobar PNA JOE -resolved Mild transaminitis Borderline diabetes Elevated CK/ rhabdo - CK trending down Odynophagia PLAN OF CARE s/p intubation 09/19 s/p extubation 09/27 currently on 3 L O2 via NC tachypnea resolved , titrate FiO2 to keep sat above 90% CXR 09/29 with findings of PNA Venous Duplex BLE results pending CXR 10/01 - Slightly improved but still extensive bilateral infiltrates, MDI with spacer in line using IS CXR 10/03 unchanged : bilateral extensive airspace consolidation. The pleural spaces are clear. SARS -CoV -2 by PCR 09/17 came back non detected repeated SARS-CoV-2 by PCR 09/20 positive, continue isolation repeated SARS-CoV-2 by PCR 09/29 still detected remains in isolation COVID 19 10/04 pending s/p Plaquenil x5 days, completed ceftriaxone Doxy was dc was on Zosyn since 09/27 as per ID , SCX + Enterobacter, stool C dif -NGT, UCX -NGT Zosyn stopped and changed to cefepime and Flagyl, cont Vanco leuk persists, trending down, remains afebrile will speak with pharmacy if can get Tocoluzimab for her if clinically worse, however appears to be with clincial improvement BCX 09/17 NGTD Solumedrol now 10 mg IV bid with further tapering down soon, plan to stop in am leukocytosis may be partially reactive due to steroids as well Solmedrol was tapered and dc on 10/04 trend CRP, LDH, ferritin: 09/24 ferritin 549 a, CRP 20, both trending down, LDH 644 - with trend up , IL -6 18.6 , prior IL-6 15.6 last CRP 1.7 ( down from 26.6 initial) and LDH 426 ( down from 644) DVT prophylaxis with Lovenox gentle IV hydration creat down to normal, avoid nephrotoxics nutrition via NGT, aspiration precautions had severe odynophagia , possibly due to intubation , improving sore throat unable to do BSSE while in isolation tolerated soft diet , NGT was dc Cepacol lozenges prn mild hyperglycemia noted , probably due to steroids? on SSI/low dose, sensitive , HgA1c -6 - borderline DM, dc SS ( stable insulin), no concentrated sweets diet - prediabetic trend LFT , CK trended down, Ok to transfer to [place] as per attending continue PT, ambulate and mobilize OOB as tolerated case discussed and evaluated by supervising physician Raghav De MD 10/07/19 1253: Subjective Allergies: Coded Allergies: No Known Allergies (Unverified , 09/18/19) Assessment/Plan Assessment/Plan Patient seen and examined with BURNER TECHNICIAN. Agree with above A&P as it reflects our joint deliberations. Neena Lees BURNER TECHNICIAN October 06, 2019 09:03 Raghav De MD October 07, 2019 12:53
[2019-10-06 12:00] VITALS: BP 94/98
[2019-10-06] MEDS ORDERED: LORazepam 1mg tab ORAL PRN ×2 (12:00→14:00)
[2019-10-06] MEDS ORDERED: Miralax 17gm pkt ORAL PRN (13:30)
[2019-10-06] MEDS ORDERED: Lomotil 2.5mg tab ORAL PRN (13:30)
[2019-10-06] MEDS ORDERED: Atropine Inj 1mg/10ml Syr IVP PRN (14:30)
[2019-10-06] MEDS ORDERED: Albuterol 90mcg Inhaler 8gm INH PRN (14:30)
[2019-10-06] MEDS ORDERED: NS 275ml ONE ×2 (14:54→16:01)
[2019-10-06 15:54] VITALS: BP 123/70
[2019-10-06] MEDS ORDERED: Vancomycin 750 MG in NS 275 ML IVPB SCH (16:00)
[2019-10-06] MEDS ORDERED: Tubing IV Secondary IV ONE (16:01)
--- NOTE | 2019-10-06 18:33 | General Progress Note ---
Assessment/Plan Problem List: (1) Glucose intolerance ICD Codes: E74.39 - Other disorders of intestinal carbohydrate absorption SNOMED: 55298662 (2) Respiratory failure with hypoxia ICD Codes: J96.91 - Respiratory failure, unspecified with hypoxia SNOMED: 67512186613719710, 977997464 Qualifiers: Qualified Codes: J96.01 - Acute respiratory failure with hypoxia (3) Pneumonia due to COVID-19 virus ICD Codes: U07.1 - COVID-19; J12.89 - Other viral pneumonia SNOMED: 267396086, 517316025 (4) ARDS (adult respiratory distress syndrome) ICD Codes: J80 - Acute respiratory distress syndrome SNOMED: 34310782, 02440719 (5) Transaminitis ICD Codes: R74.0 - Nonspecific elevation of levels of transaminase and lactic acid dehydrogenase [LDH] SNOMED: 447580862, 096607759 (6) Rhabdomyolysis ICD Codes: M62.82 - Rhabdomyolysis SNOMED: 222060758 (7) JOE (acute kidney injury) ICD Codes: N17.9 - Acute kidney failure, unspecified SNOMED: 4612316, 01745545 (8) Dysphagia ICD Codes: R13.10 - Dysphagia, unspecified SNOMED: 38004288, 219113570 (9) Diarrhea ICD Codes: R19.7 - Diarrhea, unspecified SNOMED: 05982283 Assessment/Plan: out of icu, on antibiotics, plaquenil ordered by pulm, worsening resp failure, intubated, now extubated SS insulin, steroids tapering, started,lytes ok, less dyspnea, improving st swallow eval dc zamroa dc ng ST swallow eval, symptomatic care diarrhea Subjective Constitutional: Reports: weakness HEENT: Reports: no symptoms Cardiovascular: Reports: no symptoms Respiratory: Reports: cough Gastrointestinal/Abdominal: Reports: no symptoms Genitourinary: Reports: no symptoms Neurologic/Psychiatric: Reports: no symptoms Endocrine: Reports: no symptoms Allergies: Coded Allergies: No Known Allergies (Unverified , 09/18/19) Objective Last 24 Hour Vital Signs Date Time Temp Pulse Resp B/P (MAP) Pulse Ox O2 Delivery O2 Flow Rate FiO2 10/06/19 15:54 97.8 97 18 123/70 (87) 96 10/06/19 12:00 99.3 100 20 94/98 (97) 93 10/06/19 08:00 Nasal Cannula 3.0 10/06/19 08:00 98.2 81 20 126/82 (97) 96 10/06/19 08:00 76 10/06/19 04:00 72 10/06/19 04:00 Nasal Cannula 3.0 10/06/19 04:00 99.1 76 20 123/78 (93) 96 10/06/19 00:00 89 10/06/19 00:00 Nasal Cannula 3.0 10/06/19 00:00 97.5 76 18 119/76 (90) 96 10/05/19 20:00 Nasal Cannula 3.0 10/05/19 20:00 97.2 77 20 123/86 (98) 96 10/05/19 19:34 71 Intake and Output 10/05/19 10/06/19 19:00 07:00 Intake Total 1545.010 ml 2030 ml Output Total 1400 ml 1100 ml Balance 145.010 ml 930 ml Intake Oral 800 ml 720 ml IV Total 745.010 ml 1310 ml Output Urine Total 1400 ml 1100 ml # Voids 2 # Bowel Movements 8 4 Laboratory Tests 10/06/19 04:00: White Blood Count 11.1H, Red Blood Count 4.00L, Hemoglobin 12.4, Hematocrit 36.1L, Mean Corpuscular Volume 90, Mean Corpuscular Hemoglobin 31.0, Mean Corpuscular Hemoglobin Concent 34.3, Red Cell Distribution Width 11.8, Platelet Count 302, Mean Platelet Volume 5.8L, Neutrophils (%) (Auto) 79.2H, Lymphocytes (%) (Auto) 10.1L, Monocytes (%) (Auto) 7.1, Eosinophils (%) (Auto) 2.3, Basophils (%) (Auto) 1.4, Sodium Level 139, Potassium Level 3.6, Chloride Level 105, Carbon Dioxide Level 27, Anion Gap 7, Blood Urea Nitrogen 7, Creatinine 0.6 , Estimat Glomerular Filtration Rate > 60, Glucose Level 76, Calcium Level 8.3L Height (Feet): 5 Height (Inches): 2.00 Weight (Pounds): 155 General Appearance: no apparent distress, alert EENT: normal ENT inspection Neck: normal alignment Cardiovascular: normal rate Respiratory/Chest: lungs clear Edema: no edema noted Arm (L), no edema noted Arm (R), no edema noted Leg (L), no edema noted Leg (R), no edema noted Pedal (L), no edema noted Pedal (R), no edema noted Generalized Hung Zuniga MD October 06, 2019 18:33
--- NOTE | 2019-10-06 19:04 | Infectious Diseases Prog Note ---
Assessment/Plan Assessment/Plan ASSESSMENT AND PLAN: 1. covid-19 virus infection, pna, ? cap, respiratory failure, sepsis, steroids, vent, leukocytosis, fevers enterobacter pna - s/p hydroxychloroquine - cefepime, flagyl - day # 9/10 abx - monitor labs and chest x-ray - clinically improved, extubated - chest x-ray stable 2. No other significant past medical history. 3. No known allergies. 4. Social history negative. 5. Family history noncontributory. 6. MAR was noted. 7. Case discussed with RN. 8. Continue treatment per primary consultants. Subjective Constitutional: Denies: fever HEENT: Denies: congestion Respiratory: Denies: shortness of breath Cardiovascular: Denies: chest pain Gastrointestinal/Abdominal: Denies: nausea, vomiting, diarrhea Neurologic: Denies: headache Psychiatric: Denies: depression Skin: Denies: rash Hematologic: Denies: bleeding Musculoskeletal: Denies: pain Allergies: Coded Allergies: No Known Allergies (Unverified , 09/18/19) Objective Vital Signs Last 24 Hour Vital Signs Date Time Temp Pulse Resp B/P (MAP) Pulse Ox O2 Delivery O2 Flow Rate FiO2 10/06/19 15:54 97.8 97 18 123/70 (87) 96 10/06/19 12:00 99.3 100 20 94/98 (97) 93 10/06/19 08:00 Nasal Cannula 3.0 10/06/19 08:00 98.2 81 20 126/82 (97) 96 10/06/19 08:00 76 10/06/19 04:00 72 10/06/19 04:00 Nasal Cannula 3.0 10/06/19 04:00 99.1 76 20 123/78 (93) 96 10/06/19 00:00 89 10/06/19 00:00 Nasal Cannula 3.0 10/06/19 00:00 97.5 76 18 119/76 (90) 96 10/05/19 20:00 Nasal Cannula 3.0 10/05/19 20:00 97.2 77 20 123/86 (98) 96 10/05/19 19:34 71 Height (Feet): 5 Height (Inches): 2.00 Weight (Pounds): 155 General Appearance: no acute distress HEENT: normocephalic, atraumatic, anicteric, mucous membranes moist Respiratory/Chest: crackles/rales, rhonchi - bilaterally Cardiovascular: normal rate, regular rhythm, no gallop/murmur, no JVD Abdomen: normal bowel sounds, soft, non tender, no organomegaly, non distended Genitourinary: other - no zamora Extremities: no cyanosis Skin: no rash Neurologic/Psychiatric: quotation clerk II-XII grossly normal, alert, responsive Lymphatic: no neck adenopathy Musculoskeletal: no effusion Objective EXAM: XR Chest, 1 View CLINICAL HISTORY: SOB TECHNIQUE: Frontal view of the chest. COMPARISON: Chest x-ray 09/21/19 913 FINDINGS: Lungs: Improved aeration of the lung. Mild bilateral interstitial and hazy lung opacities are similar. Pleural space: Unremarkable. No pneumothorax. Heart: Unremarkable. No cardiomegaly. Mediastinum: Unremarkable. Bones/joints: Unremarkable. Tubes, lines and devices: Endotracheal tube and NG tube are stable. IMPRESSION: Improved aeration of the lung. Mild bilateral interstitial and hazy lung opacities are similar. Chest x-ray - 09/23/19 - Procedure: XRAY Chest 1v Indication: Shortness of breath Technique: One view of the chest Comparison: 09/22/2019 Findings: Less optimal inspiration on current exam. Bilateral diffuse hazy airspace opacities are probably similar to the prior study allowing for differences in degree of inspiration. Stable satisfactory positions of endotracheal and orogastric tubes Impression: Unchanged, over one day, findings as above. Chest x-ray - 09/26/19 - Procedure: XRAY Chest 1v Indication: Shortness of breath Technique: One view of the chest Comparison: 09/25/2019 Findings: Bilateral interstitial and hazy airspace disease is unchanged. Stable satisfactory endotracheal and nasogastric tube positions. Impression: Unchanged, over one day, findings as above. Chest x-ray - 09/28/19 - TECHNIQUE: Frontal view of the chest. COMPARISON: Chest x-ray 09/27/19 834 FINDINGS: Lungs: Worsening hazy bilateral diffuse airspace opacities. Hypoventilatory lungs. Pleural space: Unremarkable. No pneumothorax. Heart: Unremarkable. No cardiomegaly. Mediastinum: Unremarkable. Bones/joints: Unremarkable. Tubes, lines and devices: ET tube and NG tube are stable. IMPRESSION: Worsening hazy bilateral diffuse airspace opacities. Chest x-ray - 09/30/19 - Procedure: XRAY Chest 1v Indication: Shortness of breath Technique: One view of the chest Comparison: 09/28/2019 Findings: Stable satisfactory position of nasogastric tube. Bilateral mostly peripheral and basilar infiltrates are again demonstrated, appears similar on the left, slightly worse on the right. The endotracheal tube is no longer evident. Impression: Interim of endotracheal extubation Stable left and slightly increased right-sided infiltrates, likely pneumonia Chest x-ray - 10/02/19 - Procedure: XRAY Chest 1v Indication: Shortness of breath Technique: One view of the chest Comparison: 09/30/2019 Findings: Stable satisfactory position of nasogastric tube. Bilateral diffuse infiltrates appear slightly improved but remain extensive. No definite effusions. The heart size is normal Impression: Slightly improved but still extensive bilateral infiltrates, since prior exam of 2 days earlier Chest x-ray - 10/04/19 - Procedure: XRAY Chest 1v Indication: Shortness of breath Technique: One view of the chest Comparison: 10/02/2019 Findings: Stable satisfactory position of nasogastric tube. Slightly improved inspiration currently. Given differences in degree of inspiration, probably unchanged bilateral extensive airspace consolidation. The pleural spaces are clear. The heart size is upper limits normal. Impression: Unchanged, over 2 days, findings as above. Chest x-ray - 10/04/19 - Procedure: XRAY Chest 1v Indication: Shortness of breath Technique: One view of the chest Comparison: 10/02/2019 Findings: Stable satisfactory position of nasogastric tube. Slightly improved inspiration currently. Given differences in degree of inspiration, probably unchanged bilateral extensive airspace consolidation. The pleural spaces are clear. The heart size is upper limits normal. Impression: Unchanged, over 2 days, findings as above. Microbiology Date/Time Source Procedure Growth Status 09/28/19 11:52 Blood Blood Culture - Final NO GROWTH AFTER 5 DAYS Complete 09/30/19 21:00 Nasopharynx Coronavirus COVID-19 PCR ([facility]) - Final Complete 09/29/19 04:40 Stool Clostridium difficile Toxin Assay - Final Complete 10/01/19 17:30 Indwelling Cath Urine Culture - Final NO GROWTH AFTER 48 HOURS Complete Laboratory Tests Test 10/06/19 04:00 White Blood Count 11.1 K/UL (4.8-10.8) H Red Blood Count 4.00 M/UL (4.20-5.40) L Hemoglobin 12.4 G/DL (12.0-16.0) Hematocrit 36.1 % (37.0-47.0) L Mean Corpuscular Volume 90 FL (80-99) Mean Corpuscular Hemoglobin 31.0 PG (27.0-31.0) Mean Corpuscular Hemoglobin Concent 34.3 G/DL (32.0-36.0) Red Cell Distribution Width 11.8 % (11.6-14.8) Platelet Count 302 K/UL (150-450) Mean Platelet Volume 5.8 FL (6.5-10.1) L Neutrophils (%) (Auto) 79.2 % (45.0-75.0) H Lymphocytes (%) (Auto) 10.1 % (20.0-45.0) L Monocytes (%) (Auto) 7.1 % (1.0-10.0) Eosinophils (%) (Auto) 2.3 % (0.0-3.0) Basophils (%) (Auto) 1.4 % (0.0-2.0) Sodium Level 139 MMOL/L (136-145) Potassium Level 3.6 MMOL/L (3.5-5.1) Chloride Level 105 MMOL/L (98-107) Carbon Dioxide Level 27 MMOL/L (21-32) Anion Gap 7 mmol/L (5-15) Blood Urea Nitrogen 7 mg/dL (7-18) Creatinine 0.6 MG/DL (0.55-1.30) Estimat Glomerular Filtration Rate > 60 mL/min (>60) Glucose Level 76 MG/DL (74-106) Calcium Level 8.3 MG/DL (8.5-10.1) L Current Medications Medications (Trade) Dose Ordered Sig/Sam Route PRN Reason Start Time Stop Time Status Last Admin Dose Admin Acetaminophen (Tylenol) 650 mg Q4H PRN ORAL Mild Pain (Pain Scale 1-3) 10/06/19 14:30 11/01/19 14:29 Acetaminophen (Tylenol) 650 mg Q4H PRN ORAL Temp >100.5 10/06/19 14:30 11/01/19 14:29 Albuterol Sulfate (Proventil MDI) 2 puff Q4H PRN INH Shortness of Breath 10/06/19 14:30 12/31/19 14:29 Atropine Sulfate (Atropine) 1 mg DAILYPRN PRN IVP HR<40 10/06/19 14:30 11/01/19 14:29 Cefepime HCl 2 gm/ Dextrose 100 ml @ 200 mls/hr EVERY 8 HOURS IVPB 10/06/19 14:00 10/08/19 13:59 10/06/19 14:00 Cetylpyridinium Chloride (Cepacol) 1 lozg Q2H PRN MARLIN sore throat 10/06/19 13:30 01/02/20 09:29 Dextrose (Dextrose 50%) 25 ml Q30M PRN IV Hypoglycemia 10/06/19 13:30 12/19/19 13:29 Dextrose (Dextrose 50%) 50 ml Q30M PRN IV Hypoglycemia 10/06/19 13:30 12/19/19 13:29 Diphenoxylate HCl/ Atropine (Lomotil) 2.5 mg Q4H PRN ORAL Diarrhea 10/06/19 13:30 11/04/19 13:29 10/06/19 14:11 Enoxaparin Sodium (Lovenox) 60 mg QHS SUBQ 10/06/19 21:00 12/20/19 20:59 Lorazepam (Ativan) 1 mg Q6H PRN ORAL For Anxiety 10/06/19 14:00 10/13/19 13:59 Metronidazole 100 ml @ 100 mls/hr Q8HR IVPB 10/06/19 14:00 10/08/19 13:59 10/06/19 13:49 Ondansetron HCl (Zofran) 4 mg Q6H PRN IVP Nausea & Vomiting 10/06/19 13:30 11/01/19 13:29 Polyethylene Glycol (Miralax) 17 gm HSPRN PRN ORAL Constipation 10/06/19 13:30 11/05/19 13:29 Sodium Chloride 1,000 ml @ 30 mls/hr Q24H IV 10/06/19 15:00 11/01/19 14:59 10/06/19 13:39 Vancomycin HCl (Vanco rx to dose) 1 ea DAILY PRN MISC Per rx protocol 10/07/19 09:00 10/28/19 09:59 Vancomycin HCl 750 mg/Sodium Chloride 275 ml @ 183.333 mls/hr Q8H IVPB 10/06/19 16:00 10/11/19 15:59 10/06/19 16:00 Enedina Ceja MD October 06, 2019 19:04
[2019-10-06 20:00] VITALS: BP 123/68
[2019-10-06] MEDS ORDERED: Enoxaparin 60mg Inj SUBQ SCH (21:00)
[2019-10-07] VITALS: BP 130/70
[2019-10-07 04:00] VITALS: BP 132/75
[2019-10-07 07:38] LABS: BASOPHILS % (AUTO) 1.8 % (0.0-2.0); EOSINOPHILS % (AUTO) 3.8 % (0.0-3.0); HEMATOCRIT 33.2 % (37.0-47.0); HEMOGLOBIN 11.7 G/DL (12.0-16.0); MEAN CORPUSCULAR VOLUME 90 FL (80-99); MONOCYTES % (AUTO) 6.7 % (1.0-10.0); NEUTROPHILS % (AUTO) 74.6 % (45.0-75.0); PLATELET COUNT 280 K/UL (150-450); RED BLOOD COUNT 3.68 M/UL (4.20-5.40); RED CELL DISTRIBUTION WIDTH 12.7 % (11.6-14.8); WHITE BLOOD COUNT 10.1 K/UL (4.8-10.8)
[2019-10-07 08:00] VITALS: BP 110/68
[2019-10-07 08:13] LABS: ANION GAP 7 mmol/L (5-15); BLOOD UREA NITROGEN 5 mg/dL (7-18); CALCIUM 8.1 MG/DL (8.5-10.1); CARBON DIOXIDE 27 MMOL/L (21-32); CHLORIDE 105 MMOL/L (98-107); CREATININE 0.6 MG/DL (0.55-1.30); POTASSIUM 3.5 MMOL/L (3.5-5.1); SODIUM 139 MMOL/L (136-145)
--- NOTE | 2019-10-07 09:40 | Pulmonology Progress Note ---
Neena Lees [employer] S[employer]IST 10/07/19 0940: Subjective ROS Limited/Unobtainable: Yes Constitutional: Denies: fever Gastrointestinal/Abdominal: Denies: nausea, vomiting, diarrhea Psychiatric: Denies: depression Skin: Denies: rash Musculoskeletal: Denies: pain Allergies: Coded Allergies: No Known Allergies (Unverified , 09/18/19) Subjective in tele weaned to 3 L O2 via NC afebrile, leuk resolved this am CoVID 19 for 10/04 pending clinically better but very deconditioned Objective Last 24 Hour Vital Signs Date Time Temp Pulse Resp B/P (MAP) Pulse Ox O2 Delivery O2 Flow Rate FiO2 10/07/19 09:00 Nasal Cannula 3.0 10/07/19 08:00 97.9 83 20 110/68 (82) 98 10/07/19 07:59 92 10/07/19 04:00 97.5 81 18 132/75 (94) 96 10/07/19 00:00 97.4 80 18 130/70 (90) 98 10/06/19 21:00 Nasal Cannula 3.0 10/06/19 20:00 97.9 82 18 123/68 (86) 97 10/06/19 15:54 97.8 97 18 123/70 (87) 96 10/06/19 12:00 99.3 100 20 94/98 (97) 93 Intake and Output 10/06/19 10/07/19 19:00 07:00 Intake Total 1105.000 ml 760 ml Output Total 1200 ml Balance 1105.000 ml -440 ml Intake Oral 480 ml IV Total 625.000 ml 760 ml Output Urine Total 1200 ml # Bowel Movements 1 3 Objective Status: awake, responsive, HEENT: atraumatic, normocephalic, 3 L O2 via NC Lungs: few isolated rhonchi, Heart: HR/BP stable Abdomen: soft, non-tender, active bowel sounds Extremities: no edema Laboratory Tests 10/07/19 06:45: White Blood Count 10.1, Red Blood Count 3.68L, Hemoglobin 11.7L, Hematocrit 33.2L, Mean Corpuscular Volume 90, Mean Corpuscular Hemoglobin 31.8H, Mean Corpuscular Hemoglobin Concent 35.2, Red Cell Distribution Width 12.7, Platelet Count 280, Mean Platelet Volume 6.1L, Neutrophils (%) (Auto) 74.6, Lymphocytes ( %) (Auto) 13.0L, Monocytes (%) (Auto) 6.7, Eosinophils (%) (Auto) 3.8H, Basophils (%) (Auto) 1.8, Sodium Level 139, Potassium Level 3.5, Chloride Level 105, Carbon Dioxide Level 27, Anion Gap 7, Blood Urea Nitrogen 5L, Creatinine 0.6, Estimat Glomerular Filtration Rate > 60, Glucose Level 100, Calcium Level 8.1L Current Medications Medications (Trade) Dose Ordered Sig/Sam Route PRN Reason Start Time Stop Time Status Last Admin Dose Admin Acetaminophen (Tylenol) 650 mg Q4H PRN ORAL Mild Pain (Pain Scale 1-3) 10/06/19 14:30 11/01/19 14:29 Acetaminophen (Tylenol) 650 mg Q4H PRN ORAL Temp >100.5 10/06/19 14:30 11/01/19 14:29 Albuterol Sulfate (Proventil MDI) 2 puff Q4H PRN INH Shortness of Breath 10/06/19 14:30 12/31/19 14:29 Atropine Sulfate (Atropine) 1 mg DAILYPRN PRN IVP HR<40 10/06/19 14:30 11/01/19 14:29 Cefepime HCl 2 gm/ Dextrose 100 ml @ 200 mls/hr EVERY 8 HOURS IVPB 10/06/19 22:00 10/08/19 21:59 10/07/19 05:07 Cetylpyridinium Chloride (Cepacol) 1 lozg Q2H PRN MARLIN sore throat 10/06/19 13:30 01/02/20 09:29 Dextrose (Dextrose 50%) 25 ml Q30M PRN IV Hypoglycemia 10/06/19 13:30 12/19/19 13:29 Dextrose (Dextrose 50%) 50 ml Q30M PRN IV Hypoglycemia 10/06/19 13:30 12/19/19 13:29 Diphenoxylate HCl/ Atropine (Lomotil) 2.5 mg Q4H PRN ORAL Diarrhea 10/06/19 13:30 11/04/19 13:29 10/06/19 14:11 Enoxaparin Sodium (Lovenox) 60 mg QHS SUBQ 10/06/19 21:00 12/20/19 20:59 10/06/19 21:00 Lorazepam (Ativan) 1 mg Q6H PRN ORAL For Anxiety 10/06/19 14:00 10/13/19 13:59 Metronidazole 100 ml @ 100 mls/hr Q8HR IVPB 10/06/19 22:00 10/08/19 21:59 10/07/19 05:59 Ondansetron HCl (Zofran) 4 mg Q6H PRN IVP Nausea & Vomiting 10/06/19 13:30 11/01/19 13:29 10/07/19 04:34 Polyethylene Glycol (Miralax) 17 gm HSPRN PRN ORAL Constipation 10/06/19 13:30 11/05/19 13:29 Sodium Chloride 1,000 ml @ 30 mls/hr Q24H IV 10/06/19 15:00 11/01/19 14:59 10/06/19 13:39 Assessment/Plan Assessment/Plan ASSESSMENT Acute hypoxemic respiratory failure requiring intubation, s/p extubation 09/27 Confirmed CoVID 19 multilobar PNA JOE -resolved Mild transaminitis Borderline diabetes Elevated CK/ rhabdo - CK trending down Odynophagia PLAN OF CARE tele s/p intubation 09/19 s/p extubation 09/27 currently on 3L O2 via NC tachypnea resolved , lessl hypoxic , but easily desaturates titrate FiO2 to keep sat above 90% CXR 09/29 with findings of PNA Venous Duplex BLE results pending CXR 10/01 - Slightly improved but still extensive bilateral infiltrates, MDI with spacer in line using IS CXR 10/03 unchanged : bilateral extensive airspace consolidation. The pleural spaces are clear. CXR for this am pending SARS -CoV -2 by PCR 09/17 came back non detected repeated SARS-CoV-2 by PCR 09/20 positive, continue isolation repeated SARS-CoV-2 by PCR 09/29 still detected SARS-CoV-2 by PCR 10/04 pending remains in isolation s/p Plaquenil x5 days, completed ceftriaxone Doxy was dc was on Zosyn since 09/27 as per ID , SCX + Enterobacter, stool C dif -NGT, UCX -NGT Zosyn stopped and changed to cefepime and Flagyl, completed Vanco leuk resolved, remains afebrile plan was to speak with pharmacy if can get Tocoluzimab for her if clinically worse, however appears to be with clinical improvement BCX 09/17 NGTD Solumedrol now 10 mg IV bid with further tapering down soon, plan to stop in am leukocytosis may be partially reactive due to steroids as well Solmedrol was tapered and dc this am 10/04 trend CRP, LDH, ferritin: 09/24 ferritin 549 a, CRP 20, both trending down, LDH 644 - with trend up , IL -6 18.6 , prior IL-6 15.6 last CRP 1.7 ( down from 26.6 initial) and LDH 426 ( down from 644) DVT prophylaxis with Lovenox gentle IV hydration creat down to normal, avoid nephrotoxics nutrition via NGT, aspiration precautions had severe odynophagia , possibly due to intubation , improving sore throat unable to do BSSE while in isolation tolerated soft diet , NGT was dc Cepacol lozenges prn mild hyperglycemia noted , probably due to steroids? on SSI/low dose, sensitive , HgA1c -6 - borderline DM, dc SS ( stable insulin), no concentrated sweets diet - prediabetic trend LFT , CK trended down, spoke with RN, continue PT, walk in the room, OOB to chair tid as tolerated, encourage activity case discussed and evaluated by supervising physician Raghav eD MD 10/07/19 1254: Subjective Allergies: Coded Allergies: No Known Allergies (Unverified , 09/18/19) Assessment/Plan Assessment/Plan Patient seen and examined with [employer]IST. Agree with above A&P as it reflects our joint deliberations. Neena Lees NP October 07, 2019 09:40 Raghav De MD October 07, 2019 12:54
--- NOTE | 2019-10-07 10:58 | Diagnostic Imaging Report ---
Indication: Shortness of breath Technique: One view of the chest Comparison: 10/04/2019 Findings: Interim removal of nasogastric tube. Extensive bilateral infiltrates are unchanged. Impression: Interim nasogastric tube removal. Otherwise little supervisor records change 3 days
[2019-10-07 11:55] VITALS: BP 112/71
[2019-10-07 15:52] VITALS: BP 118/87
[2019-10-07] MEDS ORDERED: Albuterol 90mcg Inhaler 8gm INH PRN (17:45)
[2019-10-07] MEDS ORDERED: Miralax 17gm pkt ORAL PRN (17:45)
[2019-10-07] MEDS ORDERED: LORazepam 1mg tab ORAL PRN (17:45)
--- NOTE | 2019-10-07 19:44 | General Progress Note ---
Assessment/Plan Problem List: (1) Glucose intolerance ICD Codes: E74.39 - Other disorders of intestinal carbohydrate absorption SNOMED: 78919179 (2) Respiratory failure with hypoxia ICD Codes: J96.91 - Respiratory failure, unspecified with hypoxia SNOMED: 29679005518729901, 770206954 Qualifiers: Qualified Codes: J96.01 - Acute respiratory failure with hypoxia (3) Pneumonia due to COVID-19 virus ICD Codes: U07.1 - COVID-19; J12.89 - Other viral pneumonia SNOMED: 588192500, 608612656 (4) ARDS (adult respiratory distress syndrome) ICD Codes: J80 - Acute respiratory distress syndrome SNOMED: 62443057, 01671184 (5) Transaminitis ICD Codes: R74.0 - Nonspecific elevation of levels of transaminase and lactic acid dehydrogenase [LDH] SNOMED: 983242373, 406244535 (6) Rhabdomyolysis ICD Codes: M62.82 - Rhabdomyolysis SNOMED: 878994749 (7) JOE (acute kidney injury) ICD Codes: N17.9 - Acute kidney failure, unspecified SNOMED: 8799062, 57005288 (8) Dysphagia ICD Codes: R13.10 - Dysphagia, unspecified SNOMED: 05197639, 427200695 (9) Diarrhea ICD Codes: R19.7 - Diarrhea, unspecified SNOMED: 53959247 Assessment/Plan: out of icu, on antibiotics, plaquenil ordered by pulm, worsening resp failure, intubated, now extubated SS insulin, steroids tapered, started,lytes ok, less dyspnea, improving st swallow eval dc zamora dc ng ST swallow eval, symptomatic care diarrhea better Subjective Constitutional: Reports: weakness HEENT: Reports: no symptoms Cardiovascular: Reports: no symptoms Respiratory: Reports: no symptoms, SOB with excertion Gastrointestinal/Abdominal: Reports: no symptoms Genitourinary: Reports: no symptoms Neurologic/Psychiatric: Reports: no symptoms Endocrine: Reports: no symptoms Hematologic/Lymphatic: Reports: no symptoms Allergies: Coded Allergies: No Known Allergies (Unverified , 09/18/19) Objective Last 24 Hour Vital Signs Date Time Temp Pulse Resp B/P (MAP) Pulse Ox O2 Delivery O2 Flow Rate FiO2 10/07/19 15:52 98.7 70 19 118/87 (97) 96 10/07/19 15:28 77 10/07/19 11:55 96.8 61 20 112/71 (85) 96 10/07/19 11:35 94 10/07/19 09:00 Nasal Cannula 3.0 10/07/19 08:00 97.9 83 20 110/68 (82) 98 10/07/19 07:59 92 10/07/19 04:00 97.5 81 18 132/75 (94) 96 10/07/19 00:00 97.4 80 18 130/70 (90) 98 10/06/19 21:00 Nasal Cannula 3.0 10/06/19 20:00 97.9 82 18 123/68 (86) 97 Intake and Output 10/06/19 10/07/19 19:00 07:00 Intake Total 1105.000 ml 760 ml Output Total 1200 ml Balance 1105.000 ml -440 ml Intake Oral 480 ml IV Total 625.000 ml 760 ml Output Urine Total 1200 ml # Bowel Movements 1 3 Laboratory Tests 10/07/19 06:45: White Blood Count 10.1, Red Blood Count 3.68L, Hemoglobin 11.7L, Hematocrit 33.2L, Mean Corpuscular Volume 90, Mean Corpuscular Hemoglobin 31.8H, Mean Corpuscular Hemoglobin Concent 35.2, Red Cell Distribution Width 12.7, Platelet Count 280, Mean Platelet Volume 6.1L, Neutrophils (%) (Auto) 74.6, Lymphocytes ( %) (Auto) 13.0L, Monocytes (%) (Auto) 6.7, Eosinophils (%) (Auto) 3.8H, Basophils (%) (Auto) 1.8, Sodium Level 139, Potassium Level 3.5, Chloride Level 105, Carbon Dioxide Level 27, Anion Gap 7, Blood Urea Nitrogen 5L, Creatinine 0.6, Estimat Glomerular Filtration Rate > 60, Glucose Level 100, Calcium Level 8.1L Height (Feet): 5 Height (Inches): 2.00 Weight (Pounds): 155 General Appearance: no apparent distress EENT: normal ENT inspection Neck: normal alignment Cardiovascular: regular rhythm Respiratory/Chest: lungs clear Abdomen: non tender Edema: no edema noted Arm (L), no edema noted Arm (R), no edema noted Leg (L), no edema noted Leg (R), no edema noted Pedal (L), no edema noted Pedal (R), no edema noted Generalized Neurologic: monument mason II-XII grossly normal Hung Zuniga MD October 07, 2019 19:44
[2019-10-07 20:00] VITALS: BP 129/88
[2019-10-07] MEDS: Enoxaparin 60mg Inj SUBQ SCH (21:20)
[2019-10-08] VITALS: BP 134/82
[2019-10-08 04:00] VITALS: BP 125/80
[2019-10-08 07:40] LABS: BASOPHILS % (AUTO) 0.8 % (0.0-2.0); EOSINOPHILS % (AUTO) 1.8 % (0.0-3.0); HEMATOCRIT 34.3 % (37.0-47.0); LYMPHOCYTES % (AUTO) 10.4 % (20.0-45.0); MEAN CORPUSCULAR VOLUME 90 FL (80-99); MONOCYTES % (AUTO) 5.1 % (1.0-10.0); NEUTROPHILS % (AUTO) 81.8 % (45.0-75.0); PLATELET COUNT 241 K/UL (150-450); RED BLOOD COUNT 3.79 M/UL (4.20-5.40); RED CELL DISTRIBUTION WIDTH 12.5 % (11.6-14.8); WHITE BLOOD COUNT 12.3 K/UL (4.8-10.8)
[2019-10-08 08:00] VITALS: BP 120/80
--- NOTE | 2019-10-08 09:14 | Pulmonology Progress Note ---
Lees Neena [employer] 10/08/19 0914: Subjective ROS Limited/Unobtainable: Yes Constitutional: Denies: fever Gastrointestinal/Abdominal: Denies: nausea, vomiting, diarrhea Psychiatric: Denies: depression Skin: Denies: rash Musculoskeletal: Denies: pain Allergies: Coded Allergies: No Known Allergies (Unverified , 09/18/19) Subjective transferred to [facility] floor weaned to 3 L O2 via NC afebrile, mild leuk again this am CoVID 19 for 10/04 detected clinically better but very deconditioned cough at night still reports discomfort with breathing Objective Last 24 Hour Vital Signs Date Time Temp Pulse Resp B/P (MAP) Pulse Ox O2 Delivery O2 Flow Rate FiO2 10/08/19 04:00 98.9 87 19 125/80 (95) 99 10/08/19 00:00 98.9 101 18 134/82 (99) 96 10/07/19 21:00 Nasal Cannula 3.0 10/07/19 20:04 97 Nasal Cannula 3.0 32 10/07/19 20:00 99.4 106 18 129/88 (102) 97 10/07/19 15:52 98.7 70 19 118/87 (97) 96 10/07/19 15:28 77 10/07/19 11:55 96.8 61 20 112/71 (85) 96 10/07/19 11:35 94 Intake and Output 10/07/19 10/08/19 19:00 07:00 Intake Total 1150 ml 800 ml Output Total 1100 ml Balance 50 ml 800 ml Intake Oral 650 ml 400 ml IV Total 500 ml 400 ml Output Urine Total 1100 ml # Voids 3 # Bowel Movements 3 4 Objective Status: awake, responsive, HEENT: atraumatic, normocephalic, 3 L O2 via NC Lungs: few isolated rhonchi, Heart: HR/BP stable Abdomen: soft, non-tender, active bowel sounds Extremities: no edema Laboratory Tests 10/08/19 05:00: White Blood Count 12.3H, Red Blood Count 3.79L, Hemoglobin 12.0, Hematocrit 34.3L, Mean Corpuscular Volume 90, Mean Corpuscular Hemoglobin 31.7H, Mean Corpuscular Hemoglobin Concent 35.1, Red Cell Distribution Width 12.5, Platelet Count 241, Mean Platelet Volume 6.0L, Neutrophils (%) (Auto) 81.8H, Lymphocytes (%) (Auto) 10.4L, Monocytes (%) (Auto) 5.1, Eosinophils (%) (Auto) 1.8, Basophils (%) (Auto) 0.8 Current Medications Medications (Trade) Dose Ordered Sig/Sam Route PRN Reason Start Time Stop Time Status Last Admin Dose Admin Acetaminophen (Tylenol) 650 mg Q4H PRN ORAL Mild Pain (Pain Scale 1-3) 10/07/19 17:30 11/01/19 17:29 10/08/19 00:20 Acetaminophen (Tylenol) 650 mg Q4H PRN ORAL Temp >100.5 10/07/19 17:30 11/01/19 17:29 Albuterol Sulfate (Proventil MDI) 2 puff Q4H PRN INH Shortness of Breath 10/07/19 17:45 12/31/19 17:44 10/08/19 00:20 Cefepime HCl 2 gm/ Dextrose 100 ml @ 200 mls/hr EVERY 8 HOURS IVPB 10/07/19 22:00 10/08/19 21:59 10/08/19 05:01 Cetylpyridinium Chloride (Cepacol) 1 lozg Q2H PRN MARLIN sore throat 10/07/19 17:45 01/02/20 17:44 Dextrose (Dextrose 50%) 25 ml Q30M PRN IV Hypoglycemia 10/07/19 18:00 12/19/19 13:29 Dextrose (Dextrose 50%) 50 ml Q30M PRN IV Hypoglycemia 10/07/19 18:00 12/19/19 13:29 Diphenoxylate HCl/ Atropine (Lomotil) 2.5 mg Q4H PRN ORAL Diarrhea 10/07/19 17:45 11/04/19 17:44 Enoxaparin Sodium (Lovenox) 60 mg QHS SUBQ 10/07/19 21:00 12/20/19 20:59 10/07/19 21:20 Lorazepam (Ativan) 1 mg Q6H PRN ORAL For Anxiety 10/07/19 17:45 10/13/19 17:44 Metronidazole 100 ml @ 100 mls/hr Q8HR IVPB 10/07/19 22:00 10/08/19 21:59 10/08/19 05:31 Ondansetron HCl (Zofran) 4 mg Q6H PRN IVP Nausea & Vomiting 10/07/19 17:45 11/01/19 17:44 Polyethylene Glycol (Miralax) 17 gm HSPRN PRN ORAL Constipation 10/07/19 17:45 11/06/19 17:44 Sodium Chloride 1,000 ml @ 30 mls/hr Q24H IV 10/07/19 17:45 11/01/19 14:59 Assessment/Plan Assessment/Plan ASSESSMENT Acute hypoxemic respiratory failure requiring intubation, s/p extubation 09/27 Confirmed CoVID 19 multilobar PNA JOE -resolved Mild transaminitis Borderline diabetes Elevated CK/ rhabdo - CK trending down Odynophagia PLAN OF CARE tele s/p intubation 09/19 s/p extubation 09/27 currently on 3L O2 via NC tachypnea resolved , lessl hypoxic , but easily desaturates titrate FiO2 to keep sat above 90% CXR 09/29 with findings of PNA Venous Duplex BLE results pending CXR 10/01 - Slightly improved but still extensive bilateral infiltrates, MDI with spacer in line using IS CXR 10/03 unchanged : bilateral extensive airspace consolidation. The pleural spaces are clear. CXR 10/06 -Extensive bilateral infiltrates unchanged. SARS -CoV -2 by PCR 09/17 came back non detected repeated SARS-CoV-2 by PCR 09/20 positive, continue isolation repeated SARS-CoV-2 by PCR 09/29 still detected SARS-CoV-2 by PCR 10/04 still detected remains in isolation s/p Plaquenil x5 days, completed ceftriaxone Doxy was dc was on Zosyn since 09/27 as per ID , SCX + Enterobacter, stool C dif -NGT, UCX -NGT Zosyn stopped and changed to cefepime and Flagyl, completed Vanco mild leuk this am again, after resolution 10/06; remains afebrile plan was to speak with pharmacy if can get Tocoluzimab for her if clinically worse, however appears to be with clinical improvement BCX 09/17 NGTD Solumedrol tapered and dc 10/04 trend CRP, LDH, ferritin: 09/24 ferritin 549 a, CRP 20, both trending down, LDH 644 - with trend up , IL -6 18.6 , prior IL-6 15.6 last CRP 1.7 ( down from 26.6 initial) and LDH 426 ( down from 644) DVT prophylaxis with Lovenox gentle IV hydration creat down to normal, avoid nephrotoxics nutrition via NGT, aspiration precautions had severe odynophagia , possibly due to intubation , improving sore throat unable to do BSSE while in isolation tolerated soft diet , NGT was dc Cepacol lozenges prn mild hyperglycemia noted , probably due to steroids? on SSI/low dose, sensitive , HgA1c -6 - borderline DM, dc SS ( stable insulin), no concentrated sweets diet - prediabetic trend LFT , CK trended down, spoke with RN, continue PT, walk in the room, OOB to chair tid as tolerated, encourage activity case discussed and evaluated by supervising physician Raghav De MD 10/08/19 1723: Subjective Allergies: Coded Allergies: No Known Allergies (Unverified , 09/18/19) Assessment/Plan Assessment/Plan Patient seen and examined with [employer]ITIONAL [employer]. Agree with above A&P as it reflects our joint deliberations. AFVSS, oxygenation better but very deconditioned and slowly improving. OOB as able, PT/OT/CLIPPING MARKER, supportive care, PRN HFA's, Abx per ID, LMWH for DVT Px. Covid PCR still + Neena Lees NP October 08, 2019 09:14 Raghav De MD October 08, 2019 17:23
[2019-10-08 12:00] VITALS: BP 125/83
[2019-10-08] MEDS ORDERED: Atropine Inj 1mg/10ml Syr IVP PRN (14:30)
[2019-10-08 16:00] VITALS: BP 110/77
--- NOTE | 2019-10-08 17:41 | Infectious Diseases Prog Note ---
Assessment/Plan Assessment/Plan ASSESSMENT AND PLAN: 1. covid-19 virus infection, pna, ? cap, respiratory failure, sepsis, steroids, vent, leukocytosis, fevers enterobacter pna - s/p hydroxychloroquine - cefepime, flagyl x 3 days more (end date 10/10/19) - monitor labs and chest x-ray - clinically improved, extubated - chest x-ray stable 2. No other significant past medical history. 3. No known allergies. 4. Social history negative. 5. Family history noncontributory. 6. MAR was noted. 7. Case discussed with RN. 8. Continue treatment per primary consultants. Subjective Constitutional: Denies: fever HEENT: Denies: congestion Respiratory: Denies: shortness of breath Cardiovascular: Denies: chest pain Gastrointestinal/Abdominal: Denies: nausea, vomiting, diarrhea, constipation Neurologic: Denies: headache Psychiatric: Denies: depression Skin: Denies: rash Hematologic: Denies: bleeding Musculoskeletal: Denies: pain Allergies: Coded Allergies: No Known Allergies (Unverified , 09/18/19) Objective Vital Signs Last 24 Hour Vital Signs Date Time Temp Pulse Resp B/P (MAP) Pulse Ox O2 Delivery O2 Flow Rate FiO2 10/08/19 16:00 99.0 95 19 110/77 (88) 98 10/08/19 12:00 99.0 99 19 125/83 (97) 98 10/08/19 09:00 Nasal Cannula 5.0 10/08/19 08:00 99.3 100 20 120/80 (93) 99 10/08/19 04:00 98.9 87 19 125/80 (95) 99 10/08/19 00:00 98.9 101 18 134/82 (99) 96 10/07/19 21:00 Nasal Cannula 3.0 10/07/19 20:04 97 Nasal Cannula 3.0 32 10/07/19 20:00 99.4 106 18 129/88 (102) 97 Height (Feet): 5 Height (Inches): 2.00 Weight (Pounds): 155 General Appearance: no acute distress HEENT: normocephalic, atraumatic, anicteric, mucous membranes moist Respiratory/Chest: crackles/rales, rhonchi - bilaterally Cardiovascular: normal rate, regular rhythm, no gallop/murmur Abdomen: normal bowel sounds, soft, non tender, no organomegaly, non distended Genitourinary: other - no zamora Extremities: no cyanosis Skin: no rash 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 COMPARISON: Chest x-ray 09/21/19 913 FINDINGS: Lungs: Improved aeration of the lung. Mild bilateral interstitial and hazy lung opacities are similar. Pleural space: Unremarkable. No pneumothorax. Heart: Unremarkable. No cardiomegaly. Mediastinum: Unremarkable. Bones/joints: Unremarkable. Tubes, lines and devices: Endotracheal tube and NG tube are stable. IMPRESSION: Improved aeration of the lung. Mild bilateral interstitial and hazy lung opacities are similar. Chest x-ray - 09/23/19 - Procedure: XRAY Chest 1v Indication: Shortness of breath Technique: One view of the chest Comparison: 09/22/2019 Findings: Less optimal inspiration on current exam. Bilateral diffuse hazy airspace opacities are probably similar to the prior study allowing for differences in degree of inspiration. Stable satisfactory positions of endotracheal and orogastric tubes Impression: Unchanged, over one day, findings as above. Chest x-ray - 09/26/19 - Procedure: XRAY Chest 1v Indication: Shortness of breath Technique: One view of the chest Comparison: 09/25/2019 Findings: Bilateral interstitial and hazy airspace disease is unchanged. Stable satisfactory endotracheal and nasogastric tube positions. Impression: Unchanged, over one day, findings as above. Chest x-ray - 09/28/19 - TECHNIQUE: Frontal view of the chest. COMPARISON: Chest x-ray 09/27/19 834 FINDINGS: Lungs: Worsening hazy bilateral diffuse airspace opacities. Hypoventilatory lungs. Pleural space: Unremarkable. No pneumothorax. Heart: Unremarkable. No cardiomegaly. Mediastinum: Unremarkable. Bones/joints: Unremarkable. Tubes, lines and devices: ET tube and NG tube are stable. IMPRESSION: Worsening hazy bilateral diffuse airspace opacities. Chest x-ray - 09/30/19 - Procedure: XRAY Chest 1v Indication: Shortness of breath Technique: One view of the chest Comparison: 09/28/2019 Findings: Stable satisfactory position of nasogastric tube. Bilateral mostly peripheral and basilar infiltrates are again demonstrated, appears similar on the left, slightly worse on the right. The endotracheal tube is no longer evident. Impression: Interim of endotracheal extubation Stable left and slightly increased right-sided infiltrates, likely pneumonia Chest x-ray - 10/02/19 - Procedure: XRAY Chest 1v Indication: Shortness of breath Technique: One view of the chest Comparison: 09/30/2019 Findings: Stable satisfactory position of nasogastric tube. Bilateral diffuse infiltrates appear slightly improved but remain extensive. No definite effusions. The heart size is normal Impression: Slightly improved but still extensive bilateral infiltrates, since prior exam of 2 days earlier Chest x-ray - 10/04/19 - Procedure: XRAY Chest 1v Indication: Shortness of breath Technique: One view of the chest Comparison: 10/02/2019 Findings: Stable satisfactory position of nasogastric tube. Slightly improved inspiration currently. Given differences in degree of inspiration, probably unchanged bilateral extensive airspace consolidation. The pleural spaces are clear. The heart size is upper limits normal. Impression: Unchanged, over 2 days, findings as above. Chest x-ray - 10/04/19 - Procedure: XRAY Chest 1v Indication: Shortness of breath Technique: One view of the chest Comparison: 10/02/2019 Findings: Stable satisfactory position of nasogastric tube. Slightly improved inspiration currently. Given differences in degree of inspiration, probably unchanged bilateral extensive airspace consolidation. The pleural spaces are clear. The heart size is upper limits normal. Impression: Unchanged, over 2 days, findings as above. Chest x-ray - 10/07/19 - Procedure: XRAY Chest 1v Indication: Shortness of breath Technique: One view of the chest Comparison: 10/04/2019 Findings: Interim removal of nasogastric tube. Extensive bilateral infiltrates are unchanged. Impression: Interim nasogastric tube removal. Otherwise little change attendant 3 days Microbiology Date/Time Source Procedure Growth Status 09/28/19 11:52 Blood Blood Culture - Final NO GROWTH AFTER 5 DAYS Complete 10/05/19 06:50 Nasopharynx Coronavirus COVID-19 PCR ([facility]) - Final Complete 09/29/19 04:40 Stool Clostridium difficile Toxin Assay - Final Complete 10/01/19 17:30 Indwelling Cath Urine Culture - Final NO GROWTH AFTER 48 HOURS Complete Labs Test 10/06/19 04:00 10/07/19 06:45 10/08/19 05:00 White Blood Count 11.1 K/UL (4.8-10.8) 10.1 K/UL (4.8-10.8) 12.3 K/UL (4.8-10.8) Red Blood Count 4.00 M/UL (4.20-5.40) 3.68 M/UL (4.20-5.40) 3.79 M/UL (4.20-5.40) Hemoglobin 12.4 G/DL (12.0-16.0) 11.7 G/DL (12.0-16.0) 12.0 G/DL (12.0-16.0) Hematocrit 36.1 % (37.0-47.0) 33.2 % (37.0-47.0) 34.3 % (37.0-47.0) Mean Corpuscular Volume 90 FL (80-99) 90 FL (80-99) 90 FL (80-99) Mean Corpuscular Hemoglobin 31.0 PG (27.0-31.0) 31.8 PG (27.0-31.0) 31.7 PG (27.0-31.0) Mean Corpuscular Hemoglobin Concent 34.3 G/DL (32.0-36.0) 35.2 G/DL (32.0-36.0) 35.1 G/DL (32.0-36.0) Red Cell Distribution Width 11.8 % (11.6-14.8) 12.7 % (11.6-14.8) 12.5 % (11.6-14.8) Platelet Count 302 K/UL (150-450) 280 K/UL (150-450) 241 K/UL (150-450) Mean Platelet Volume 5.8 FL (6.5-10.1) 6.1 FL (6.5-10.1) 6.0 FL (6.5-10.1) Neutrophils (%) (Auto) 79.2 % (45.0-75.0) 74.6 % (45.0-75.0) 81.8 % (45.0-75.0) Lymphocytes (%) (Auto) 10.1 % (20.0-45.0) 13.0 % (20.0-45.0) 10.4 % (20.0-45.0) Monocytes (%) (Auto) 7.1 % (1.0-10.0) 6.7 % (1.0-10.0) 5.1 % (1.0-10.0) Eosinophils (%) (Auto) 2.3 % (0.0-3.0) 3.8 % (0.0-3.0) 1.8 % (0.0-3.0) Basophils (%) (Auto) 1.4 % (0.0-2.0) 1.8 % (0.0-2.0) 0.8 % (0.0-2.0) Sodium Level 139 MMOL/L (136-145) 139 MMOL/L (136-145) Potassium Level 3.6 MMOL/L (3.5-5.1) 3.5 MMOL/L (3.5-5.1) Chloride Level 105 MMOL/L (98-107) 105 MMOL/L (98-107) Carbon Dioxide Level 27 MMOL/L (21-32) 27 MMOL/L (21-32) Anion Gap 7 mmol/L (5-15) 7 mmol/L (5-15) Blood Urea Nitrogen 7 mg/dL (7-18) 5 mg/dL (7-18) Creatinine 0.6 MG/DL (0.55-1.30) 0.6 MG/DL (0.55-1.30) Estimat Glomerular Filtration Rate > 60 mL/min (>60) > 60 mL/min (>60) Glucose Level 76 MG/DL (74-106) 100 MG/DL (74-106) Calcium Level 8.3 MG/DL (8.5-10.1) 8.1 MG/DL (8.5-10.1) Laboratory Tests Test 10/08/19 05:00 White Blood Count 12.3 K/UL (4.8-10.8) H Red Blood Count 3.79 M/UL (4.20-5.40) L Hemoglobin 12.0 G/DL (12.0-16.0) Hematocrit 34.3 % (37.0-47.0) L Mean Corpuscular Volume 90 FL (80-99) Mean Corpuscular Hemoglobin 31.7 PG (27.0-31.0) H Mean Corpuscular Hemoglobin Concent 35.1 G/DL (32.0-36.0) Red Cell Distribution Width 12.5 % (11.6-14.8) Platelet Count 241 K/UL (150-450) Mean Platelet Volume 6.0 FL (6.5-10.1) L Neutrophils (%) (Auto) 81.8 % (45.0-75.0) H Lymphocytes (%) (Auto) 10.4 % (20.0-45.0) L Monocytes (%) (Auto) 5.1 % (1.0-10.0) Eosinophils (%) (Auto) 1.8 % (0.0-3.0) Basophils (%) (Auto) 0.8 % (0.0-2.0) Current Medications Medications (Trade) Dose Ordered Sig/Sam Route PRN Reason Start Time Stop Time Status Last Admin Dose Admin Acetaminophen (Tylenol) 650 mg Q4H PRN ORAL Mild Pain (Pain Scale 1-3) 10/07/19 17:30 11/01/19 17:29 10/08/19 16:12 Acetaminophen (Tylenol) 650 mg Q4H PRN ORAL Temp >100.5 10/07/19 17:30 11/01/19 17:29 Albuterol Sulfate (Proventil MDI) 2 puff Q4H PRN INH Shortness of Breath 10/07/19 17:45 12/31/19 17:44 10/08/19 00:20 Cefepime HCl 2 gm/ Dextrose 100 ml @ 200 mls/hr EVERY 8 HOURS IVPB 10/07/19 22:00 10/10/19 21:59 10/08/19 13:03 Cetylpyridinium Chloride (Cepacol) 1 lozg Q2H PRN MARLIN sore throat 10/07/19 17:45 01/02/20 17:44 Dextrose (Dextrose 50%) 25 ml Q30M PRN IV Hypoglycemia 10/07/19 18:00 12/19/19 13:29 Dextrose (Dextrose 50%) 50 ml Q30M PRN IV Hypoglycemia 10/07/19 18:00 12/19/19 13:29 Diphenoxylate HCl/ Atropine (Lomotil) 2.5 mg Q4H PRN ORAL Diarrhea 10/07/19 17:45 11/04/19 17:44 Enoxaparin Sodium (Lovenox) 60 mg QHS SUBQ 10/07/19 21:00 12/20/19 20:59 10/07/19 21:20 Lorazepam (Ativan) 1 mg Q6H PRN ORAL For Anxiety 10/07/19 17:45 10/13/19 17:44 Metronidazole 100 ml @ 100 mls/hr Q8HR IVPB 10/07/19 22:00 10/10/19 21:59 10/08/19 14:07 Ondansetron HCl (Zofran) 4 mg Q6H PRN IVP Nausea & Vomiting 10/07/19 17:45 11/01/19 17:44 Polyethylene Glycol (Miralax) 17 gm HSPRN PRN ORAL Constipation 10/07/19 17:45 11/06/19 17:44 Sodium Chloride 1,000 ml @ 30 mls/hr Q24H IV 10/07/19 17:45 11/01/19 14:59 Enedina Ceja MD October 08, 2019 17:41
[2019-10-08 20:00] VITALS: BP 129/77
--- NOTE | 2019-10-08 20:29 | General Progress Note ---
Assessment/Plan Problem List: (1) Glucose intolerance ICD Codes: E74.39 - Other disorders of intestinal carbohydrate absorption SNOMED: 66026178 (2) Respiratory failure with hypoxia ICD Codes: J96.91 - Respiratory failure, unspecified with hypoxia SNOMED: 22368455427749246, 772455722 Qualifiers: Qualified Codes: J96.01 - Acute respiratory failure with hypoxia (3) Pneumonia due to COVID-19 virus ICD Codes: U07.1 - COVID-19; J12.89 - Other viral pneumonia SNOMED: 545044114, 182798891 (4) ARDS (adult respiratory distress syndrome) ICD Codes: J80 - Acute respiratory distress syndrome SNOMED: 74052251, 55309843 (5) Transaminitis ICD Codes: R74.0 - Nonspecific elevation of levels of transaminase and lactic acid dehydrogenase [LDH] SNOMED: 474381539, 513882689 (6) Rhabdomyolysis ICD Codes: M62.82 - Rhabdomyolysis SNOMED: 964577650 (7) JOE (acute kidney injury) ICD Codes: N17.9 - Acute kidney failure, unspecified SNOMED: 3724455, 63790344 (8) Dysphagia ICD Codes: R13.10 - Dysphagia, unspecified SNOMED: 11536224, 824733682 (9) Diarrhea ICD Codes: R19.7 - Diarrhea, unspecified SNOMED: 71715507 Assessment/Plan: out of icu, on antibiotics, plaquenil ordered by pulm, worsening resp failure, intubated, now extubated SS insulin, steroids tapered, started,lytes ok,desat off O2, dyspnea, improving st swallow eval dc zamora dc ng ST swallow eval, symptomatic care diarrhea better Subjective Constitutional: Reports: weakness HEENT: Reports: no symptoms Cardiovascular: Reports: no symptoms Respiratory: Reports: shortness of breath Gastrointestinal/Abdominal: Reports: no symptoms Neurologic/Psychiatric: Reports: no symptoms Endocrine: Reports: no symptoms Allergies: Coded Allergies: No Known Allergies (Unverified , 09/18/19) Objective Last 24 Hour Vital Signs Date Time Temp Pulse Resp B/P (MAP) Pulse Ox O2 Delivery O2 Flow Rate FiO2 10/08/19 16:00 99.0 95 19 110/77 (88) 98 10/08/19 12:00 99.0 99 19 125/83 (97) 98 10/08/19 09:00 Nasal Cannula 5.0 10/08/19 08:00 99.3 100 20 120/80 (93) 99 10/08/19 04:00 98.9 87 19 125/80 (95) 99 10/08/19 00:00 98.9 101 18 134/82 (99) 96 10/07/19 21:00 Nasal Cannula 3.0 Intake and Output 10/07/19 10/08/19 19:00 07:00 Intake Total 1150 ml 800 ml Output Total 1100 ml Balance 50 ml 800 ml Intake Oral 650 ml 400 ml IV Total 500 ml 400 ml Output Urine Total 1100 ml # Voids 3 # Bowel Movements 3 4 Laboratory Tests 10/08/19 05:00: White Blood Count 12.3H, Red Blood Count 3.79L, Hemoglobin 12.0, Hematocrit 34.3L, Mean Corpuscular Volume 90, Mean Corpuscular Hemoglobin 31.7H, Mean Corpuscular Hemoglobin Concent 35.1, Red Cell Distribution Width 12.5, Platelet Count 241, Mean Platelet Volume 6.0L, Neutrophils (%) (Auto) 81.8H, Lymphocytes (%) (Auto) 10.4L, Monocytes (%) (Auto) 5.1, Eosinophils (%) (Auto) 1.8, Basophils (%) (Auto) 0.8 Height (Feet): 5 Height (Inches): 2.00 Weight (Pounds): 155 General Appearance: alert, mild distress EENT: normal ENT inspection Neck: normal alignment Cardiovascular: normal rate Respiratory/Chest: lungs clear Edema: no edema noted Arm (L), no edema noted Arm (R), no edema noted Leg (L), no edema noted Leg (R), no edema noted Pedal (L), no edema noted Pedal (R), no edema noted Generalized 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
[2019-10-08] MEDS: Enoxaparin 60mg Inj SUBQ SCH (21:29)
[2019-10-09] VITALS: BP 130/82
[2019-10-09 04:00] VITALS: BP 111/72
[2019-10-09 07:14] LABS: ANION GAP 7 mmol/L (5-15); BLOOD UREA NITROGEN 4 mg/dL (7-18); CALCIUM 8.3 MG/DL (8.5-10.1); CARBON DIOXIDE 27 MMOL/L (21-32); CHLORIDE 105 MMOL/L (98-107); CREATININE 0.5 MG/DL (0.55-1.30); LACTATE DEHYDROGENASE 312 U/L (81-234); POTASSIUM 3.9 MMOL/L (3.5-5.1); SODIUM 139 MMOL/L (136-145)
[2019-10-09 07:23] LABS: BASOPHILS % (AUTO) 0.8 % (0.0-2.0); EOSINOPHILS % (AUTO) 2.3 % (0.0-3.0); HEMATOCRIT 32.5 % (37.0-47.0); HEMOGLOBIN 11.5 G/DL (12.0-16.0); LYMPHOCYTES % (AUTO) 10.3 % (20.0-45.0); MEAN CORPUSCULAR VOLUME 91 FL (80-99); MONOCYTES % (AUTO) 7.1 % (1.0-10.0); NEUTROPHILS % (AUTO) 79.6 % (45.0-75.0); PLATELET COUNT 213 K/UL (150-450); RED BLOOD COUNT 3.59 M/UL (4.20-5.40); RED CELL DISTRIBUTION WIDTH 12.8 % (11.6-14.8); WHITE BLOOD COUNT 12.7 K/UL (4.8-10.8)
[2019-10-09 08:00] VITALS: BP 124/80
[2019-10-09 12:00] VITALS: BP 146/89
--- NOTE | 2019-10-09 14:58 | Pulmonology Progress Note ---
Neena Lees [employer] 10/09/19 1458: Subjective ROS Limited/Unobtainable: Yes Constitutional: Denies: fever Gastrointestinal/Abdominal: Denies: nausea, vomiting, diarrhea, constipation Psychiatric: Denies: depression Skin: Denies: rash Musculoskeletal: Denies: pain Allergies: Coded Allergies: No Known Allergies (Unverified , 09/18/19) Subjective back to 5 L O2 via NC afebrile, mild leuk again this am CoVID 19 for 10/04 still detected clinically better but very deconditioned , still hypoxic and easily gets SOB cough at night still reports discomfort with breathing Objective Last 24 Hour Vital Signs Date Time Temp Pulse Resp B/P (MAP) Pulse Ox O2 Delivery O2 Flow Rate FiO2 10/09/19 12:00 98.1 92 20 146/89 (108) 96 10/09/19 09:00 Nasal Cannula 5.0 10/09/19 08:00 98.2 93 20 124/80 (95) 95 10/09/19 04:00 98.1 86 20 111/72 (85) 98 10/09/19 00:00 98.1 87 24 130/82 (98) 96 10/08/19 21:00 Nasal Cannula 5.0 10/08/19 20:00 97.0 97 20 129/77 (94) 98 10/08/19 16:00 99.0 95 19 110/77 (88) 98 Intake and Output 10/08/19 10/09/19 19:00 07:00 Intake Total 830 ml 870 ml Balance 830 ml 870 ml Intake Oral 800 ml IV Total 30 ml 510 ml Other 360 ml # Voids 4 4 # Bowel Movements 3 3 Objective Status: awake, responsive, HEENT: atraumatic, normocephalic, 3 L O2 via NC Lungs: few isolated rhonchi, Heart: HR/BP stable Abdomen: soft, non-tender, active bowel sounds Extremities: no edema Genitourinary: other - no zamora Laboratory Tests 10/09/19 05:40: White Blood Count 12.7H, Red Blood Count 3.59L, Hemoglobin 11.5L, Hematocrit 32.5L, Mean Corpuscular Volume 91, Mean Corpuscular Hemoglobin 31.9H, Mean Corpuscular Hemoglobin Concent 35.2, Red Cell Distribution Width 12.8, Platelet Count 213, Mean Platelet Volume 6.3L, Neutrophils (%) (Auto) 79.6H, Lymphocytes (%) (Auto) 10.3L, Monocytes (%) (Auto) 7.1, Eosinophils (%) (Auto) 2.3, Basophils (%) (Auto) 0.8, Sodium Level 139, Potassium Level 3.9, Chloride Level 105, Carbon Dioxide Level 27, Anion Gap 7, Blood Urea Nitrogen 4L, Creatinine 0.5L, Estimat Glomerular Filtration Rate > 60, Glucose Level 85, Calcium Level 8.3L, Lactate Dehydrogenase 312H, C-Reactive Protein, Quantitative 5.6H Current Medications Medications (Trade) Dose Ordered Sig/Sam Route PRN Reason Start Time Stop Time Status Last Admin Dose Admin Acetaminophen (Tylenol) 650 mg Q4H PRN ORAL Mild Pain (Pain Scale 1-3) 10/07/19 17:30 11/01/19 17:29 10/09/19 11:10 Acetaminophen (Tylenol) 650 mg Q4H PRN ORAL Temp >100.5 10/07/19 17:30 11/01/19 17:29 Albuterol Sulfate (Proventil MDI) 2 puff Q4H PRN INH Shortness of Breath 10/07/19 17:45 12/31/19 17:44 10/08/19 00:20 Cefepime HCl 2 gm/ Dextrose 100 ml @ 200 mls/hr EVERY 8 HOURS IVPB 10/07/19 22:00 10/10/19 21:59 10/09/19 13:13 Cetylpyridinium Chloride (Cepacol) 1 lozg Q2H PRN MARLIN sore throat 10/07/19 17:45 01/02/20 17:44 Dextrose (Dextrose 50%) 25 ml Q30M PRN IV Hypoglycemia 10/07/19 18:00 12/19/19 13:29 Dextrose (Dextrose 50%) 50 ml Q30M PRN IV Hypoglycemia 10/07/19 18:00 12/19/19 13:29 Diphenoxylate HCl/ Atropine (Lomotil) 2.5 mg Q4H PRN ORAL Diarrhea 10/07/19 17:45 11/04/19 17:44 Enoxaparin Sodium (Lovenox) 60 mg QHS SUBQ 10/07/19 21:00 12/20/19 20:59 10/08/19 21:29 Lorazepam (Ativan) 1 mg Q6H PRN ORAL For Anxiety 10/07/19 17:45 10/13/19 17:44 Metronidazole 100 ml @ 100 mls/hr Q8HR IVPB 10/07/19 22:00 10/10/19 21:59 10/09/19 14:37 Ondansetron HCl (Zofran) 4 mg Q6H PRN IVP Nausea & Vomiting 10/07/19 17:45 11/01/19 17:44 Polyethylene Glycol (Miralax) 17 gm HSPRN PRN ORAL Constipation 10/07/19 17:45 11/06/19 17:44 Sodium Chloride 1,000 ml @ 30 mls/hr Q24H IV 10/07/19 17:45 11/01/19 14:59 10/08/19 17:43 Assessment/Plan Assessment/Plan ASSESSMENT Acute hypoxemic respiratory failure requiring intubation, s/p extubation 09/27 Confirmed CoVID 19 multilobar PNA JOE -resolved Mild transaminitis Borderline diabetes Elevated CK/ rhabdo - CK trending down Odynophagia PLAN OF CARE tele s/p intubation 09/19 s/p extubation 09/27 currently on 3L O2 via NC tachypnea resolved , still hypoxic , easily desaturates titrate FiO2 to keep sat above 90% , back to O2 5L via NC CXR 09/29 with findings of PNA Venous Duplex BLE CXR 10/01 - Slightly improved but still extensive bilateral infiltrates, MDI with spacer in line using IS CXR 10/03 unchanged : bilateral extensive airspace consolidation. The pleural spaces are clear. CXR 10/06 -Extensive bilateral infiltrates unchanged. fup with CXR in am SARS -CoV -2 by PCR 09/17 came back non detected repeated SARS-CoV-2 by PCR 09/20 positive, continue isolation repeated SARS-CoV-2 by PCR 09/29 still detected SARS-CoV-2 by PCR 10/04 still detected remains in isolation s/p Plaquenil x5 days, completed ceftriaxone Doxy was dc was on Zosyn since 09/27 as per ID , SCX + Enterobacter, stool C dif -NGT, UCX -NGT Zosyn stopped and changed to cefepime and Flagyl till 10/09 completed Vanco mild leuk this am again, after resolution 10/06; remains afebrile plan was to speak with pharmacy if can get Tocoluzimab for her if clinically worse, however appears to be with clinical improvement BCX 09/17 NGTD Solumedrol tapered and dc 10/04 trend CRP, LDH, ferritin: 09/24 trending CRP, LDH IL-6 18.6 , prior IL-6 15.6 last CRP 5.6 ( up from prior 1.7), LDH 312 ( down from prior 426) DVT prophylaxis with Lovenox s/p gentle IV hydration creat down to normal, avoid nephrotoxics had severe odynophagia , possibly due to intubation , improving sore throat unable to do BSSE while in isolation tolerated soft diet , NGT was dc Cepacol lozenges prn mild hyperglycemia noted , probably due to steroids? on SSI/low dose, sensitive , HgA1c -6 - borderline DM, dc SS ( stable insulin), no concentrated sweets diet - prediabetic trend LFT , CK trended down, spoke with RN, continue PT, walk in the room, OOB to chair tid as tolerated, encourage activity case discussed and evaluated by supervising physician Raghav De MD 10/09/19 1736: Subjective Allergies: Coded Allergies: No Known Allergies (Unverified , 09/18/19) Assessment/Plan Assessment/Plan Patient seen and examined with J[employer]NEY[employer]. Agree with above A&P as it reflects our joint deliberations. Clinically improved with stable albeit high O2 needs, extremely deconditioned, slowly improving. Needs PT/OT, OOB and supportive care. Neena Lees [employer] October 09, 2019 14:58 Ragahv De MD October 09, 2019 17:36
[2019-10-09 16:00] VITALS: BP 117/60
--- NOTE | 2019-10-09 18:53 | General Progress Note ---
Assessment/Plan Problem List: (1) Glucose intolerance ICD Codes: E74.39 - Other disorders of intestinal carbohydrate absorption SNOMED: 25340084 (2) Respiratory failure with hypoxia ICD Codes: J96.91 - Respiratory failure, unspecified with hypoxia SNOMED: 19007312728336921, 605802541 Qualifiers: Qualified Codes: J96.01 - Acute respiratory failure with hypoxia (3) Pneumonia due to COVID-19 virus ICD Codes: U07.1 - COVID-19; J12.89 - Other viral pneumonia SNOMED: 853743895, 099558728 (4) ARDS (adult respiratory distress syndrome) ICD Codes: J80 - Acute respiratory distress syndrome SNOMED: 66775665, 90447227 (5) Transaminitis ICD Codes: R74.0 - Nonspecific elevation of levels of transaminase and lactic acid dehydrogenase [LDH] SNOMED: 294307372, 117640534 (6) Rhabdomyolysis ICD Codes: M62.82 - Rhabdomyolysis SNOMED: 910650689 (7) JOE (acute kidney injury) ICD Codes: N17.9 - Acute kidney failure, unspecified SNOMED: 9871851, 35573808 (8) Dysphagia ICD Codes: R13.10 - Dysphagia, unspecified SNOMED: 63606572, 994683826 (9) Diarrhea ICD Codes: R19.7 - Diarrhea, unspecified SNOMED: 98268354 Assessment/Plan: out of icu, on antibiotics, plaquenil ordered +completed, by pulm, worsening resp failure, intubated, now extubated SS insulin, steroids tapered, started, lytes ok,desat off O2, 96% with cannula dyspnea, improving st swallow eval dc zamora dc ng ST swallow eval, symptomatic care diarrhea better Subjective Constitutional: Reports: weakness HEENT: Reports: no symptoms Cardiovascular: Reports: no symptoms Respiratory: Reports: cough, shortness of breath Gastrointestinal/Abdominal: Reports: no symptoms Genitourinary: Reports: no symptoms Neurologic/Psychiatric: Reports: no symptoms Endocrine: Reports: no symptoms Hematologic/Lymphatic: Reports: no symptoms Allergies: Coded Allergies: No Known Allergies (Unverified , 09/18/19) Objective Last 24 Hour Vital Signs Date Time Temp Pulse Resp B/P (MAP) Pulse Ox O2 Delivery O2 Flow Rate FiO2 10/09/19 16:00 98.1 86 20 117/60 (79) 97 5/13/20 12:00 98.1 92 20 146/89 (108) 96 10/09/19 09:00 Nasal Cannula 5.0 10/09/19 08:00 98.2 93 20 124/80 (95) 95 10/09/19 04:00 98.1 86 20 111/72 (85) 98 10/09/19 00:00 98.1 87 24 130/82 (98) 96 10/08/19 21:00 Nasal Cannula 5.0 10/08/19 20:00 97.0 97 20 129/77 (94) 98 Intake and Output 10/08/19 10/09/19 19:00 07:00 Intake Total 830 ml 870 ml Balance 830 ml 870 ml Intake Oral 800 ml IV Total 30 ml 510 ml Other 360 ml # Voids 4 4 # Bowel Movements 3 3 Laboratory Tests 10/09/19 05:40: White Blood Count 12.7H, Red Blood Count 3.59L, Hemoglobin 11.5L, Hematocrit 32.5L, Mean Corpuscular Volume 91, Mean Corpuscular Hemoglobin 31.9H, Mean Corpuscular Hemoglobin Concent 35.2, Red Cell Distribution Width 12.8, Platelet Count 213, Mean Platelet Volume 6.3L, Neutrophils (%) (Auto) 79.6H, Lymphocytes (%) (Auto) 10.3L, Monocytes (%) (Auto) 7.1, Eosinophils (%) (Auto) 2.3, Basophils (%) (Auto) 0.8, Sodium Level 139, Potassium Level 3.9, Chloride Level 105, Carbon Dioxide Level 27, Anion Gap 7, Blood Urea Nitrogen 4L, Creatinine 0.5L, Estimat Glomerular Filtration Rate > 60, Glucose Level 85, Calcium Level 8.3L, Lactate Dehydrogenase 312H, C-Reactive Protein, Quantitative 5.6H Height (Feet): 5 Height (Inches): 2.00 Weight (Pounds): 155 General Appearance: mild distress EENT: normal ENT inspection Neck: normal alignment Cardiovascular: regular rhythm Respiratory/Chest: lungs clear Abdomen: soft Edema: no edema noted Arm (L), no edema noted Arm (R), no edema noted Leg (L), no edema noted Leg (R), no edema noted Pedal (L), no edema noted Pedal (R), no edema noted 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
[2019-10-09 20:00] VITALS: BP 122/69
[2019-10-09] MEDS: Enoxaparin 60mg Inj SUBQ SCH (21:40)
[2019-10-10] VITALS: BP 127/76
[2019-10-10 04:00] VITALS: BP 130/85
[2019-10-10 06:41] LABS: HEMATOCRIT 33.5 % (37.0-47.0); HEMOGLOBIN 11.5 G/DL (12.0-16.0); LYMPHOCYTES % (AUTO) 15.8 % (20.0-45.0); MEAN CORPUSCULAR VOLUME 91 FL (80-99); MONOCYTES % (AUTO) 7.5 % (1.0-10.0); NEUTROPHILS % (AUTO) 69.9 % (45.0-75.0); PLATELET COUNT 216 K/UL (150-450); RED BLOOD COUNT 3.68 M/UL (4.20-5.40); RED CELL DISTRIBUTION WIDTH 13.1 % (11.6-14.8); WHITE BLOOD COUNT 9.4 K/UL (4.8-10.8)
[2019-10-10 06:51] LABS: ANION GAP 8 mmol/L (5-15); BLOOD UREA NITROGEN 4 mg/dL (7-18); CALCIUM 8.5 MG/DL (8.5-10.1); CARBON DIOXIDE 27 MMOL/L (21-32); CHLORIDE 106 MMOL/L (98-107); CREATININE 0.6 MG/DL (0.55-1.30); POTASSIUM 3.9 MMOL/L (3.5-5.1); SODIUM 141 MMOL/L (136-145)
--- NOTE | 2019-10-10 07:57 | Pulmonology Progress Note ---
Neena Lees GARNISHER 10/10/19 0757: Subjective ROS Limited/Unobtainable: Yes Constitutional: Denies: fever Gastrointestinal/Abdominal: Denies: nausea, vomiting, diarrhea, constipation Psychiatric: Denies: depression Skin: Denies: rash Musculoskeletal: Denies: pain Allergies: Coded Allergies: No Known Allergies (Unverified , 09/18/19) Subjective still on 5 L O2 via NC afebrile, mild leuk resolved this am CoVID 19 for 10/04 still detected CoVID -19 for 10/08 pending still hypoxic and easily gets SOB still reports discomfort with breathing working with pT but gets easily hypoxic and out of breath Objective Last 24 Hour Vital Signs Date Time Temp Pulse Resp B/P (MAP) Pulse Ox O2 Delivery O2 Flow Rate FiO2 10/10/19 04:00 97.7 89 20 130/85 (100) 93 10/10/19 00:00 97.7 75 20 127/76 (93) 98 10/09/19 20:42 Nasal Cannula 5.0 10/09/19 20:00 98.1 87 20 122/69 (86) 100 10/09/19 16:00 98.1 86 20 117/60 (79) 97 10/09/19 12:00 98.1 92 20 146/89 (108) 96 10/09/19 09:00 Nasal Cannula 5.0 10/09/19 08:00 98.2 93 20 124/80 (95) 95 Intake and Output 10/09/19 10/10/19 19:00 07:00 Intake Total 980 ml 640 ml Output Total 1100 ml Balance -120 ml 640 ml Intake Oral 650 ml IV Total 330 ml 640 ml Output Urine Total 1100 ml # Voids 4 # Bowel Movements 2 3 Objective Status: awake, responsive, HEENT: atraumatic, normocephalic, 5 L O2 via NC Lungs: few isolated rhonchi, Heart: HR/BP stable Abdomen: soft, non-tender, active bowel sounds Extremities: no edema Genitourinary: other - no zamora Laboratory Tests 10/10/19 04:00: White Blood Count 9.4, Red Blood Count 3.68L, Hemoglobin 11.5L, Hematocrit 33.5L , Mean Corpuscular Volume 91, Mean Corpuscular Hemoglobin 31.3H, Mean Corpuscular Hemoglobin Concent 34.3, Red Cell Distribution Width 13.1, Platelet Count 216, Mean Platelet Volume 6.9, Neutrophils (%) (Auto) 69.9, Lymphocytes (% ) (Auto) 15.8L, Monocytes (%) (Auto) 7.5, Eosinophils (%) (Auto) 6.0H, Basophils (%) (Auto) 1.0, Sodium Level 141, Potassium Level 3.9, Chloride Level 106, Carbon Dioxide Level 27, Anion Gap 8, Blood Urea Nitrogen 4L, Creatinine 0.6, Estimat Glomerular Filtration Rate > 60, Glucose Level 87, Calcium Level 8.5 Current Medications Medications (Trade) Dose Ordered Sig/Sam Route PRN Reason Start Time Stop Time Status Last Admin Dose Admin Acetaminophen (Tylenol) 650 mg Q4H PRN ORAL Mild Pain (Pain Scale 1-3) 10/07/19 17:30 11/01/19 17:29 10/10/19 04:38 Acetaminophen (Tylenol) 650 mg Q4H PRN ORAL Temp >100.5 10/07/19 17:30 11/01/19 17:29 Albuterol Sulfate (Proventil MDI) 2 puff Q4H PRN INH Shortness of Breath 10/07/19 17:45 12/31/19 17:44 10/08/19 00:20 Cefepime HCl 2 gm/ Dextrose 100 ml @ 200 mls/hr EVERY 8 HOURS IVPB 10/07/19 22:00 10/10/19 21:59 10/10/19 05:21 Cetylpyridinium Chloride (Cepacol) 1 lozg Q2H PRN MARLIN sore throat 10/07/19 17:45 01/02/20 17:44 Dextrose (Dextrose 50%) 25 ml Q30M PRN IV Hypoglycemia 10/07/19 18:00 12/19/19 13:29 Dextrose (Dextrose 50%) 50 ml Q30M PRN IV Hypoglycemia 10/07/19 18:00 12/19/19 13:29 Diphenoxylate HCl/ Atropine (Lomotil) 2.5 mg Q4H PRN ORAL Diarrhea 10/07/19 17:45 11/04/19 17:44 Enoxaparin Sodium (Lovenox) 60 mg QHS SUBQ 10/07/19 21:00 12/20/19 20:59 10/09/19 21:40 Lorazepam (Ativan) 1 mg Q6H PRN ORAL For Anxiety 10/07/19 17:45 10/13/19 17:44 Metronidazole 100 ml @ 100 mls/hr Q8HR IVPB 10/07/19 22:00 10/10/19 21:59 10/10/19 05:58 Ondansetron HCl (Zofran) 4 mg Q6H PRN IVP Nausea & Vomiting 10/07/19 17:45 11/01/19 17:44 Polyethylene Glycol (Miralax) 17 gm HSPRN PRN ORAL Constipation 10/07/19 17:45 11/06/19 17:44 Sodium Chloride 1,000 ml @ 30 mls/hr Q24H IV 10/07/19 17:45 11/01/19 14:59 10/09/19 17:14 Assessment/Plan Assessment/Plan ASSESSMENT Acute hypoxemic respiratory failure requiring intubation, s/p extubation 09/27 Confirmed CoVID -19 multilobar PNA JOE -resolved Mild transaminitis Borderline diabetes Elevated CK/ rhabdo - CK trending down Odynophagia PLAN OF CARE MS floor s/p intubation 09/19 s/p extubation 09/27 currently on 5L O2 via NC tachypnea resolved , still hypoxic , easily desaturates titrate FiO2 to keep sat above 90% , back to O2 5L via NC CXR 09/29 with findings of PNA Venous Duplex BLE CXR 10/01 - Slightly improved but still extensive bilateral infiltrates, MDI with spacer in line using IS CXR 10/03 unchanged : bilateral extensive airspace consolidation. The pleural spaces are clear. CXR 10/06 -Extensive bilateral infiltrates unchanged. fup with CXR this am SARS -CoV -2 by PCR 09/17 came back non detected repeated SARS-CoV-2 by PCR 09/20 positive, continue isolation repeated SARS-CoV-2 by PCR 09/29 still detected SARS-CoV-2 by PCR 10/04 still detected remains in isolation SARS-CoV-2 by PCR 10/08 pending s/p Plaquenil x5 days, completed ceftriaxone Doxy was dc was on Zosyn since 09/27 as per ID , SCX + Enterobacter, stool C dif -NGT, UCX -NGT Zosyn stopped and changed to cefepime and Flagyl till 10/09 completed Vanco mild leuk this am again, after resolution 10/06; remains afebrile plan was to speak with pharmacy if can get Tocoluzimab for her if clinically worse, however appears to be with clinical improvement BCX 09/17 NGTD Solumedrol tapered and dc 10/04 trend CRP, LDH, ferritin: 09/24 trending CRP, LDH IL-6 18.6 , prior IL-6 15.6 last CRP 5.6 ( up from prior 1.7), LDH 312 ( down from prior 426) DVT prophylaxis with Lovenox s/p gentle IV hydration creat down to normal, avoid nephrotoxics had severe odynophagia , possibly due to intubation , improving sore throat unable to do BSSE while in isolation tolerated soft diet , NGT was dc Cepacol lozenges prn mild hyperglycemia noted , probably due to steroids? on SSI/low dose, sensitive , HgA1c -6 - borderline DM, dc SS ( stable insulin), no concentrated sweets diet - prediabetic trend LFT , CK trended down, spoke with RN, continue PT, walk in the room, OOB to chair tid as tolerated, encourage activity case discussed and evaluated by supervising physician Raghav De MD 10/10/19 1127: Subjective Allergies: Coded Allergies: No Known Allergies (Unverified , 09/18/19) Assessment/Plan Assessment/Plan Patient seen and examined with GARNISHER. Agree with above A&P as it reflects our joint deliberations. Neena Lees NP October 10, 2019 07:57 Raghav De MD October 10, 2019 11:27
[2019-10-10 08:00] VITALS: BP 147/71
[2019-10-10] MEDS: Lomotil 2.5mg tab ORAL PRN (09:01)
[2019-10-10 12:00] VITALS: BP 139/83
[2019-10-10 16:00] VITALS: BP 141/69
--- NOTE | 2019-10-10 19:12 | Infectious Diseases Prog Note ---
Assessment/Plan Assessment/Plan ASSESSMENT AND PLAN: 1. covid-19 virus infection, pna, ? cap, respiratory failure, sepsis, steroids, vent, leukocytosis, fevers enterobacter pna - s/p hydroxychloroquine - cefepime, flagyl x 1 day (end date 10/10/19) - monitor labs and chest x-ray - clinically improved, extubated - chest x-ray stable 2. No other significant past medical history. 3. No known allergies. 4. Social history negative. 5. Family history noncontributory. 6. MAR was noted. 7. Case discussed with RN. 8. Continue treatment per primary consultants. Subjective Constitutional: Denies: fever HEENT: Denies: congestion Respiratory: Denies: shortness of breath Cardiovascular: Denies: chest pain Gastrointestinal/Abdominal: Denies: nausea, vomiting, diarrhea Genitourinary: Reports: other - no zamora Neurologic: Denies: headache Psychiatric: Denies: depression Skin: Denies: rash Hematologic: Denies: bleeding Musculoskeletal: Denies: pain Allergies: Coded Allergies: No Known Allergies (Unverified , 09/18/19) Objective Vital Signs Last 24 Hour Vital Signs Date Time Temp Pulse Resp B/P (MAP) Pulse Ox O2 Delivery O2 Flow Rate FiO2 10/10/19 16:00 98.0 82 16 141/69 (93) 96 10/10/19 12:00 97.9 85 18 139/83 (101) 96 10/10/19 09:00 Nasal Cannula 5.0 10/10/19 08:00 98.2 95 20 147/71 (96) 93 10/10/19 04:00 97.7 89 20 130/85 (100) 93 10/10/19 00:00 97.7 75 20 127/76 (93) 98 10/09/19 20:42 Nasal Cannula 5.0 10/09/19 20:00 98.1 87 20 122/69 (86) 100 Height (Feet): 5 Height (Inches): 2.00 Weight (Pounds): 155 General Appearance: no acute distress HEENT: normocephalic, atraumatic, anicteric, mucous membranes moist Respiratory/Chest: lungs clear, normal breath sounds, no respiratory distress, no accessory muscle use Cardiovascular: normal rate, regular rhythm Abdomen: soft, non tender, no organomegaly, non distended Genitourinary: other - no zamora Extremities: no cyanosis Skin: no rash 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 COMPARISON: Chest x-ray 09/21/19 913 FINDINGS: Lungs: Improved aeration of the lung. Mild bilateral interstitial and hazy lung opacities are similar. Pleural space: Unremarkable. No pneumothorax. Heart: Unremarkable. No cardiomegaly. Mediastinum: Unremarkable. Bones/joints: Unremarkable. Tubes, lines and devices: Endotracheal tube and NG tube are stable. IMPRESSION: Improved aeration of the lung. Mild bilateral interstitial and hazy lung opacities are similar. Chest x-ray - 09/23/19 - Procedure: XRAY Chest 1v Indication: Shortness of breath Technique: One view of the chest Comparison: 09/22/2019 Findings: Less optimal inspiration on current exam. Bilateral diffuse hazy airspace opacities are probably similar to the prior study allowing for differences in degree of inspiration. Stable satisfactory positions of endotracheal and orogastric tubes Impression: Unchanged, over one day, findings as above. Chest x-ray - 09/26/19 - Procedure: XRAY Chest 1v Indication: Shortness of breath Technique: One view of the chest Comparison: 09/25/2019 Findings: Bilateral interstitial and hazy airspace disease is unchanged. Stable satisfactory endotracheal and nasogastric tube positions. Impression: Unchanged, over one day, findings as above. Chest x-ray - 09/28/19 - TECHNIQUE: Frontal view of the chest. COMPARISON: Chest x-ray 09/27/19 834 FINDINGS: Lungs: Worsening hazy bilateral diffuse airspace opacities. Hypoventilatory lungs. Pleural space: Unremarkable. No pneumothorax. Heart: Unremarkable. No cardiomegaly. Mediastinum: Unremarkable. Bones/joints: Unremarkable. Tubes, lines and devices: ET tube and NG tube are stable. IMPRESSION: Worsening hazy bilateral diffuse airspace opacities. Chest x-ray - 09/30/19 - Procedure: XRAY Chest 1v Indication: Shortness of breath Technique: One view of the chest Comparison: 09/28/2019 Findings: Stable satisfactory position of nasogastric tube. Bilateral mostly peripheral and basilar infiltrates are again demonstrated, appears similar on the left, slightly worse on the right. The endotracheal tube is no longer evident. Impression: Interim of endotracheal extubation Stable left and slightly increased right-sided infiltrates, likely pneumonia Chest x-ray - 10/02/19 - Procedure: XRAY Chest 1v Indication: Shortness of breath Technique: One view of the chest Comparison: 09/30/2019 Findings: Stable satisfactory position of nasogastric tube. Bilateral diffuse infiltrates appear slightly improved but remain extensive. No definite effusions. The heart size is normal Impression: Slightly improved but still extensive bilateral infiltrates, since prior exam of 2 days earlier Chest x-ray - 10/04/19 - Procedure: XRAY Chest 1v Indication: Shortness of breath Technique: One view of the chest Comparison: 10/02/2019 Findings: Stable satisfactory position of nasogastric tube. Slightly improved inspiration currently. Given differences in degree of inspiration, probably unchanged bilateral extensive airspace consolidation. The pleural spaces are clear. The heart size is upper limits normal. Impression: Unchanged, over 2 days, findings as above. Chest x-ray - 10/04/19 - Procedure: XRAY Chest 1v Indication: Shortness of breath Technique: One view of the chest Comparison: 10/02/2019 Findings: Stable satisfactory position of nasogastric tube. Slightly improved inspiration currently. Given differences in degree of inspiration, probably unchanged bilateral extensive airspace consolidation. The pleural spaces are clear. The heart size is upper limits normal. Impression: Unchanged, over 2 days, findings as above. Chest x-ray - 10/07/19 - Procedure: XRAY Chest 1v Indication: Shortness of breath Technique: One view of the chest Comparison: 10/04/2019 Findings: Interim removal of nasogastric tube. Extensive bilateral infiltrates are unchanged. Impression: Interim nasogastric tube removal. 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 Microbiology Date/Time Source Procedure Growth Status 09/28/19 11:52 Blood Blood Culture - Final NO GROWTH AFTER 5 DAYS Complete 10/05/19 06:50 Nasopharynx Coronavirus COVID-19 PCR ([facility]) - Final Complete 09/29/19 04:40 Stool Clostridium difficile Toxin Assay - Final Complete 10/01/19 17:30 Indwelling Cath Urine Culture - Final NO GROWTH AFTER 48 HOURS Complete Laboratory Tests Test 10/10/19 04:00 White Blood Count 9.4 K/UL (4.8-10.8) Red Blood Count 3.68 M/UL (4.20-5.40) L Hemoglobin 11.5 G/DL (12.0-16.0) L Hematocrit 33.5 % (37.0-47.0) L Mean Corpuscular Volume 91 FL (80-99) Mean Corpuscular Hemoglobin 31.3 PG (27.0-31.0) H Mean Corpuscular Hemoglobin Concent 34.3 G/DL (32.0-36.0) Red Cell Distribution Width 13.1 % (11.6-14.8) Platelet Count 216 K/UL (150-450) Mean Platelet Volume 6.9 FL (6.5-10.1) Neutrophils (%) (Auto) 69.9 % (45.0-75.0) Lymphocytes (%) (Auto) 15.8 % (20.0-45.0) L Monocytes (%) (Auto) 7.5 % (1.0-10.0) Eosinophils (%) (Auto) 6.0 % (0.0-3.0) H Basophils (%) (Auto) 1.0 % (0.0-2.0) Sodium Level 141 MMOL/L (136-145) Potassium Level 3.9 MMOL/L (3.5-5.1) Chloride Level 106 MMOL/L (98-107) Carbon Dioxide Level 27 MMOL/L (21-32) Anion Gap 8 mmol/L (5-15) Blood Urea Nitrogen 4 mg/dL (7-18) L Creatinine 0.6 MG/DL (0.55-1.30) Estimat Glomerular Filtration Rate > 60 mL/min (>60) Glucose Level 87 MG/DL (74-106) Calcium Level 8.5 MG/DL (8.5-10.1) Current Medications Medications (Trade) Dose Ordered Sig/Sam Route PRN Reason Start Time Stop Time Status Last Admin Dose Admin Acetaminophen (Tylenol) 650 mg Q4H PRN ORAL Mild Pain (Pain Scale 1-3) 10/07/19 17:30 11/01/19 17:29 10/10/19 17:39 Acetaminophen (Tylenol) 650 mg Q4H PRN ORAL Temp >100.5 10/07/19 17:30 11/01/19 17:29 Albuterol Sulfate (Proventil MDI) 2 puff Q4H PRN INH Shortness of Breath 10/07/19 17:45 12/31/19 17:44 10/08/19 00:20 Cefepime HCl 2 gm/ Dextrose 100 ml @ 200 mls/hr EVERY 8 HOURS IVPB 10/07/19 22:00 10/10/19 21:59 10/10/19 13:05 Cetylpyridinium Chloride (Cepacol) 1 lozg Q2H PRN MARLIN sore throat 10/07/19 17:45 01/02/20 17:44 Dextrose (Dextrose 50%) 25 ml Q30M PRN IV Hypoglycemia 10/07/19 18:00 12/19/19 13:29 Dextrose (Dextrose 50%) 50 ml Q30M PRN IV Hypoglycemia 10/07/19 18:00 12/19/19 13:29 Diphenoxylate HCl/ Atropine (Lomotil) 2.5 mg Q4H PRN ORAL Diarrhea 10/07/19 17:45 11/04/19 17:44 10/10/19 09:01 Enoxaparin Sodium (Lovenox) 60 mg QHS SUBQ 10/07/19 21:00 12/20/19 20:59 10/09/19 21:40 Famotidine (Pepcid) 20 mg BID ORAL 10/10/19 13:30 01/08/20 13:29 10/10/19 17:37 Lorazepam (Ativan) 1 mg Q6H PRN ORAL For Anxiety 10/07/19 17:45 10/13/19 17:44 Metronidazole 100 ml @ 100 mls/hr Q8HR IVPB 10/07/19 22:00 10/10/19 21:59 10/10/19 14:17 Ondansetron HCl (Zofran) 4 mg Q6H PRN IVP Nausea & Vomiting 10/07/19 17:45 11/01/19 17:44 Polyethylene Glycol (Miralax) 17 gm HSPRN PRN ORAL Constipation 10/07/19 17:45 11/06/19 17:44 Sodium Chloride 1,000 ml @ 30 mls/hr Q24H IV 10/07/19 17:45 11/01/19 14:59 10/10/19 17:16 Enedina Ceja MD October 10, 2019 19:12
--- NOTE | 2019-10-10 19:15 | General Progress Note ---
Assessment/Plan Problem List: (1) Glucose intolerance ICD Codes: E74.39 - Other disorders of intestinal carbohydrate absorption SNOMED: 06162833 (2) Respiratory failure with hypoxia ICD Codes: J96.91 - Respiratory failure, unspecified with hypoxia SNOMED: 61949554615077002, 870712813 Qualifiers: Qualified Codes: J96.01 - Acute respiratory failure with hypoxia (3) Pneumonia due to COVID-19 virus ICD Codes: U07.1 - COVID-19; J12.89 - Other viral pneumonia SNOMED: 619548053, 464302623 (4) ARDS (adult respiratory distress syndrome) ICD Codes: J80 - Acute respiratory distress syndrome SNOMED: 54769284, 89651657 (5) Transaminitis ICD Codes: R74.0 - Nonspecific elevation of levels of transaminase and lactic acid dehydrogenase [LDH] SNOMED: 121834195, 553863141 (6) Rhabdomyolysis ICD Codes: M62.82 - Rhabdomyolysis SNOMED: 061736012 (7) JOE (acute kidney injury) ICD Codes: N17.9 - Acute kidney failure, unspecified SNOMED: 5484872, 93468526 (8) Dysphagia ICD Codes: R13.10 - Dysphagia, unspecified SNOMED: 67587581, 383408577 (9) Diarrhea ICD Codes: R19.7 - Diarrhea, unspecified SNOMED: 37908357 Assessment/Plan: out of icu, on antibiotics, plaquenil ordered +completed, by pulm, worsening resp failure, intubated, now extubated SS insulin, steroids tapered, started, lytes ok,desat off O2, 96% with cannula dyspnea, improving st swallow eval dc zamora dc ng ST swallow eval, symptomatic care diarrhea better,still jackson, weak Subjective Constitutional: Reports: weakness HEENT: Reports: no symptoms Cardiovascular: Reports: no symptoms Respiratory: Reports: SOB with excertion Gastrointestinal/Abdominal: Reports: other - heartburn Genitourinary: Reports: no symptoms Neurologic/Psychiatric: Reports: no symptoms Endocrine: Reports: no symptoms Hematologic/Lymphatic: Reports: no symptoms Allergies: Coded Allergies: No Known Allergies (Unverified , 09/18/19) Objective Last 24 Hour Vital Signs Date Time Temp Pulse Resp B/P (MAP) Pulse Ox O2 Delivery O2 Flow Rate FiO2 5/14/20 16:00 98.0 82 16 141/69 (93) 96 10/10/19 12:00 97.9 85 18 139/83 (101) 96 10/10/19 09:00 Nasal Cannula 5.0 10/10/19 08:00 98.2 95 20 147/71 (96) 93 10/10/19 04:00 97.7 89 20 130/85 (100) 93 10/10/19 00:00 97.7 75 20 127/76 (93) 98 10/09/19 20:42 Nasal Cannula 5.0 10/09/19 20:00 98.1 87 20 122/69 (86) 100 Intake and Output 10/09/19 10/10/19 19:00 07:00 Intake Total 980 ml 640 ml Output Total 1100 ml Balance -120 ml 640 ml Intake Oral 650 ml IV Total 330 ml 640 ml Output Urine Total 1100 ml # Voids 4 # Bowel Movements 2 3 Laboratory Tests 10/10/19 04:00: White Blood Count 9.4, Red Blood Count 3.68L, Hemoglobin 11.5L, Hematocrit 33.5L , Mean Corpuscular Volume 91, Mean Corpuscular Hemoglobin 31.3H, Mean Corpuscular Hemoglobin Concent 34.3, Red Cell Distribution Width 13.1, Platelet Count 216, Mean Platelet Volume 6.9, Neutrophils (%) (Auto) 69.9, Lymphocytes (% ) (Auto) 15.8L, Monocytes (%) (Auto) 7.5, Eosinophils (%) (Auto) 6.0H, Basophils (%) (Auto) 1.0, Sodium Level 141, Potassium Level 3.9, Chloride Level 106, Carbon Dioxide Level 27, Anion Gap 8, Blood Urea Nitrogen 4L, Creatinine 0.6, Estimat Glomerular Filtration Rate > 60, Glucose Level 87, Calcium Level 8.5 Height (Feet): 5 Height (Inches): 2.00 Weight (Pounds): 155 General Appearance: no apparent distress, alert EENT: normal ENT inspection Neck: normal alignment Cardiovascular: normal rate, regular rhythm Respiratory/Chest: lungs clear Abdomen: non tender Edema: no edema noted Arm (L), no edema noted Arm (R), no edema noted Leg (L), no edema noted Leg (R), no edema noted Pedal (L), no edema noted Pedal (R), no edema noted 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
[2019-10-10 20:00] VITALS: BP 148/80
[2019-10-10] MEDS: Enoxaparin 60mg Inj SUBQ SCH (21:09)
[2019-10-11] VITALS: BP 149/88
[2019-10-11 04:00] VITALS: BP 132/81
[2019-10-11 07:12] LABS: BASOPHILS % (AUTO) 1.4 % (0.0-2.0); EOSINOPHILS % (AUTO) 7.2 % (0.0-3.0); HEMATOCRIT 35.3 % (37.0-47.0); HEMOGLOBIN 11.3 G/DL (12.0-16.0); LYMPHOCYTES % (AUTO) 19.2 % (20.0-45.0); MEAN CORPUSCULAR VOLUME 98 FL (80-99); MONOCYTES % (AUTO) 8.2 % (1.0-10.0); NEUTROPHILS % (AUTO) 63.9 % (45.0-75.0); PLATELET COUNT 224 K/UL (150-450); RED CELL DISTRIBUTION WIDTH 14.8 % (11.6-14.8); WHITE BLOOD COUNT 7.6 K/UL (4.8-10.8)
[2019-10-11 07:14] LABS: CREATINE KINASE 101 U/L (26-308)
--- NOTE | 2019-10-11 08:45 | Pulmonology Progress Note ---
Neena Lees PUBLIC ADMINISTRATION TEACHER 10/11/19 0844: Subjective ROS Limited/Unobtainable: Yes Constitutional: Denies: fever Gastrointestinal/Abdominal: Denies: nausea, vomiting, diarrhea Psychiatric: Denies: depression Skin: Denies: rash Musculoskeletal: Denies: pain Allergies: Coded Allergies: No Known Allergies (Unverified , 09/18/19) Subjective still on 5 L O2 via NC afebrile, mild leuk resolved CoVID 19 for 10/04 still detected CoVID -19 for 10/08 pending still hypoxic and easily gets SOB still reports discomfort with breathing working with PT but gets easily hypoxic and out of breath \ deconditioned Objective Last 24 Hour Vital Signs Date Time Temp Pulse Resp B/P (MAP) Pulse Ox O2 Delivery O2 Flow Rate FiO2 10/11/19 04:00 97.7 83 20 132/81 (98) 95 10/11/19 00:27 98.2 10/11/19 00:00 97.9 80 20 149/88 (108) 98 10/10/19 20:16 Nasal Cannula 5.0 10/10/19 20:02 95 Nasal Cannula 5.0 40 10/10/19 20:00 98.2 83 20 148/80 (102) 95 10/10/19 16:00 98.0 82 16 141/69 (93) 96 10/10/19 12:00 97.9 85 18 139/83 (101) 96 10/10/19 09:00 Nasal Cannula 5.0 Intake and Output 10/10/19 10/11/19 19:00 07:00 Intake Total 1160 ml 360 ml Output Total 6 ml Balance 1160 ml 354 ml Intake Oral 800 ml IV Total 360 ml 360 ml Output Urine Total 3 ml Stool Total 3 ml # Voids 4 # Bowel Movements 2 Objective Status: awake, responsive, HEENT: atraumatic, normocephalic, 5 L O2 via NC Lungs: few isolated rhonchi, Heart: HR/BP stable Abdomen: soft, non-tender, active bowel sounds Extremities: no edema Genitourinary: other - no zamora Laboratory Tests 10/11/19 05:30: White Blood Count 7.6, Red Blood Count 3.60L, Hemoglobin 11.3L, Hematocrit 35.3L , Mean Corpuscular Volume 98, Mean Corpuscular Hemoglobin 31.3H, Mean Corpuscular Hemoglobin Concent 32.0, Red Cell Distribution Width 14.8, Platelet Count 224, Mean Platelet Volume 7.2, Neutrophils (%) (Auto) 63.9, Lymphocytes (% ) (Auto) 19.2L, Monocytes (%) (Auto) 8.2, Eosinophils (%) (Auto) 7.2H, Basophils (%) (Auto) 1.4, Total Creatine Kinase 101 Current Medications Medications (Trade) Dose Ordered Sig/Sam Route PRN Reason Start Time Stop Time Status Last Admin Dose Admin Acetaminophen (Tylenol) 650 mg Q4H PRN ORAL Mild Pain (Pain Scale 1-3) 10/07/19 17:30 11/01/19 17:29 10/10/19 23:51 Acetaminophen (Tylenol) 650 mg Q4H PRN ORAL Temp >100.5 10/07/19 17:30 11/01/19 17:29 Albuterol Sulfate (Proventil MDI) 2 puff Q4H PRN INH Shortness of Breath 10/07/19 17:45 12/31/19 17:44 10/08/19 00:20 Cetylpyridinium Chloride (Cepacol) 1 lozg Q2H PRN MARLIN sore throat 10/07/19 17:45 01/02/20 17:44 Dextrose (Dextrose 50%) 25 ml Q30M PRN IV Hypoglycemia 10/07/19 18:00 12/19/19 13:29 Dextrose (Dextrose 50%) 50 ml Q30M PRN IV Hypoglycemia 10/07/19 18:00 12/19/19 13:29 Diphenoxylate HCl/ Atropine (Lomotil) 2.5 mg Q4H PRN ORAL Diarrhea 10/07/19 17:45 11/04/19 17:44 10/10/19 09:01 Enoxaparin Sodium (Lovenox) 60 mg QHS SUBQ 10/07/19 21:00 12/20/19 20:59 10/10/19 21:09 Famotidine (Pepcid) 20 mg BID ORAL 10/10/19 13:30 01/08/20 13:29 10/10/19 17:37 Lorazepam (Ativan) 1 mg Q6H PRN ORAL For Anxiety 10/07/19 17:45 10/13/19 17:44 Ondansetron HCl (Zofran) 4 mg Q6H PRN IVP Nausea & Vomiting 10/07/19 17:45 11/01/19 17:44 Polyethylene Glycol (Miralax) 17 gm HSPRN PRN ORAL Constipation 10/07/19 17:45 11/06/19 17:44 Sodium Chloride 1,000 ml @ 30 mls/hr Q24H IV 10/07/19 17:45 11/01/19 14:59 10/10/19 17:16 Assessment/Plan Assessment/Plan ASSESSMENT Acute hypoxemic respiratory failure requiring intubation, s/p extubation 09/27 Confirmed CoVID -19 multilobar PNA JOE -resolved Mild transaminitis Borderline diabetes Elevated CK/ rhabdo - CK trending down Odynophagia PLAN OF CARE MS floor s/p intubation 09/19 s/p extubation 09/27 currently on 5L O2 via NC tachypnea resolved , still hypoxic , easily desaturates titrate FiO2 to keep sat above 90% , back to O2 5L via NC CXR 09/29 with findings of PNA Venous Duplex BLE CXR 10/01 - Slightly improved but still extensive bilateral infiltrates, MDI with spacer in line using IS CXR 10/03 unchanged : bilateral extensive airspace consolidation. The pleural spaces are clear. CXR 10/06 -Extensive bilateral infiltrates unchanged. CXR 10/09 noted, not significant changes SARS -CoV -2 by PCR 09/17 came back non detected repeated SARS-CoV-2 by PCR 09/20 positive, continue isolation repeated SARS-CoV-2 by PCR 09/29 still detected SARS-CoV-2 by PCR 10/04 still detected remains in isolation SARS-CoV-2 by PCR 10/08 pending s/p Plaquenil x5 days, completed ceftriaxone Doxy was dc was on Zosyn since 09/27 as per ID , SCX + Enterobacter, stool C dif -NGT, UCX -NGT Zosyn stopped and changed to cefepime and Flagyl till 10/09, completed, prior completed Vanco remains afebrile , no leukocytosis plan was to speak with pharmacy if can get Tocoluzimab for her if clinically worse, however appears to be with clinical improvement BCX 09/17 NGTD Solumedrol tapered and dc 10/04 trend CRP, LDH, ferritin: 09/24 trending CRP, LDH IL-6 18.6 , prior IL-6 15.6 last CRP 5.6 ( up from prior 1.7), LDH 312 ( down from prior 426) DVT prophylaxis with Lovenox s/p gentle IV hydration creat down to normal, avoid nephrotoxics had severe odynophagia , possibly due to intubation , improving sore throat unable to do BSSE while in isolation tolerated soft diet , NGT was dc Cepacol lozenges prn mild hyperglycemia noted , probably due to steroids? on SSI/low dose, sensitive , HgA1c -6 - borderline DM, dc SS ( stable insulin), no concentrated sweets diet - prediabetic trend LFT , CK trended down, spoke with RN, continue PT, pt very deconditioned walk in the room, OOB to chair tid as tolerated, encourage activity case discussed and evaluated by supervising physician Raghav De MD 10/11/19 1630: Subjective Allergies: Coded Allergies: No Known Allergies (Unverified , 09/18/19) Assessment/Plan Assessment/Plan Patient seen and examined with PUBLIC ADMINISTRATION TEACHER, agree with above A&P as it reflects our joint deliberations. Neena Lees NP October 11, 2019 08:44 Raghav De MD October 11, 2019 16:30
[2019-10-11 08:56] VITALS: BP 136/72
[2019-10-11] MEDS: Lomotil 2.5mg tab ORAL PRN ×2 (09:10→17:20)
[2019-10-11 12:00] VITALS: BP 139/81
[2019-10-11 16:00] VITALS: BP 138/78
--- NOTE | 2019-10-11 16:30 | Diagnostic Imaging Report ---
Procedure: XRAY Chest 1v Reason for study: Reason For Exam: SOB Comparison films: 10/07/2019. FINDINGS: A single one view chest is obtained. Extensive bilateral alveolar densities are unchanged. Cardiac and mediastinal silhouette are within normal limits. CP angles are sharp. The bony thorax appear unremarkable. IMPRESSION: NO SIGNIFICANT CHANGE COMPARED TO PREVIOUS EXAM.
--- NOTE | 2019-10-11 18:20 | General Progress Note ---
Assessment/Plan Problem List: (1) Glucose intolerance ICD Codes: E74.39 - Other disorders of intestinal carbohydrate absorption SNOMED: 76725092 (2) Respiratory failure with hypoxia ICD Codes: J96.91 - Respiratory failure, unspecified with hypoxia SNOMED: 00838164219115909, 233838420 Qualifiers: Qualified Codes: J96.01 - Acute respiratory failure with hypoxia (3) Pneumonia due to COVID-19 virus ICD Codes: U07.1 - COVID-19; J12.89 - Other viral pneumonia SNOMED: 542335318, 730379586 (4) ARDS (adult respiratory distress syndrome) ICD Codes: J80 - Acute respiratory distress syndrome SNOMED: 55675686, 86747790 (5) Transaminitis ICD Codes: R74.0 - Nonspecific elevation of levels of transaminase and lactic acid dehydrogenase [LDH] SNOMED: 311627267, 104148949 (6) Rhabdomyolysis ICD Codes: M62.82 - Rhabdomyolysis SNOMED: 198891593 (7) JOE (acute kidney injury) ICD Codes: N17.9 - Acute kidney failure, unspecified SNOMED: 8171694, 92469860 (8) Dysphagia ICD Codes: R13.10 - Dysphagia, unspecified SNOMED: 34392105, 195560636 (9) Diarrhea ICD Codes: R19.7 - Diarrhea, unspecified SNOMED: 65228866 Assessment/Plan: out of icu, on antibiotics, plaquenil ordered +completed, by pulm, worsening resp failure, intubated, now extubated SS insulin, steroids tapered, started, lytes ok,desat off O2, 96% with cannula dyspnea, improving st swallow eval dc zamora dc ng ST swallow eval, symptomatic care diarrhea better,still jackson, weak Subjective Constitutional: Reports: weakness HEENT: Reports: no symptoms Cardiovascular: Reports: no symptoms Respiratory: Reports: SOB with excertion Gastrointestinal/Abdominal: Reports: no symptoms Genitourinary: Reports: no symptoms Neurologic/Psychiatric: Reports: no symptoms Endocrine: Reports: no symptoms Hematologic/Lymphatic: Reports: no symptoms Allergies: Coded Allergies: No Known Allergies (Unverified , 09/18/19) Objective Last 24 Hour Vital Signs Date Time Temp Pulse Resp B/P (MAP) Pulse Ox O2 Delivery O2 Flow Rate FiO2 10/11/19 12:00 98.1 92 22 139/81 (100) 94 10/11/19 09:00 Nasal Cannula 5.0 10/11/19 08:56 98.2 101 20 136/72 (93) 96 10/11/19 04:00 97.7 83 20 132/81 (98) 95 10/11/19 00:27 98.2 10/11/19 00:00 97.9 80 20 149/88 (108) 98 10/10/19 20:16 Nasal Cannula 5.0 10/10/19 20:02 95 Nasal Cannula 5.0 40 10/10/19 20:00 98.2 83 20 148/80 (102) 95 Intake and Output 10/10/19 10/11/19 19:00 07:00 Intake Total 1160 ml 360 ml Output Total 6 ml Balance 1160 ml 354 ml Intake Oral 800 ml IV Total 360 ml 360 ml Output Urine Total 3 ml Stool Total 3 ml # Voids 4 # Bowel Movements 2 Laboratory Tests 10/11/19 05:30: White Blood Count 7.6, Red Blood Count 3.60L, Hemoglobin 11.3L, Hematocrit 35.3L , Mean Corpuscular Volume 98, Mean Corpuscular Hemoglobin 31.3H, Mean Corpuscular Hemoglobin Concent 32.0, Red Cell Distribution Width 14.8, Platelet Count 224, Mean Platelet Volume 7.2, Neutrophils (%) (Auto) 63.9, Lymphocytes (% ) (Auto) 19.2L, Monocytes (%) (Auto) 8.2, Eosinophils (%) (Auto) 7.2H, Basophils (%) (Auto) 1.4, Total Creatine Kinase 101 Height (Feet): 5 Height (Inches): 2.00 Weight (Pounds): 155 General Appearance: alert EENT: normal ENT inspection Neck: normal alignment Cardiovascular: regular rhythm Respiratory/Chest: lungs clear Abdomen: soft Edema: no edema noted Arm (L), no edema noted Arm (R), no edema noted Leg (L), no edema noted Leg (R), no edema noted Pedal (L), no edema noted Pedal (R), no edema noted Generalized Hung Zuniga MD October 11, 2019 18:20
[2019-10-11 20:00] VITALS: BP 141/85
[2019-10-11] MEDS: Enoxaparin 60mg Inj SUBQ SCH (21:00)
[2019-10-12] VITALS (7 sets, daily range): BP systolic 132–155; BP diastolic 57–96
[2019-10-12] MEDS: Lomotil 2.5mg tab ORAL PRN ×2 (06:14→15:33)
--- NOTE | 2019-10-12 08:11 | Pulmonology Progress Note ---
Neena Lees HEAD OF BIOLOGY 10/12/19 0811: Subjective ROS Limited/Unobtainable: Yes Constitutional: Denies: fever Gastrointestinal/Abdominal: Denies: nausea, vomiting, diarrhea Psychiatric: Denies: depression Skin: Denies: rash Musculoskeletal: Denies: pain Allergies: Coded Allergies: No Known Allergies (Unverified , 09/18/19) Subjective still on 5 L O2 via NC afebrile, no leuk CoVID 19 for 10/04 still detected CoVID -19 for 10/09 still positive still hypoxic and easily gets SOB working with PT but gets easily hypoxic and out of breath \ deconditioned walked yesterday in the room Objective Last 24 Hour Vital Signs Date Time Temp Pulse Resp B/P (MAP) Pulse Ox O2 Delivery O2 Flow Rate FiO2 10/12/19 04:00 97.5 89 22 132/76 (94) 97 10/12/19 00:00 98.0 87 22 138/96 (110) 97 10/11/19 21:47 97.9 10/11/19 21:00 Nasal Cannula 5.0 10/11/19 20:00 97.9 95 22 141/85 (103) 99 10/11/19 19:39 96 Nasal Cannula 3.0 32 10/11/19 16:00 98.2 80 22 138/78 (98) 99 10/11/19 12:00 98.1 92 22 139/81 (100) 94 10/11/19 09:00 Nasal Cannula 5.0 10/11/19 08:56 98.2 101 20 136/72 (93) 96 Intake and Output 10/11/19 10/12/19 19:00 07:00 Intake Total 510 ml 740 ml Balance 510 ml 740 ml Intake Oral 480 ml 350 ml IV Total 30 ml 390 ml # Voids 4 3 # Bowel Movements 2 1 Objective Status: awake, responsive, HEENT: atraumatic, normocephalic, 5 L O2 via NC Lungs: few isolated rhonchi, Heart: HR/BP stable Abdomen: soft, non-tender, active bowel sounds Extremities: no edema Microbiology Date/Time Source Procedure Growth Status 10/10/19 04:00 Nasopharynx Coronavirus COVID-19 PCR ([facility]) - Final Complete Current Medications Medications (Trade) Dose Ordered Sig/Sam Route PRN Reason Start Time Stop Time Status Last Admin Dose Admin Acetaminophen (Tylenol) 650 mg Q4H PRN ORAL Mild Pain (Pain Scale 1-3) 10/07/19 17:30 11/01/19 17:29 10/11/19 21:17 Acetaminophen (Tylenol) 650 mg Q4H PRN ORAL Temp >100.5 10/07/19 17:30 11/01/19 17:29 Albuterol Sulfate (Proventil MDI) 2 puff Q4H PRN INH Shortness of Breath 10/07/19 17:45 12/31/19 17:44 10/08/19 00:20 Cetylpyridinium Chloride (Cepacol) 1 lozg Q2H PRN MARLIN sore throat 10/07/19 17:45 01/02/20 17:44 Dextrose (Dextrose 50%) 25 ml Q30M PRN IV Hypoglycemia 10/07/19 18:00 12/19/19 13:29 Dextrose (Dextrose 50%) 50 ml Q30M PRN IV Hypoglycemia 10/07/19 18:00 12/19/19 13:29 Diphenoxylate HCl/ Atropine (Lomotil) 2.5 mg Q4H PRN ORAL Diarrhea 10/07/19 17:45 11/04/19 17:44 10/12/19 06:14 Enoxaparin Sodium (Lovenox) 60 mg QHS SUBQ 10/07/19 21:00 12/20/19 20:59 10/10/19 21:09 Famotidine (Pepcid) 20 mg BID ORAL 10/10/19 13:30 01/08/20 13:29 10/11/19 17:19 Lorazepam (Ativan) 1 mg Q6H PRN ORAL For Anxiety 10/07/19 17:45 10/13/19 17:44 Ondansetron HCl (Zofran) 4 mg Q6H PRN IVP Nausea & Vomiting 10/07/19 17:45 11/01/19 17:44 Polyethylene Glycol (Miralax) 17 gm HSPRN PRN ORAL Constipation 10/07/19 17:45 11/06/19 17:44 Sodium Chloride 1,000 ml @ 30 mls/hr Q24H IV 10/07/19 17:45 11/01/19 14:59 10/11/19 17:19 Assessment/Plan Assessment/Plan ASSESSMENT Acute hypoxemic respiratory failure requiring intubation, s/p extubation 09/27 Confirmed CoVID -19 multilobar PNA JOE -resolved Mild transaminitis Borderline diabetes Elevated CK/ rhabdo - CK trending down Odynophagia PLAN OF CARE MS floor s/p intubation 09/19 s/p extubation 09/27 currently on 5L O2 via NC tachypnea resolved , still hypoxic , easily desaturates titrate FiO2 to keep sat above 90% , back to O2 5L via NC CXR 09/29 with findings of PNA Venous Duplex BLE CXR 10/01 - Slightly improved but still extensive bilateral infiltrates, MDI with spacer in line using IS CXR 10/03 unchanged : bilateral extensive airspace consolidation. The pleural spaces are clear. CXR 10/06 -Extensive bilateral infiltrates unchanged. CXR 10/09 noted, not significant changes SARS -CoV -2 by PCR 09/17 came back non detected repeated SARS-CoV-2 by PCR 09/20 positive, continue isolation repeated SARS-CoV-2 by PCR 09/29 still detected SARS-CoV-2 by PCR 10/04 still detected SARS-CoV-2 by PCR 10/09 still positive remains in isolation s/p Plaquenil x5 days, completed ceftriaxone Doxy was dc was on Zosyn since 09/27 as per ID , SCX + Enterobacter, stool C dif -NGT, UCX -NGT Zosyn stopped and changed to cefepime and Flagyl till 10/09, completed, prior completed Vanco remains afebrile , no leukocytosis plan was to speak with pharmacy if can get Tocoluzimab for her if clinically worse, however appears to be with clinical improvement BCX 09/17 NGTD Solumedrol tapered and dc 10/04 trend CRP, LDH, ferritin: 09/24 trending CRP, LDH IL-6 18.6 , prior IL-6 15.6 last CRP 5.6 ( up from prior 1.7), LDH 312 ( down from prior 426) DVT prophylaxis with Lovenox s/p gentle IV hydration creat down to normal, avoid nephrotoxics had severe odynophagia , possibly due to intubation , improving sore throat unable to do BSSE while in isolation tolerated soft diet , NGT was dc Cepacol lozenges prn mild hyperglycemia noted , probably due to steroids? on SSI/low dose, sensitive , HgA1c -6 - borderline DM, dc SS ( stable insulin), no concentrated sweets diet - prediabetic trend LFT , CK trended down, spoke with RN, continue PT, pt very deconditioned walk in the room, OOB to chair tid as tolerated, encourage activity case discussed and evaluated by supervising physician Raghav De MD 10/12/19 2016: Subjective Allergies: Coded Allergies: No Known Allergies (Unverified , 09/18/19) Assessment/Plan Assessment/Plan Patient seen and examined with HEAD OF BIOLOGY. Agree with above A&P as it reflects our joint deliberations. Neena Lees NP October 12, 2019 08:11 Raghav De MD October 12, 2019 20:16
--- NOTE | 2019-10-12 15:33 | Infectious Diseases Prog Note ---
Assessment/Plan Assessment/Plan ASSESSMENT AND PLAN: 1. covid-19 virus infection, pna, ? cap, respiratory failure, sepsis, steroids, vent, leukocytosis, fevers enterobacter pna - s/p hydroxychloroquine - s/p cefepime and flagyl - monitor labs and chest x-ray - clinically improved, extubated - chest x-ray stable 2. No other significant past medical history. 3. No known allergies. 4. Social history negative. 5. Family history noncontributory. 6. MAR was noted. 7. Case discussed with RN. 8. Continue treatment per primary consultants. Subjective Constitutional: Denies: fever HEENT: Denies: congestion Respiratory: Denies: shortness of breath Cardiovascular: Denies: chest pain Gastrointestinal/Abdominal: Denies: nausea, vomiting, diarrhea Genitourinary: Denies: dysuria, hematuria Neurologic: Denies: headache Psychiatric: Denies: depression Skin: Denies: rash Hematologic: Denies: bleeding Musculoskeletal: Denies: pain Allergies: Coded Allergies: No Known Allergies (Unverified , 09/18/19) Objective Vital Signs Last 24 Hour Vital Signs Date Time Temp Pulse Resp B/P (MAP) Pulse Ox O2 Delivery O2 Flow Rate FiO2 10/12/19 12:00 98.2 96 20 140/90 (107) 98 10/12/19 09:00 Nasal Cannula 3.0 10/12/19 08:00 97.9 91 21 139/82 (101) 96 10/12/19 04:00 97.5 89 22 132/76 (94) 97 10/12/19 00:00 98.0 87 22 138/96 (110) 97 10/11/19 21:47 97.9 10/11/19 21:00 Nasal Cannula 5.0 10/11/19 20:00 97.9 95 22 141/85 (103) 99 10/11/19 19:39 96 Nasal Cannula 3.0 32 10/11/19 16:00 98.2 80 22 138/78 (98) 99 Height (Feet): 5 Height (Inches): 2.00 Weight (Pounds): 155 General Appearance: no acute distress HEENT: normocephalic, atraumatic, anicteric, mucous membranes moist Respiratory/Chest: no accessory muscle use, crackles/rales, rhonchi - bilaterally Cardiovascular: normal rate, regular rhythm, no gallop/murmur, no JVD Abdomen: normal bowel sounds, soft, non tender, no organomegaly, non distended Genitourinary: other - no zamora Extremities: no cyanosis Skin: no rash Neurologic/Psychiatric: pricing specialist II-XII grossly normal, alert, oriented x 3, responsive Lymphatic: no neck adenopathy Musculoskeletal: no effusion Objective EXAM: XR Chest, 1 View CLINICAL HISTORY: SOB TECHNIQUE: Frontal view of the chest. COMPARISON: Chest x-ray 09/21/19 913 FINDINGS: Lungs: Improved aeration of the lung. Mild bilateral interstitial and hazy lung opacities are similar. Pleural space: Unremarkable. No pneumothorax. Heart: Unremarkable. No cardiomegaly. Mediastinum: Unremarkable. Bones/joints: Unremarkable. Tubes, lines and devices: Endotracheal tube and NG tube are stable. IMPRESSION: Improved aeration of the lung. Mild bilateral interstitial and hazy lung opacities are similar. Chest x-ray - 09/23/19 - Procedure: XRAY Chest 1v Indication: Shortness of breath Technique: One view of the chest Comparison: 09/22/2019 Findings: Less optimal inspiration on current exam. Bilateral diffuse hazy airspace opacities are probably similar to the prior study allowing for differences in degree of inspiration. Stable satisfactory positions of endotracheal and orogastric tubes Impression: Unchanged, over one day, findings as above. Chest x-ray - 09/26/19 - Procedure: XRAY Chest 1v Indication: Shortness of breath Technique: One view of the chest Comparison: 09/25/2019 Findings: Bilateral interstitial and hazy airspace disease is unchanged. Stable satisfactory endotracheal and nasogastric tube positions. Impression: Unchanged, over one day, findings as above. Chest x-ray - 09/28/19 - TECHNIQUE: Frontal view of the chest. COMPARISON: Chest x-ray 09/27/19 834 FINDINGS: Lungs: Worsening hazy bilateral diffuse airspace opacities. Hypoventilatory lungs. Pleural space: Unremarkable. No pneumothorax. Heart: Unremarkable. No cardiomegaly. Mediastinum: Unremarkable. Bones/joints: Unremarkable. Tubes, lines and devices: ET tube and NG tube are stable. IMPRESSION: Worsening hazy bilateral diffuse airspace opacities. Chest x-ray - 09/30/19 - Procedure: XRAY Chest 1v Indication: Shortness of breath Technique: One view of the chest Comparison: 09/28/2019 Findings: Stable satisfactory position of nasogastric tube. Bilateral mostly peripheral and basilar infiltrates are again demonstrated, appears similar on the left, slightly worse on the right. The endotracheal tube is no longer evident. Impression: Interim of endotracheal extubation Stable left and slightly increased right-sided infiltrates, likely pneumonia Chest x-ray - 10/02/19 - Procedure: XRAY Chest 1v Indication: Shortness of breath Technique: One view of the chest Comparison: 09/30/2019 Findings: Stable satisfactory position of nasogastric tube. Bilateral diffuse infiltrates appear slightly improved but remain extensive. No definite effusions. The heart size is normal Impression: Slightly improved but still extensive bilateral infiltrates, since prior exam of 2 days earlier Chest x-ray - 10/04/19 - Procedure: XRAY Chest 1v Indication: Shortness of breath Technique: One view of the chest Comparison: 10/02/2019 Findings: Stable satisfactory position of nasogastric tube. Slightly improved inspiration currently. Given differences in degree of inspiration, probably unchanged bilateral extensive airspace consolidation. The pleural spaces are clear. The heart size is upper limits normal. Impression: Unchanged, over 2 days, findings as above. Chest x-ray - 10/04/19 - Procedure: XRAY Chest 1v Indication: Shortness of breath Technique: One view of the chest Comparison: 10/02/2019 Findings: Stable satisfactory position of nasogastric tube. Slightly improved inspiration currently. Given differences in degree of inspiration, probably unchanged bilateral extensive airspace consolidation. The pleural spaces are clear. The heart size is upper limits normal. Impression: Unchanged, over 2 days, findings as above. Chest x-ray - 10/07/19 - Procedure: XRAY Chest 1v Indication: Shortness of breath Technique: One view of the chest Comparison: 10/04/2019 Findings: Interim removal of nasogastric tube. Extensive bilateral infiltrates are unchanged. Impression: Interim nasogastric tube removal. 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 FINDINGS: A single one view chest is obtained. Extensive bilateral alveolar densities are unchanged. Cardiac and mediastinal silhouette are within normal limits. CP angles are sharp. The bony thorax appear unremarkable. IMPRESSION: NO SIGNIFICANT CHANGE COMPARED TO PREVIOUS EXAM. Microbiology Date/Time Source Procedure Growth Status 09/28/19 11:52 Blood Blood Culture - Final NO GROWTH AFTER 5 DAYS Complete 10/10/19 04:00 Nasopharynx Coronavirus COVID-19 PCR ([facility]) - Final Complete 09/29/19 04:40 Stool Clostridium difficile Toxin Assay - Final Complete 10/01/19 17:30 Indwelling Cath Urine Culture - Final NO GROWTH AFTER 48 HOURS Complete Microbiology Date/Time Source Procedure Growth Status 10/10/19 04:00 Nasopharynx Coronavirus COVID-19 PCR ([facility]) - Final Complete Labs Test 10/10/19 04:00 10/11/19 05:30 White Blood Count 9.4 K/UL (4.8-10.8) 7.6 K/UL (4.8-10.8) Red Blood Count 3.68 M/UL (4.20-5.40) 3.60 M/UL (4.20-5.40) Hemoglobin 11.5 G/DL (12.0-16.0) 11.3 G/DL (12.0-16.0) Hematocrit 33.5 % (37.0-47.0) 35.3 % (37.0-47.0) Mean Corpuscular Volume 91 FL (80-99) 98 FL (80-99) Mean Corpuscular Hemoglobin 31.3 PG (27.0-31.0) 31.3 PG (27.0-31.0) Mean Corpuscular Hemoglobin Concent 34.3 G/DL (32.0-36.0) 32.0 G/DL (32.0-36.0) Red Cell Distribution Width 13.1 % (11.6-14.8) 14.8 % (11.6-14.8) Platelet Count 216 K/UL (150-450) 224 K/UL (150-450) Mean Platelet Volume 6.9 FL (6.5-10.1) 7.2 FL (6.5-10.1) Neutrophils (%) (Auto) 69.9 % (45.0-75.0) 63.9 % (45.0-75.0) Lymphocytes (%) (Auto) 15.8 % (20.0-45.0) 19.2 % (20.0-45.0) Monocytes (%) (Auto) 7.5 % (1.0-10.0) 8.2 % (1.0-10.0) Eosinophils (%) (Auto) 6.0 % (0.0-3.0) 7.2 % (0.0-3.0) Basophils (%) (Auto) 1.0 % (0.0-2.0) 1.4 % (0.0-2.0) Sodium Level 141 MMOL/L (136-145) Potassium Level 3.9 MMOL/L (3.5-5.1) Chloride Level 106 MMOL/L (98-107) Carbon Dioxide Level 27 MMOL/L (21-32) Anion Gap 8 mmol/L (5-15) Blood Urea Nitrogen 4 mg/dL (7-18) Creatinine 0.6 MG/DL (0.55-1.30) Estimat Glomerular Filtration Rate > 60 mL/min (>60) Glucose Level 87 MG/DL (74-106) Calcium Level 8.5 MG/DL (8.5-10.1) Total Creatine Kinase 101 U/L (26-308) Current Medications Medications (Trade) Dose Ordered Sig/Sam Route PRN Reason Start Time Stop Time Status Last Admin Dose Admin Acetaminophen (Tylenol) 650 mg Q4H PRN ORAL Mild Pain (Pain Scale 1-3) 10/07/19 17:30 11/01/19 17:29 10/12/19 09:07 Acetaminophen (Tylenol) 650 mg Q4H PRN ORAL Temp >100.5 10/07/19 17:30 11/01/19 17:29 Albuterol Sulfate (Proventil MDI) 2 puff Q4H PRN INH Shortness of Breath 10/07/19 17:45 12/31/19 17:44 10/08/19 00:20 Cetylpyridinium Chloride (Cepacol) 1 lozg Q2H PRN MARLIN sore throat 10/07/19 17:45 01/02/20 17:44 Dextrose (Dextrose 50%) 25 ml Q30M PRN IV Hypoglycemia 10/07/19 18:00 12/19/19 13:29 Dextrose (Dextrose 50%) 50 ml Q30M PRN IV Hypoglycemia 10/07/19 18:00 12/19/19 13:29 Diphenoxylate HCl/ Atropine (Lomotil) 2.5 mg Q4H PRN ORAL Diarrhea 10/07/19 17:45 11/04/19 17:44 10/12/19 06:14 Enoxaparin Sodium (Lovenox) 60 mg QHS SUBQ 10/07/19 21:00 12/20/19 20:59 10/10/19 21:09 Famotidine (Pepcid) 20 mg BID ORAL 10/10/19 13:30 01/08/20 13:29 10/12/19 09:06 Lorazepam (Ativan) 1 mg Q6H PRN ORAL For Anxiety 10/07/19 17:45 10/13/19 17:44 Ondansetron HCl (Zofran) 4 mg Q6H PRN IVP Nausea & Vomiting 10/07/19 17:45 11/01/19 17:44 Polyethylene Glycol (Miralax) 17 gm HSPRN PRN ORAL Constipation 10/07/19 17:45 11/06/19 17:44 Sodium Chloride 1,000 ml @ 30 mls/hr Q24H IV 10/07/19 17:45 11/01/19 14:59 10/11/19 17:19 Enedina Ceja MD October 12, 2019 15:33
--- NOTE | 2019-10-12 19:56 | General Progress Note ---
Assessment/Plan Problem List: (1) Glucose intolerance ICD Codes: E74.39 - Other disorders of intestinal carbohydrate absorption SNOMED: 79331810 (2) Respiratory failure with hypoxia ICD Codes: J96.91 - Respiratory failure, unspecified with hypoxia SNOMED: 77959105629135553, 205157908 Qualifiers: Qualified Codes: J96.01 - Acute respiratory failure with hypoxia (3) Pneumonia due to COVID-19 virus ICD Codes: U07.1 - COVID-19; J12.89 - Other viral pneumonia SNOMED: 164466397, 923656758 (4) ARDS (adult respiratory distress syndrome) ICD Codes: J80 - Acute respiratory distress syndrome SNOMED: 64308243, 94801013 (5) Transaminitis ICD Codes: R74.0 - Nonspecific elevation of levels of transaminase and lactic acid dehydrogenase [LDH] SNOMED: 818066066, 159366587 (6) Rhabdomyolysis ICD Codes: M62.82 - Rhabdomyolysis SNOMED: 523454931 (7) JOE (acute kidney injury) ICD Codes: N17.9 - Acute kidney failure, unspecified SNOMED: 3358911, 58873393 (8) Dysphagia ICD Codes: R13.10 - Dysphagia, unspecified SNOMED: 74352077, 899279376 (9) Diarrhea ICD Codes: R19.7 - Diarrhea, unspecified SNOMED: 12759358 Assessment/Plan: out of icu, on antibiotics, plaquenil ordered +completed, by pulm, worsening resp failure, intubated, now extubated SS insulin, steroids tapered, started, lytes ok,desat off O2, 96% with cannula dyspnea, improving st swallow eval dc zamora dc ng ST swallow eval, symptomatic care diarrhea better,still jackson, weak Subjective Constitutional: Reports: weakness HEENT: Reports: no symptoms Cardiovascular: Reports: no symptoms Respiratory: Reports: SOB with excertion Gastrointestinal/Abdominal: Reports: no symptoms Genitourinary: Reports: no symptoms Neurologic/Psychiatric: Reports: no symptoms Endocrine: Reports: no symptoms Hematologic/Lymphatic: Reports: no symptoms Allergies: Coded Allergies: No Known Allergies (Unverified , 09/18/19) Objective Last 24 Hour Vital Signs Date Time Temp Pulse Resp B/P (MAP) Pulse Ox O2 Delivery O2 Flow Rate FiO2 10/12/19 16:00 98.2 96 20 155/89 (111) 96 10/12/19 12:00 98.2 96 20 140/90 (107) 98 10/12/19 09:00 Nasal Cannula 3.0 10/12/19 08:00 97.9 91 21 139/82 (101) 96 10/12/19 04:00 97.5 89 22 132/76 (94) 97 10/12/19 00:00 98.0 87 22 138/96 (110) 97 10/11/19 21:47 97.9 10/11/19 21:00 Nasal Cannula 5.0 10/11/19 20:00 97.9 95 22 141/85 (103) 99 Intake and Output 10/11/19 10/12/19 19:00 07:00 Intake Total 810 ml 740 ml Balance 810 ml 740 ml Intake Oral 480 ml 350 ml IV Total 330 ml 390 ml # Voids 4 3 # Bowel Movements 2 1 Height (Feet): 5 Height (Inches): 2.00 Weight (Pounds): 155 General Appearance: no apparent distress, alert EENT: normal ENT inspection Neck: normal alignment Cardiovascular: normal rate Respiratory/Chest: lungs clear Abdomen: soft Edema: no edema noted Arm (L), no edema noted Arm (R), no edema noted Leg (L), no edema noted Leg (R), no edema noted Pedal (L), no edema noted Pedal (R), no edema noted Generalized Neurologic: american indian policy specialist II-XII grossly normal Hung Zuniga MD October 12, 2019 19:56
[2019-10-12] MEDS: Enoxaparin 60mg Inj SUBQ SCH (20:01)
[2019-10-13 04:00] VITALS: BP 144/85
[2019-10-13 08:00] VITALS: BP 158/88
[2019-10-13] MEDS: Lomotil 2.5mg tab ORAL PRN ×2 (08:59→17:48)
--- NOTE | 2019-10-13 09:25 | Pulmonology Progress Note ---
Neena Lees PALLIATIVE CARE SPECIALIST 10/13/19 0925: Subjective ROS Limited/Unobtainable: Yes Constitutional: Denies: fever Gastrointestinal/Abdominal: Denies: nausea, vomiting, diarrhea Psychiatric: Denies: depression Skin: Denies: rash Musculoskeletal: Denies: pain Allergies: Coded Allergies: No Known Allergies (Unverified , 09/18/19) Subjective now on 3 L O2 via NC afebrile, leuk resolved CoVID 19 for 10/04 still detected CoVID -19 for 10/09 still positive still hypoxic working with PT but gets easily hypoxic and out of breath deconditioned reported pain and SOB with moving venous Duplex pending Objective Last 24 Hour Vital Signs Date Time Temp Pulse Resp B/P (MAP) Pulse Ox O2 Delivery O2 Flow Rate FiO2 10/13/19 08:00 97.4 96 20 158/88 (111) 94 10/13/19 04:00 98.6 96 18 144/85 (104) 95 10/12/19 23:32 99.1 96 18 140/57 (84) 95 10/12/19 21:00 Nasal Cannula 3.0 10/12/19 21:00 95 Nasal Cannula 3.0 32 10/12/19 20:00 98.8 94 18 137/83 (101) 95 10/12/19 16:00 98.2 96 20 155/89 (111) 96 10/12/19 12:00 98.2 96 20 140/90 (107) 98 Intake and Output 10/12/19 10/13/19 19:00 07:00 Intake Total 840 ml 690 ml Output Total 300 ml Balance 840 ml 390 ml Intake Oral 480 ml 360 ml IV Total 360 ml 330 ml Output Urine Total 300 ml # Voids 4 1 # Bowel Movements 1 1 Objective Status: awake, responsive, HEENT: atraumatic, normocephalic, 3 L O2 via NC Lungs: few isolated rhonchi, Heart: HR/BP stable Abdomen: soft, non-tender, active bowel sounds Extremities: no edema Current Medications Medications (Trade) Dose Ordered Sig/Sam Route PRN Reason Start Time Stop Time Status Last Admin Dose Admin Acetaminophen (Tylenol) 650 mg Q4H PRN ORAL Mild Pain (Pain Scale 1-3) 10/07/19 17:30 11/01/19 17:29 10/13/19 06:04 Acetaminophen (Tylenol) 650 mg Q4H PRN ORAL Temp >100.5 10/07/19 17:30 11/01/19 17:29 Albuterol Sulfate (Proventil MDI) 2 puff Q4H PRN INH Shortness of Breath 10/07/19 17:45 12/31/19 17:44 10/08/19 00:20 Cetylpyridinium Chloride (Cepacol) 1 lozg Q2H PRN MARLIN sore throat 10/07/19 17:45 01/02/20 17:44 Dextrose (Dextrose 50%) 25 ml Q30M PRN IV Hypoglycemia 10/07/19 18:00 12/19/19 13:29 Dextrose (Dextrose 50%) 50 ml Q30M PRN IV Hypoglycemia 10/07/19 18:00 12/19/19 13:29 Diphenoxylate HCl/ Atropine (Lomotil) 2.5 mg Q4H PRN ORAL Diarrhea 10/07/19 17:45 11/04/19 17:44 10/13/19 08:59 Enoxaparin Sodium (Lovenox) 60 mg QHS SUBQ 10/07/19 21:00 12/20/19 20:59 10/12/19 20:01 Famotidine (Pepcid) 20 mg BID ORAL 10/10/19 13:30 01/08/20 13:29 10/13/19 08:59 Lorazepam (Ativan) 1 mg Q6H PRN ORAL For Anxiety 10/07/19 17:45 10/13/19 17:44 Ondansetron HCl (Zofran) 4 mg Q6H PRN IVP Nausea & Vomiting 10/07/19 17:45 11/01/19 17:44 Polyethylene Glycol (Miralax) 17 gm HSPRN PRN ORAL Constipation 10/07/19 17:45 11/06/19 17:44 Sodium Chloride 1,000 ml @ 30 mls/hr Q24H IV 10/07/19 17:45 11/01/19 14:59 10/12/19 17:53 Assessment/Plan Assessment/Plan ASSESSMENT Acute hypoxemic respiratory failure requiring intubation, s/p extubation 5/2 Confirmed CoVID -19 multilobar PNA JOE -resolved Mild transaminitis Borderline diabetes Elevated CK/ rhabdo - CK trending down Odynophagia PLAN OF CARE MS floor s/p intubation 09/19 s/p extubation 09/27 currently on 5L O2 via NC tachypnea resolved , still hypoxic , easily desaturates titrate FiO2 to keep sat above 90% , back to O2 5L via NC CXR 09/29 with findings of PNA Venous Duplex BLE CXR 10/01 - Slightly improved but still extensive bilateral infiltrates, MDI with spacer in line using IS CXR 10/03 unchanged : bilateral extensive airspace consolidation. The pleural spaces are clear. CXR 10/06 -Extensive bilateral infiltrates unchanged. CXR 10/09 noted, not significant changes fup with CXR in am SARS -CoV -2 by PCR 09/17 came back non detected repeated SARS-CoV-2 by PCR 09/20 positive, continue isolation repeated SARS-CoV-2 by PCR 09/29 still detected SARS-CoV-2 by PCR 10/04 still detected SARS-CoV-2 by PCR 10/09 still positive remains in isolation s/p Plaquenil x5 days, completed ceftriaxone Doxy was dc was on Zosyn since 09/27 as per ID , SCX + Enterobacter, stool C dif -NGT, UCX -NGT Zosyn stopped and changed to cefepime and Flagyl till 10/09, completed, prior completed Vanco remains afebrile , no leukocytosis plan was to speak with pharmacy if can get Tocoluzimab for her if clinically worse, however appears to be with clinical improvement BCX 09/17 NGTD Solumedrol tapered and dc 10/04 trend CRP, LDH, ferritin: 09/24 trending CRP, LDH IL-6 18.6 , prior IL-6 15.6 last CRP 5.6 ( up from prior 1.7), LDH 312 ( down from prior 426) DVT prophylaxis with Lovenox s/p gentle IV hydration creat down to normal, avoid nephrotoxics had severe odynophagia , possibly due to intubation , improving sore throat unable to do BSSE while in isolation tolerated soft diet , NGT was dc Cepacol lozenges prn mild hyperglycemia noted , probably due to steroids? on SSI/low dose, sensitive , HgA1c -6 - borderline DM, dc SS ( stable insulin), no concentrated sweets diet - prediabetic trend LFT , CK trended down, spoke with RN, continue PT, pt very deconditioned walk in the room, OOB to chair tid as tolerated, encourage activity case discussed and evaluated by supervising physician Raghav De MD 10/13/19 1525: Subjective Allergies: Coded Allergies: No Known Allergies (Unverified , 09/18/19) Assessment/Plan Assessment/Plan Patient seen and examined with PALLIATIVE CARE SPECIALIST, agree with above A&P as it reflects our joint deliberations. Last COVID PCR still +, AFVSS now on 3L, extremely deconditions. Will check a CT chest to evaluate for developing fibrosis. Neena Lees NP October 13, 2019 09:25 Raghav De MD October 13, 2019 15:25
[2019-10-13 12:00] VITALS: BP 147/78
--- NOTE | 2019-10-13 13:12 | Diagnostic Imaging Report ---
EXAM: XR Chest, 1 View CLINICAL HISTORY: SOB TECHNIQUE: Frontal view of the chest. COMPARISON: Chest radiograph on 10/10/2019 FINDINGS: Hardware: None. Lungs/pleura: Similar extensive patchy opacities bilaterally. Possible small bilateral pleural effusions. Stable elevation of the right hemidiaphragm. Heart/mediastinum: Stable enlargement of the cardiac silhouette. Soft tissues: Unremarkable. Bones: No acute fracture. Upper abdomen: Cholecystectomy clips in the right upper quadrant. IMPRESSION: Similar extensive patchy opacities bilaterally. Possible small bilateral pleural effusions.
[2019-10-13 16:00] VITALS: BP 139/88
--- NOTE | 2019-10-13 18:00 | General Progress Note ---
Assessment/Plan Problem List: (1) Glucose intolerance ICD Codes: E74.39 - Other disorders of intestinal carbohydrate absorption SNOMED: 45869119 (2) Respiratory failure with hypoxia ICD Codes: J96.91 - Respiratory failure, unspecified with hypoxia SNOMED: 10993861580153774, 806177351 Qualifiers: Qualified Codes: J96.01 - Acute respiratory failure with hypoxia (3) Pneumonia due to COVID-19 virus ICD Codes: U07.1 - COVID-19; J12.89 - Other viral pneumonia SNOMED: 790504268, 980431862 (4) ARDS (adult respiratory distress syndrome) ICD Codes: J80 - Acute respiratory distress syndrome SNOMED: 82795174, 26469844 (5) Transaminitis ICD Codes: R74.0 - Nonspecific elevation of levels of transaminase and lactic acid dehydrogenase [LDH] SNOMED: 658727692, 138223041 (6) Rhabdomyolysis ICD Codes: M62.82 - Rhabdomyolysis SNOMED: 852180442 (7) JOE (acute kidney injury) ICD Codes: N17.9 - Acute kidney failure, unspecified SNOMED: 0265405, 17587868 (8) Dysphagia ICD Codes: R13.10 - Dysphagia, unspecified SNOMED: 42136895, 224227077 (9) Diarrhea ICD Codes: R19.7 - Diarrhea, unspecified SNOMED: 95828413 Assessment/Plan: out of icu, on antibiotics, plaquenil ordered +completed, by pulm, worsening resp failure, intubated, now extubated SS insulin, steroids tapered, started, lytes ok,desat off O2, 96% with cannula dyspnea, improving st swallow eval dc zamora dc ng ST swallow eval, symptomatic care diarrhea better,still jackson, weak Subjective Constitutional: Reports: weakness HEENT: Reports: no symptoms Cardiovascular: Reports: no symptoms Respiratory: Reports: SOB with excertion Gastrointestinal/Abdominal: Reports: no symptoms Genitourinary: Reports: no symptoms Neurologic/Psychiatric: Reports: no symptoms Endocrine: Reports: no symptoms Allergies: Coded Allergies: No Known Allergies (Unverified , 09/18/19) Objective Last 24 Hour Vital Signs Date Time Temp Pulse Resp B/P (MAP) Pulse Ox O2 Delivery O2 Flow Rate FiO2 10/13/19 16:00 97.9 88 18 139/88 (105) 100 10/13/19 12:00 97.7 86 18 147/78 (101) 98 10/13/19 09:00 Nasal Cannula 3.0 10/13/19 08:00 97.4 96 20 158/88 (111) 94 10/13/19 04:00 98.6 96 18 144/85 (104) 95 10/12/19 23:32 99.1 96 18 140/57 (84) 95 10/12/19 21:00 Nasal Cannula 3.0 10/12/19 21:00 95 Nasal Cannula 3.0 32 10/12/19 20:00 98.8 94 18 137/83 (101) 95 Intake and Output 10/12/19 10/13/19 19:00 07:00 Intake Total 840 ml 720 ml Output Total 300 ml Balance 840 ml 420 ml Intake Oral 480 ml 360 ml IV Total 360 ml 360 ml Output Urine Total 300 ml # Voids 4 1 # Bowel Movements 1 1 Height (Feet): 5 Height (Inches): 2.00 Weight (Pounds): 155 General Appearance: mild distress EENT: PERRL/EOMI Neck: normal alignment Cardiovascular: normal rate Respiratory/Chest: lungs clear Abdomen: non tender, soft Edema: no edema noted Arm (L), no edema noted Arm (R), no edema noted Leg (L), no edema noted Leg (R), no edema noted Pedal (L), no edema noted Pedal (R), no edema noted Generalized Hung Zuniga MD October 13, 2019 18:00
[2019-10-13 19:49] VITALS: BP 150/97
[2019-10-13] MEDS: Enoxaparin 60mg Inj SUBQ SCH ×2 (20:28→20:38)
[2019-10-13 23:53] VITALS: BP 145/74
[2019-10-14 03:14] VITALS: BP 146/85
[2019-10-14 06:02] LABS: BASOPHILS % (AUTO) 1.6 % (0.0-2.0); EOSINOPHILS % (AUTO) 6.1 % (0.0-3.0); HEMATOCRIT 33.9 % (37.0-47.0); HEMOGLOBIN 11.8 G/DL (12.0-16.0); MEAN CORPUSCULAR VOLUME 92 FL (80-99); MONOCYTES % (AUTO) 8.6 % (1.0-10.0); NEUTROPHILS % (AUTO) 62.7 % (45.0-75.0); PLATELET COUNT 231 K/UL (150-450); RED CELL DISTRIBUTION WIDTH 13.5 % (11.6-14.8); WHITE BLOOD COUNT 6.5 K/UL (4.8-10.8)
[2019-10-14 06:17] LABS: ANION GAP 9 mmol/L (5-15); BLOOD UREA NITROGEN 4 mg/dL (7-18); CALCIUM 8.9 MG/DL (8.5-10.1); CARBON DIOXIDE 28 MMOL/L (21-32); CHLORIDE 103 MMOL/L (98-107); CREATININE 0.5 MG/DL (0.55-1.30); POTASSIUM 4.1 MMOL/L (3.5-5.1); SODIUM 140 MMOL/L (136-145)
[2019-10-14 08:00] VITALS: BP 147/82
[2019-10-14] MEDS: Lomotil 2.5mg tab ORAL PRN ×2 (08:07→17:40)
--- NOTE | 2019-10-14 09:14 | Pulmonology Progress Note ---
Neena Lees FILTERING MACHINE TENDER HELPER 10/14/19 0914: Subjective ROS Limited/Unobtainable: Yes Constitutional: Denies: fever Gastrointestinal/Abdominal: Denies: nausea, vomiting, diarrhea Psychiatric: Denies: depression Skin: Denies: rash Musculoskeletal: Denies: pain Allergies: Coded Allergies: No Known Allergies (Unverified , 09/18/19) Subjective now on 4 L O2 via NC afebrile, leuk resolved CoVID 19 for 10/04 still detected CoVID -19 for 10/09 still positive still hypoxic , working with PT but gets easily hypoxic and out of breath deconditioned reported pain and SOB with moving venous Duplex BLE still pending Objective Last 24 Hour Vital Signs Date Time Temp Pulse Resp B/P (MAP) Pulse Ox O2 Delivery O2 Flow Rate FiO2 10/14/19 08:00 97.5 78 18 147/82 (103) 97 10/14/19 03:14 97.4 85 20 146/85 (105) 95 10/13/19 23:53 96.8 81 20 145/74 (97) 96 10/13/19 21:00 Nasal Cannula 4.0 10/13/19 20:11 96 Nasal Cannula 3.0 32 10/13/19 19:49 98.4 94 20 150/97 (114) 97 10/13/19 16:00 97.9 88 18 139/88 (105) 100 10/13/19 12:00 97.7 86 18 147/78 (101) 98 Intake and Output 10/13/19 10/14/19 19:00 07:00 Intake Total 894 ml 600 ml Output Total 250 ml Balance 644 ml 600 ml Intake Oral 594 ml 600 ml IV Total 300 ml Output Urine Total 250 ml # Voids 1 4 # Bowel Movements 1 1 Objective Status: awake, responsive, HEENT: atraumatic, normocephalic, 4 L O2 via NC Lungs: few isolated rhonchi, Heart: HR/BP stable Abdomen: soft, non-tender, active bowel sounds Extremities: no edema Laboratory Tests 10/14/19 04:30: White Blood Count 6.5, Red Blood Count 3.70L, Hemoglobin 11.8L, Hematocrit 33.9L , Mean Corpuscular Volume 92, Mean Corpuscular Hemoglobin 31.7H, Mean Corpuscular Hemoglobin Concent 34.6, Red Cell Distribution Width 13.5, Platelet Count 231, Mean Platelet Volume 6.4L, Neutrophils (%) (Auto) 62.7, Lymphocytes ( %) (Auto) 21.0, Monocytes (%) (Auto) 8.6, Eosinophils (%) (Auto) 6.1H, Basophils (%) (Auto) 1.6, Sodium Level 140, Potassium Level 4.1, Chloride Level 103, Carbon Dioxide Level 28, Anion Gap 9, Blood Urea Nitrogen 4L, Creatinine 0.5L, Estimat Glomerular Filtration Rate > 60, Glucose Level 91, Calcium Level 8.9, C-Reactive Protein, Quantitative 1.0H Current Medications Medications (Trade) Dose Ordered Sig/Sam Route PRN Reason Start Time Stop Time Status Last Admin Dose Admin Acetaminophen (Tylenol) 650 mg Q4H PRN ORAL Mild Pain (Pain Scale 1-3) 10/07/19 17:30 11/01/19 17:29 10/14/19 08:07 Acetaminophen (Tylenol) 650 mg Q4H PRN ORAL Temp >100.5 10/07/19 17:30 11/01/19 17:29 Albuterol Sulfate (Proventil MDI) 2 puff Q4H PRN INH Shortness of Breath 10/07/19 17:45 12/31/19 17:44 10/08/19 00:20 Cetylpyridinium Chloride (Cepacol) 1 lozg Q2H PRN MARLIN sore throat 10/07/19 17:45 01/02/20 17:44 Dextrose (Dextrose 50%) 25 ml Q30M PRN IV Hypoglycemia 10/07/19 18:00 12/19/19 13:29 Dextrose (Dextrose 50%) 50 ml Q30M PRN IV Hypoglycemia 10/07/19 18:00 12/19/19 13:29 Diphenoxylate HCl/ Atropine (Lomotil) 2.5 mg Q4H PRN ORAL Diarrhea 10/07/19 17:45 11/04/19 17:44 10/14/19 08:07 Enoxaparin Sodium (Lovenox) 60 mg QHS SUBQ 10/07/19 21:00 12/20/19 20:59 10/12/19 20:01 Famotidine (Pepcid) 20 mg BID ORAL 10/10/19 13:30 01/08/20 13:29 10/14/19 08:06 Ondansetron HCl (Zofran) 4 mg Q6H PRN IVP Nausea & Vomiting 10/07/19 17:45 11/01/19 17:44 Polyethylene Glycol (Miralax) 17 gm HSPRN PRN ORAL Constipation 10/07/19 17:45 11/06/19 17:44 Assessment/Plan Assessment/Plan ASSESSMENT Acute hypoxemic respiratory failure requiring intubation, s/p extubation 09/27 Confirmed CoVID -19 multilobar PNA JOE -resolved Mild transaminitis Borderline diabetes Elevated CK/ rhabdo - CK trending down Odynophagia PLAN OF CARE MS floor s/p intubation 09/19 s/p extubation 09/27 currently on 4L O2 via NC tachypnea resolved , still hypoxic , easily desaturates titrate FiO2 to keep sat above 90% , CXR 09/29 with findings of PNA Venous Duplex BLE still pending CXR 10/01 - Slightly improved but still extensive bilateral infiltrates, MDI with spacer using IS CXR 10/03 unchanged : bilateral extensive airspace consolidation. The pleural spaces are clear. CXR 10/06 -Extensive bilateral infiltrates unchanged. CXR 10/09 noted, not significant changes CXR 10/12 no change SARS -CoV -2 by PCR 09/17 came back non detected repeated SARS-CoV-2 by PCR 09/20 positive, continue isolation repeated SARS-CoV-2 by PCR 09/29 still detected SARS-CoV-2 by PCR 10/04 still detected SARS-CoV-2 by PCR 10/09 still positive remains in isolation s/p Plaquenil x5 days, completed ceftriaxone Doxy was dc was on Zosyn since 09/27 as per ID , SCX + Enterobacter, stool C dif -NGT, UCX -NGT Zosyn stopped and changed to cefepime and Flagyl till 10/09, completed, prior completed Vanco remains afebrile , no leukocytosis plan was to speak with pharmacy if can get Tocoluzimab for her if clinically worse, however appears to be with clinical improvement BCX 09/17 NGTD Solumedrol tapered and dc 10/04 trend CRP, LDH, ferritin: 09/24 trending CRP, LDH IL-6 18.6 , prior IL-6 15.6 last CRP down to 1 DVT prophylaxis with Lovenox s/p gentle IV hydration creat down to normal, avoid nephrotoxics had severe odynophagia , possibly due to intubation , improving sore throat unable to do BSSE while in isolation tolerated soft diet , NGT was dc Cepacol lozenges prn mild hyperglycemia noted , probably due to steroids? on SSI/low dose, sensitive , HgA1c -6 - borderline DM, dc SS ( stable insulin), no concentrated sweets diet - prediabetic trend LFT , CK trended down, spoke with RN, continue PT, pt very deconditioned walk in the room, OOB to chair tid as tolerated, encourage activity case discussed and evaluated by supervising physician Mark Prado MD 10/14/19 1646: Subjective Allergies: Coded Allergies: No Known Allergies (Unverified , 09/18/19) Assessment/Plan Assessment/Plan Patient seen and examined with FILTERING MACHINE TENDER HELPER. Agree with above A&P as it reflects our joint deliberations. Neena Lees NP October 14, 2019 09:14 Mark Prado MD October 14, 2019 16:46
--- NOTE | 2019-10-14 10:39 | Diagnostic Imaging Report ---
Procedure: XRAY Chest 1v Reason for study: Reason For Exam: SOB Comparison films: 10/13/2019. FINDINGS: A single one view chest is obtained. Vascularity is normal. Diffuse bilateral alveolar densities unchanged hilar infiltrates or edema. Cardiac and mediastinal silhouette are within normal limits. No large effusion seen. The bony thorax appear unremarkable. IMPRESSION: NO SIGNIFICANT CHANGE COMPARED TO PREVIOUS EXAM.
[2019-10-14 12:00] VITALS: BP 128/82
[2019-10-14 16:00] VITALS: BP 121/75
--- NOTE | 2019-10-14 18:09 | Infectious Diseases Prog Note ---
Assessment/Plan Assessment/Plan ASSESSMENT AND PLAN: 1. covid-19 virus infection, pna, ? cap, respiratory failure, sepsis, steroids, vent, leukocytosis, fevers enterobacter pna, hypoxia - s/p hydroxychloroquine - s/p cefepime and flagyl - monitor labs and chest x-ray - clinically improved, extubated - chest x-ray stable - CT chest ordered for hypoxia 2. No other significant past medical history. 3. No known allergies. 4. Social history negative. 5. Family history noncontributory. 6. MAR was noted. 7. Case discussed with RN. 8. Continue treatment per primary consultants. Subjective Constitutional: Denies: fever HEENT: Denies: congestion Respiratory: Denies: shortness of breath Cardiovascular: Denies: chest pain Gastrointestinal/Abdominal: Reports: diarrhea; Denies: nausea, vomiting Genitourinary: Reports: other - no zamora Neurologic: Denies: weakness Psychiatric: Denies: depression Skin: Denies: rash Hematologic: Denies: bleeding Musculoskeletal: Denies: pain Allergies: Coded Allergies: No Known Allergies (Unverified , 09/18/19) Objective Vital Signs Last 24 Hour Vital Signs Date Time Temp Pulse Resp B/P (MAP) Pulse Ox O2 Delivery O2 Flow Rate FiO2 10/14/19 16:00 97.8 87 19 121/75 (90) 94 10/14/19 12:00 97.9 90 17 128/82 (97) 92 10/14/19 09:00 Nasal Cannula 4.0 10/14/19 08:00 97.5 78 18 147/82 (103) 97 10/14/19 03:14 97.4 85 20 146/85 (105) 95 10/13/19 23:53 96.8 81 20 145/74 (97) 96 10/13/19 21:00 Nasal Cannula 4.0 10/13/19 20:11 96 Nasal Cannula 3.0 32 10/13/19 19:49 98.4 94 20 150/97 (114) 97 Height (Feet): 5 Height (Inches): 2.00 Weight (Pounds): 155 General Appearance: no acute distress HEENT: normocephalic, atraumatic, anicteric, mucous membranes moist Respiratory/Chest: crackles/rales, rhonchi - bilaterally Cardiovascular: normal rate, regular rhythm, no gallop/murmur, no JVD Abdomen: normal bowel sounds, soft, non tender, no organomegaly, non distended Genitourinary: other - no zamora Extremities: no cyanosis Skin: no rash Neurologic/Psychiatric: chief nurse executive II-XII grossly normal, alert, responsive Lymphatic: no neck adenopathy Musculoskeletal: no effusion Objective EXAM: XR Chest, 1 View CLINICAL HISTORY: SOB TECHNIQUE: Frontal view of the chest. COMPARISON: Chest x-ray 09/21/19 913 FINDINGS: Lungs: Improved aeration of the lung. Mild bilateral interstitial and hazy lung opacities are similar. Pleural space: Unremarkable. No pneumothorax. Heart: Unremarkable. No cardiomegaly. Mediastinum: Unremarkable. Bones/joints: Unremarkable. Tubes, lines and devices: Endotracheal tube and NG tube are stable. IMPRESSION: Improved aeration of the lung. Mild bilateral interstitial and hazy lung opacities are similar. Chest x-ray - 09/23/19 - Procedure: XRAY Chest 1v Indication: Shortness of breath Technique: One view of the chest Comparison: 09/22/2019 Findings: Less optimal inspiration on current exam. Bilateral diffuse hazy airspace opacities are probably similar to the prior study allowing for differences in degree of inspiration. Stable satisfactory positions of endotracheal and orogastric tubes Impression: Unchanged, over one day, findings as above. Chest x-ray - 09/26/19 - Procedure: XRAY Chest 1v Indication: Shortness of breath Technique: One view of the chest Comparison: 09/25/2019 Findings: Bilateral interstitial and hazy airspace disease is unchanged. Stable satisfactory endotracheal and nasogastric tube positions. Impression: Unchanged, over one day, findings as above. Chest x-ray - 09/28/19 - TECHNIQUE: Frontal view of the chest. COMPARISON: Chest x-ray 09/27/19 834 FINDINGS: Lungs: Worsening hazy bilateral diffuse airspace opacities. Hypoventilatory lungs. Pleural space: Unremarkable. No pneumothorax. Heart: Unremarkable. No cardiomegaly. Mediastinum: Unremarkable. Bones/joints: Unremarkable. Tubes, lines and devices: ET tube and NG tube are stable. IMPRESSION: Worsening hazy bilateral diffuse airspace opacities. Chest x-ray - 09/30/19 - Procedure: XRAY Chest 1v Indication: Shortness of breath Technique: One view of the chest Comparison: 09/28/2019 Findings: Stable satisfactory position of nasogastric tube. Bilateral mostly peripheral and basilar infiltrates are again demonstrated, appears similar on the left, slightly worse on the right. The endotracheal tube is no longer evident. Impression: Interim of endotracheal extubation Stable left and slightly increased right-sided infiltrates, likely pneumonia Chest x-ray - 10/02/19 - Procedure: XRAY Chest 1v Indication: Shortness of breath Technique: One view of the chest Comparison: 09/30/2019 Findings: Stable satisfactory position of nasogastric tube. Bilateral diffuse infiltrates appear slightly improved but remain extensive. No definite effusions. The heart size is normal Impression: Slightly improved but still extensive bilateral infiltrates, since prior exam of 2 days earlier Chest x-ray - 10/04/19 - Procedure: XRAY Chest 1v Indication: Shortness of breath Technique: One view of the chest Comparison: 10/02/2019 Findings: Stable satisfactory position of nasogastric tube. Slightly improved inspiration currently. Given differences in degree of inspiration, probably unchanged bilateral extensive airspace consolidation. The pleural spaces are clear. The heart size is upper limits normal. Impression: Unchanged, over 2 days, findings as above. Chest x-ray - 10/04/19 - Procedure: XRAY Chest 1v Indication: Shortness of breath Technique: One view of the chest Comparison: 10/02/2019 Findings: Stable satisfactory position of nasogastric tube. Slightly improved inspiration currently. Given differences in degree of inspiration, probably unchanged bilateral extensive airspace consolidation. The pleural spaces are clear. The heart size is upper limits normal. Impression: Unchanged, over 2 days, findings as above. Chest x-ray - 10/07/19 - Procedure: XRAY Chest 1v Indication: Shortness of breath Technique: One view of the chest Comparison: 10/04/2019 Findings: Interim removal of nasogastric tube. Extensive bilateral infiltrates are unchanged. Impression: Interim nasogastric tube removal. Otherwise little tire changer 3 days Chest x-ray - 10/10/19 - Procedure: XRAY Chest 1v Procedure: XRAY Chest 1v Reason for study: Reason For Exam: SOB Comparison films: 10/07/2019. FINDINGS: A single one view chest is obtained. Extensive bilateral alveolar densities are unchanged. Cardiac and mediastinal silhouette are within normal limits. CP angles are sharp. The bony thorax appear unremarkable. IMPRESSION: NO SIGNIFICANT CHANGE COMPARED TO PREVIOUS EXAM. Chest x-ray - 10/14/19 - Procedure: XRAY Chest 1v Procedure: XRAY Chest 1v Reason for study: Reason For Exam: SOB Comparison films: 10/13/2019. FINDINGS: A single one view chest is obtained. Vascularity is normal. Diffuse bilateral alveolar densities unchanged hilar infiltrates or edema. Cardiac and mediastinal silhouette are within normal limits. No large effusion seen. The bony thorax appear unremarkable. IMPRESSION: NO SIGNIFICANT CHANGE COMPARED TO PREVIOUS EXAM. Microbiology Date/Time Source Procedure Growth Status 09/28/19 11:52 Blood Blood Culture - Final NO GROWTH AFTER 5 DAYS Complete 10/10/19 04:00 Nasopharynx Coronavirus COVID-19 PCR ([facility]) - Final Complete 09/29/19 04:40 Stool Clostridium difficile Toxin Assay - Final Complete 10/01/19 17:30 Indwelling Cath Urine Culture - Final NO GROWTH AFTER 48 HOURS Complete Laboratory Tests Test 10/14/19 04:30 White Blood Count 6.5 K/UL (4.8-10.8) Red Blood Count 3.70 M/UL (4.20-5.40) L Hemoglobin 11.8 G/DL (12.0-16.0) L Hematocrit 33.9 % (37.0-47.0) L Mean Corpuscular Volume 92 FL (80-99) Mean Corpuscular Hemoglobin 31.7 PG (27.0-31.0) H Mean Corpuscular Hemoglobin Concent 34.6 G/DL (32.0-36.0) Red Cell Distribution Width 13.5 % (11.6-14.8) Platelet Count 231 K/UL (150-450) Mean Platelet Volume 6.4 FL (6.5-10.1) L Neutrophils (%) (Auto) 62.7 % (45.0-75.0) Lymphocytes (%) (Auto) 21.0 % (20.0-45.0) Monocytes (%) (Auto) 8.6 % (1.0-10.0) Eosinophils (%) (Auto) 6.1 % (0.0-3.0) H Basophils (%) (Auto) 1.6 % (0.0-2.0) Sodium Level 140 MMOL/L (136-145) Potassium Level 4.1 MMOL/L (3.5-5.1) Chloride Level 103 MMOL/L (98-107) Carbon Dioxide Level 28 MMOL/L (21-32) Anion Gap 9 mmol/L (5-15) Blood Urea Nitrogen 4 mg/dL (7-18) L Creatinine 0.5 MG/DL (0.55-1.30) L Estimat Glomerular Filtration Rate > 60 mL/min (>60) Glucose Level 91 MG/DL (74-106) Calcium Level 8.9 MG/DL (8.5-10.1) C-Reactive Protein, Quantitative 1.0 mg/dL (0.00-0.90) H Current Medications Medications (Trade) Dose Ordered Sig/Sam Route PRN Reason Start Time Stop Time Status Last Admin Dose Admin Acetaminophen (Tylenol) 650 mg Q4H PRN ORAL Mild Pain (Pain Scale 1-3) 10/07/19 17:30 11/01/19 17:29 10/14/19 17:41 Acetaminophen (Tylenol) 650 mg Q4H PRN ORAL Temp >100.5 10/07/19 17:30 11/01/19 17:29 Albuterol Sulfate (Proventil MDI) 2 puff Q4H PRN INH Shortness of Breath 10/07/19 17:45 12/31/19 17:44 10/08/19 00:20 Cetylpyridinium Chloride (Cepacol) 1 lozg Q2H PRN MARLIN sore throat 10/07/19 17:45 01/02/20 17:44 Dextrose (Dextrose 50%) 25 ml Q30M PRN IV Hypoglycemia 10/07/19 18:00 12/19/19 13:29 Dextrose (Dextrose 50%) 50 ml Q30M PRN IV Hypoglycemia 10/07/19 18:00 12/19/19 13:29 Diphenoxylate HCl/ Atropine (Lomotil) 2.5 mg Q4H PRN ORAL Diarrhea 10/07/19 17:45 11/04/19 17:44 10/14/19 17:40 Enoxaparin Sodium (Lovenox) 60 mg QHS SUBQ 10/07/19 21:00 12/20/19 20:59 10/12/19 20:01 Famotidine (Pepcid) 20 mg BID ORAL 10/10/19 13:30 01/08/20 13:29 10/14/19 17:29 Ondansetron HCl (Zofran) 4 mg Q6H PRN IVP Nausea & Vomiting 10/07/19 17:45 11/01/19 17:44 Polyethylene Glycol (Miralax) 17 gm HSPRN PRN ORAL Constipation 10/07/19 17:45 11/06/19 17:44 Enedina Ceja MD October 14, 2019 18:09
--- NOTE | 2019-10-14 19:25 | General Progress Note ---
Assessment/Plan Problem List: (1) Glucose intolerance ICD Codes: E74.39 - Other disorders of intestinal carbohydrate absorption SNOMED: 54756367 (2) Respiratory failure with hypoxia ICD Codes: J96.91 - Respiratory failure, unspecified with hypoxia SNOMED: 93437397112961821, 352850883 Qualifiers: Qualified Codes: J96.01 - Acute respiratory failure with hypoxia (3) Pneumonia due to COVID-19 virus ICD Codes: U07.1 - COVID-19; J12.89 - Other viral pneumonia SNOMED: 686614691, 979228367 (4) ARDS (adult respiratory distress syndrome) ICD Codes: J80 - Acute respiratory distress syndrome SNOMED: 40568907, 20895035 (5) Transaminitis ICD Codes: R74.0 - Nonspecific elevation of levels of transaminase and lactic acid dehydrogenase [LDH] SNOMED: 282699973, 369511367 (6) Rhabdomyolysis ICD Codes: M62.82 - Rhabdomyolysis SNOMED: 751130030 (7) JOE (acute kidney injury) ICD Codes: N17.9 - Acute kidney failure, unspecified SNOMED: 9626263, 84411554 (8) Dysphagia ICD Codes: R13.10 - Dysphagia, unspecified SNOMED: 64967451, 433362781 (9) Diarrhea ICD Codes: R19.7 - Diarrhea, unspecified SNOMED: 83646276 Assessment/Plan: out of icu, on antibiotics, plaquenil ordered +completed, by pulm, worsening resp failure, intubated, now extubated SS insulin, steroids tapered, started, lytes ok,desat off O2, 96% with cannula dyspnea, improving st swallow eval dc zamora dc ng ST swallow eval, symptomatic care diarrhea still very weakbetter, still jackson, weak Subjective HEENT: Reports: no symptoms Cardiovascular: Reports: no symptoms Respiratory: Reports: cough, SOB with excertion Gastrointestinal/Abdominal: Reports: no symptoms Genitourinary: Reports: no symptoms Neurologic/Psychiatric: Reports: no symptoms Endocrine: Reports: no symptoms Allergies: Coded Allergies: No Known Allergies (Unverified , 09/18/19) Objective Last 24 Hour Vital Signs Date Time Temp Pulse Resp B/P (MAP) Pulse Ox O2 Delivery O2 Flow Rate FiO2 10/14/19 16:00 97.8 87 19 121/75 (90) 94 10/14/19 12:00 97.9 90 17 128/82 (97) 92 10/14/19 09:00 Nasal Cannula 4.0 10/14/19 08:00 97.5 78 18 147/82 (103) 97 10/14/19 03:14 97.4 85 20 146/85 (105) 95 10/13/19 23:53 96.8 81 20 145/74 (97) 96 10/13/19 21:00 Nasal Cannula 4.0 10/13/19 20:11 96 Nasal Cannula 3.0 32 10/13/19 19:49 98.4 94 20 150/97 (114) 97 Intake and Output 10/13/19 10/14/19 19:00 07:00 Intake Total 894 ml 600 ml Output Total 250 ml Balance 644 ml 600 ml Intake Oral 594 ml 600 ml IV Total 300 ml Output Urine Total 250 ml # Voids 1 4 # Bowel Movements 1 1 Laboratory Tests 10/14/19 04:30: White Blood Count 6.5, Red Blood Count 3.70L, Hemoglobin 11.8L, Hematocrit 33.9L , Mean Corpuscular Volume 92, Mean Corpuscular Hemoglobin 31.7H, Mean Corpuscular Hemoglobin Concent 34.6, Red Cell Distribution Width 13.5, Platelet Count 231, Mean Platelet Volume 6.4L, Neutrophils (%) (Auto) 62.7, Lymphocytes ( %) (Auto) 21.0, Monocytes (%) (Auto) 8.6, Eosinophils (%) (Auto) 6.1H, Basophils (%) (Auto) 1.6, Sodium Level 140, Potassium Level 4.1, Chloride Level 103, Carbon Dioxide Level 28, Anion Gap 9, Blood Urea Nitrogen 4L, Creatinine 0.5L, Estimat Glomerular Filtration Rate > 60, Glucose Level 91, Calcium Level 8.9, C-Reactive Protein, Quantitative 1.0H Height (Feet): 5 Height (Inches): 2.00 Weight (Pounds): 155 General Appearance: no apparent distress, alert EENT: normal ENT inspection Neck: normal alignment Cardiovascular: regular rhythm Respiratory/Chest: lungs clear Abdomen: no organomegaly Edema: no edema noted Arm (L), no edema noted Arm (R), no edema noted Leg (L), no edema noted Leg (R), no edema noted Pedal (L), no edema noted Pedal (R), no edema noted Generalized Neurologic: lieutenant general II-XII grossly normal Hung Zuniga MD October 14, 2019 19:25
[2019-10-14 20:00] VITALS: BP 117/78
[2019-10-14] MEDS: Enoxaparin 60mg Inj SUBQ SCH (21:05)
[2019-10-15] VITALS: BP 153/82
[2019-10-15 04:00] VITALS: BP 145/80
[2019-10-15 08:00] VITALS: BP 148/80
--- NOTE | 2019-10-15 08:36 | Pulmonology Progress Note ---
Neena Lees SUPERVISOR ESTIMATOR AND DRAFTER 10/15/19 0836: Subjective ROS Limited/Unobtainable: Yes Constitutional: Denies: fever Gastrointestinal/Abdominal: Reports: diarrhea; Denies: nausea, vomiting Psychiatric: Denies: depression Skin: Denies: rash Musculoskeletal: Denies: pain Allergies: Coded Allergies: No Known Allergies (Unverified , 09/18/19) Subjective now on 3.5 L O2 via NC afebrile, leuk resolved CoVID 19 for 10/04 still detected CoVID -19 for 10/09 still positive still hypoxic , working with PT , easily hypoxic and out of breath deconditioned, weak reported pain and SOB with moving venous Duplex BLE still pending CT chest pending Objective Last 24 Hour Vital Signs Date Time Temp Pulse Resp B/P (MAP) Pulse Ox O2 Delivery O2 Flow Rate FiO2 10/15/19 08:00 97.9 83 22 148/80 (102) 97 10/15/19 04:00 97.9 83 22 145/80 (101) 97 10/15/19 00:00 97.3 75 20 153/82 (105) 93 10/14/19 21:00 Nasal Cannula 3.5 10/14/19 20:00 97.7 95 22 117/78 (91) 95 10/14/19 19:55 97 Nasal Cannula 3.0 32 10/14/19 16:00 97.8 87 19 121/75 (90) 94 10/14/19 12:00 97.9 90 17 128/82 (97) 92 10/14/19 09:00 Nasal Cannula 4.0 Intake and Output 10/14/19 10/15/19 19:00 07:00 Intake Total 360 ml 200 ml Balance 360 ml 200 ml Intake Oral 360 ml 200 ml # Voids 4 6 # Bowel Movements 2 1 Objective Status: awake, responsive, HEENT: atraumatic, normocephalic, 4 L O2 via NC Lungs: few isolated rhonchi, Heart: HR/BP stable Abdomen: soft, non-tender, active bowel sounds Extremities: no edema Current Medications Medications (Trade) Dose Ordered Sig/Sam Route PRN Reason Start Time Stop Time Status Last Admin Dose Admin Acetaminophen (Tylenol) 650 mg Q4H PRN ORAL Mild Pain (Pain Scale 1-3) 10/07/19 17:30 11/01/19 17:29 10/14/19 17:41 Acetaminophen (Tylenol) 650 mg Q4H PRN ORAL Temp >100.5 10/07/19 17:30 11/01/19 17:29 Albuterol Sulfate (Proventil MDI) 2 puff Q4H PRN INH Shortness of Breath 10/07/19 17:45 12/31/19 17:44 10/08/19 00:20 Cetylpyridinium Chloride (Cepacol) 1 lozg Q2H PRN MARLIN sore throat 10/07/19 17:45 01/02/20 17:44 Dextrose (Dextrose 50%) 25 ml Q30M PRN IV Hypoglycemia 10/07/19 18:00 12/19/19 13:29 Dextrose (Dextrose 50%) 50 ml Q30M PRN IV Hypoglycemia 10/07/19 18:00 12/19/19 13:29 Diphenoxylate HCl/ Atropine (Lomotil) 2.5 mg Q4H PRN ORAL Diarrhea 10/07/19 17:45 11/04/19 17:44 10/14/19 17:40 Enoxaparin Sodium (Lovenox) 60 mg QHS SUBQ 10/07/19 21:00 12/20/19 20:59 10/14/19 21:05 Famotidine (Pepcid) 20 mg BID ORAL 10/10/19 13:30 01/08/20 13:29 10/14/19 17:29 Ondansetron HCl (Zofran) 4 mg Q6H PRN IVP Nausea & Vomiting 10/07/19 17:45 11/01/19 17:44 Polyethylene Glycol (Miralax) 17 gm HSPRN PRN ORAL Constipation 10/07/19 17:45 11/06/19 17:44 Assessment/Plan Assessment/Plan ASSESSMENT Acute hypoxemic respiratory failure requiring intubation, s/p extubation 09/27 Confirmed CoVID -19 multilobar PNA JEO -resolved Mild transaminitis Borderline diabetes Elevated CK/ rhabdo - CK trending down PLAN OF CARE MS floor s/p intubation 09/19 s/p extubation 09/27 currently on 4L O2 via NC tachypnea resolved , still hypoxic , easily desaturates titrate FiO2 to keep sat above 90% , CXR 09/29 with findings of PNA Venous Duplex BLE still pending CXR 5/6 - Slightly improved but still extensive bilateral infiltrates, MDI with spacer using IS CXR 10/03 unchanged : bilateral extensive airspace consolidation. The pleural spaces are clear. CXR 10/06 -Extensive bilateral infiltrates unchanged. CXR 10/09 noted, not significant changes CXR 10/12 no change CXR 10/13 no change SARS -CoV -2 by PCR 09/17 came back non detected repeated SARS-CoV-2 by PCR 09/20 positive, continue isolation repeated SARS-CoV-2 by PCR 09/29 still detected SARS-CoV-2 by PCR 10/04 still detected SARS-CoV-2 by PCR 10/09 still positive remains in isolation will get another CoVID testing CT chest and venous Duplex pending s/p Plaquenil x5 days, completed ceftriaxone Doxy was dc was on Zosyn since 09/27 as per ID , SCX + Enterobacter, stool C dif -NGT, UCX -NGT Zosyn stopped and changed to cefepime and Flagyl till 10/09, completed abx prior completed Vanco remains afebrile , no leukocytosis plan was to speak with pharmacy if can get Tocoluzimab for her if clinically worse, however appears to be with clinical improvement BCX 09/17 NGTD Solumedrol tapered and dc 10/04 trend CRP, LDH, ferritin: 09/24 trending CRP, LDH IL-6 18.6 , prior IL-6 15.6 last CRP down to 1 DVT prophylaxis with Lovenox s/p gentle IV hydration creat down to normal, avoid nephrotoxics had severe odynophagia , possibly due to intubation , improving sore throat unable to do BSSE while in isolation tolerated soft diet , NGT was dc Cepacol lozenges prn mild hyperglycemia noted , probably due to steroids? on SSI/low dose, sensitive , HgA1c -6 - borderline DM, dc SS ( stable insulin), no concentrated sweets diet - prediabetic trend LFT , CK trended down, spoke with RN, continue PT, pt very deconditioned walk in the room, OOB to chair tid as tolerated, encourage activity case discussed and evaluated by supervising physician Mark Prado MD 10/15/19 1507: Subjective Allergies: Coded Allergies: No Known Allergies (Unverified , 09/18/19) Assessment/Plan Assessment/Plan Patient seen and examined with SUPERVISOR ESTIMATOR AND DRAFTER. Agree with above A&P as it reflects our joint deliberations. Neena Lees NP October 15, 2019 08:36 Mark Prado MD October 15, 2019 15:07
[2019-10-15] MEDS: Lomotil 2.5mg tab ORAL PRN (08:49)
[2019-10-15 12:00] VITALS: BP 132/89
[2019-10-15 16:00] VITALS: BP 144/80
--- NOTE | 2019-10-15 18:53 | General Progress Note ---
Assessment/Plan Problem List: (1) Glucose intolerance ICD Codes: E74.39 - Other disorders of intestinal carbohydrate absorption SNOMED: 39123092 (2) Respiratory failure with hypoxia ICD Codes: J96.91 - Respiratory failure, unspecified with hypoxia SNOMED: 44315575207578606, 693345852 Qualifiers: Qualified Codes: J96.01 - Acute respiratory failure with hypoxia (3) Pneumonia due to COVID-19 virus ICD Codes: U07.1 - COVID-19; J12.89 - Other viral pneumonia SNOMED: 223598324, 918603539 (4) ARDS (adult respiratory distress syndrome) ICD Codes: J80 - Acute respiratory distress syndrome SNOMED: 72770661, 08929092 (5) Transaminitis ICD Codes: R74.0 - Nonspecific elevation of levels of transaminase and lactic acid dehydrogenase [LDH] SNOMED: 081465311, 785949061 (6) Rhabdomyolysis ICD Codes: M62.82 - Rhabdomyolysis SNOMED: 182368207 (7) JOE (acute kidney injury) ICD Codes: N17.9 - Acute kidney failure, unspecified SNOMED: 4057337, 78169613 (8) Dysphagia ICD Codes: R13.10 - Dysphagia, unspecified SNOMED: 25668822, 034390681 (9) Diarrhea ICD Codes: R19.7 - Diarrhea, unspecified SNOMED: 87962706 Assessment/Plan: out of icu, on antibiotics, plaquenil ordered +completed, by pulm, worsening resp failure, intubated, now extubated SS insulin, steroids tapered, started, lytes ok,desat off O2, 96% with cannula dyspnea, improving st swallow eval dc zamora dc ng ST swallow eval, symptomatic care diarrhea still very weak , a bit better,still jackson, weak Subjective Constitutional: Reports: weakness HEENT: Reports: no symptoms Respiratory: Reports: SOB with excertion Gastrointestinal/Abdominal: Reports: no symptoms Genitourinary: Reports: no symptoms Neurologic/Psychiatric: Reports: no symptoms Endocrine: Reports: no symptoms Allergies: Coded Allergies: No Known Allergies (Unverified , 09/18/19) Objective Last 24 Hour Vital Signs Date Time Temp Pulse Resp B/P (MAP) Pulse Ox O2 Delivery O2 Flow Rate FiO2 10/15/19 16:00 97.9 89 22 144/80 (101) 97 10/15/19 12:00 97.9 91 22 132/89 (103) 97 10/15/19 09:00 Nasal Cannula 3.5 10/15/19 08:00 97.9 83 22 148/80 (102) 97 10/15/19 04:00 97.9 83 22 145/80 (101) 97 10/15/19 00:00 97.3 75 20 153/82 (105) 93 10/14/19 21:00 Nasal Cannula 3.5 10/14/19 20:00 97.7 95 22 117/78 (91) 95 10/14/19 19:55 97 Nasal Cannula 3.0 32 Intake and Output 10/14/19 10/15/19 19:00 07:00 Intake Total 360 ml 200 ml Balance 360 ml 200 ml Intake Oral 360 ml 200 ml # Voids 4 6 # Bowel Movements 2 1 Height (Feet): 5 Height (Inches): 2.00 Weight (Pounds): 155 General Appearance: alert EENT: normal ENT inspection Neck: normal alignment Cardiovascular: normal peripheral pulses Respiratory/Chest: lungs clear Abdomen: non tender, soft Edema: no edema noted Arm (L), no edema noted Arm (R), no edema noted Leg (L), no edema noted Leg (R), no edema noted Pedal (L), no edema noted Pedal (R), no edema noted Generalized Neurologic: 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
[2019-10-15 20:00] VITALS: BP 106/77
[2019-10-15] MEDS: Enoxaparin 60mg Inj SUBQ SCH (21:01)
[2019-10-16] VITALS: BP 122/82
[2019-10-16 04:00] VITALS: BP 133/78
[2019-10-16 07:17] LABS: BASOPHILS % (AUTO) 1.3 % (0.0-2.0); EOSINOPHILS % (AUTO) 4.8 % (0.0-3.0); HEMATOCRIT 35.6 % (37.0-47.0); HEMOGLOBIN 12.2 G/DL (12.0-16.0); LYMPHOCYTES % (AUTO) 25.1 % (20.0-45.0); MEAN CORPUSCULAR VOLUME 92 FL (80-99); MONOCYTES % (AUTO) 9.5 % (1.0-10.0); NEUTROPHILS % (AUTO) 59.3 % (45.0-75.0); PLATELET COUNT 281 K/UL (150-450); RED BLOOD COUNT 3.87 M/UL (4.20-5.40); RED CELL DISTRIBUTION WIDTH 13.8 % (11.6-14.8); WHITE BLOOD COUNT 6.2 K/UL (4.8-10.8)
[2019-10-16 07:34] LABS: ALANINE AMINOTRANSFERASE 45 U/L (12-78); ALBUMIN 2.9 G/DL (3.4-5.0); ALBUMIN/GLOBULIN RATIO 0.7 (1.0-2.7); ALKALINE PHOSPHATASE 105 U/L (46-116); ANION GAP 11 mmol/L (5-15); ASPARTATE AMINO TRANSFERASE 42 U/L (15-37); BILIRUBIN,TOTAL 0.3 MG/DL (0.2-1.0); BLOOD UREA NITROGEN 7 mg/dL (7-18); CALCIUM 9.2 MG/DL (8.5-10.1); CARBON DIOXIDE 25 MMOL/L (21-32); CHLORIDE 105 MMOL/L (98-107); CREATININE 0.5 MG/DL (0.55-1.30); POTASSIUM 4.7 MMOL/L (3.5-5.1); SODIUM 140 MMOL/L (136-145)
[2019-10-16 08:00] VITALS: BP 125/79
[2019-10-16] MEDS: Lomotil 2.5mg tab ORAL PRN ×2 (08:38→14:17)
--- NOTE | 2019-10-16 10:38 | Pulmonology Progress Note ---
NabeelNeena JEWELRY FINISHER 10/16/19 1038: Subjective ROS Limited/Unobtainable: Yes Constitutional: Denies: fever Gastrointestinal/Abdominal: Reports: diarrhea; Denies: nausea, vomiting Psychiatric: Denies: depression Skin: Denies: rash Musculoskeletal: Denies: pain Allergies: Coded Allergies: No Known Allergies (Unverified , 09/18/19) Subjective now on 3.5 L O2 via NC afebrile, leuk resolved CoVID 19 for 10/04 still detected CoVID -19 for 10/09 still positive still hypoxic , ABG on 2 L yesterday O2 sat 88% working with PT , easily hypoxic and out of breath deconditioned, weak venous Duplex BLE still pending CT chest pending for this am Objective Last 24 Hour Vital Signs Date Time Temp Pulse Resp B/P (MAP) Pulse Ox O2 Delivery O2 Flow Rate FiO2 10/16/19 04:00 97.5 87 24 133/78 (96) 92 10/16/19 00:00 98.2 96 26 122/82 (95) 93 10/15/19 21:00 Nasal Cannula 3.5 10/15/19 20:01 95 Nasal Cannula 3.0 32 10/15/19 20:00 97.9 101 28 106/77 (87) 93 10/15/19 16:00 97.9 89 22 144/80 (101) 97 10/15/19 12:00 97.9 91 22 132/89 (103) 97 Intake and Output 10/15/19 10/16/19 19:00 07:00 Intake Total 960 ml 240 ml Balance 960 ml 240 ml Intake Oral 960 ml 240 ml # Voids 6 2 # Bowel Movements 2 1 Objective Status: awake, responsive, HEENT: atraumatic, normocephalic, 3.5 L O2 via NC Lungs: few isolated rhonchi, Heart: HR/BP stable Abdomen: soft, non-tender, active bowel sounds Extremities: no edema Laboratory Tests 10/16/19 04:40: White Blood Count 6.2, Red Blood Count 3.87L, Hemoglobin 12.2, Hematocrit 35.6L , Mean Corpuscular Volume 92, Mean Corpuscular Hemoglobin 31.5H, Mean Corpuscular Hemoglobin Concent 34.2, Red Cell Distribution Width 13.8, Platelet Count 281, Mean Platelet Volume 5.8L, Neutrophils (%) (Auto) 59.3, Lymphocytes ( %) (Auto) 25.1, Monocytes (%) (Auto) 9.5, Eosinophils (%) (Auto) 4.8H, Basophils (%) (Auto) 1.3, Sodium Level 140, Potassium Level 4.7, Chloride Level 105, Carbon Dioxide Level 25, Anion Gap 11, Blood Urea Nitrogen 7, Creatinine 0.5L, Estimat Glomerular Filtration Rate > 60, Glucose Level 65L, Calcium Level 9.2, Total Bilirubin 0.3, Aspartate Amino Transf (AST/SGOT) 42H, Alanine Aminotransferase (ALT/SGPT) 45, Alkaline Phosphatase 105, Total Protein 7.0, Albumin 2.9L, Globulin 4.1, Albumin/Globulin Ratio 0.7L 10/16/19 07:06: Arterial Blood pH 7.478H, Arterial Blood Partial Pressure CO2 35.5, Arterial Blood Partial Pressure O2 56.4L, Arterial Blood HCO3 25.7, Arterial Blood Oxygen Saturation 89.9*L, Arterial Blood Base Excess 2.4H, Luis Test Positive Current Medications Medications (Trade) Dose Ordered Sig/Sam Route PRN Reason Start Time Stop Time Status Last Admin Dose Admin Acetaminophen (Tylenol) 650 mg Q4H PRN ORAL Mild Pain (Pain Scale 1-3) 10/07/19 17:30 11/01/19 17:29 10/16/19 08:38 Acetaminophen (Tylenol) 650 mg Q4H PRN ORAL Temp >100.5 10/07/19 17:30 11/01/19 17:29 Albuterol Sulfate (Proventil MDI) 2 puff Q4H PRN INH Shortness of Breath 10/07/19 17:45 12/31/19 17:44 10/08/19 00:20 Cetylpyridinium Chloride (Cepacol) 1 lozg Q2H PRN MARLIN sore throat 10/07/19 17:45 01/02/20 17:44 Dextrose (Dextrose 50%) 25 ml Q30M PRN IV Hypoglycemia 10/07/19 18:00 12/19/19 13:29 Dextrose (Dextrose 50%) 50 ml Q30M PRN IV Hypoglycemia 10/07/19 18:00 12/19/19 13:29 Diphenoxylate HCl/ Atropine (Lomotil) 2.5 mg Q4H PRN ORAL Diarrhea 10/07/19 17:45 11/04/19 17:44 10/16/19 08:38 Enoxaparin Sodium (Lovenox) 60 mg QHS SUBQ 10/07/19 21:00 12/20/19 20:59 10/15/19 21:01 Famotidine (Pepcid) 20 mg BID ORAL 10/10/19 13:30 01/08/20 13:29 10/16/19 08:37 Ondansetron HCl (Zofran) 4 mg Q6H PRN IVP Nausea & Vomiting 10/07/19 17:45 11/01/19 17:44 Polyethylene Glycol (Miralax) 17 gm HSPRN PRN ORAL Constipation 10/07/19 17:45 11/06/19 17:44 Assessment/Plan Assessment/Plan ASSESSMENT Acute hypoxemic respiratory failure requiring intubation, s/p extubation 09/27 Confirmed CoVID -19 multilobar PNA JOE -resolved Mild transaminitis Borderline diabetes Elevated CK/ rhabdo - CK trending down PLAN OF CARE MS floor s/p intubation 09/19 s/p extubation 09/27 currently on 3.5 L O2 via NC tachypnea resolved , still hypoxic , easily desaturates titrate FiO2 to keep sat above 90% , CXR 09/29 with findings of PNA Venous Duplex BLE still pending CXR 10/01 - Slightly improved but still extensive bilateral infiltrates, MDI with spacer using IS CXR 10/03 unchanged : bilateral extensive airspace consolidation. The pleural spaces are clear. CXR 10/06 -Extensive bilateral infiltrates unchanged. CXR 10/09 noted, not significant changes CXR 10/12 no change CXR 10/13 no change SARS -CoV -2 by PCR 09/17 came back non detected repeated SARS-CoV-2 by PCR 09/20 positive, continue isolation repeated SARS-CoV-2 by PCR 09/29 still detected SARS-CoV-2 by PCR 10/04 still detected SARS-CoV-2 by PCR 10/09 still positive remains in isolation will get another CoVID testing ABG 10/14 with hypoxia on 2 L O2 while trying to wean O2 down CT chest this am venous Duplex pending - unclear when can be done s/p Plaquenil x5 days, completed ceftriaxone Doxy was dc was on Zosyn since 09/27 as per ID , SCX + Enterobacter, stool C dif -NGT, UCX -NGT Zosyn stopped and changed to cefepime and Flagyl till 10/09, completed abx prior completed Vanco remains afebrile , no leukocytosis plan was to speak with pharmacy if can get Tocoluzimab for her if clinically worse, however appears to be with clinical improvement BCX 09/17 NGTD Solumedrol tapered and dc 10/04 trend CRP, LDH, ferritin: 09/24 trending CRP, LDH IL-6 18.6 , prior IL-6 15.6 last CRP down to 1 DVT prophylaxis with Lovenox s/p gentle IV hydration creat down to normal, avoid nephrotoxics had severe odynophagia , possibly due to intubation , improving sore throat unable to do BSSE while in isolation tolerated soft diet , NGT was dc Cepacol lozenges prn mild hyperglycemia noted , probably due to steroids? on SSI/low dose, sensitive , HgA1c -6 - borderline DM, dc SS ( stable insulin), no concentrated sweets diet - prediabetic trend LFT , CK trended down, spoke with RN, continue PT, pt very deconditioned walk in the room, OOB to chair tid as tolerated, encourage activity case discussed and evaluated by supervising physician Mark Prado MD 10/16/19 1408: Subjective Allergies: Coded Allergies: No Known Allergies (Unverified , 09/18/19) Assessment/Plan Assessment/Plan Patient seen and examined with JEWELRY FINISHER. Agree with above A&P as it reflects our joint deliberations. ABG shows persistent acute hypoxemia with CT chest consistent with COVID-19 acute respiratory illness. Cont supportive measures. Neena Lees JEWELRY FINISHER October 16, 2019 10:38 Mark Prado MD October 16, 2019 14:08
--- NOTE | 2019-10-16 11:27 | Diagnostic Imaging Report ---
EXAM: CT CT Chest no Contrast CLINICAL HISTORY: Reason For Exam: SOB. TECHNIQUE: Axial images obtained through the chest without contrast. All CT scans at this facility are performed using dose modulation techniques as appropriate to a performed exam including the following: automated exposure control with adjustment of the mA and/or kV according to patient size. RADIATION DOSE: CTDIvol: 5.7 mGy DLP: 199 mGy-cm Dose information generated by the CT scanner is available in PACS. COMPARISON: Chest x-ray 10/14/2019 FINDINGS: There are respiratory motion artifact. There are bilateral diffuse nonspecific groundglass infiltrates throughout both lungs without discrete geographic distribution. There are also denser areas of alveolar infiltrates in both lungs. Old granulomatous disease demonstrated with left lung granuloma and left perihilar calcified lymph nodes. There is also calcification posterior right lung base just above the right hemidiaphragm. Cardiac and mediastinal structures are within normal limits. There is no pathologic size adenopathy. There is no effusion. Patient is status post cholecystectomy. IMPRESSION: STUDY SLIGHTLY LIMITED DUE TO MOTION ARTIFACT. BILATERAL NONSPECIFIC DIFFUSE GROUNDGLASS INFILTRATES AND DENSER ALVEOLAR INFILTRATES THROUGHOUT BOTH LUNGS. OLD GRANULOMATOUS DISEASE.
[2019-10-16 12:00] VITALS: BP 133/84
--- NOTE | 2019-10-16 14:18 | Diagnostic Imaging Report ---
Indication:Leg pain and swelling Technique: Grayscale and duplex Doppler imaging of the veins in both lower extremities performed in real time utilizing compression and augmentation. Comparison: None Findings: Duplex Doppler interrogation of the veins in both lower extremity is performed from the common femoral vein to the popliteal vein. Normal venous compressibility demonstrated throughout. No thrombus identified. Waveform analysis shows good respiratory phasicity and augmentation. IMPRESSION: No evidence of deep venous thrombosis involving the size veins of the bilateral lower extremities.
[2019-10-16 16:00] VITALS: BP 138/97
--- NOTE | 2019-10-16 16:46 | Infectious Diseases Prog Note ---
Assessment/Plan Assessment/Plan ASSESSMENT AND PLAN: 1. covid-19 virus infection, pna, ? cap, respiratory failure, sepsis, steroids, vent, leukocytosis, fevers enterobacter pna, hypoxia CT noted - s/p hydroxychloroquine - s/p cefepime and flagyl and zosyn/vancomycin - monitor labs and chest x-ray - clinically improved, extubated - chest x-ray stable - CT noted - respiratory status stable 2. No other significant past medical history. 3. No known allergies. 4. Social history negative. 5. Family history noncontributory. 6. MAR was noted. 7. Case discussed with RN. 8. Continue treatment per primary consultants. Subjective Constitutional: Denies: fever HEENT: Denies: congestion Respiratory: Denies: shortness of breath Cardiovascular: Denies: chest pain Gastrointestinal/Abdominal: Denies: nausea, vomiting, diarrhea Genitourinary: Reports: other - no zamora Neurologic: Denies: headache Psychiatric: Denies: depression Skin: Denies: rash Hematologic: Denies: bleeding Musculoskeletal: Denies: pain Allergies: Coded Allergies: No Known Allergies (Unverified , 09/18/19) Objective Vital Signs Last 24 Hour Vital Signs Date Time Temp Pulse Resp B/P (MAP) Pulse Ox O2 Delivery O2 Flow Rate FiO2 10/16/19 12:00 98.1 82 20 133/84 (100) 95 10/16/19 09:00 Nasal Cannula 3.5 10/16/19 08:00 97.9 91 19 125/79 (94) 93 10/16/19 04:00 97.5 87 24 133/78 (96) 92 10/16/19 00:00 98.2 96 26 122/82 (95) 93 10/15/19 21:00 Nasal Cannula 3.5 10/15/19 20:01 95 Nasal Cannula 3.0 32 10/15/19 20:00 97.9 101 28 106/77 (87) 93 Height (Feet): 5 Height (Inches): 2.00 Weight (Pounds): 155 General Appearance: no acute distress HEENT: normocephalic, atraumatic, anicteric, mucous membranes moist Respiratory/Chest: lungs clear, normal breath sounds, no respiratory distress, no accessory muscle use Cardiovascular: normal rate, regular rhythm, no gallop/murmur, no JVD Abdomen: normal bowel sounds, soft, non tender, no organomegaly, non distended Genitourinary: other - no zamora Extremities: no cyanosis Skin: no rash Neurologic/Psychiatric: honey blender II-XII grossly normal, alert, oriented x 3, responsive Lymphatic: no neck adenopathy Musculoskeletal: no effusion Objective EXAM: XR Chest, 1 View CLINICAL HISTORY: SOB TECHNIQUE: Frontal view of the chest. COMPARISON: Chest x-ray 09/21/19 913 FINDINGS: Lungs: Improved aeration of the lung. Mild bilateral interstitial and hazy lung opacities are similar. Pleural space: Unremarkable. No pneumothorax. Heart: Unremarkable. No cardiomegaly. Mediastinum: Unremarkable. Bones/joints: Unremarkable. Tubes, lines and devices: Endotracheal tube and NG tube are stable. IMPRESSION: Improved aeration of the lung. Mild bilateral interstitial and hazy lung opacities are similar. Chest x-ray - 09/23/19 - Procedure: XRAY Chest 1v Indication: Shortness of breath Technique: One view of the chest Comparison: 09/22/2019 Findings: Less optimal inspiration on current exam. Bilateral diffuse hazy airspace opacities are probably similar to the prior study allowing for differences in degree of inspiration. Stable satisfactory positions of endotracheal and orogastric tubes Impression: Unchanged, over one day, findings as above. Chest x-ray - 09/26/19 - Procedure: XRAY Chest 1v Indication: Shortness of breath Technique: One view of the chest Comparison: 09/25/2019 Findings: Bilateral interstitial and hazy airspace disease is unchanged. Stable satisfactory endotracheal and nasogastric tube positions. Impression: Unchanged, over one day, findings as above. Chest x-ray - 09/28/19 - TECHNIQUE: Frontal view of the chest. COMPARISON: Chest x-ray 09/27/19 834 FINDINGS: Lungs: Worsening hazy bilateral diffuse airspace opacities. Hypoventilatory lungs. Pleural space: Unremarkable. No pneumothorax. Heart: Unremarkable. No cardiomegaly. Mediastinum: Unremarkable. Bones/joints: Unremarkable. Tubes, lines and devices: ET tube and NG tube are stable. IMPRESSION: Worsening hazy bilateral diffuse airspace opacities. Chest x-ray - 09/30/19 - Procedure: XRAY Chest 1v Indication: Shortness of breath Technique: One view of the chest Comparison: 09/28/2019 Findings: Stable satisfactory position of nasogastric tube. Bilateral mostly peripheral and basilar infiltrates are again demonstrated, appears similar on the left, slightly worse on the right. The endotracheal tube is no longer evident. Impression: Interim of endotracheal extubation Stable left and slightly increased right-sided infiltrates, likely pneumonia Chest x-ray - 10/02/19 - Procedure: XRAY Chest 1v Indication: Shortness of breath Technique: One view of the chest Comparison: 09/30/2019 Findings: Stable satisfactory position of nasogastric tube. Bilateral diffuse infiltrates appear slightly improved but remain extensive. No definite effusions. The heart size is normal Impression: Slightly improved but still extensive bilateral infiltrates, since prior exam of 2 days earlier Chest x-ray - 10/04/19 - Procedure: XRAY Chest 1v Indication: Shortness of breath Technique: One view of the chest Comparison: 10/02/2019 Findings: Stable satisfactory position of nasogastric tube. Slightly improved inspiration currently. Given differences in degree of inspiration, probably unchanged bilateral extensive airspace consolidation. The pleural spaces are clear. The heart size is upper limits normal. Impression: Unchanged, over 2 days, findings as above. Chest x-ray - 10/04/19 - Procedure: XRAY Chest 1v Indication: Shortness of breath Technique: One view of the chest Comparison: 10/02/2019 Findings: Stable satisfactory position of nasogastric tube. Slightly improved inspiration currently. Given differences in degree of inspiration, probably unchanged bilateral extensive airspace consolidation. The pleural spaces are clear. The heart size is upper limits normal. Impression: Unchanged, over 2 days, findings as above. Chest x-ray - 10/07/19 - Procedure: XRAY Chest 1v Indication: Shortness of breath Technique: One view of the chest Comparison: 10/04/2019 Findings: Interim removal of nasogastric tube. Extensive bilateral infiltrates are unchanged. Impression: Interim nasogastric tube removal. Otherwise little change management facilitator 3 days Chest x-ray - 10/10/19 - Procedure: XRAY Chest 1v Procedure: XRAY Chest 1v Reason for study: Reason For Exam: SOB Comparison films: 10/07/2019. FINDINGS: A single one view chest is obtained. Extensive bilateral alveolar densities are unchanged. Cardiac and mediastinal silhouette are within normal limits. CP angles are sharp. The bony thorax appear unremarkable. IMPRESSION: NO SIGNIFICANT CHANGE COMPARED TO PREVIOUS EXAM. Chest x-ray - 10/14/19 - Procedure: XRAY Chest 1v Procedure: XRAY Chest 1v Reason for study: Reason For Exam: SOB Comparison films: 10/13/2019. FINDINGS: A single one view chest is obtained. Vascularity is normal. Diffuse bilateral alveolar densities unchanged hilar infiltrates or edema. Cardiac and mediastinal silhouette are within normal limits. No large effusion seen. The bony thorax appear unremarkable. IMPRESSION: NO SIGNIFICANT CHANGE COMPARED TO PREVIOUS EXAM. CT chest: IMPRESSION: STUDY SLIGHTLY LIMITED DUE TO MOTION ARTIFACT. BILATERAL NONSPECIFIC DIFFUSE GROUNDGLASS INFILTRATES AND DENSER ALVEOLAR INFILTRATES THROUGHOUT BOTH LUNGS. OLD GRANULOMATOUS DISEASE. Microbiology Date/Time Source Procedure Growth Status 09/28/19 11:52 Blood Blood Culture - Final NO GROWTH AFTER 5 DAYS Complete 10/10/19 04:00 Nasopharynx Coronavirus COVID-19 PCR ([facility]) - Final Complete 09/29/19 04:40 Stool Clostridium difficile Toxin Assay - Final Complete 10/01/19 17:30 Indwelling Cath Urine Culture - Final NO GROWTH AFTER 48 HOURS Complete Laboratory Tests Test 10/16/19 04:40 10/16/19 07:06 White Blood Count 6.2 K/UL (4.8-10.8) Red Blood Count 3.87 M/UL (4.20-5.40) L Hemoglobin 12.2 G/DL (12.0-16.0) Hematocrit 35.6 % (37.0-47.0) L Mean Corpuscular Volume 92 FL (80-99) Mean Corpuscular Hemoglobin 31.5 PG (27.0-31.0) H Mean Corpuscular Hemoglobin Concent 34.2 G/DL (32.0-36.0) Red Cell Distribution Width 13.8 % (11.6-14.8) Platelet Count 281 K/UL (150-450) Mean Platelet Volume 5.8 FL (6.5-10.1) L Neutrophils (%) (Auto) 59.3 % (45.0-75.0) Lymphocytes (%) (Auto) 25.1 % (20.0-45.0) Monocytes (%) (Auto) 9.5 % (1.0-10.0) Eosinophils (%) (Auto) 4.8 % (0.0-3.0) H Basophils (%) (Auto) 1.3 % (0.0-2.0) Sodium Level 140 MMOL/L (136-145) Potassium Level 4.7 MMOL/L (3.5-5.1) Chloride Level 105 MMOL/L (98-107) Carbon Dioxide Level 25 MMOL/L (21-32) Anion Gap 11 mmol/L (5-15) Blood Urea Nitrogen 7 mg/dL (7-18) Creatinine 0.5 MG/DL (0.55-1.30) L Estimat Glomerular Filtration Rate > 60 mL/min (>60) Glucose Level 65 MG/DL (74-106) L Calcium Level 9.2 MG/DL (8.5-10.1) Total Bilirubin 0.3 MG/DL (0.2-1.0) Aspartate Amino Transf (AST/SGOT) 42 U/L (15-37) H Alanine Aminotransferase (ALT/SGPT) 45 U/L (12-78) Alkaline Phosphatase 105 U/L (46-116) Total Protein 7.0 G/DL (6.4-8.2) Albumin 2.9 G/DL (3.4-5.0) L Globulin 4.1 g/dL Albumin/Globulin Ratio 0.7 (1.0-2.7) L Arterial Blood pH 7.478 (7.350-7.450) Arterial Blood Partial Pressure CO2 35.5 mmHg (35.0-45.0) Arterial Blood Partial Pressure O2 56.4 mmHg (75.0-100.0) L Arterial Blood HCO3 25.7 mmol/L (22.0-26.0) Arterial Blood Oxygen Saturation 89.9 % (95-100) *L Arterial Blood Base Excess 2.4 (-2-2) H Luis Test Positive Current Medications Medications (Trade) Dose Ordered Sig/Sam Route PRN Reason Start Time Stop Time Status Last Admin Dose Admin Acetaminophen (Tylenol) 650 mg Q4H PRN ORAL Mild Pain (Pain Scale 1-3) 10/07/19 17:30 11/01/19 17:29 10/16/19 08:38 Acetaminophen (Tylenol) 650 mg Q4H PRN ORAL Temp >100.5 10/07/19 17:30 11/01/19 17:29 Albuterol Sulfate (Proventil MDI) 2 puff Q4H PRN INH Shortness of Breath 10/07/19 17:45 12/31/19 17:44 10/08/19 00:20 Cetylpyridinium Chloride (Cepacol) 1 lozg Q2H PRN MARLIN sore throat 10/07/19 17:45 01/02/20 17:44 Dextrose (Dextrose 50%) 25 ml Q30M PRN IV Hypoglycemia 10/07/19 18:00 12/19/19 13:29 Dextrose (Dextrose 50%) 50 ml Q30M PRN IV Hypoglycemia 10/07/19 18:00 12/19/19 13:29 Diphenoxylate HCl/ Atropine (Lomotil) 2.5 mg Q4H PRN ORAL Diarrhea 10/07/19 17:45 11/04/19 17:44 10/16/19 14:17 Enoxaparin Sodium (Lovenox) 60 mg QHS SUBQ 10/07/19 21:00 12/20/19 20:59 10/15/19 21:01 Famotidine (Pepcid) 20 mg BID ORAL 10/10/19 13:30 01/08/20 13:29 10/16/19 08:37 Lactobacillus Acidophilus (Culturelle) 1 tab TWICE A DAY ORAL 10/16/19 18:00 01/14/20 17:59 Ondansetron HCl (Zofran) 4 mg Q6H PRN IVP Nausea & Vomiting 10/07/19 17:45 11/01/19 17:44 Polyethylene Glycol (Miralax) 17 gm HSPRN PRN ORAL Constipation 10/07/19 17:45 11/06/19 17:44 Enedina Ceja MD October 16, 2019 16:46
[2019-10-16] MEDS: Lactobacillus-GG tablet ORAL SCH (18:18)
[2019-10-16 20:00] VITALS: BP 134/73
[2019-10-16] MEDS: Enoxaparin 60mg Inj SUBQ SCH (20:12)
--- NOTE | 2019-10-16 20:24 | General Progress Note ---
Assessment/Plan Problem List: (1) Glucose intolerance ICD Codes: E74.39 - Other disorders of intestinal carbohydrate absorption SNOMED: 31604087 (2) Respiratory failure with hypoxia ICD Codes: J96.91 - Respiratory failure, unspecified with hypoxia SNOMED: 34766862448730320, 286999301 Qualifiers: Qualified Codes: J96.01 - Acute respiratory failure with hypoxia (3) Pneumonia due to COVID-19 virus ICD Codes: U07.1 - COVID-19; J12.89 - Other viral pneumonia SNOMED: 146562643, 918088086 (4) ARDS (adult respiratory distress syndrome) ICD Codes: J80 - Acute respiratory distress syndrome SNOMED: 05846947, 85739741 (5) Transaminitis ICD Codes: R74.0 - Nonspecific elevation of levels of transaminase and lactic acid dehydrogenase [LDH] SNOMED: 902195054, 076629818 (6) Rhabdomyolysis ICD Codes: M62.82 - Rhabdomyolysis SNOMED: 299773589 (7) JOE (acute kidney injury) ICD Codes: N17.9 - Acute kidney failure, unspecified SNOMED: 8822070, 93141005 (8) Dysphagia ICD Codes: R13.10 - Dysphagia, unspecified SNOMED: 74836267, 315449058 (9) Diarrhea ICD Codes: R19.7 - Diarrhea, unspecified SNOMED: 71332127 Assessment/Plan: out of icu, on antibiotics, plaquenil ordered +completed, by pulm, worsening resp failure, intubated, now extubated SS insulin, steroids tapered, started, lytes ok,desat off O2, 96% with cannula dyspnea, improving st swallow eval dc zamora dc ng ST swallow eval, symptomatic care diarrhea still very weak , a bit better,still jackson, weak , CT with ground glass opacities Subjective HEENT: Reports: no symptoms Cardiovascular: Reports: no symptoms Respiratory: Reports: SOB with excertion Gastrointestinal/Abdominal: Reports: no symptoms Genitourinary: Reports: no symptoms Neurologic/Psychiatric: Reports: no symptoms Endocrine: Reports: no symptoms Hematologic/Lymphatic: Reports: no symptoms Allergies: Coded Allergies: No Known Allergies (Unverified , 09/18/19) Objective Last 24 Hour Vital Signs Date Time Temp Pulse Resp B/P (MAP) Pulse Ox O2 Delivery O2 Flow Rate FiO2 10/16/19 16:00 98.2 86 19 138/97 (111) 98 10/16/19 12:00 98.1 82 20 133/84 (100) 95 10/16/19 09:00 Nasal Cannula 3.5 10/16/19 08:00 97.9 91 19 125/79 (94) 93 10/16/19 04:00 97.5 87 24 133/78 (96) 92 10/16/19 00:00 98.2 96 26 122/82 (95) 93 10/15/19 21:00 Nasal Cannula 3.5 Intake and Output 10/15/19 10/16/19 19:00 07:00 Intake Total 960 ml 240 ml Balance 960 ml 240 ml Intake Oral 960 ml 240 ml # Voids 6 2 # Bowel Movements 2 1 Laboratory Tests 10/16/19 04:40: White Blood Count 6.2, Red Blood Count 3.87L, Hemoglobin 12.2, Hematocrit 35.6L , Mean Corpuscular Volume 92, Mean Corpuscular Hemoglobin 31.5H, Mean Corpuscular Hemoglobin Concent 34.2, Red Cell Distribution Width 13.8, Platelet Count 281, Mean Platelet Volume 5.8L, Neutrophils (%) (Auto) 59.3, Lymphocytes ( %) (Auto) 25.1, Monocytes (%) (Auto) 9.5, Eosinophils (%) (Auto) 4.8H, Basophils (%) (Auto) 1.3, Sodium Level 140, Potassium Level 4.7, Chloride Level 105, Carbon Dioxide Level 25, Anion Gap 11, Blood Urea Nitrogen 7, Creatinine 0.5L, Estimat Glomerular Filtration Rate > 60, Glucose Level 65L, Calcium Level 9.2, Total Bilirubin 0.3, Aspartate Amino Transf (AST/SGOT) 42H, Alanine Aminotransferase (ALT/SGPT) 45, Alkaline Phosphatase 105, Total Protein 7.0, Albumin 2.9L, Globulin 4.1, Albumin/Globulin Ratio 0.7L 10/16/19 07:06: Arterial Blood pH 7.478H, Arterial Blood Partial Pressure CO2 35.5, Arterial Blood Partial Pressure O2 56.4L, Arterial Blood HCO3 25.7, Arterial Blood Oxygen Saturation 89.9*L, Arterial Blood Base Excess 2.4H, Luis Test Positive Height (Feet): 5 Height (Inches): 2.00 Weight (Pounds): 155 General Appearance: alert EENT: normal ENT inspection Neck: normal alignment Cardiovascular: normal rate, regular rhythm Respiratory/Chest: lungs clear Abdomen: non tender Edema: no edema noted Arm (L), no edema noted Arm (R), no edema noted Leg (L), no edema noted Leg (R), no edema noted Pedal (L), no edema noted Pedal (R), no edema noted Generalized Neurologic: damper worker II-XII grossly normal Hung Zuniga MD October 16, 2019 20:24
[2019-10-17] VITALS: BP 143/89
[2019-10-17 04:00] VITALS: BP 149/85
[2019-10-17 08:00] VITALS: BP 132/78
--- NOTE | 2019-10-17 08:41 | Pulmonology Progress Note ---
Neena Lees COMPUTER FIELD TECHNICIAN 10/17/19 0841: Subjective ROS Limited/Unobtainable: Yes Constitutional: Denies: fever Gastrointestinal/Abdominal: Denies: nausea, vomiting, diarrhea Psychiatric: Denies: depression Skin: Denies: rash Musculoskeletal: Denies: pain Allergies: Coded Allergies: No Known Allergies (Unverified , 09/18/19) Subjective now on 3 L O2 via NC afebrile, leuk resolved CoVID 19 for 10/04 still detected CoVID -19 for 10/09 still positive still hypoxic , easily gets out of breath deconditioned, weak venous Duplex BLE negative CT chest with bilateral GGO, c/w CoVID 19 infection Objective Last 24 Hour Vital Signs Date Time Temp Pulse Resp B/P (MAP) Pulse Ox O2 Delivery O2 Flow Rate FiO2 10/17/19 04:00 97.2 77 20 149/85 (106) 98 10/17/19 00:00 97.0 80 22 143/89 (107) 100 10/16/19 21:00 Nasal Cannula 3.0 10/16/19 20:00 99.3 83 22 134/73 (93) 99 10/16/19 20:00 96 Nasal Cannula 3.0 32 10/16/19 16:00 98.2 86 19 138/97 (111) 98 10/16/19 12:00 98.1 82 20 133/84 (100) 95 10/16/19 09:00 Nasal Cannula 3.5 Intake and Output 10/16/19 10/17/19 19:00 07:00 Intake Total 720 ml 360 ml Balance 720 ml 360 ml Intake Oral 720 ml Other 360 ml # Voids 2 4 # Bowel Movements 1 2 Objective Status: awake, responsive, HEENT: atraumatic, normocephalic, 3 L O2 via NC Lungs: few isolated rhonchi, Heart: HR/BP stable Abdomen: soft, non-tender, active bowel sounds Extremities: no edema Current Medications Medications (Trade) Dose Ordered Sig/Sam Route PRN Reason Start Time Stop Time Status Last Admin Dose Admin Acetaminophen (Tylenol) 650 mg Q4H PRN ORAL Mild Pain (Pain Scale 1-3) 10/07/19 17:30 11/01/19 17:29 10/16/19 20:22 Acetaminophen (Tylenol) 650 mg Q4H PRN ORAL Temp >100.5 10/07/19 17:30 11/01/19 17:29 Albuterol Sulfate (Proventil MDI) 2 puff Q4H PRN INH Shortness of Breath 10/07/19 17:45 12/31/19 17:44 10/08/19 00:20 Cetylpyridinium Chloride (Cepacol) 1 lozg Q2H PRN MARLIN sore throat 10/07/19 17:45 01/02/20 17:44 Dextrose (Dextrose 50%) 25 ml Q30M PRN IV Hypoglycemia 10/07/19 18:00 12/19/19 13:29 Dextrose (Dextrose 50%) 50 ml Q30M PRN IV Hypoglycemia 10/07/19 18:00 12/19/19 13:29 Diphenoxylate HCl/ Atropine (Lomotil) 2.5 mg Q4H PRN ORAL Diarrhea 10/07/19 17:45 11/04/19 17:44 10/16/19 14:17 Enoxaparin Sodium (Lovenox) 60 mg QHS SUBQ 10/07/19 21:00 12/20/19 20:59 10/16/19 20:12 Famotidine (Pepcid) 20 mg BID ORAL 10/10/19 13:30 01/08/20 13:29 10/16/19 18:18 Lactobacillus Acidophilus (Culturelle) 1 tab TWICE A DAY ORAL 10/16/19 18:00 01/14/20 17:59 10/16/19 18:18 Ondansetron HCl (Zofran) 4 mg Q6H PRN IVP Nausea & Vomiting 10/07/19 17:45 11/01/19 17:44 Polyethylene Glycol (Miralax) 17 gm HSPRN PRN ORAL Constipation 10/07/19 17:45 11/06/19 17:44 Assessment/Plan Assessment/Plan ASSESSMENT Acute hypoxemic respiratory failure requiring intubation, s/p extubation 09/27 Confirmed CoVID -19 multilobar PNA JOE -resolved Mild transaminitis Borderline diabetes Elevated CK/ rhabdo - CK trending down PLAN OF CARE MS floor s/p intubation 09/19 s/p extubation 09/27 currently on 3.5 L O2 via NC tachypnea resolved , still hypoxic , easily desaturates titrate FiO2 to keep sat above 90% , CXR 09/29 with findings of PNA Venous Duplex BLE still pending CXR 10/01 - Slightly improved but still extensive bilateral infiltrates, MDI with spacer using IS CXR 10/03 unchanged : bilateral extensive airspace consolidation. The pleural spaces are clear. CXR 10/06 -Extensive bilateral infiltrates unchanged. CXR 10/09 noted, not significant changes CXR 10/12 no change CXR 10/13 no change SARS -CoV -2 by PCR 09/17 came back non detected repeated SARS-CoV-2 by PCR 09/20 positive, continue isolation repeated SARS-CoV-2 by PCR 09/29 still detected SARS-CoV-2 by PCR 10/04 still detected SARS-CoV-2 by PCR 10/09 still positive remains in isolation will get another CoVID testing ABG 10/14 with hypoxia on 2 L O2 while trying to wean O2 down CT chest with b ilateral nonspecific diffuse groundglass infiltrates and denser alveolar infiltrates throughout both lungs. Old granulomatous disease. venous Duplex BLE NGT s/p Plaquenil x5 days, completed ceftriaxone Doxy was dc was on Zosyn since 09/27 as per ID , SCX + Enterobacter, stool C dif -NGT, UCX -NGT Zosyn stopped and changed to cefepime and Flagyl till 10/09, completed abx prior completed Vanco remains afebrile , no leukocytosis plan was to speak with pharmacy if can get Tocoluzimab for her if clinically worse, however appears to be with clinical improvement BCX 09/17 NGTD Solumedrol tapered and dc 10/04 trend CRP, LDH, ferritin: 09/24 trending CRP, LDH IL-6 18.6 , prior IL-6 15.6 last CRP down to 1 DVT prophylaxis with Lovenox s/p gentle IV hydration creat down to normal, avoid nephrotoxics had severe odynophagia , possibly due to intubation , improving sore throat unable to do BSSE while in isolation tolerated soft diet , NGT was dc Cepacol lozenges prn mild hyperglycemia noted , probably due to steroids? on SSI/low dose, sensitive , HgA1c -6 - borderline DM, dc SS ( stable insulin), no concentrated sweets diet - prediabetic trend LFT , CK trended down, spoke with RN, continue PT, pt very deconditioned walk in the room, OOB to chair tid as tolerated, encourage activity case discussed and evaluated by supervising physician Mark Prado MD 10/17/19 1647: Subjective Allergies: Coded Allergies: No Known Allergies (Unverified , 09/18/19) Assessment/Plan Assessment/Plan Patient seen and examined with COMPUTER FIELD TECHNICIAN. I agree with the above assessment and plan. Neena Lees COMPUTER FIELD TECHNICIAN October 17, 2019 08:41 Mark Prado MD October 17, 2019 16:47
[2019-10-17] MEDS: Lactobacillus-GG tablet ORAL SCH (10:17)
[2019-10-17] MEDS ORDERED: PROVENTIL HFA6.7 G1 INH (10:22)
--- NOTE | 2019-10-18 03:30 | Discharge Summary ---
DATE OF ADMISSION: 09/18/2019 DATE OF DISCHARGE: 10/17/2019 PERTINENT HISTORY: Patient is a 49-year-old lady admitted with pneumonia and COVID-19 positive. She had increasing shortness of breath and hypoxemia. PERTINENT PHYSICAL FINDINGS: LUNGS: Showed tachypnea. No rales or rhonchi. HEART: Regular rhythm. ABDOMEN: Soft. EXTREMITIES: No edema. NEUROLOGIC: She is alert with no focal findings. COURSE IN THE HOSPITAL: The patient had diffuse infiltrates, increasing hypoxemia, and progressed to require intubation and ICU care. She was seen by Pulmonary and ID consultants and received empiric antibiotics. She also received hydroxychloroquine. The patient had a slow progress, but is able to be weaned from the respirator. She had generalized weakness and dyspnea on exertion and hypoxemia, off of oxygen for the rest of her hospital stay. She has intermittent diarrhea, which improved. Her overall situation improved and she was able to sit up in a chair and walked in the room, but had dyspnea on exertion. She had a prolonged hospital stay and infiltrates were persistent on CT scanning, but she did not require any further new medications or treatment and after discussion with the patient, her family, and the ed case manager, arrangements were made to discharge her home. Family were to take precautions for COVID-19. This was discussed with the daughter. The patient does have a separate room where she can stay to mitigate any transmission to the family. FINAL DIAGNOSES: 1. COVID-19 pneumonia. 2. Acute hypoxemic respiratory failure. 3. Gait disorder. 4. Episode of generalized weakness. DISCHARGE DISPOSITION: Home on oxygen 2 liters per nasal cannula and albuterol inhaler p.r.n. FOLLOW UP: With her PCP or any other physicians who saw her at [facility] as needed. Hung Zuniga M.D. DR: ORIN JOB#: [id number] CC:
== END 2019-10-17 12:40 | disposition home or self-care (01) | DRG 130 ==
LOC: EDBD 21:30 → EMR 22:10 → 2E 23:25 → EDBEDREQ 09-19 20:08 → 2E 09-19 21:39 → ICU 09-20 13:32 → 2W 10-02 11:20 → 2E 10-06 11:36 → 4E 10-07 17:35
PROC: 5A1955Z Respiratory Ventilation, Greater than 96 Consecutive Hours (ICD-10-PCS; principal; 2019-09-20)
PROC: 0BH17EZ Insertion of Endotracheal Airway into Trachea, Via Natural or Artificial Opening (ICD-10-PCS; principal; 2019-09-20)
DX: U07.1 COVID-19 (principal); J12.89 Other viral pneumonia; J80 Acute respiratory distress syndrome; A41.89 Other specified sepsis; E74.39 Other disorders of intestinal carbohydrate absorption; M62.82 Rhabdomyolysis; N17.9 Acute kidney failure, unspecified; R13.10 Dysphagia, unspecified; R19.7 Diarrhea, unspecified; R26.9 Unspecified abnormalities of gait and mobility; J96.01 Acute respiratory failure with hypoxia
CPT/HCPCS: 36415; 36600; 71045; 71250; 74018; 80048; 80053; 80202; 81001; 81003; 82550; 82570; 82728; 82803; 82962; 83036; 83520; 83615; 83735; 84100; 84300; 84443; 84550; 85007; 85025; 85379; 85651; 86140; 87040; 87070; 87086; 87181; 87205; 87324; 87635; 92610; 93005; 93970; 94002; 94003; 96365; 96368; 96372; 96375; 99291; J1815; J2405; J3490; J7030